=== PATIENT | male | born 1945 | race Caucasian/White ===

== ENCOUNTER 2019-11-23 09:07 | Outpatient (CLI) | payer MEDICARE, MEDICAID, SELFPAY ==
[2019-11-23 09:41] LABS: Basophils % 0.7 %; Eosinophils # 0.2 10^3/uL (0.0-0.8); Eosinophils % 3.7 %; Hematocrit 32.3 % (42.0-52.0); Hemoglobin 10.6 g/dL (11.7-16.6); Lymphocytes # 1.9 10^3/uL (0.8-4.8); Lymphocytes % 32.4 %; Mean Corpuscular HGB Conc 32.8 g/dL (30.0-36.0); Mean Corpuscular Volume 97.6 fL (80-94); Mean Platelet Volume 10.4 fL (7.4-10.4); Monocytes # 0.4 10^3/uL (0.2-0.9); Monocytes % 7.4 %; Neutrophils # 3.3 10^3/uL (1.8-7.7); Neutrophils % 55.3 %; Nucleated Red Blood Cells % 0 %; Platelet Count 289 10^3/cmm (130-400); Red Blood Count 3.31 10^6/uL (4.1-5.3); White Blood Count 5.9 10^3/uL (4.0-10.0)
--- NOTE | 2019-11-23 14:16 | ONC FU_ITS ---
Dr. Nguyen follow up note Patient: Seferino Barbosa Unit #: [id number]: 1945 Dicatated By: Rio Nguyen M.D.Date of Visit:Nov 23, 2019 Onc Med Follow-up/Prog Note History of Present Illness: Mr. Chelsey Gentile, 74-year-old gentleman with history of anemia in the past he was treated with oral iron many years ago but that turned his stool black colored, so he quit taking it. As per patient first-time he heard about his anemia was long time back, he said he used to donate plasma and one time he was informed about low blood counts. He has history of colon polyps for which he has undergone colonoscopy 4 times and last one was in October 2016 and polyp was removed otherwise rest of the exam was normal. Before that it was 4 years ago. Never had EGD done his CBC from 12/27/2016 showed hemoglobin 9.7 crit 30.1 platelets 480,000 white blood count 7.6 with normal differential CBC from 06/03/2017 showed hemoglobin 10.4 crit 31.9 platelets 288,000 white blood count 7.1 with a normal differential Injectafer was given on 01/28/2018 And on 04/17/2019 and 04/24/2019 And on 10/20/2019 Came for follow-up, denies any specific complaints, no fever or chills, no nausea or vomiting, no melena hematochezia, no jaundice, overall feeling better after dose of Injectafer. . Medications: Lisinopril 1 Tablet (of 10 mg) Oral daily, Melatonin 1 Tablet (of 40 mg) Capsule Oral at bedtime, SEROquel 1 Tablet (of 200 mg) Oral at bedtime Allergies: No Known Allergies. Review of Systems: Review of Systems is not available for this patient. Vital Signs: Performed on Nov 23, 2019 10:16 Height - 72.00 in Weight - 181.4 lbs (HIGH) BSA - 2.04 sq.m BMI - 24.60 Temperature - 97.6 F (LOW) Pulse - 72 /min Respiration - 16 /min BP - 176/90 mm(hg) (HIGH) O2 Sat - 98 % Pain - 5 Performance Status: 1 - No physically strenuous activity, but ambulatory and able to carry out light or sedentary work (e.g. office work, light house work). (ECOG) Physical Examination: ENMT - No oral exudates, ulcers, masses, thrush or mucositis. Oropharynx clear. Tongue normal, Respiratory - Lungs are clear to auscultation without rhonchi or wheezing, Cardiovascular - Regular rate and rhythm of heart, Abdomen - Non-tender, non-distended, Good bowel sounds. No guarding or rebound tenderness. No pulsatile masses, Extremities - no edema. Lab/Imaging: Test performed on Nov 23, 2019 09:17 WBC 5.9 10^9/L RBC 3.31 10^12/L HGB 10.6 g/dL HCT 32.3 % MCV 97.6 fl MCH 32.0 pg MCHC 32.8 g/dL RDW 14.0 % Platelet Count 289 10^9/L MPV 10.4 fL Neutrophils (Gran) 3.3 10^9/L Lymphocytes 1.9 10^9/L Monocytes 0.4 10^9/L Eosinophils 0.2 10^9/L Basophils 0.0 10^9/L Manual Lymphocytes 32.4 % Manual Monocytes 7.4 % Manual Eosinophils 3.7 % Manual Basophils 0.7 % NRBCs 0.0 /100 WBC Test performed on Oct 14, 2019 13:32 Ferritin 278.0 ng/ml Iron 51 ug/dL % Iron Saturation 18.2 % UIBC 229 ug/dL Neutrophil % 67.8 % Lymphocyte % 20.9 % Monocyte % 6.5 % Eosinophil % 3.7 % Basophils % 0.6 % Impression: 1. Normocytic normochromic anemia probably multifactorial including iron deficiency ( low ferritin) and/or underlying myelodysplasia cannot be ruled out or chronic blood loss probably from small bowel AVMs or gastric pathology or iron malabsorption. Anemia workup done on 06/03/2017 showed retic count 1.53 normal being 0.7-2.5 ferritin 27 normal being 30-400 TIBC 370 normal being 250-425 B12 416 normal being 211 -946 His iron studies done on 08/15/2017 showed TIBC gone up to 466.4 and ferritin came down to 26.9 while on oral iron supplements. 2. History of colon polyps removal status post colonoscopy ???4, last one in October 19 Last dose of Injectafer was given on 01/28/2018 Plan: Discussed with patient regarding his labs white blood count 5.9 hemoglobin 10.6 crit 32.3 platelets 289,000 Clinically, patient is doing well, more energetic, and follow-up CBC shows improvement in his hemoglobin 10.6 g compared to 10.1 prior to Injectafer given on 10/20/2019. Considering his age patient may have underlying myelodysplasia but patient has well compensated anemia and hemoglobin is improving so we'll continue to monitor return to clinic in 2 months with CBC and iron studies. Signed By: Rio Nguyen M.D. <<Signature on File>>
== END 2019-11-23 09:08 | disposition home or self-care (01) ==
LOC: ONCMED 09:07
PROVIDERS: Family Provider Internal Medicine; PCP Internal Medicine; Visit Provider Internal Medicine Hematology & Oncology
DX: D50.9 Iron deficiency anemia, unspecified (principal); Z86.010 Personal history of colon polyps
CPT/HCPCS: 85025; G0463

== ENCOUNTER 2020-04-06 13:02 | Outpatient (CLI) | payer MEDICARE, MEDICAID, SELFPAY ==
[2020-04-06 13:28] LABS: Basophils # 0.1 10^3/uL (0.0-0.1); Basophils % 0.9 %; Eosinophils # 0.2 10^3/uL (0.0-0.8); Hematocrit 30.9 % (42.0-52.0); Hemoglobin 10.2 g/dL (11.7-16.6); Lymphocytes # 2.7 10^3/uL (0.8-4.8); Lymphocytes % 29.1 %; Mean Corpuscular Hemoglobin 32.5 pg (28.0-34.0); Mean Corpuscular Volume 98.4 fL (80-94); Monocytes # 0.6 10^3/uL (0.2-0.9); Neutrophils # 5.7 10^3/uL (1.8-7.7); Neutrophils % 61.5 %; Nucleated Red Blood Cells % 0 %; Platelet Count 369 10^3/cmm (130-400); Red Blood Count 3.14 10^6/uL (4.1-5.3); White Blood Count 9.2 10^3/uL (4.0-10.0)
[2020-04-06 13:45] LABS: Ferritin 306 ng/mL (30-400); Iron 94 ug/dL (59-158); Percent Saturation 30.4 % (20-50); Total Iron Binding Capacity 309 mcg/dl; Unsaturated Iron Binding 215 ug/dL (112-347)
--- NOTE | 2020-04-06 15:11 | ONC FU_ITS ---
Dr. Nguyen follow up note Patient: Seferino Barbosa Unit #: [id number]: 1945 Dicatated By: Rio Nguyen M.D.Date of Visit:Apr 06, 2020 Onc Med Follow-up/Prog Note History of Present Illness: Mr. Chelsey Gentile, 74-year-old gentleman with history of anemia in the past he was treated with oral iron many years ago but that turned his stool black colored, so he quit taking it. As per patient first-time he heard about his anemia was long time back, he said he used to donate plasma and one time he was informed about low blood counts. He has history of colon polyps for which he has undergone colonoscopy 4 times and last one was in October 2016 and polyp was removed otherwise rest of the exam was normal. Before that it was 4 years ago. Never had EGD done his CBC from 12/27/2016 showed hemoglobin 9.7 crit 30.1 platelets 480,000 white blood count 7.6 with normal differential CBC from 06/03/2017 showed hemoglobin 10.4 crit 31.9 platelets 288,000 white blood count 7.1 with a normal differential Injectafer was given on 01/28/2018 And on 04/17/2019 and 04/24/2019 And on 10/20/2019 Came for follow-up, denies any specific complaints, no nausea or vomiting, no diarrhea or constipation, no melena or hematochezia, no jaundice, no hemoptysis or hematemesis, overall, feeling well . Medications: Lisinopril 1 Tablet (of 10 mg) Oral daily, Melatonin 1 Tablet (of 40 mg) Capsule Oral at bedtime, SEROquel 1 Tablet (of 200 mg) Oral at bedtime Allergies: No Known Allergies. Review of Systems: Review of Systems is not available for this patient. Vital Signs: Vitals are not available for this patient. Performance Status: 0 - Fully active, able to carry on all predisease activities without restrictions. (ECOG) Physical Examination: ENMT - no mouth sores, no thrush, no jaundice, Respiratory - Lungs are clear, Cardiovascular - Regular rate and rhythm of heart, Abdomen - soft, bowel sounds present, Extremities - no visible edema. Lab/Imaging: Test performed on Nov 23, 2019 09:17 WBC 5.9 10 3/uL RBC 3.31 10^12/L HGB 10.6 g/dL HCT 32.3 % MCV 97.6 fL MCH 32.0 pg MCHC 32.8 g/dL RDW 14.0 % Platelet Count 289 10 3/cmm MPV 10.4 fL Lymphocytes 1.9 10^9/L Neutrophils 0.0 10 3/uL Monocytes 0.4 10^9/L Eosinophils 0.2 10^9/L Basophils 0.0 10^9/L Neutrophil % 3.7 % Manual Lymphocytes 32.4 % Manual Monocytes 7.4 % Manual Eosinophils 3.7 % Manual Basophils 0.7 % NRBCs 0.0 /100 WBC Test performed on Oct 14, 2019 13:32 Ferritin 278.0 ng/ml Iron 51 ug/dL % Iron Saturation 18.2 % UIBC 229 ug/dL Lymphocyte % 20.9 % Monocyte % 6.5 % Eosinophil % 3.7 % Basophils % 0.6 % Impression: 1. Normocytic normochromic anemia probably multifactorial including iron deficiency ( low ferritin) and/or underlying myelodysplasia cannot be ruled out or chronic blood loss probably from small bowel AVMs or gastric pathology or iron malabsorption. Anemia workup done on 06/03/2017 showed retic count 1.53 normal being 0.7-2.5 ferritin 27 normal being 30-400 TIBC 370 normal being 250-425 B12 416 normal being 211 -946 His iron studies done on 08/15/2017 showed TIBC gone up to 466.4 and ferritin came down to 26.9 while on oral iron supplements. 2. History of colon polyps removal status post colonoscopy ???4, last one in October 19 Last dose of Injectafer was given on 01/28/2018 Plan: Discussed with patient regarding his labs white blood count 9.2 hemoglobin 10.2 hematocrit 30.9 platelets 369,000 iron studies within normal limits Clinically, patient is doing well with no new signs symptoms, his follow-up lab shows persistent but stable mild/moderate anemia but well compensated. His iron studies within normal range, we'll continue to monitor he will return to clinic in 3 months with CBC and iron studies and B12 level. Signed By: Rio Nguyen M.D. <<Signature on File>>
== END 2020-04-06 13:03 | disposition home or self-care (01) ==
LOC: ONCMED 13:05
PROVIDERS: PCP Internal Medicine; Visit Provider Internal Medicine Hematology & Oncology
DX: D50.9 Iron deficiency anemia, unspecified (principal); D46.9 Myelodysplastic syndrome, unspecified; E53.8 Deficiency of other specified B group vitamins
CPT/HCPCS: 82728; 83540; 83550; 85025; G0463

== ENCOUNTER 2021-01-31 15:59 | Inpatient (IN) | payer MEDICARE, MEDICAID, SELFPAY ==
[2021-01-31 16:01] VITALS: PULSE 91; RESP 18; TEMP 36.6; O2SAT 91; BMI 23.1
--- NOTE | 2021-01-31 16:32 | XR_ITS ---
WS: [id number] Portable AP upright chest, 01/31/2021 Clinical Data: dyspnea/cough Comparison: Portable chest, 08/01/2016. Findings: No nodules, masses or effusions are seen. The heart is normal. The pulmonary vascularity is not increased. No pneumonia or pneumothorax is seen. The aortic arch and descending aorta show tortu osity. XR/XR chest 1V portable [id number] Impression: Atherosclerosis.
--- NOTE | 2021-01-31 16:32 | ECG_ITS ---
[facility] Test Date: 2021-01-31 Pat Name: Seferino Barbosa Department: Room: Gender: Male [employer]: : 1945 Requested By: Ramiro Rodrigues Order Number: [id number] Reading MD: DEVEN MURDOCK Measurements Intervals [place] Rate: 72 P: 79 IA: 184 QRS: 71 QRSD: 88 T: 72 QT: 377 QTc: 415 Interpretive Statements SINUS RHYTHM Compared to ECG 08/01/2016 18:20:25 Sinus tachycardia no longer present Electronically Signed On 01-31-2021 20:16:35 CDT by DEVEN MURDOCK [id number]
--- NOTE | 2021-01-31 16:34 | ED_ITS ---
Documented by User: Ramiro Latham DO 02/06/21 08:31 HPI - Fall General: Chief Complaint: Fall Stated Complaint: FALL, LOC, VOMITING Time Seen by Provider: 01/31/21 15:59 History of Present Illness: HPI Narrative: 76-year-old male presents to the emergency room was complaint of a fall. He has a laceration above his right eye. He states he was sitting at a couch got lightheaded dizzy and fell he denies having any chest pain he had just been exerting himself. He denies taking any blood thinners. He has never previously had an episode like this before that he can recall. He is noted to be quite fidgety while I was taking history. He denies any alcohol or drug use. Patient has erratic irregular movements he appears to be under the influence of methamphetamine complaint: fall Onset (ago): minute(s) Fall from: standing Fall witnessed: yes, by family Place fall occurred: home Loss of consciousness: Unsure Prolonged down time: no Symptoms prior to fall: lightheadedness and dizziness Location of injury: head and face Severity: severe Quality: sharp Associated symptoms-after fall: Reports confusion, difficulty walking, lightheadedness, vertigo and weakness; Denies abdominal pain, chest pain, headache(s), hematuria, neck pain, numbness or short of breath Review of Systems Const: Denies: fever(s), chills, body aches, change in appetite, fatigue or malaise ENMT: Denies: throat pain, ear or mastoid pain, nasal discharge or nasal congestion Card: Reports: lightheadedness; Denies: chest pain Resp: Denies: dyspnea, productive cough or non-productive cough GI: Denies: abdominal pain : Denies: hematuria Musc: Denies: neck pain Skin/Breast: Denies: rash or pruritus Neuro: Reports: difficulty walking, vertigo and confusion; Denies: headache(s) PFSH ED PFSH: Medical History Abnormal colonoscopy Polyps removed: Tubular adenoma Anemia BPH (benign prostatic hyperplasia) COPD (chronic obstructive pulmonary disease) Erectile dysfunction Gout Hip osteoarthritis Hypertension Insomnia Thoracic outlet syndrome Bilateral cervical rib removed Surgical History H/O knee surgery History of appendectomy History of right hip replacement Family History Father Diabetes Denies family history of CAD (coronary artery disease) Social History Smoking and tobacco status: former smoker Alcohol intake: current Alcohol intake frequency: holidays/special occasions only Substance/Drug Use: current Substance/Drug use type: Marijuana and Methamphetamine Physical Exam Const: COMMON NORMALS: no acute distress GENERAL APPEARANCE: cooperative and comfortable HENMT: COMMON NORMALS: normocephalic, atraumatic, hearing grossly normal bilat erally, external ears normal, EAC's normal, TM's normal bilaterally, Normal nasal mucous membranes and turbinates present, moist oral mucous membranes and oropharynx normal HEAD & SCALP: normocephalic and atraumatic NOSE: Normal nasal mucous membranes and turbinates present EXTERNAL EAR: Yes external ears normal EXTERNAL AUDITORY CANAL: EAC's normal TYMPANIC MEMBRANE: TM's normal bilaterally Neck/C-Spine: COMMON NORMALS: full ROM, no lymphadenopathy, supple and no JVD Resp: COMMON NORMALS: normal respiratory effort, No retractions, No use of accessory muscles and clear to auscultation bilaterally AUSCULTATION: clear to auscultation bilaterally Cardio: COMMON NORMALS: no JVD, regular rate, regular rhythm and No murmurs present (Cardio) RATE: regular rate RHYTHM: regular rhythm GI: COMMON NORMALS: Soft to palpation and No hepatosplenomegaly present AUSCULTATION: Yes normoactive bowel sounds PALPATION: Yes Soft to palpation, No Tenderness to palpation present (GI), No Guarding due to palpation present (GI) and Yes No hepatosplenomegaly present Extremity: COMMON NORMALS: normal to inspection, capillary refill normal, no clubbing, cyanosis or edema, no calf tenderness and no pedal edema Skin: COMMON NORMALS: no rashes or lesions noted GENERAL SKIN EXAM: no rashes or lesions noted Course Vital Signs: Vital signs: Vital Signs Temperature 97.6 F 02/02/21 10:18 Pulse Rate 90 02/02/21 10:18 Respiratory Rate 18 02/02/21 10:18 Blood Pressure 109/83 02/02/21 10:18 Pulse Oximetry 98 02/02/21 10:18 MDM - Fall MDM Narrative: Medical decision making narrative: Patient has erratic behavior. He is disoriented. Advanced imaging pending. Care turned over to Dr. Orlando at change of shift laceration repaired by midlevel see their note. Lab Data: Labs: Lab Results 01/31/21 01/31/21 01/31/21 Range/Units 16:08 16:08 16:08 WBC 17.8 H (4.0-10.0) 10^3/ uL RBC 3.43 L (4.1-5.3) 10^6/u L Hgb 10.6 L (11.7-16.6) g/dL Hct 31.7 L (42.0-52.0) % MCV 92.4 (80-94) fL MCH 30.9 (28.0-34.0) pg MCHC 33.4 (30.0-36.0) g/dL RDW 13.9 (12.1-15.1) % Plt Count 577 H (130-400) 10^3/c mm MPV 10.3 (7.4-10.4) fL Neut % (Auto) 80.5 % Lymph % (Auto) 12.3 % Harding % (Auto) 5.9 % Eos % (Auto) 0.3 % Baso % (Auto) 0.3 % Neut # (Auto) 14.34 H (1.8-7.7) 10^3/u L Lymph # (Auto) 2.2 (0.8-4.8) 10^3/u L [place] # (Auto) 1.1 H (0.2-0.9) 10^3/u L Eos # (Auto) 0.1 (0.0-0.8) 10^3/u L Baso # (Auto) 0.1 (0.0-0.1) 10^3/u L Nucleated RBC % (a uto) 0 % Nucleated RBCs # 0.0 /100WBC Sodium 138 (136-145) mmol/L Potassium 4.1 (3.5-5.1) mmol/L Chloride 94 L (98-107) mmol/L Carbon Dioxide 29 (22-29) mmol/L Anion Gap 19.1 H (5-19) BUN 36 H (8-23) mg/dL Creatinine 2.0 H (0.7-1.2) mg/dL GFR Calculation Not Reportable Glucose 134 H (65-115) mg/dL POC Glucose (70-110) mg/dL Calculated Osmolal ity 296 H (285-295) mOsm/k g Calcium 10.1 (8.5-10.5) mg/dL Total Bilirubin 0.4 (0.15-1.2) mg/dL AST 20 (0-40) U/L ALT 13 (0-41) U/L Alkaline Phosphata se 84 (40-130) IU/L Creatine Kinase 281 (39-308) U/L Troponin T Baselin e 26 H (0-15) ng/L Troponin T 120 Min absentee-[place] (0-15) ng/L Delta Troponin T (0-10) ABS# Troponin T Hi Sens 6Hr (0-15) ng/L Troponin T Hi Sens 6Hr Delta (0-12) ng/L Total Protein 7.9 (6.6-8.7) g/dL Albumin 4.7 (3.5-5.2) g/dL Globulin 3.2 (1.3-4.6) g/dL Vitamin B12 (232-1245) pg/mL TSH (0.27-4.20) uIU/ mL Urine Color (Yellow) Urine Appearance (CLEAR) Urine pH (5-7) Ur Specific Gravit y (1.005-1.030) Urine Protein (Negative) Urine Glucose (UA) (Normal) Urine Ketones (Negative) Urine Blood (Negative) Urine Nitrate (Negative) Urine Bilirubin (Negative) Urine Urobilinogen (Negative) mg/dL Ur Leukocyte [place] ase (Negative) Urine RBC (0-2) /hpf Urine WBC (0-5) /hpf Ur Squamous Epith Cells (0-5) /hpf Amorphous Sediment Urine Bacteria (NONE) /hpf Hyaline Casts /lpf Urine Opiates Scre en (Negative) ng/mL Ur Barbiturates Sc reen (Negative) ng/mL Ur Phencyclidine S crn (Negative) ng/mL Ur Amphetamines Sc reen (Negative) ng/mL U Benzodiazepines Scrn (Negative) ng/mL Urine Cocaine Scre en (Negative) ng/mL U Marijuana (THC) Screen (Negative) ng/mL Ethyl Alcohol < 10 (0-10) mg/dL 01/31/21 01/31/21 01/31/21 Range/Units 18:08 18:08 18:11 WBC (4.0-10.0) 10^3/ uL RBC (4.1-5.3) 10^6/u L Hgb (11.7-16.6) g/dL Hct (42.0-52.0) % MCV (80-94) fL MCH (28.0-34.0) pg MCHC (30.0-36.0) g/dL RDW (12.1-15.1) % Plt Count (130-400) 10^3/c mm MPV (7.4-10.4) fL Neut % (Auto) % Lymph % (Auto) % [place] % (Auto) % Eos % (Auto) % Baso % (Auto) % Neut # (Auto) (1.8-7.7) 10^3/u L Lymph # (Auto) (0.8-4.8) 10^3/u L [place] # (Auto) (0.2-0.9) 10^3/u L Eos # (Auto) (0.0-0.8) 10^3/u L Baso # (Auto) (0.0-0.1) 10^3/u L Nucleated RBC % (a uto) % Nucleated RBCs # /100WBC Sodium (136-145) mmol/L Potassium (3.5-5.1) mmol/L Chloride (98-107) mmol/L Carbon Dioxide (22-29) mmol/L Anion Gap (5-19) BUN (8-23) mg/dL Creatinine (0.7-1.2) mg/dL GFR Calculation Glucose (65-115) mg/dL POC Glucose (70-110) mg/dL Calculated Osmolal ity (285-295) mOsm/k g Calcium (8.5-10.5) mg/dL Total Bilirubin (0.15-1.2) mg/dL AST (0-40) U/L ALT (0-41) U/L Alkaline Phosphata se (40-130) IU/L Creatine Kinase (39-308) U/L Troponin T Baselin e (0-15) ng/L Troponin T 120 Min absentee-[place]nee 21.68 H (0-15) ng/L Delta Troponin T -4.32 L (0-10) ABS# Troponin T Hi Sens 6Hr (0-15) ng/L Troponin T Hi Sens 6Hr Delta (0-12) ng/L Total Protein (6.6-8.7) g/dL Albumin (3.5-5.2) g/dL Globulin (1.3-4.6) g/dL Vitamin B12 (232-1245) pg/mL TSH (0.27-4.20) uIU/ mL Urine Color Yellow (Yellow) Urine Appearance Clear (CLEAR) Urine pH 6 (5-7) Ur Specific Gravit y 1.020 (1.005-1.030) Urine Protein 1+ H (Negative) Urine Glucose (UA) Norm (Normal) Urine Ketones 1+ H (Negative) Urine Blood Neg (Negative) Urine Nitrate Negative (Negative) Urine Bilirubin Neg (Negative) Urine Urobilinogen Norm (Negative) mg/dL Ur Leukocyte [place] ase Negative (Negative) Urine RBC 0-4 H (0-2) /hpf Urine WBC 0-4 H (0-5) /hpf Ur Squamous Epith Cells 0-4 H (0-5) /hpf Amorphous Sediment Not Reportable Urine Bacteria Trace (NONE) /hpf Hyaline Casts 0-4 H /lpf Urine Opiates Scre en Negative (Negative) ng/mL Ur Barbiturates Sc reen Negative (Negative) ng/mL Ur Phencyclidine S crn Negative (Negative) ng/mL Ur Amphetamines Sc reen Positive H (Negative) ng/mL U Benzodiazepines Scrn Negative (Negative) ng/mL Urine Cocaine Scre en Negative (Negative) ng/mL U Marijuana (THC) Screen Positive H (Negative) ng/mL Ethyl Alcohol (0-10) mg/dL 01/31/21 01/31/21 02/01/21 Range/Units 22:09 22:09 04:47 WBC 16.6 H (4.0-10.0) 10^3/ uL RBC 3.46 L (4.1-5.3) 10^6/u L Hgb 10.5 L (11.7-16.6) g/dL Hct 31.9 L (42.0-52.0) % MCV 92.2 (80-94) fL MCH 30.3 (28.0-34.0) pg MCHC 32.9 (30.0-36.0) g/dL RDW 14.0 (12.1-15.1) % Plt Count 445 H (130-400) 10^3/c mm MPV 10.2 (7.4-10.4) fL Neut % (Auto) 86.1 % Lymph % (Auto) 7.8 % Harding % (Auto) 5.1 % Eos % (Auto) 0.1 % Baso % (Auto) 0.4 % Neut # (Auto) 14.28 H (1.8-7.7) 10^3/u L Lymph # (Auto) 1.3 (0.8-4.8) 10^3/u L [place] # (Auto) 0.9 (0.2-0.9) 10^3/u L Eos # (Auto) 0.0 (0.0-0.8) 10^3/u L Baso # (Auto) 0.1 (0.0-0.1) 10^3/u L Nucleated RBC % (a uto) 0 % Nucleated RBCs # 0.0 /100WBC Sodium (136-145) mmol/L Potassium (3.5-5.1) mmol/L Chloride (98-107) mmol/L Carbon Dioxide (22-29) mmol/L Anion Gap (5-19) BUN (8-23) mg/dL Creatinine (0.7-1.2) mg/dL GFR Calculation Glucose (65-115) mg/dL POC Glucose (70-110) mg/dL Calculated Osmolal ity (285-295) mOsm/k g Calcium (8.5-10.5) mg/dL Total Bilirubin (0.15-1.2) mg/dL AST (0-40) U/L ALT (0-41) U/L Alkaline Phosphata se (40-130) IU/L Creatine Kinase (39-308) U/L Troponin T Baselin e (0-15) ng/L Troponin T 120 Min absentee-[place] (0-15) ng/L Delta Troponin T (0-10) ABS# Troponin T Hi Sens 6Hr 22.48 H (0-15) ng/L Troponin T Hi Sens 6Hr Delta -3.52 L (0-12) ng/L Total Protein (6.6-8.7) g/dL Albumin (3.5-5.2) g/dL Globulin (1.3-4.6) g/dL Vitamin B12 (232-1245) pg/mL TSH (0.27-4.20) uIU/ mL Urine Color (Yellow) Urine Appearance (CLEAR) Urine pH (5-7) Ur Specific Gravit y (1.005-1.030) Urine Protein (Negative) Urine Glucose (UA) (Normal) Urine Ketones (Negative) Urine Blood (Negative) Urine Nitrate (Negative) Urine Bilirubin (Negative) Urine Urobilinogen (Negative) mg/dL Ur Leukocyte [place] ase (Negative) Urine RBC (0-2) /hpf Urine WBC (0-5) /hpf Ur Squamous Epith Cells (0-5) /hpf Amorphous Sediment Urine Bacteria (NONE) /hpf Hyaline Casts /lpf Urine Opiates Scre en (Negative) ng/mL Ur Barbiturates Sc reen (Negative) ng/mL Ur Phencyclidine S crn (Negative) ng/mL Ur Amphetamines Sc reen (Negative) ng/mL U Benzodiazepines Scrn (Negative) ng/mL Urine Cocaine Scre en (Negative) ng/mL U Marijuana (THC) Screen (Negative) ng/mL Ethyl Alcohol < 10 (0-10) mg/dL 02/01/21 02/01/21 02/01/21 Range/Units 04:47 04:47 06:46 WBC (4.0-10.0) 10^3/ uL RBC (4.1-5.3) 10^6/u L Hgb (11.7-16.6) g/dL Hct (42.0-52.0) % MCV (80-94) fL MCH (28.0-34.0) pg MCHC (30.0-36.0) g/dL RDW (12.1-15.1) % Plt Count (130-400) 10^3/c mm MPV (7.4-10.4) fL Neut % (Auto) % Lymph % (Auto) % Harding % (Auto) % Eos % (Auto) % Baso % (Auto) % Neut # (Auto) (1.8-7.7) 10^3/u L Lymph # (Auto) (0.8-4.8) 10^3/u L [place] # (Auto) (0.2-0.9) 10^3/u L Eos # (Auto) (0.0-0.8) 10^3/u L Baso # (Auto) (0.0-0.1) 10^3/u L Nucleated RBC % (a uto) % Nucleated RBCs # /100WBC Sodium 140 (136-145) mmol/L Potassium 4.6 (3.5-5.1) mmol/L Chloride 97 L (98-107) mmol/L Carbon Dioxide 32 H (22-29) mmol/L Anion Gap 15.6 (5-19) BUN 36 H (8-23) mg/dL Creatinine 1.6 H (0.7-1.2) mg/dL GFR Calculation Not Reportable Glucose 110 (65-115) mg/dL POC Glucose 110 (70-110) mg/dL Calculated Osmolal ity 299 H (285-295) mOsm/k g Calcium 10.0 (8.5-10.5) mg/dL Total Bilirubin (0.15-1.2) mg/dL AST (0-40) U/L ALT (0-41) U/L Alkaline Phosphata se (40-130) IU/L Creatine Kinase (39-308) U/L Troponin T Baselin e (0-15) ng/L Troponin T 120 Min absentee-[place] (0-15) ng/L Delta Troponin T (0-10) ABS# Troponin T Hi Sens 6Hr (0-15) ng/L Troponin T Hi Sens 6Hr Delta (0-12) ng/L Total Protein (6.6-8.7) g/dL Albumin (3.5-5.2) g/dL Globulin (1.3-4.6) g/dL Vitamin B12 > 2000 H (232-1245) pg/mL TSH 2.87 (0.27-4.20) uIU/ mL Urine Color (Yellow) Urine Appearance (CLEAR) Urine pH (5-7) Ur Specific Gravit y (1.005-1.030) Urine Protein (Negative) Urine Glucose (UA) (Normal) Urine Ketones (Negative) Urine Blood (Negative) Urine Nitrate (Negative) Urine Bilirubin (Negative) Urine Urobilinogen (Negative) mg/dL Ur Leukocyte [place] ase (Negative) Urine RBC (0-2) /hpf Urine WBC (0-5) /hpf Ur Squamous Epith Cells (0-5) /hpf Amorphous Sediment Urine Bacteria (NONE) /hpf Hyaline Casts /lpf Urine Opiates Scre en (Negative) ng/mL Ur Barbiturates Sc reen (Negative) ng/mL Ur Phencyclidine S crn (Negative) ng/mL Ur Amphetamines Sc reen (Negative) ng/mL U Benzodiazepines Scrn (Negative) ng/mL Urine Cocaine Scre en (Negative) ng/mL U Marijuana (THC) Screen (Negative) ng/mL Ethyl Alcohol (0-10) mg/dL Discharge Plan Discharge Patient Disposition: Admitted As Inpatient Admit Provider: Haider Camp Clinical Impression: Altered mental status, Methamphetamine abuse, Fall Condition: Stable Discharge Activity: Increase activity as tolerated Coding Level of Care Code 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 [employer] Fwd Documented by User: Mirian Orlando MD 01/31/21 19:16 HPI - Fall General: Chief Complaint: Fall Stated Complaint: FALL, LOC, VOMITING Time Seen by Provider: 01/31/21 15:59 PFSH ED PFSH: Medical History Abnormal colonoscopy Polyps removed: Tubular adenoma Anemia BPH (benign prostatic hyperplasia) COPD (chronic obstructive pulmonary disease) Erectile dysfunction Gout Hip osteoarthritis Hypertension Insomnia Thoracic outlet syndrome Bilateral cervical rib removed Surgical History H/O knee surgery History of appendectomy History of right hip replacement Family History Father Diabetes Denies family history of CAD (coronary artery disease) Social History Smoking and tobacco status: former smoker Alcohol intake: current Alcohol intake frequency: holidays/special occasions only Substance/Drug Use: current Substance/Drug use type: Marijuana and Methamphetamine Course Vital Signs: Vital signs: Vital Signs Temperature 97.6 F 02/02/21 10:18 Pulse Rate 90 02/02/21 10:18 Respiratory Rate 18 02/02/21 10:18 Blood Pressure 109/83 02/02/21 10:18 Pulse Oximetry 98 02/02/21 10:18 MDM - Fall MDM Narrative: Medical decision making narrative: Patient presents with altered mental status along with a fall. He has been doing marijuana along with methamphetamine. He is agitated here and I did have a give him Ativan to sedate him. He has no signs of meningitis. I spoke to hospitalist will admit for his altered mental status likely caused from his drug use. Lab Data: Labs: Lab Results 01/31/21 01/31/21 01/31/21 Range/Units 16:08 16:08 16:08 WBC 17.8 H (4.0-10.0) 10^3/ uL RBC 3.43 L (4.1-5.3) 10^6/u L Hgb 10.6 L (11.7-16.6) g/dL Hct 31.7 L (42.0-52.0) % MCV 92.4 (80-94) fL MCH 30.9 (28.0-34.0) pg MCHC 33.4 (30.0-36.0) g/dL RDW 13.9 (12.1-15.1) % Plt Count 577 H (130-400) 10^3/c mm MPV 10.3 (7.4-10.4) fL Neut % (Auto) 80.5 % Lymph % (Auto) 12.3 % Hard[place] % (Auto) 5.9 % Eos % (Auto) 0.3 % Baso % (Auto) 0.3 % Neut # (Auto) 14.34 H (1.8-7.7) 10^3/u L Lymph # (Auto) 2.2 (0.8-4.8) 10^3/u L [place] # (Auto) 1.1 H (0.2-0.9) 10^3/u L Eos # (Auto) 0.1 (0.0-0.8) 10^3/u L Baso # (Auto) 0.1 (0.0-0.1) 10^3/u L Nucleated RBC % (a uto) 0 % Nucleated RBCs # 0.0 /100WBC Sodium 138 (136-145) mmol/L Potassium 4.1 (3.5-5.1) mmol/L Chloride 94 L (98-107) mmol/L Carbon Dioxide 29 (22-29) mmol/L Anion Gap 19.1 H (5-19) BUN 36 H (8-23) mg/dL Creatinine 2.0 H (0.7-1.2) mg/dL GFR Calculation Not Reportable Glucose 134 H (65-115) mg/dL POC Glucose (70-110) mg/dL Calculated Osmolal ity 296 H (285-295) mOsm/k g Calcium 10.1 (8.5-10.5) mg/dL Total Bilirubin 0.4 (0.15-1.2) mg/dL AST 20 (0-40) U/L ALT 13 (0-41) U/L Alkaline Phosphata se 84 (40-130) IU/L Creatine Kinase 281 (39-308) U/L Troponin T Baselin e 26 H (0-15) ng/L Troponin T 120 Min absentee-[place] (0-15) ng/L Delta Troponin T (0-10) ABS# Troponin T Hi Sens 6Hr (0-15) ng/L Troponin T Hi Sens 6Hr Delta (0-12) ng/L Total Protein 7.9 (6.6-8.7) g/dL Albumin 4.7 (3.5-5.2) g/dL Globulin 3.2 (1.3-4.6) g/dL Vitamin B12 (232-1245) pg/mL TSH (0.27-4.20) uIU/ mL Urine Color (Yellow) Urine Appearance (CLEAR) Urine pH (5-7) Ur Specific Gravit y (1.005-1.030) Urine Protein (Negative) Urine Glucose (UA) (Normal) Urine Ketones (Negative) Urine Blood (Negative) Urine Nitrate (Negative) Urine Bilirubin (Negative) Urine Urobilinogen (Negative) mg/dL Ur Leukocyte [place] ase (Negative) Urine RBC (0-2) /hpf Urine WBC (0-5) /hpf Ur Squamous Epith Cells (0-5) /hpf Amorphous Sediment Urine Bacteria (NONE) /hpf Hyaline Casts /lpf Urine Opiates Scre en (Negative) ng/mL Ur Barbiturates Sc reen (Negative) ng/mL Ur Phencyclidine S crn (Negative) ng/mL Ur Amphetamines Sc reen (Negative) ng/mL U Benzodiazepines Scrn (Negative) ng/mL Urine Cocaine Scre en (Negative) ng/mL U Marijuana (THC) Screen (Negative) ng/mL Ethyl Alcohol < 10 (0-10) mg/dL 01/31/21 01/31/21 01/31/21 Range/Units 18:08 18:08 18:11 WBC (4.0-10.0) 10^3/ uL RBC (4.1-5.3) 10^6/u L Hgb (11.7-16.6) g/dL Hct (42.0-52.0) % MCV (80-94) fL MCH (28.0-34.0) pg MCHC (30.0-36.0) g/dL RDW (12.1-15.1) % Plt Count (130-400) 10^3/c mm MPV (7.4-10.4) fL Neut % (Auto) % Lymph % (Auto) % [place] % (Auto) % Eos % (Auto) % Baso % (Auto) % Neut # (Auto) (1.8-7.7) 10^3/u L Lymph # (Auto) (0.8-4.8) 10^3/u L [place] # (Auto) (0.2-0.9) 10^3/u L Eos # (Auto) (0.0-0.8) 10^3/u L Baso # (Auto) (0.0-0.1) 10^3/u L Nucleated RBC % (a uto) % Nucleated RBCs # /100WBC Sodium (136-145) mmol/L Potassium (3.5-5.1) mmol/L Chloride (98-107) mmol/L Carbon Dioxide (22-29) mmol/L Anion Gap (5-19) BUN (8-23) mg/dL Creatinine (0.7-1.2) mg/dL GFR Calculation Glucose (65-115) mg/dL POC Glucose (70-110) mg/dL Calculated Osmolal ity (285-295) mOsm/k g Calcium (8.5-10.5) mg/dL Total Bilirubin (0.15-1.2) mg/dL AST (0-40) U/L ALT (0-41) U/L Alkaline Phosphata se (40-130) IU/L Creatine Kinase (39-308) U/L Troponin T Baselin e (0-15) ng/L Troponin T 120 Min absentee-[place] 21.68 H (0-15) ng/L Delta Troponin T -4.32 L (0-10) ABS# Troponin T Hi Sens 6Hr (0-15) ng/L Troponin T Hi Sens 6Hr Delta (0-12) ng/L Total Protein (6.6-8.7) g/dL Albumin (3.5-5.2) g/dL Globulin (1.3-4.6) g/dL Vitamin B12 (232-1245) pg/mL TSH (0.27-4.20) uIU/ mL Urine Color Yellow (Yellow) Urine Appearance Clear (CLEAR) Urine pH 6 (5-7) Ur Specific Gravit y 1.020 (1.005-1.030) Urine Protein 1+ H (Negative) Urine Glucose (UA) Norm (Normal) Urine Ketones 1+ H (Negative) Urine Blood Neg (Negative) Urine Nitrate Negative (Negative) Urine Bilirubin Neg (Negative) Urine Urobilinogen Norm (Negative) mg/dL Ur Leukocyte [place] ase Negative (Negative) Urine RBC 0-4 H (0-2) /hpf Urine WBC 0-4 H (0-5) /hpf Ur Squamous Epith Cells 0-4 H (0-5) /hpf Amorphous Sediment Not Reportable Urine Bacteria Trace (NONE) /hpf Hyaline Casts 0-4 H /lpf Urine Opiates Scre en Negative (Negative) ng/mL Ur Barbiturates Sc reen Negative (Negative) ng/mL Ur Phencyclidine S crn Negative (Negative) ng/mL Ur Amphetamines Sc reen Positive H (Negative) ng/mL U Benzodiazepines Scrn Negative (Negative) ng/mL Urine Cocaine Scre en Negative (Negative) ng/mL U Marijuana (THC) Screen Positive H (Negative) ng/mL Ethyl Alcohol (0-10) mg/dL 01/31/21 01/31/21 02/01/21 Range/Units 22:09 22:09 04:47 WBC 16.6 H (4.0-10.0) 10^3/ uL RBC 3.46 L (4.1-5.3) 10^6/u L Hgb 10.5 L (11.7-16.6) g/dL Hct 31.9 L (42.0-52.0) % MCV 92.2 (80-94) fL MCH 30.3 (28.0-34.0) pg MCHC 32.9 (30.0-36.0) g/dL RDW 14.0 (12.1-15.1) % Plt Count 445 H (130-400) 10^3/c mm MPV 10.2 (7.4-10.4) fL Neut % (Auto) 86.1 % Lymph % (Auto) 7.8 % [place] % (Auto) 5.1 % Eos % (Auto) 0.1 % Baso % (Auto) 0.4 % Neut # (Auto) 14.28 H (1.8-7.7) 10^3/u L Lymph # (Auto) 1.3 (0.8-4.8) 10^3/u L [place] # (Auto) 0.9 (0.2-0.9) 10^3/u L Eos # (Auto) 0.0 (0.0-0.8) 10^3/u L Baso # (Auto) 0.1 (0.0-0.1) 10^3/u L Nucleated RBC % (a uto) 0 % Nucleated RBCs # 0.0 /100WBC Sodium (136-145) mmol/L Potassium (3.5-5.1) mmol/L Chloride (98-107) mmol/L Carbon Dioxide (22-29) mmol/L Anion Gap (5-19) BUN (8-23) mg/dL Creatinine (0.7-1.2) mg/dL GFR Calculation Glucose (65-115) mg/dL POC Glucose (70-110) mg/dL Calculated Osmolal ity (285-295) mOsm/k g Calcium (8.5-10.5) mg/dL Total Bilirubin (0.15-1.2) mg/dL AST (0-40) U/L ALT (0-41) U/L Alkaline Phosphata se (40-130) IU/L Creatine Kinase (39-308) U/L Troponin T Baselin e (0-15) ng/L Troponin T 120 Min absentee-[place] (0-15) ng/L Delta Troponin T (0-10) ABS# Troponin T Hi Sens 6Hr 22.48 H (0-15) ng/L Troponin T Hi Sens 6Hr Delta -3.52 L (0-12) ng/L Total Protein (6.6-8.7) g/dL Albumin (3.5-5.2) g/dL Globulin (1.3-4.6) g/dL Vitamin B12 (232-1245) pg/mL TSH (0.27-4.20) uIU/ mL Urine Color (Yellow) Urine Appearance (CLEAR) Urine pH (5-7) Ur Specific Gravit y (1.005-1.030) Urine Protein (Negative) Urine Glucose (UA) (Normal) Urine Ketones (Negative) Urine Blood (Negative) Urine Nitrate (Negative) Urine Bilirubin (Negative) Urine Urobilinogen (Negative) mg/dL Ur Leukocyte [place] ase (Negative) Urine RBC (0-2) /hpf Urine WBC (0-5) /hpf Ur Squamous Epith Cells (0-5) /hpf Amorphous Sediment Urine Bacteria (NONE) /hpf Hyaline Casts /lpf Urine Opiates Scre en (Negative) ng/mL Ur Barbiturates Sc reen (Negative) ng/mL Ur Phencyclidine S crn (Negative) ng/mL Ur Amphetamines Sc reen (Negative) ng/mL U Benzodiazepines Scrn (Negative) ng/mL Urine Cocaine Scre en (Negative) ng/mL U Marijuana (THC) Screen (Negative) ng/mL Ethyl Alcohol < 10 (0-10) mg/dL 02/01/21 02/01/21 02/01/21 Range/Units 04:47 04:47 06:46 WBC (4.0-10.0) 10^3/ uL RBC (4.1-5.3) 10^6/u L Hgb (11.7-16.6) g/dL Hct (42.0-52.0) % MCV (80-94) fL MCH (28.0-34.0) pg MCHC (30.0-36.0) g/dL RDW (12.1-15.1) % Plt Count (130-400) 10^3/c mm MPV (7.4-10.4) fL Neut % (Auto) % Lymph % (Auto) % [place] % (Auto) % Eos % (Auto) % Baso % (Auto) % Neut # (Auto) (1.8-7.7) 10^3/u L Lymph # (Auto) (0.8-4.8) 10^3/u L [place] # (Auto) (0.2-0.9) 10^3/u L Eos # (Auto) (0.0-0.8) 10^3/u L Baso # (Auto) (0.0-0.1) 10^3/u L Nucleated RBC % (a uto) % Nucleated RBCs # /100WBC Sodium 140 (136-145) mmol/L Potassium 4.6 (3.5-5.1) mmol/L Chloride 97 L (98-107) mmol/L Carbon Dioxide 32 H (22-29) mmol/L Anion Gap 15.6 (5-19) BUN 36 H (8-23) mg/dL Creatinine 1.6 H (0.7-1.2) mg/dL GFR Calculation Not Reportable Glucose 110 (65-115) mg/dL POC Glucose 110 (70-110) mg/dL Calculated Osmolal ity 299 H (285-295) mOsm/k g Calcium 10.0 (8.5-10.5) mg/dL Total Bilirubin (0.15-1.2) mg/dL AST (0-40) U/L ALT (0-41) U/L Alkaline Phosphata se (40-130) IU/L Creatine Kinase (39-308) U/L Troponin T Baselin e (0-15) ng/L Troponin T 120 Min absentee-[place] (0-15) ng/L Delta Troponin T (0-10) ABS# Troponin T Hi Sens 6Hr (0-15) ng/L Troponin T Hi Sens 6Hr Delta (0-12) ng/L Total Protein (6.6-8.7) g/dL Albumin (3.5-5.2) g/dL Globulin (1.3-4.6) g/dL Vitamin B12 > 2000 H (232-1245) pg/mL TSH 2.87 (0.27-4.20) uIU/ mL Urine Color (Yellow) Urine Appearance (CLEAR) Urine pH (5-7) Ur Specific Gravit y (1.005-1.030) Urine Protein (Negative) Urine Glucose (UA) (Normal) Urine Ketones (Negative) Urine Blood (Negative) Urine Nitrate (Negative) Urine Bilirubin (Negative) Urine Urobilinogen (Negative) mg/dL Ur Leukocyte [place] ase (Negative) Urine RBC (0-2) /hpf Urine WBC (0-5) /hpf Ur Squamous Epith Cells (0-5) /hpf Amorphous Sediment Urine Bacteria (NONE) /hpf Hyaline Casts /lpf Urine Opiates Scre en (Negative) ng/mL Ur Barbiturates Sc reen (Negative) ng/mL Ur Phencyclidine S crn (Negative) ng/mL Ur Amphetamines Sc reen (Negative) ng/mL U Benzodiazepines Scrn (Negative) ng/mL Urine Cocaine Scre en (Negative) ng/mL U Marijuana (THC) Screen (Negative) ng/mL Ethyl Alcohol (0-10) mg/dL Imaging Data^: CT Head: Radiologist's impression: [address] [address] [address] Scan Report Signed Patient: Seferino Barbosa Unit #: [id number] : 1945 Age/Sex: 76 / M ADM Date: 01/31/21 Loc: ER Room/Bed: Attending Dr: Ordering Provider/Ordering MD: Ramiro Latham DO Date of Service: 01/31/21 Procedure(s): CT head wo con* [id number] Accession Number(s): [id number] Report Number: [id number] PROCEDURE INFORMATION: Exam: CT Head Without Contrast Exam date and time: 01/31/2021 4:36 PM Age: 76 years old Clinical indication: Altered mental status/memory loss; Additional info: AMS TECHNIQUE: Imaging protocol: Computed tomography of the head without contrast. Total images: 217 Radiation optimization: All CT scans at this facility use at least one of these dose optimization techniques: automated exposure control; mA and/or kV adjustment per patient size (includes targeted exams where dose is matched to clinical indication); or iterative reconstruction. COMPARISON: No relevant prior studies available. RADIATION DOSE METRICS: Total DLP (mGy-cm): 1542.24 FINDINGS: Brain: No evidence of active or acute intracranial pathologic process, hemorrhage, or trauma. Cerebral and cerebellar atrophy with ventricular dilatation slightly greater than that anticipated for patient's chronological age. No generalized cerebral edema. No mass effect. No midline shift. Mild small vessel ischemic disease with senile periventricular leukomalacia. No dense MCA or insular ribbon sign. Cerebral ventricles: No ventriculomegaly. Bones/joints: Unremarkable. No acute fracture. Paranasal sinuses: Visualized sinuses are unremarkable. No fluid levels. Mastoid air cells: Visualized mastoid air cells are well aerated. Soft tissues: Small right frontal scalp contusion/hematoma with soft tissue emphysema. CT/CT head wo con* [id number] IMPRESSION: 1. No evidence of active or acute intracranial pathologic process, hemorrhage, or trauma. 2. Small right frontal scalp contusion/hematoma with soft tissue emphysema. Radiation Dose CTDIVOL = (mGy): DLP = 1542.24 (mGy-cm) CXR: Attestation: I personally reviewed and interpreted this imaging study as follows: My impression: no acute abnormality EKG Data^: EKG 1: Attestation: I personally reviewed and interpreted this EKG as follows: EKG interpretation date: 01/31/21 EKG interpretation time: 17:16 Interpretation: nsr hr [address] or t wave abnormalities qrs 88 qtc 402 Discharge Plan Discharge Patient Disposition: Admitted As Inpatient Admit Provider: Haider Camp Clinical Impression: Altered mental status, Methamphetamine abuse, Fall Condition: Stable Discharge Activity: Increase activity as tolerated Coding Level of Care Code 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 Madelyng Karina
[2021-01-31 16:47] LABS: Basophils # 0.1 10^3/uL (0.0-0.1); Basophils % 0.3 %; Eosinophils # 0.1 10^3/uL (0.0-0.8); Eosinophils % 0.3 %; Hematocrit 31.7 % (42.0-52.0); Hemoglobin 10.6 g/dL (11.7-16.6); Lymphocytes # 2.2 10^3/uL (0.8-4.8); Lymphocytes % 12.3 %; Mean Corpuscular HGB Conc 33.4 g/dL (30.0-36.0); Mean Corpuscular Hemoglobin 30.9 pg (28.0-34.0); Mean Corpuscular Volume 92.4 fL (80-94); Mean Platelet Volume 10.3 fL (7.4-10.4); Monocytes # 1.1 10^3/uL (0.2-0.9); Monocytes % 5.9 %; Neutrophils # 14.34 10^3/uL (1.8-7.7); Neutrophils % 80.5 %; Nucleated Red Blood Cells % 0 %; Platelet Count 577 10^3/cmm (130-400); Red Blood Count 3.43 10^6/uL (4.1-5.3); Red Cell Distribution Width 13.9 % (12.1-15.1); White Blood Count 17.8 10^3/uL (4.0-10.0)
[2021-01-31 16:55] LABS: Alanine Aminotransferase 13 U/L (0-41); Albumin Level 4.7 g/dL (3.5-5.2); Alkaline Phosphatase 84 IU/L (40-130); Anion Gap 19.1 (5-19); Aspartate Amino Transferase 20 U/L (0-40); Blood Urea Nitrogen 36 mg/dL (8-23); Calcium 10.1 mg/dL (8.5-10.5); Carbon Dioxide 29 mmol/L (22-29); Chloride 94 mmol/L (98-107); Creatine Phosphokinase 281 U/L (39-308); Globulin 3.2 g/dL (1.3-4.6); Glucose 134 mg/dL (65-115); Osmolality Calculated 296 mOsm/kg (285-295); Potassium 4.1 mmol/L (3.5-5.1); Sodium 138 mmol/L (136-145); Total Bilirubin 0.4 mg/dL (0.15-1.2); Total Protein 7.9 g/dL (6.6-8.7); Troponin(5th) Baseline 26 ng/L (0-15)
[2021-01-31 16:57] LABS: Alcohol Level < 10 mg/dL (0-10)
[2021-01-31] MEDS: LORazepam 2 mg/mL INJ 1 mL 1 MG IVP ×2 (17:49→20:06)
[2021-01-31] MEDS: ondansetron 2 mg/ML SDV 2 mL 4 MG IVP (17:49)
[2021-01-31] MEDS: tetanus-diphtheria tox (adult) 0.5 mL SDV IM (17:50)
[2021-01-31 18:24] LABS: Amphetamines Screen Urine Positive (Negative); Barbiturates Screen Urine Negative (Negative); Benzodiazepines Screen Urine Negative (Negative); Cocaine Screen Urine Negative (Negative); Opiate Screen Urine Negative (Negative); PCP Screen Urine Negative (Negative); THC Screen Urine Positive (Negative)
[2021-01-31 18:28] LABS: Add Urine Microscopic? YES; Bacteria Urine TRACE /hpf; Bilirubin Urine Neg (Negative); Blood Urine Neg (Negative); Glucose Urine UA Norm (Normal); Hyaline Casts Urine 0-4 /lpf; Ketones Urine 1+ (Negative); Leukocyte Esterase Urine Negative (Negative); Nitrate Urine Negative (Negative); Protein Urine 1+ (Negative); RBC Urine 0-4 /hpf (0-2); Squamous Epithelial Cell Urine 0-4 /hpf (0-5); Urine Appearance Clear (CLEAR); Urine Color Yellow (Yellow); Urobilinogen Urine Norm (Negative); WBC Urine 0-4 /hpf (0-5); pH Urine 6 (5-7)
--- NOTE | 2021-01-31 18:32 | ECG_ITS ---
[facility] Test Date: 2021-01-31 Pat Name: Seferino Barbosa Department: Room: Gender: Male Closing Manager: : 1945 Requested By: Ramiro Rodrigues Order Number: [id number] Reading MD: DEVEN MURODCK Measurements Intervals [place] Rate: 70 P: 79 [place]: 196 QRS: 73 QRSD: 92 T: 59 QT: 394 QTc: 426 Interpretive Statements SINUS RHYTHM Compared to ECG 01/31/2021 17:16:28 No significant changes Electronically Signed On 01-31-2021 20:18:21 CDT by DEVEN MURDOCK [id number]
[2021-01-31 18:45] LABS: Troponin 5 2HR 21.68 ng/L (0-15)
[2021-01-31 18:49] LABS: Troponin 5 2HR Delta -4.32 ABS# (0-10)
--- NOTE | 2021-01-31 19:15 | P.HP_ITS ---
Providers/Chief Complaint Primary Care Provider: Stephan Fink DO Chief Complaint: FALL, LOC, VOMITING History of Present Illness Seferino Barbosa is a 76 year old male who presented today with a fall and altered mental status. Patient was very agitated, he was experiencing akathisia when entered the room however verbally redirectable. Patient is stating that he does marijuana and sometimes methamphetamine however he did not specify how he takes methamphetamine when I asked multiple times. He stating that today he was trying to get up and probably try to get up too fast lost his balance and fell on the ground and hit his head. He did not endorse chest pain, shortness of breath, nausea, vomiting however history was limited because of his restlessness. No family at the bedside I also tried to call the phone number which was given in the facesheet however it went to voicemail. He was given Haldol and Ativan in the ER, he was put on one-to-one supervision because he was trying to get up sit at the bedside, high risk of falls Diagnosis in the ER revealed new tox positive for methamphetamine and marijuana alcohol level is pending patient denied alcohol usage, he endorsed smoking on daily basis. UA unremarkable, NAVID on BMP, leukocytosis but stable hemoglobin of 10.6 for chronic normocytic anemia Review of Systems Const: Reports: body aches and fatigue Eyes: Reports: photophobia; Denies: change in vision ENMT: Denies: throat pain Card: Denies: chest pain Resp: Denies: dyspnea GI: Denies: abdominal pain : Denies: flank pain Musc: Denies: neck pain Skin/Breast: Denies: rash Neuro: Denies: headache(s) Psych: Reports: anxiety Endo: Denies: polyuria Antonio/Lymph: Denies: easy bruising All/Imm: Denies: urticaria Medications/Allergies Home Medications Medication Instructions Recorded Confirmed Last Taken Type baclofen 5 mg PO BID 01/31/21 01/31/21 Unknown History losartan 25 mg PO DAILY 01/31/21 01/31/21 Unknown History quetiapine 200 mg PO DAILY 01/31/21 01/31/21 Unknown History Allergies Allergy/AdvReac Type Severity Reaction Status Date / Time No Known Allergies Allergy Verified 01/31/21 16:06 PFSH Acute PFSH: Medical History Abnormal colonoscopy Polyps removed: Tubular adenoma Anemia BPH (benign prostatic hyperplasia) COPD (chronic obstructive pulmonary disease) Erectile dysfunction Gout Hip osteoarthritis Hypertension Insomnia Thoracic outlet syndrome Bilateral cervical rib removed Surgical History H/O knee surgery History of appendectomy History of right hip replacement Family History Father Diabetes Denies family history of CAD (coronary artery disease) Social History Smoking and tobacco status: former smoker Alcohol intake: current Alcohol intake frequency: holidays/special occasions only Substance/Drug Use: current Substance/Drug use type: Marijuana and Methamphetamine Vitals/I&O/Wt Last Vital Signs Temp 97.8 F 01/31/21 16:01 Pulse 91 01/31/21 16:01 Resp 18 01/31/21 16:01 Pulse Ox 91 01/31/21 16:01 Weight last 48 hrs Weight 79.379 kg Physical Exam Narrative: EXAM NARRATIVE: Patient was in one-to-one supervision He was very restless, akathisia noticed, choreoathetoid movements of arms and extremities However verbally redirectable He answered my questions appropriately was able to give above HPI He was consistently trying to get up and sit at the bedside He has 3 stitches on his right side of forehead No acute neurological deficit Bilateral dilated pupils S1, S2 sinus tachycardia Clinically looks dehydrated and emaciated Nontender abdomen Lower extremity no edema gangrene ulcer Anxious irritable mood Data : 01/31/21 16:08 01/31/21 16:08 A&P Assessment and plan (1) Altered mental status: Status: Acute (2) Polysubstance abuse: Status: Acute (3) NAVID (acute kidney injury): Status: Acute (4) Hematoma: Status: Acute (5) Fall: Status: Acute (6) Methamphetamine abuse: Status: Acute (7) Altered mental status: Status: Acute Qualifiers: Altered mental status type: unspecified Qualified Code(s): R41.82 - Altered mental status, unspecified Additional A&P Information Fall due to polysubstance abuse Tox positive for amphetamine and THC I would add thiamine and folic acid along Ativan for as needed usage I would only use Haldol for as needed usage I would avoid scheduling it for now, QTC 426 CT head revealed hematoma right frontal area, status post 3 stitches no active bleeding Chest x-ray unremarkable however it shows pulmonary nodules EKG shows sinus rhythm, his fall was secondary to polysubstance abuse highly doubt cardiac etiology or PE at this point, no signs of meningitis NAVID Clinically looks dehydrated and emaciated We will keep him on maintenance fluid overnight Hold losartan BPH: I do not see tamsulosin in his home medications, will do bladder scan as needed Chronic normocytic anemia: Hemoglobin stable continue iron supplementation Full code Cardiac diet DVT prophylaxis SCDs would avoid anticoagulation due to hematoma Attestations Medical Necessity Statement*: Anticipating discharge in less than 48 hours continued overnight monitoring because of polysubstance abuse fall and NAVID currently dehydrated will need IV fluids Time Spent in Patient Care: (>than 50% of time spent in counselling and/or direct pt care on unit) . 40mins Coding Level of Care Code Acute Senior Web Services Developer for Javier Collins Diagnoses Altered mental status R41.82 Polysubstance abuse F19.10 NAVID (acute kidney injury) N17.9 Hematoma T14.8XXA Fall W19.XXXA Methamphetamine abuse F15.10 Altered mental status R41.82 Altered mental status type: unspecified
[2021-01-31] MEDS: LORazepam 2 mg/mL INJ 1 mL IM (21:38)
[2021-01-31] MEDS: LORazepam 2 mg/mL INJ 1 mL 0.5 MG IVP (21:40)
[2021-01-31] MEDS: haloperidol inj 5 mg/mL INJ 1 mL IM (21:42)
--- NOTE | 2021-01-31 22:25 | PC.NURSE ---
2 mg Ativan and 5 mg Haldol over ridden due to pt condition
[2021-01-31 22:30] LABS: Troponin 5 6HR 22.48 ng/L (0-15)
[2021-01-31 22:31] VITALS: BP 154/78; PULSE 77; O2SAT 90
[2021-01-31 22:33] LABS: Alcohol Level < 10 mg/dL (0-10); Troponin 5 6HR Delta -3.52 ng/L (0-12)
[2021-01-31 22:46] VITALS: BP 137/72; PULSE 69; RESP 14; TEMP 36.1; O2SAT 98
[2021-01-31 23:59] VITALS: BP 143/75; PULSE 69; RESP 16; TEMP 36.1; O2SAT 91
[2021-02-01] MEDS: LORazepam 2 mg/mL INJ 1 mL 0.5 MG IVP ×2 (02:31→08:37)
[2021-02-01 04:00] VITALS: BP 140/88; PULSE 93; RESP 18; TEMP 36.3; O2SAT 95
[2021-02-01] MEDS: sodium chloride 0.9% 1,000 ML 75 ML IV (04:47)
[2021-02-01 05:07] LABS: Basophils # 0.1 10^3/uL (0.0-0.1); Basophils % 0.4 %; Eosinophils % 0.1 %; Hematocrit 31.9 % (42.0-52.0); Hemoglobin 10.5 g/dL (11.7-16.6); Lymphocytes # 1.3 10^3/uL (0.8-4.8); Lymphocytes % 7.8 %; Mean Corpuscular HGB Conc 32.9 g/dL (30.0-36.0); Mean Corpuscular Hemoglobin 30.3 pg (28.0-34.0); Mean Corpuscular Volume 92.2 fL (80-94); Mean Platelet Volume 10.2 fL (7.4-10.4); Monocytes # 0.9 10^3/uL (0.2-0.9); Monocytes % 5.1 %; Neutrophils # 14.28 10^3/uL (1.8-7.7); Neutrophils % 86.1 %; Nucleated Red Blood Cells % 0 %; Platelet Count 445 10^3/cmm (130-400); Red Blood Count 3.46 10^6/uL (4.1-5.3); White Blood Count 16.6 10^3/uL (4.0-10.0)
[2021-02-01 05:30] LABS: Blood Urea Nitrogen 36 mg/dL (8-23); Carbon Dioxide 32 mmol/L (22-29); Chloride 97 mmol/L (98-107); Glucose 110 mg/dL (65-115); Osmolality Calculated 299 mOsm/kg (285-295); Sodium 140 mmol/L (136-145)
[2021-02-01 05:47] LABS: Anion Gap 15.6 (5-19); Potassium 4.6 mmol/L (3.5-5.1)
[2021-02-01 07:06] LABS: Glucose Point of Care 110 mg/dL (70-110)
[2021-02-01 07:24] VITALS: BP 132/83; PULSE 80; RESP 18; TEMP 36.9; O2SAT 90
[2021-02-01] MEDS: thiamine 100 mg Tablet PO (08:37)
[2021-02-01] MEDS: folic acid 1 mg Tablet PO (08:37)
[2021-02-01 12:00] VITALS: RESP 19; O2SAT 90
--- NOTE | 2021-02-01 13:28 | P.PN_ITS ---
Subjective Subjective: Interval history: Seferino was sleeping this morning when I visited with him. He just got some Ativan for some hallucinations. I came back and saw him again in the afternoon and he has responsive, but slow to respond. He is still somewhat confused. He could not remember the name of his son quickly. He denies any focal deficits. He reports no significant pain. He admits to amphetamine and marijuana use. History and physical reviewed. Medications: Reviewed: Yes Vitals/I&O/Wt Last Vital Signs Temp 98.4 F 02/01/21 07:24 Pulse 80 02/01/21 07:24 Resp 18 02/01/21 07:24 BP 132/83 02/01/21 07:24 Pulse Ox 90 02/01/21 07:24 01/31/21 02/01/21 02/01/21 22:59 06:59 14:59 Intake Total 120 / 120 340 / 340 Balance 120 / 120 340 / 340 Weight last 48 hrs Weight 79.379 kg Physical Exam Narrative: EXAM NARRATIVE: General exam is a white male with occasional jerks/tremor, oriented to person and place currently HEENT: Hematoma noted on forehead Neck is supple no lymphadenopathy or thyromegaly Cardiovascular regular rate and rhythm without murmur Lungs clear Abdomen is soft nontender positive bowel sounds Extremities no cyanosis clubbing or edema Data : 02/01/21 04:47 02/01/21 04:47 A&P Assessment and plan (1) Altered mental status: Consistent with acute toxic encephalopathy presumably secondary to methamphetamine. Improving but still with some confusion. Not yet safe to be discharged. Check TSH and B12. Status: Acute (2) Polysubstance abuse: Discussed with patient. Will have discharge planning offer rehabilitation services. Status: Acute (3) NAVID (acute kidney injury): Hydration Check renal function tomorrow Status: Acute (4) Hematoma: Stable currently Status: Acute (5) Fall: Status: Acute (6) Methamphetamine abuse: Status: Acute Additional A&P Information History of hypertension. Holding losartan currently Anemia, stable History of BPH. Bladder scan as needed Full code SCDs for DVT prophylaxis Change to regular admission Attestations Medical Necessity Statement*: Needs continued hospitalization secondary to persistent encephalopathy from amphetamine use. Coding Level of Care Code Acute Operations Supervisor 2Nd Shift for rigo Collins Diagnoses Altered mental status R41.82 Polysubstance abuse F19.10 NAVID (acute kidney injury) N17.9 Hematoma T14.8XXA Fall W19.XXXA Methamphetamine abuse F15.10
[2021-02-01 14:39] LABS: Thyroid Stimulating Hormone 2.87 uIU/mL (0.27-4.20)
[2021-02-01 14:46] LABS: Vitamin B12 > 2000 pg/mL (232-1245)
[2021-02-01] MEDS: sodium chloride 0.9% 1,000 ML 100 ML IV (15:46)
[2021-02-01 15:55] VITALS: BP 168/68; PULSE 86; RESP 16; TEMP 36.7; O2SAT 97
--- NOTE | 2021-02-01 16:39 | PC.RESP ---
Pulmonary Rehab information sent to patient.
[2021-02-01] MEDS: quetiapine 100 mg Tablet 200 MG PO (19:20)
[2021-02-01] MEDS: tamsulosin 0.4 mg Capsule PO (19:42)
[2021-02-01 20:00] VITALS: BP 163/76; PULSE 89; RESP 18; TEMP 36.5; O2SAT 93
[2021-02-01 23:59] VITALS: BP 149/77; PULSE 77; RESP 18; TEMP 36.6; O2SAT 98
[2021-02-02] MEDS: sodium chloride 0.9% 1,000 ML 100 ML IV (01:09)
[2021-02-02 03:38] VITALS: BP 135/63; PULSE 77; RESP 18; TEMP 36.4; O2SAT 94
[2021-02-02 05:34] LABS: Basophils # 0.1 10^3/uL (0.0-0.1); Basophils % 0.5 %; Eosinophils # 0.2 10^3/uL (0.0-0.8); Eosinophils % 1.1 %; Hematocrit 27.7 % (42.0-52.0); Lymphocytes # 1.6 10^3/uL (0.8-4.8); Lymphocytes % 11.5 %; Mean Corpuscular HGB Conc 32.5 g/dL (30.0-36.0); Mean Corpuscular Hemoglobin 30.4 pg (28.0-34.0); Mean Corpuscular Volume 93.6 fL (80-94); Mean Platelet Volume 10.1 fL (7.4-10.4); Monocytes % 7.1 %; Neutrophils # 10.76 10^3/uL (1.8-7.7); Neutrophils % 79.4 %; Nucleated Red Blood Cells % 0 %; Platelet Count 369 10^3/cmm (130-400); Red Blood Count 2.96 10^6/uL (4.1-5.3); Red Cell Distribution Width 14.1 % (12.1-15.1); White Blood Count 13.6 10^3/uL (4.0-10.0)
[2021-02-02 06:40] LABS: Alanine Aminotransferase 12 U/L (0-41); Albumin Level 3.8 g/dL (3.5-5.2); Alkaline Phosphatase 69 IU/L (40-130); Anion Gap 13.5 (5-19); Aspartate Amino Transferase 20 U/L (0-40); Blood Urea Nitrogen 22 mg/dL (8-23); Calcium 8.7 mg/dL (8.5-10.5); Carbon Dioxide 27 mmol/L (22-29); Chloride 103 mmol/L (98-107); Globulin 2.5 g/dL (1.3-4.6); Glucose 100 mg/dL (65-115); Osmolality Calculated 293 mOsm/kg (285-295); Potassium 3.5 mmol/L (3.5-5.1); Sodium 140 mmol/L (136-145); Total Bilirubin 0.3 mg/dL (0.15-1.2); Total Protein 6.3 g/dL (6.6-8.7)
[2021-02-02 07:17] VITALS: BP 152/75; PULSE 83; RESP 18; TEMP 36.6; O2SAT 95
[2021-02-02] MEDS: tamsulosin 0.4 mg Capsule PO (08:38)
[2021-02-02] MEDS: folic acid 1 mg Tablet PO (08:39)
[2021-02-02] MEDS: thiamine 100 mg Tablet PO (08:39)
--- NOTE | 2021-02-02 08:45 | PC.NURSE ---
Pt A&O, states I'm leaving if the Dr isn't in here at 0900. I feel much better now. Dr. Penaloza notified.
--- NOTE | 2021-02-02 09:25 | PM.DCS ---
Discharge Providers Date of Admission: 02/01/21 13:31 Date of Discharge: February 02, 2021 Attending Provider at Admission: Haider Camp MD Attending Provider at Discharge: Austen Penaloza MD Primary Care Provider: Stephan Fink DO Diagnoses at Discharge Discharge Diagnosis (1) Altered mental status: Status: Acute (2) Polysubstance abuse: Status: Acute (3) NAVID (acute kidney injury): Status: Acute (4) Hematoma: Status: Acute (5) Fall: Status: Acute (6) Methamphetamine abuse: Status: Acute Reason for Visit Reason for Visit: FALL, LOC, VOMITING Hospital Course Hospital Course Seferino presented to the hospital with confusion, fall. He sustained a closed head injury, and a laceration to his frontal scalp. This was sutured in the emergency department. CT scan did not demonstrate any intracranial hemorrhage. During evaluation it was found that he had used some methamphetamine and THC which he admitted to. Secondary to the toxic encephalopathy that was present he was initially admitted as an observation. He also had acute kidney injury that warranted monitoring. The following day, with hydration and time his renal function had improved somewhat but was not back to baseline. He still had significant encephalopathy, with slow responses and confusion. Therefore he was continued to be monitored until the following day with supportive care, including IV fluids. On February 02 his renal function was back to normal. He was alert and oriented x3 and back to his baseline mental status. He was offered rehabilitation which he refused. He denied any suicidal or homicidal ideation. I offered to call his family which she refused. He made it clear on discharge that he did not want his medical record going to his primary care provider as well. I discussed with him he would need his sutures out in approximately 3 to 4 days and he reported he was going to take these out himself. Counseling regarding infection and complications occurred. Physical Exam Narrative: EXAM NARRATIVE: General exam no apparent distress Cardiovascular regular rate and rhythm without murmur Lungs clear Abdomen is soft with positive bowel sounds Extremities no cyanosis clubbing or edema Discharge Data Data Completed and Pending: Completed Studies During Hospitalization Category Date Time Status CT head wo con* 7 0450 Stat Cat Scan 01/31/21 16:32 Completed XR chest 1V claudette ble [id number] Stat Exams 01/31/21 16:32 Completed Labs from last 24 hours 02/02/21 02/02/21 02/01/21 05:04 05:04 04:47 WBC 13.6 H RBC 2.96 L Hgb 9.0 L Hct 27.7 L MCV 93.6 MCH 30.4 MCHC 32.5 RDW 14.1 Plt Count 369 MPV 10.1 Neut % (Auto) 79.4 Lymph % (Auto) 11.5 [place] % (Auto) 7.1 Eos % (Auto) 1.1 Baso % (Auto) 0.5 Neut # (Auto) 10.76 H Lymph # (Auto) 1.6 [place] # (Auto) 1.0 H Eos # (Auto) 0.2 Baso # (Auto) 0.1 Nucleated RBC % (a uto) 0 Nucleated RBCs # 0.0 Sodium 140 Potassium 3.5 Chloride 103 Carbon Dioxide 27 Anion Gap 13.5 BUN 22 Creatinine 1.0 GFR Calculation Not Reportable Glucose 100 Calculated Osmolal ity 293 Calcium 8.7 Total Bilirubin 0.3 AST 20 ALT 12 Alkaline Phosphata se 69 Total Protein 6.3 L Albumin 3.8 Globulin 2.5 Vitamin B12 > 2000 H TSH 2.87 Vitals: Last Vital Signs Temp 97.9 F 02/02/21 07:17 Pulse 83 02/02/21 07:17 Resp 18 02/02/21 07:17 BP 152/75 02/02/21 07:17 Pulse Ox 95 02/02/21 07:17 Discharge Plan Discharge Patient Disposition: Home Condition: Stable Prescriptions: Continued quetiapine 200 mg tablet 200 mg PO DAILY RF: 0 losartan 25 mg tablet 25 mg PO DAILY RF: 0 baclofen 5 mg tablet 5 mg PO BID RF: 0 Discharge Orders: Discharge Order (Routine); Ordered 02/02/21 Ordered By: Austen Penaloza Referrals: Stephan Fink DO [Physician] - 02/08/21 3:15 pm Discharge Activity: Increase activity as tolerated Patient Instructions: Methamphetamine Abuse (DC), Altered Mental Status (GEN), Fall Prevention (DC) Activity Restrictions/Additional Instructions: No drug use Keep follow-up with primary care provider Discharge Attestations Time Spent in Discharge Care*: greater than 30 min Quality Metrics Clinical Quality Measures During this hospital stay, did patient experience: None Coding Level of Care Code Acute Chg FW DC note Diagnoses Altered mental status R41.82 Polysubstance abuse F19.10 NAVID (acute kidney injury) N17.9 Hematoma T14.8XXA Fall W19.XXXA Methamphetamine abuse F15.10
[2021-02-02 10:18] VITALS: BP 109/83; PULSE 90; RESP 18; TEMP 36.4; O2SAT 98
--- NOTE | 2021-02-02 10:38 | PC.NURSE ---
Discharge assessment completed on patient. He is alert and oriented x4 but is very anxious to leave. He states that he had talked to James earlier and that he was going to be coming to get him after d/c. He asked if we had James's number, I informed him I would look after we complete his d/c paperwork. I reviewed d/c information with patient, including medications (with no changes) and he verbalizes understanding and denies having any questions/concerns regarding medications. I provided education on care of his laceration with suture placement to his right forehead as follows: keep clean with antibacterial soap and water and keep dry. Do not cover or apply ointment. I also reviewed the appointment for f/u wit his PCP Dr. Fink. He is concerned with Dr. Fink obtaining his information from this hospitalization regarding his methamphetamine use. I assured him we would not send any information that he did not wish to be sent. Patient signed discharged education and denies further questions or concerns with his diagnoses or discharge instructions. I called and spoke with Aga Umana, Director of HIM and inquired about ensuring medical records are not sent to the patient. She states that she will ensure this happens. No further issues noted at this time.
== END 2021-02-02 10:53 | disposition home or self-care (01) | DRG 917 ==
LOC: ER 19:50 → MEDSURG 02-01 07:05
PROVIDERS: Family Medicine; Admitting Provider Internal Medicine; Emergency Provider Emergency Medicine; Visit Provider Internal Medicine
DX: T43.621A Poisoning by amphetamines, accidental (unintentional), initial encounter (principal); G92 Toxic encephalopathy; N17.9 Acute kidney failure, unspecified; F15.10 Other stimulant abuse, uncomplicated; F12.90 Cannabis use, unspecified, uncomplicated; F17.210 Nicotine dependence, cigarettes, uncomplicated; D64.9 Anemia, unspecified; N40.0 Benign prostatic hyperplasia without lower urinary tract symptoms; J44.9 Chronic obstructive pulmonary disease, unspecified; N52.9 Male erectile dysfunction, unspecified; M10.9 Gout, unspecified; I10 Essential (primary) hypertension; G47.00 Insomnia, unspecified; Z96.641 Presence of right artificial hip joint; E86.0 Dehydration; S00.03XA Contusion of scalp, initial encounter; W18.30XA Fall on same level, unspecified, initial encounter
CPT/HCPCS: 36415; 36416; 70450; 71045; 80048; 80053; 80306; 80307; 81001; 82550; 82607; 82962; 84443; 84484; 85025; 90471; 90714; 93005; 96361; 96372; 96374; 96375; 96376; 99285; G0378; J1630; J2060; J2405; J7030

== ENCOUNTER 2021-05-14 09:40 | Inpatient (IN) | payer MEDICARE, MEDICAID, SELFPAY ==
[2021-05-14] VITALS (10 sets, daily range): BP systolic 104–173; BP diastolic 66–117; PULSE 80–105; RESP 15–20; TEMP 36.9–37.3; O2SAT 92–99; BMI 23.1
--- NOTE | 2021-05-14 09:50 | CTR_ITS ---
PROCEDURE INFORMATION: Exam: CT Head Without Contrast Exam date and time: 05/14/2021 9:50 AM Age: 76 years old Clinical indication: Altered mental status/memory loss; Additional info: AMS TECHNIQUE: Imaging protocol: Computed tomography of the head without contrast. Radiation optimization: All CT scans at this facility use at least one of these dose optimization techniques: automated exposure control; mA and/or kV adjustment per patient size (includes targeted exams where dose is matched to clinical indication); or iterative reconstruction. COMPARISON: CT head wo con* [id number] 01/31/2021 5:13 PM RADIATION DOSE METRICS: Total DLP (mGy-cm): 976.97 FINDINGS: Brain: No hemorrhage, mass effect or midline shift. No acute, major vascular distribution infarction identified. There is foci of decreased attenuation in the periventricular and subcortical white matter, likely representing chronic small vessel ischemic changes. Mild cerebral volume loss is present. No intra-axial or extra-axial fluid collection seen. Cerebral ventricles: No ventriculomegaly. Paranasal sinuses: Visualized sinuses are unremarkable. No fluid levels. Mastoid air cells: Visualized mastoid air cells are well aerated. Bones/joints: Old healed fracture deformity of the nasal bones noted. Soft tissues: Unremarkable. CT/CT head wo con* [id number] IMPRESSION: No acute intracranial abnormality. Radiation Dose CTDIVOL = (mGy): DLP = 976.97 (mGy-cm)
--- NOTE | 2021-05-14 09:59 | ECG_ITS ---
[facility] Test Date: 2021-05-14 Pat Name: Seferino Barbosa Department: Room: Gender: Male Administrator Health Care Facility: : 1945 Requested By: Arlin Hernandez Order Number: [id number] Brigida MD: Keaton Fitzgerald M.D. Measurements Intervals [place] Rate: 83 P: 79 VA: 172 QRS: 75 QRSD: 88 T: 80 QT: 358 QTc: 421 Interpretive Statements SINUS RHYTHM WITH OCCASIONAL VENTRICULAR PREMATURE COMPLEXES Compared to ECG 01/31/2021 18:34:45 Ventricular premature complex(es) now present Electronically Signed On 05-14-2021 17:06:25 CDT by Keaton Fitzgerald M.D. [id number]
--- NOTE | 2021-05-14 09:59 | XRR_ITS ---
PROCEDURE INFORMATION: Exam: XR Chest Exam date and time: 05/14/2021 9:59 AM Age: 76 years old Clinical indication: Other: AMS TECHNIQUE: Imaging protocol: XR of the chest. Views: 1 view. COMPARISON: CR XR chest 1V portable [id number] 01/31/2021 5:13 PM FINDINGS: Lungs: Unremarkable. No consolidation. Pleural spaces: Unremarkable. No pleural effusion. No pneumothorax. Heart/Mediastinum: Unremarkable. No cardiomegaly. Bones/joints: Unremarkable. XR/XR chest 1V portable [id number] IMPRESSION: No acute findings.
[2021-05-14 10:03] LABS: Basophils # 0.1 10^3/uL (0.0-0.1); Basophils % 0.3 %; Hematocrit 33.7 % (42.0-52.0); Hemoglobin 11.3 g/dL (11.7-16.6); Lymphocytes # 2.6 10^3/uL (0.8-4.8); Lymphocytes % 9.4 %; Mean Corpuscular HGB Conc 33.5 g/dL (30.0-36.0); Mean Corpuscular Hemoglobin 31.4 pg (28.0-34.0); Mean Corpuscular Volume 93.6 fL (80-94); Mean Platelet Volume 10.8 fL (7.4-10.4); Monocytes # 1.8 10^3/uL (0.2-0.9); Monocytes % 6.5 %; Neutrophils # 22.91 10^3/uL (1.8-7.7); Neutrophils % 82.8 %; Nucleated Red Blood Cells % 0 %; Platelet Count 454 10^3/cmm (130-400); White Blood Count 27.7 10^3/uL (4.0-10.0)
[2021-05-14 10:18] LABS: Alanine Aminotransferase 27 U/L (0-41); Albumin Level 5.3 g/dL (3.5-5.2); Alkaline Phosphatase 99 IU/L (40-130); Anion Gap 31.1 (5-19); Aspartate Amino Transferase 62 U/L (0-40); Blood Urea Nitrogen 57 mg/dL (8-23); Calcium 10.6 mg/dL (8.5-10.5); Carbon Dioxide 20 mmol/L (22-29); Chloride 99 mmol/L (98-107); Globulin 2.7 g/dL (1.3-4.6); Glucose 126 mg/dL (65-115); Osmolality Calculated 317 mOsm/kg (285-295); Potassium 5.1 mmol/L (3.5-5.1); Sodium 145 mmol/L (136-145); Total Bilirubin 0.6 mg/dL (0.15-1.2)
[2021-05-14 10:24] LABS: Troponin(5th) Baseline 69 ng/L (0-15)
[2021-05-14 10:49] LABS: Amphetamines Screen Urine Positive (Negative); Barbiturates Screen Urine Negative (Negative); Benzodiazepines Screen Urine Negative (Negative); Cocaine Screen Urine Negative (Negative); Opiate Screen Urine Negative (Negative); PCP Screen Urine Negative (Negative); THC Screen Urine Negative (Negative)
[2021-05-14 10:51] LABS: Alcohol Level < 10 mg/dL (0-10)
--- NOTE | 2021-05-14 11:01 | PC.PHAR ---
PT UNABLE TO VERIFY MEDICATIONS-MEDICATIONS ENTERED ARE WHAT SHOWS HAS BEEN FILLED RECENTLY ON EXT MED HISTORY-PT JUST KEEP SAYING HE TOOK 500MG OF EVERYTHING
[2021-05-14 11:10] LABS: Add Urine Culture? No; Add Urine Microscopic? YES; Bacteria Urine 1+ /hpf; Bilirubin Urine 1+ (Negative); Blood Urine Neg (Negative); Glucose Urine UA Norm (Normal); Ketones Urine 1+ (Negative); Leukocyte Esterase Urine Negative (Negative); Mucus Urine 1+ /hpf; Nitrate Urine Negative (Negative); Protein Urine 1+ (Negative); Specific Gravity, Urine 1.025 (1.005-1.030); Urine Appearance Clear (CLEAR); Urine Color Yellow (Yellow); Urobilinogen Urine Norm (Negative); pH Urine 5 (5-7)
[2021-05-14] MEDS: sodium chloride 0.9% 1,000 ML 999 ML IV ×2 (11:23→15:47)
[2021-05-14 11:55] LABS: Troponin 5 2HR 58.29 ng/L (0-15)
--- NOTE | 2021-05-14 11:59 | ECG_ITS ---
[facility] Test Date: 2021-05-14 Pat Name: Seferino Barbosa Department: Room: Gender: Male Tire Man: : 1945 Requested By: Arlin Hernandez Order Number: [id number] Reading MD: Keaton Fitzgerald M.D. Measurements Intervals [place] Rate: 81 P: 81 GA: 175 QRS: 69 QRSD: 93 T: 73 QT: 362 QTc: 421 Interpretive Statements SINUS RHYTHM WITH OCCASIONAL VENTRICULAR PREMATURE COMPLEXES Compared to ECG 05/14/2021 10:18:14 No significant changes Electronically Signed On 05-14-2021 17:19:13 CDT by Keaton Fitzgerald M.D. [id number]
--- NOTE | 2021-05-14 12:48 | W.ED.AMS ---
Documented by User: Arlin Hernandez 05/14/21 14:37 HPI - Altered Mental Status General: Chief Complaint: Altered Mental Status Stated Complaint: AMS Time Seen by Provider: 05/14/21 09:41 Source: EMS Mode of arrival: EMS Limitations: altered mental status History of Present Illness: HPI narrative: Pt was found by police with altered mental status. Pt answers questions but does not answer ppropriately. Pt is awake and alert. Denies any drug use, fever or complaints. MD complaint: altered mental status Context: unknown Review of Systems General: Reports: ROS unobtainable due to mental status PFSH ED PFSH: Medical History Abnormal colonoscopy Polyps removed: Tubular adenoma Anemia BPH (benign prostatic hyperplasia) COPD (chronic obstructive pulmonary disease) Erectile dysfunction Gout Hip osteoarthritis Hypertension Insomnia Thoracic outlet syndrome Bilateral cervical rib removed Surgical History H/O knee surgery History of appendectomy History of right hip replacement Family History Father Diabetes Denies family history of CAD (coronary artery disease) Social History Smoking and tobacco status: former smoker Alcohol intake: current Alcohol intake frequency: holidays/special occasions only Physical Exam Const: COMMON NORMALS: no acute distress, average body habitus and alert; negative for patient oriented x3 EXAM LIMITATIONS: altered mental status and behavioral limitations ORIENTATION/CONSCIOUSNESS: Yes oriented to place HENMT: COMMON NORMALS: normocephalic and atraumatic HEAD & SCALP: normocephalic and atraumatic Eye: COMMON NORMALS: Equal, round and reactive pupils present, EOMs intact bilaterally, conjunctivae normal, no scleral icterus and no papilledema GENERAL EYE: appearance normal, both eyes and all related structures and normal light reflex CONJUNCTIVA: Yes conjunctivae normal PUPIL: Yes Equal, round and reactive pupils present DIRECT OPHTHALMOSCOPY: Yes normal light reflex and Yes no papilledema Neck/C-Spine: COMMON NORMALS: full ROM, no lymphadenopathy, supple and no meningeal signs Chest: COMMONS NORMALS: normal inspection of the chest and normal palpation of entire chest wall Resp: COMMON NORMALS: normal respiratory effort, No use of accessory muscles and clear to auscultation bilaterally AUSCULTATION: clear to auscultation bilaterally Cardio: COMMON NORMALS: regular rate and regular rhythm RATE: regular rate RHYTHM: regular rhythm GI: COMMON NORMALS: Normal to inspection, nondistended, normoactive bowel sounds present, Soft to palpation and non-tender PALPATION: Yes Soft to palpation : COMMON NORMALS: Yes no CVA tenderness BLADDER/KIDNEY EXAM: Yes no CVA tenderness Back/Pelvis: COMMON NORMALS: no CVA tenderness, thoracic and lumbar spine normal to inspection, no thoracic nor lumbar tenderness and thoraco-lumbar ROM normal THORACIC SPINE/UPPER BACK: Yes normal to inspection LUMBAR SPINE/LOWER BACK: Yes normal to inspection Extremity: COMMON NORMALS: normal to inspection, full ROM, capillary refill normal, no joint enlargement, no clubbing, cyanosis or edema, no calf tenderness and no pedal edema Neuro: COMMON NORMALS: moves all extremities, no focal motor deficits, no sensory deficits noted and deep tendon reflexes 2+ bilaterally; negative for patient oriented x3 and negative for gait normal SENSORIUM/ORIENTATION: Yes alert, Yes oriented to place and Yes Orientation impaired MENINGEAL SIGNS: Yes no meningeal signs CRANIAL NERVES: Yes CN normal except as noted SPEECH: speech normal GAIT: Yes Unable to assess gait Psych: COMMON NORMALS: denies homicidal ideation and denies suicidal ideation APPEARANCE: Yes unkempt ATTITUDE: Yes paranoid and Yes agitated THOUGHT PROCESS: disorganized and confused Course Vital Signs: Vital signs: Vital Signs Temperature 99.2 F 05/14/21 09:44 Pulse Rate 84 05/14/21 14:00 Respiratory Rate 16 05/14/21 14:00 Blood Pressure 159/75 05/14/21 14:00 Pulse Oximetry 96 05/14/21 14:00 MDM - Altered Mental Status Lab Data: Labs: Lab Results 05/14/21 05/14/21 05/14/21 Range/Units 09:30 09:30 09:30 WBC 27.7 H (4.0-10.0) 10^3/ uL RBC 3.60 L (4.1-5.3) 10^6/u L Hgb 11.3 L (11.7-16.6) g/dL Hct 33.7 L (42.0-52.0) % MCV 93.6 (80-94) fL MCH 31.4 (28.0-34.0) pg MCHC 33.5 (30.0-36.0) g/dL RDW 14.0 (12.1-15.1) % Plt Count 454 H (130-400) 10^3/c mm MPV 10.8 H (7.4-10.4) fL Neut % (Auto) 82.8 % Lymph % (Auto) 9.4 % [place] % (Auto) 6.5 % Eos % (Auto) 0.0 % Baso % (Auto) 0.3 % Neut # (Auto) 22.91 H (1.8-7.7) 10^3/u L Lymph # (Auto) 2.6 (0.8-4.8) 10^3/u L [place] # (Auto) 1.8 H (0.2-0.9) 10^3/u L Eos # (Auto) 0.0 (0.0-0.8) 10^3/u L Baso # (Auto) 0.1 (0.0-0.1) 10^3/u L Nucleated RBC % (a uto) 0 % Nucleated RBCs # 0.0 /100WBC Sodium 145 (136-145) mmol/L Potassium 5.1 (3.5-5.1) mmol/L Chloride 99 (98-107) mmol/L Carbon Dioxide 20 L (22-29) mmol/L Anion Gap 31.1 H (5-19) BUN 57 H (8-23) mg/dL Creatinine 4.0 H (0.7-1.2) mg/dL GFR Calculation Not Reportable Glucose 126 H (65-115) mg/dL Calculated Osmolal ity 317 H (285-295) mOsm/k g Lactate (0.5-2.2) mmol/L Calcium 10.6 H (8.5-10.5) mg/dL Total Bilirubin 0.6 (0.15-1.2) mg/dL AST 62 H (0-40) U/L ALT 27 (0-41) U/L Alkaline Phosphata se 99 (40-130) IU/L Troponin T Baselin e 69 H (0-15) ng/L Troponin T 120 Min [place] (0-15) ng/L Delta Troponin T (0-10) ABS# Total Protein 8.0 (6.6-8.7) g/dL Albumin 5.3 H (3.5-5.2) g/dL Globulin 2.7 (1.3-4.6) g/dL Urine Color (Yellow) Urine Appearance (CLEAR) Urine pH (5-7) Ur Specific Gravit y (1.005-1.030) Urine Protein (Negative) Urine Glucose (UA) (Normal) Urine Ketones (Negative) Urine Blood (Negative) Urine Nitrate (Negative) Urine Bilirubin (Negative) Urine Urobilinogen (Negative) mg/dL Ur Leukocyte [place] ase (Negative) Urine RBC (0-2) /hpf Urine WBC (0-5) /hpf Ur Squamous Epith Cells (0-5) /hpf Amorphous Sediment Urine Bacteria (NONE) /hpf Urine Mucus /hpf Urine Opiates Scre en (Negative) ng/mL Ur Barbiturates Sc reen (Negative) ng/mL Ur Phencyclidine S crn (Negative) ng/mL Ur Amphetamines Sc reen (Negative) ng/mL U Benzodiazepines Scrn (Negative) ng/mL Urine Cocaine Scre en (Negative) ng/mL U Marijuana (THC) Screen (Negative) ng/mL Ethyl Alcohol < 10 (0-10) mg/dL SARS-CoV-2 Ag (Rap id) (Negative) 05/14/21 05/14/21 05/14/21 Range/Units 10:30 10:30 11:29 WBC (4.0-10.0) 10^3/ uL RBC (4.1-5.3) 10^6/u L Hgb (11.7-16.6) g/dL Hct (42.0-52.0) % MCV (80-94) fL MCH (28.0-34.0) pg MCHC (30.0-36.0) g/dL RDW (12.1-15.1) % Plt Count (130-400) 10^3/c mm MPV (7.4-10.4) fL Neut % (Auto) % Lymph % (Auto) % [place] % (Auto) % Eos % (Auto) % Baso % (Auto) % Neut # (Auto) (1.8-7.7) 10^3/u L Lymph # (Auto) (0.8-4.8) 10^3/u L [place] # (Auto) (0.2-0.9) 10^3/u L Eos # (Auto) (0.0-0.8) 10^3/u L Baso # (Auto) (0.0-0.1) 10^3/u L Nucleated RBC % (a uto) % Nucleated RBCs # /100WBC Sodium (136-145) mmol/L Potassium (3.5-5.1) mmol/L Chloride (98-107) mmol/L Carbon Dioxide (22-29) mmol/L Anion Gap (5-19) BUN (8-23) mg/dL Creatinine (0.7-1.2) mg/dL GFR Calculation Glucose (65-115) mg/dL Calculated Osmolal ity (285-295) mOsm/k g Lactate (0.5-2.2) mmol/L Calcium (8.5-10.5) mg/dL Total Bilirubin (0.15-1.2) mg/dL AST (0-40) U/L ALT (0-41) U/L Alkaline Phosphata se (40-130) IU/L Troponin T Baselin e (0-15) ng/L Troponin T 120 Min [place] 58.29 H (0-15) ng/L Delta Troponin T -10.71 L (0-10) ABS# Total Protein (6.6-8.7) g/dL Albumin (3.5-5.2) g/dL Globulin (1.3-4.6) g/dL Urine Color Yellow (Yellow) Urine Appearance Clear (CLEAR) Urine pH 5 (5-7) Ur Specific Gravit y 1.025 (1.005-1.030) Urine Protein 1+ H (Negative) Urine Glucose (UA) Norm (Normal) Urine Ketones 1+ H (Negative) Urine Blood Neg (Negative) Urine Nitrate Negative (Negative) Urine Bilirubin 1+ H (Negative) Urine Urobilinogen Norm (Negative) mg/dL Ur Leukocyte [place] ase Negative (Negative) Urine RBC None (0-2) /hpf Urine WBC None (0-5) /hpf Ur Squamous Epith Cells 5-10 H (0-5) /hpf Amorphous Sediment Not Reportable Urine Bacteria 1+ H (NONE) /hpf Urine Mucus 1+ /hpf Urine Opiates Scre en Negative (Negative) ng/mL Ur Barbiturates Sc reen Negative (Negative) ng/mL Ur Phencyclidine S crn Negative (Negative) ng/mL Ur Amphetamines Sc reen Positive H (Negative) ng/mL U Benzodiazepines Scrn Negative (Negative) ng/mL Urine Cocaine Scre en Negative (Negative) ng/mL U Marijuana (THC) Screen Negative (Negative) ng/mL Ethyl Alcohol (0-10) mg/dL SARS-CoV-2 Ag (Rap id) (Negative) 05/14/21 05/14/21 Range/Units 13:25 13:40 WBC (4.0-10.0) 10^3/ uL RBC (4.1-5.3) 10^6/u L Hgb (11.7-16.6) g/dL Hct (42.0-52.0) % MCV (80-94) fL MCH (28.0-34.0) pg MCHC (30.0-36.0) g/dL RDW (12.1-15.1) % Plt Count (130-400) 10^3/c mm MPV (7.4-10.4) fL Neut % (Auto) % Lymph % (Auto) % [place] % (Auto) % Eos % (Auto) % Baso % (Auto) % Neut # (Auto) (1.8-7.7) 10^3/u L Lymph # (Auto) (0.8-4.8) 10^3/u L [place] # (Auto) (0.2-0.9) 10^3/u L Eos # (Auto) (0.0-0.8) 10^3/u L Baso # (Auto) (0.0-0.1) 10^3/u L Nucleated RBC % (a uto) % Nucleated RBCs # /100WBC Sodium (136-145) mmol/L Potassium (3.5-5.1) mmol/L Chloride (98-107) mmol/L Carbon Dioxide (22-29) mmol/L Anion Gap (5-19) BUN (8-23) mg/dL Creatinine (0.7-1.2) mg/dL GFR Calculation Glucose (65-115) mg/dL Calculated Osmolal ity (285-295) mOsm/k g Lactate 0.9 (0.5-2.2) mmol/L Calcium (8.5-10.5) mg/dL Total Bilirubin (0.15-1.2) mg/dL AST (0-40) U/L ALT (0-41) U/L Alkaline Phosphata se (40-130) IU/L Troponin T Baselin e (0-15) ng/L Troponin T 120 Min [place] (0-15) ng/L Delta Troponin T (0-10) ABS# Total Protein (6.6-8.7) g/dL Albumin (3.5-5.2) g/dL Globulin (1.3-4.6) g/dL Urine Color (Yellow) Urine Appearance (CLEAR) Urine pH (5-7) Ur Specific Gravit y (1.005-1.030) Urine Protein (Negative) Urine Glucose (UA) (Normal) Urine Ketones (Negative) Urine Blood (Negative) Urine Nitrate (Negative) Urine Bilirubin (Negative) Urine Urobilinogen (Negative) mg/dL Ur Leukocyte [place] ase (Negative) Urine RBC (0-2) /hpf Urine WBC (0-5) /hpf Ur Squamous Epith Cells (0-5) /hpf Amorphous Sediment Urine Bacteria (NONE) /hpf Urine Mucus /hpf Urine Opiates Scre en (Negative) ng/mL Ur Barbiturates Sc reen (Negative) ng/mL Ur Phencyclidine S crn (Negative) ng/mL Ur Amphetamines Sc reen (Negative) ng/mL U Benzodiazepines Scrn (Negative) ng/mL Urine Cocaine Scre en (Negative) ng/mL U Marijuana (THC) Screen (Negative) ng/mL Ethyl Alcohol (0-10) mg/dL SARS-CoV-2 Ag (Rap id) Negative (Negative) Discharge Plan Discharge Prescriptions: No Action quetiapine 200 mg tablet 200 mg PO DAILY RF: 0 losartan 25 mg tablet 25 mg PO DAILY RF: 0 baclofen 5 mg tablet 5 mg PO BID PRN (Reason: Muscle Spasm) RF: 0 sildenafil (pulm.hypertension) 20 mg tablet 20 - 100 mg PO PRN RF: 0 Coding Level of Care Code ED [employer] for Chg Fwd Exam Comprehensive Documented by User: Rasta [place] MD 05/14/21 14:58 HPI - Altered Mental Status General: Chief Complaint: Altered Mental Status Stated Complaint: AMS Time Seen by Provider: 05/14/21 09:41 PFSH ED PFSH: Medical History Abnormal colonoscopy Polyps removed: Tubular adenoma Anemia BPH (benign prostatic hyperplasia) COPD (chronic obstructive pulmonary disease) Erectile dysfunction Gout Hip osteoarthritis Hypertension Insomnia Thoracic outlet syndrome Bilateral cervical rib removed Surgical History H/O knee surgery History of appendectomy History of right hip replacement Family History Father Diabetes Denies family history of CAD (coronary artery disease) Social History Smoking and tobacco status: former smoker Alcohol intake: current Alcohol intake frequency: holidays/special occasions only Course Vital Signs: Vital signs: Vital Signs Temperature 99.2 F 05/14/21 09:44 Pulse Rate 84 05/14/21 14:00 Respiratory Rate 16 05/14/21 14:00 Blood Pressure 159/75 05/14/21 14:00 Pulse Oximetry 96 05/14/21 14:00 MDM - Altered Mental Status MDM Narrative: Medical decision making narrative: Patient admitted that he was smoking and snorting methamphetamine. Denies IV drug use. He acts like he is under the influence of methamphetamine. He also appears to be very dehydrated. He does have a creatinine of 4. Given 2 L of IV fluids. Has a significant leukocytosis but has a normal lactic acid level and is afebrile and I see no indication of infection at this time. He does not appear to have any meningeal signs. He has a very supple neck. He really does seem to be mostly just dehydrated and under the influence of methamphetamine. Patient will need admission for IV fluids to help with the NAVID and await blood cultures. Admit to Dr Aguilar Lab Data: Labs: Lab Results 05/14/21 05/14/21 05/14/21 Range/Units 09:30 09:30 09:30 WBC 27.7 H (4.0-10.0) 10^3/ uL RBC 3.60 L (4.1-5.3) 10^6/u L Hgb 11.3 L (11.7-16.6) g/dL Hct 33.7 L (42.0-52.0) % MCV 93.6 (80-94) fL MCH 31.4 (28.0-34.0) pg MCHC 33.5 (30.0-36.0) g/dL RDW 14.0 (12.1-15.1) % Plt Count 454 H (130-400) 10^3/c mm MPV 10.8 H (7.4-10.4) fL Neut % (Auto) 82.8 % Lymph % (Auto) 9.4 % [place] % (Auto) 6.5 % Eos % (Auto) 0.0 % Baso % (Auto) 0.3 % Neut # (Auto) 22.91 H (1.8-7.7) 10^3/u L Lymph # (Auto) 2.6 (0.8-4.8) 10^3/u L [place] # (Auto) 1.8 H (0.2-0.9) 10^3/u L Eos # (Auto) 0.0 (0.0-0.8) 10^3/u L Baso # (Auto) 0.1 (0.0-0.1) 10^3/u L Nucleated RBC % (a uto) 0 % Nucleated RBCs # 0.0 /100WBC Sodium 145 (136-145) mmol/L Potassium 5.1 (3.5-5.1) mmol/L Chloride 99 (98-107) mmol/L Carbon Dioxide 20 L (22-29) mmol/L Anion Gap 31.1 H (5-19) BUN 57 H (8-23) mg/dL Creatinine 4.0 H (0.7-1.2) mg/dL GFR Calculation Not Reportable Glucose 126 H (65-115) mg/dL Calculated Osmolal ity 317 H (285-295) mOsm/k g Lactate (0.5-2.2) mmol/L Calcium 10.6 H (8.5-10.5) mg/dL Total Bilirubin 0.6 (0.15-1.2) mg/dL AST 62 H (0-40) U/L ALT 27 (0-41) U/L Alkaline Phosphata se 99 (40-130) IU/L Troponin T Baselin e 69 H (0-15) ng/L Troponin T 120 Min [place] (0-15) ng/L Delta Troponin T (0-10) ABS# Total Protein 8.0 (6.6-8.7) g/dL Albumin 5.3 H (3.5-5.2) g/dL Globulin 2.7 (1.3-4.6) g/dL Urine Color (Yellow) Urine Appearance (CLEAR) Urine pH (5-7) Ur Specific Gravit y (1.005-1.030) Urine Protein (Negative) Urine Glucose (UA) (Normal) Urine Ketones (Negative) Urine Blood (Negative) Urine Nitrate (Negative) Urine Bilirubin (Negative) Urine Urobilinogen (Negative) mg/dL Ur Leukocyte [place] ase (Negative) Urine RBC (0-2) /hpf Urine WBC (0-5) /hpf Ur Squamous Epith Cells (0-5) /hpf Amorphous Sediment Urine Bacteria (NONE) /hpf Urine Mucus /hpf Urine Opiates Scre en (Negative) ng/mL Ur Barbiturates Sc reen (Negative) ng/mL Ur Phencyclidine S crn (Negative) ng/mL Ur Amphetamines Sc reen (Negative) ng/mL U Benzodiazepines Scrn (Negative) ng/mL Urine Cocaine Scre en (Negative) ng/mL U Marijuana (THC) Screen (Negative) ng/mL Ethyl Alcohol < 10 (0-10) mg/dL SARS-CoV-2 Ag (Rap id) (Negative) 05/14/21 05/14/21 05/14/21 Range/Units 10:30 10:30 11:29 WBC (4.0-10.0) 10^3/ uL RBC (4.1-5.3) 10^6/u L Hgb (11.7-16.6) g/dL Hct (42.0-52.0) % MCV (80-94) fL MCH (28.0-34.0) pg MCHC (30.0-36.0) g/dL RDW (12.1-15.1) % Plt Count (130-400) 10^3/c mm MPV (7.4-10.4) fL Neut % (Auto) % Lymph % (Auto) % [place] % (Auto) % Eos % (Auto) % Baso % (Auto) % Neut # (Auto) (1.8-7.7) 10^3/u L Lymph # (Auto) (0.8-4.8) 10^3/u L [place] # (Auto) (0.2-0.9) 10^3/u L Eos # (Auto) (0.0-0.8) 10^3/u L Baso # (Auto) (0.0-0.1) 10^3/u L Nucleated RBC % (a uto) % Nucleated RBCs # /100WBC Sodium (136-145) mmol/L Potassium (3.5-5.1) mmol/L Chloride (98-107) mmol/L Carbon Dioxide (22-29) mmol/L Anion Gap (5-19) BUN (8-23) mg/dL Creatinine (0.7-1.2) mg/dL GFR Calculation Glucose (65-115) mg/dL Calculated Osmolal ity (285-295) mOsm/k g Lactate (0.5-2.2) mmol/L Calcium (8.5-10.5) mg/dL Total Bilirubin (0.15-1.2) mg/dL AST (0-40) U/L ALT (0-41) U/L Alkaline Phosphata se (40-130) IU/L Troponin T Baselin e (0-15) ng/L Troponin T 120 Min [place] 58.29 H (0-15) ng/L Delta Troponin T -10.71 L (0-10) ABS# Total Protein (6.6-8.7) g/dL Albumin (3.5-5.2) g/dL Globulin (1.3-4.6) g/dL Urine Color Yellow (Yellow) Urine Appearance Clear (CLEAR) Urine pH 5 (5-7) Ur Specific Gravit y 1.025 (1.005-1.030) Urine Protein 1+ H (Negative) Urine Glucose (UA) Norm (Normal) Urine Ketones 1+ H (Negative) Urine Blood Neg (Negative) Urine Nitrate Negative (Negative) Urine Bilirubin 1+ H (Negative) Urine Urobilinogen Norm (Negative) mg/dL Ur Leukocyte [place] a[place] Negative (Negative) Urine RBC None (0-2) /hpf Urine WBC None (0-5) /hpf Ur Squamous Epith Cells 5-10 H (0-5) /hpf Amorphous Sediment Not Reportable Urine Bacteria 1+ H (NONE) /hpf Urine Mucus 1+ /hpf Urine Opiates Scre en Negative (Negative) ng/mL Ur Barbiturates Sc reen Negative (Negative) ng/mL Ur Phencyclidine S crn Negative (Negative) ng/mL Ur Amphetamines Sc reen Positive H (Negative) ng/mL U Benzodiazepines Scrn Negative (Negative) ng/mL Urine Cocaine Scre en Negative (Negative) ng/mL U Marijuana (THC) Screen Negative (Negative) ng/mL Ethyl Alcohol (0-10) mg/dL SARS-CoV-2 Ag (Rap id) (Negative) 05/14/21 05/14/21 Range/Units 13:25 13:40 WBC (4.0-10.0) 10^3/ uL RBC (4.1-5.3) 10^6/u L Hgb (11.7-16.6) g/dL Hct (42.0-52.0) % MCV (80-94) fL MCH (28.0-34.0) pg MCHC (30.0-36.0) g/dL RDW (12.1-15.1) % Plt Count (130-400) 10^3/c mm MPV (7.4-10.4) fL Neut % (Auto) % Lymph % (Auto) % [place] % (Auto) % Eos % (Auto) % Baso % (Auto) % Neut # (Auto) (1.8-7.7) 10^3/u L Lymph # (Auto) (0.8-4.8) 10^3/u L [place] # (Auto) (0.2-0.9) 10^3/u L Eos # (Auto) (0.0-0.8) 10^3/u L Baso # (Auto) (0.0-0.1) 10^3/u L Nucleated RBC % (a uto) % Nucleated RBCs # /100WBC Sodium (136-145) mmol/L Potassium (3.5-5.1) mmol/L Chloride (98-107) mmol/L Carbon Dioxide (22-29) mmol/L Anion Gap (5-19) BUN (8-23) mg/dL Creatinine (0.7-1.2) mg/dL GFR Calculation Glucose (65-115) mg/dL Calculated Osmolal ity (285-295) mOsm/k g Lactate 0.9 (0.5-2.2) mmol/L Calcium (8.5-10.5) mg/dL Total Bilirubin (0.15-1.2) mg/dL AST (0-40) U/L ALT (0-41) U/L Alkaline Phosphata se (40-130) IU/L Troponin T Baselin e (0-15) ng/L Troponin T 120 Min [place] (0-15) ng/L Delta Troponin T (0-10) ABS# Total Protein (6.6-8.7) g/dL Albumin (3.5-5.2) g/dL Globulin (1.3-4.6) g/dL Urine Color (Yellow) Urine Appearance (CLEAR) Urine pH (5-7) Ur Specific Gravit y (1.005-1.030) Urine Protein (Negative) Urine Glucose (UA) (Normal) Urine Ketones (Negative) Urine Blood (Negative) Urine Nitrate (Negative) Urine Bilirubin (Negative) Urine Urobilinogen (Negative) mg/dL Ur Leukocyte [place] ase (Negative) Urine RBC (0-2) /hpf Urine WBC (0-5) /hpf Ur Squamous Epith Cells (0-5) /hpf Amorphous Sediment Urine Bacteria (NONE) /hpf Urine Mucus /hpf Urine Opiates Scre en (Negative) ng/mL Ur Barbiturates Sc reen (Negative) ng/mL Ur Phencyclidine S crn (Negative) ng/mL Ur Amphetamines Sc reen (Negative) ng/mL U Benzodiazepines Scrn (Negative) ng/mL Urine Cocaine Scre en (Negative) ng/mL U Marijuana (THC) Screen (Negative) ng/mL Ethyl Alcohol (0-10) mg/dL SARS-CoV-2 Ag (Rap id) Negative (Negative) Discharge Plan Discharge Prescriptions: No Action quetiapine 200 mg tablet 200 mg PO DAILY RF: 0 losartan 25 mg tablet 25 mg PO DAILY RF: 0 baclofen 5 mg tablet 5 mg PO BID PRN (Reason: Muscle Spasm) RF: 0 sildenafil (pulm.hypertension) 20 mg tablet 20 - 100 mg PO PRN RF: 0 Coding Level of Care Code ED [employer] for Chg Fwd Exam Comprehensive
[2021-05-14] MEDS: LORazepam 2 mg/mL INJ 1 mL 1 MG IVP (12:52)
[2021-05-14 13:56] LABS: Lactate (Lactic Acid level) 0.9 mmol/L (0.5-2.2)
[2021-05-14 14:32] LABS: SARS Covid-2 Antigen Negative (Negative)
--- NOTE | 2021-05-14 15:59 | ECG_ITS ---
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 Measurements Intervals [place] Rate: 77 P: 161 MI: 170 QRS: 142 QRSD: 99 T: 141 QT: 377 QTc: 428 Interpretive Statements SINUS RHYTHM ARM LEADS REVERSED [INVERTED P AND QRS IN I] ATYPICAL ECG Compared to ECG 05/14/2021 11:58:44 Ventricular premature complex(es) no longer present Electronically Signed On 05-14-2021 17:17:55 CDT by Keaton Fitzgerald M.D. [id number]
[2021-05-14 16:01] LABS: Troponin 5 6HR 46.85 ng/L (0-15)
--- NOTE | 2021-05-14 17:36 | PM.HP ---
Providers/Chief Complaint Admitting Physician: Paulette Aguilar Chief Complaint: AMS History of Present Illness 76-year-old male with past medical history significant for chronic obstructive pulmonary disease, tobacco abuse, hypertension, erectile dysfunction, gout, thoracic outlet syndrome hx of bilateral cervical rib removal and significant history of polysubstance abuse was brought to the hospital by police after he was noted to have altered mental status. Patient was very agitated and hyperactive at the time of my evaluation and thus not able to provide any meaningful history. Upon arrival to emergency room his laboratory workup showed a WBC of 27.7, hemoglobin 11.3, hematocrit 33.7 and platelet count 254. Sodium 145, potassium 5.1, chloride 99, bicarb 20, BUN 57 and creatinine of 4.0. Previous creatinine of 1.0 in February of this year. Glucose of 126, lactic acid of 0.9. AST of 62, ALT 27, alkaline phosphatase of 99.Troponin trend of 69 at baseline, 58.29 at 120 min and 46.85 at 6hr. Urinary drug screen was positive for methamphetamine. COVID-[address] Head CT did not show any evidence of acute intracranial abnormality and chest x-ray was also negative. Review of Systems General: Reports: ROS unobtainable due to mental status Medications/Allergies Home Medications Medication Instructions Recorded Confirmed Last Taken Type baclofen 5 mg PO BID PRN 01/31/21 05/14/21 Unknown History losartan 25 mg PO DAILY 01/31/21 05/14/21 Unknown History quetiapine 200 mg PO DAILY 01/31/21 05/14/21 Unknown History sildenafil (pulm.hypertension) 20 - 100 mg PO PRN 05/14/21 05/14/21 Unknown History Allergies Allergy/AdvReac Type Severity Reaction Status Date / Time No Known Allergies Allergy Verified 05/14/21 11:00 PFSH Acute PFSH: Medical History Abnormal colonoscopy Polyps removed: Tubular adenoma Anemia BPH (benign prostatic hyperplasia) COPD (chronic obstructive pulmonary disease) Erectile dysfunction Gout Hip osteoarthritis Hypertension Insomnia Thoracic outlet syndrome Bilateral cervical rib removed Surgical History H/O knee surgery History of appendectomy History of right hip replacement Family History Father Diabetes Denies family history of CAD (coronary artery disease) Social History Smoking and tobacco status: former smoker Alcohol intake: current Alcohol intake frequency: holidays/special occasions only Vitals/I&O/Wt Last Vital Signs Temp 99.2 F 05/14/21 09:44 Pulse 105 H 05/14/21 17:09 Resp 16 05/14/21 17:09 BP 156/72 05/14/21 17:09 Pulse Ox 94 05/14/21 17:09 05/14/21 05/14/21 05/14/21 06:59 14:59 22:59 Intake Total 1000 / 1000 Balance 1000 / 1000 Weight last 48 hrs Weight 79.379 kg Physical Exam Narrative: EXAM NARRATIVE: General: Alert, unkempt, agitated HEENT: Grossly unremarkable, dry mucous membranes CVS : Tachycardia Chest : CTABL ABD; Soft, NT, ND EXT - no edema Skin: multiple abrasion -particularly in LE Data : 05/14/21 09:30 05/14/21 09:30 Micro: Microbiology 05/14/21 13:25 Blood Culture - Preliminary Blood SPECIMEN COLLECTED 05/14/21 13:31 Blood Culture - Preliminary Blood SPECIMEN COLLECTED A&P Assessment and plan (1) Altered mental status: Status: Acute Qualifiers: Altered mental status type: unspecified Qualified Code(s): R41.82 - Altered mental status, unspecified (2) ABRAHAN (acute kidney injury): Status: Acute (3) Methamphetamine abuse: Status: Acute Altered Mental Status Multi-factorial Etiology Meth, metabolic with renal failure Patient noted alcoholism use Place on alcohol withdrawal protocol Social work consult Acute Renal failure Creatinine 4.0 NS bolus 1L x 3 NS at 125cc/hr Renal dose meds Hold losartan Repeat BMP in am No eli due to agitation Monitor u/o If worsening consider renal consult Chronic obstructive pulmonary disease / Pul HTN Duoneb PRN Supplemental o2 as needed Not currently in exacerbation Tobacco abuse Nicotine patch PRN DVT ppx Heparin 5000 units q8hr Attestations Medical Necessity Statement*: Will likely require > 2 midnight stay in hospital for eval and treatment of ams, Abrahan and drug abuse Time Spent in Patient Care: Greater than 35 minutes (>than 50% of time spent in counselling and/or direct pt care on unit). 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
[2021-05-14] MEDS: ondansetron 2 mg/ML SDV 2 mL 4 MG IVP (18:16)
[2021-05-14] MEDS: sodium chloride 0.9% 1,000 ML 125 ML IV (18:44)
[2021-05-14] MEDS: heparin 5,000 unit/mL INJ 1 mL 5000 UNIT SUBCUT (18:45)
[2021-05-15] VITALS: BP 142/58; PULSE 87; RESP 17; TEMP 37; O2SAT 94
[2021-05-15] MEDS: sodium chloride 0.9% 1,000 ML 125 ML IV ×2 (02:35→11:34)
[2021-05-15] MEDS: heparin 5,000 unit/mL INJ 1 mL 5000 UNIT SUBCUT ×3 (02:36→18:08)
[2021-05-15 04:00] VITALS: BP 145/65; PULSE 83; RESP 18; TEMP 36.5; O2SAT 95
[2021-05-15 04:57] LABS: Basophils # 0.1 10^3/uL (0.0-0.1); Basophils % 0.3 %; Eosinophils % 0.1 %; Hematocrit 27.4 % (42.0-52.0); Hemoglobin 8.9 g/dL (11.7-16.6); Lymphocytes # 1.7 10^3/uL (0.8-4.8); Lymphocytes % 8.6 %; Mean Corpuscular HGB Conc 32.5 g/dL (30.0-36.0); Mean Corpuscular Hemoglobin 31.2 pg (28.0-34.0); Mean Corpuscular Volume 96.1 fL (80-94); Mean Platelet Volume 10.8 fL (7.4-10.4); Monocytes # 1.7 10^3/uL (0.2-0.9); Monocytes % 8.4 %; Neutrophils # 16.13 10^3/uL (1.8-7.7); Neutrophils % 81.9 %; Nucleated Red Blood Cells % 0 %; Platelet Count 295 10^3/cmm (130-400); Red Blood Count 2.85 10^6/uL (4.1-5.3); Red Cell Distribution Width 14.2 % (12.1-15.1); White Blood Count 19.7 10^3/uL (4.0-10.0)
[2021-05-15 05:21] LABS: Alanine Aminotransferase 42 U/L (0-41); Alkaline Phosphatase 77 IU/L (40-130); Anion Gap 21.7 (5-19); Aspartate Amino Transferase 99 U/L (0-40); Blood Urea Nitrogen 56 mg/dL (8-23); Calcium 8.1 mg/dL (8.5-10.5); Carbon Dioxide 20 mmol/L (22-29); Chloride 108 mmol/L (98-107); Globulin 2.4 g/dL (1.3-4.6); Glucose 68 mg/dL (65-115); Magnesium 2.2 mg/dL (1.7-2.3); Osmolality Calculated 314 mOsm/kg (285-295); Potassium 4.7 mmol/L (3.5-5.1); Sodium 145 mmol/L (136-145); Total Bilirubin 0.4 mg/dL (0.15-1.2); Total Protein 6.4 g/dL (6.6-8.7)
[2021-05-15 07:11] VITALS: BP 135/55; PULSE 74; RESP 16; TEMP 36.5; O2SAT 94
--- NOTE | 2021-05-15 08:28 | PC.RESP ---
PULMONARY REHAB INFORMATION SENT TO PATIENT.
[2021-05-15] MEDS: pantoprazole DR 40 mg Tablet PO (08:34)
[2021-05-15] MEDS: thiamine 100 mg Tablet PO (08:34)
[2021-05-15] MEDS: multivitamin therapeutic Tablet 1 TAB PO (08:34)
[2021-05-15] MEDS: folic acid 1 mg Tablet PO (08:34)
--- NOTE | 2021-05-15 10:50 | P.PN_ITS ---
Subjective Subjective: Interval history: Hospital course, Labs appreciated. On examination patient coming back from shower. Sitter at bedside. Has remained afebrile, saturating 97% on room air, hemodynamically stable. Vitals/I&O/Wt Last Vital Signs Temp 97.7 F 05/15/21 07:11 Pulse 74 05/15/21 07:11 Resp 16 05/15/21 07:11 BP 135/55 05/15/21 07:11 Pulse Ox 94 05/15/21 07:11 05/14/21 05/15/21 05/15/21 22:59 06:59 14:59 Intake Total 1960 / 2960 981.25 / 3941.25 240 / 240 Output Total 200 / 200 500 / 700 Balance 1760 / 2760 481.25 / 3241.25 240 / 240 Weight last 48 hrs Weight 79.379 kg Data : 05/15/21 04:01 05/15/21 04:01 Micro: Microbiology 05/14/21 13:25 Blood Culture - Preliminary Blood SPECIMEN COLLECTED 05/14/21 13:31 Blood Culture - Preliminary Blood SPECIMEN COLLECTED A&P Assessment and plan (1) Altered mental status: Status: Acute Qualifiers: Altered mental status type: unspecified Qualified Code(s): R41.82 - Altered mental status, unspecified (2) NAVID (acute kidney injury): Status: Acute (3) Methamphetamine abuse: Status: Acute (4) Metabolic encephalopathy: Status: Acute Altered Mental Status: Most likely secondary to amphetamine abuse, metabolic instability secondary to acute renal failure. Also has history of alcohol abuse. CT head on admission negative for acute normality. IV fluids with normal saline at 100 cc/h. Sitter at bedside. WA protocol. Oral folic acid, thiamine. Acute Renal failure most likely secondary to dehydration in setting of home dose of losartan. Baseline creatinine normal. Creatinine on admission 4. Improving. Check urine lites, urine creatinine. Continue with IV fluids as above. Medical reconciliation done for nephrotoxic drugs. Monitor BMP daily. No eli due to agitation Monitor u/o If worsening consider renal consult Leukocytosis: Most likely reactive. Infectious cause unlikely. Chest x-ray on admission negative for infiltrate, UA negative for any signs of infection. Patient has remained afebrile even though not on antibiotics. Check procalcitonin. Blood cultures are already been sent out. For now hold off on antibiotics. If patient becomes febrile will start on broad antibiotics. Chronic obstructive pulmonary disease / Pul HTN Duoneb PRN Supplemental o2 as needed Not currently in exacerbation Tobacco abuse Nicotine patch PRN DVT ppx Heparin 5000 units q12hr Cardiac diet. Protonix for PUD prophylaxis Attestations Medical Necessity Statement*: Patient requires further hospitalization for metabolic encephalopathy secondary to amphetamine abuse, acute kidney injury Time Spent in Patient Care: Greater than 35 minutes (>than 50% of time spent in counselling and/or direct pt care on unit) . 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
[2021-05-15 10:54] VITALS: BP 140/64; PULSE 68; RESP 16; TEMP 36.7; O2SAT 99
[2021-05-15 11:09] LABS: Glucose Point of Care 139 mg/dL (70-110)
[2021-05-15 13:01] LABS: Iron 84 ug/dL (59-158); Percent Saturation 29.5 % (20-50); Thyroid Stimulating Hormone 0.84 uIU/mL (0.27-4.20); Total Iron Binding Capacity 284 mcg/dl; Unsaturated Iron Binding 200 ug/dL (112-347)
[2021-05-15 16:00] VITALS: BP 150/73; PULSE 71; RESP 18; TEMP 36.6; O2SAT 96
[2021-05-15 16:52] LABS: Procalcitonin 1.85 ng/mL (0-0.5)
[2021-05-15 17:07] LABS: Potassium, Radom Urine 95 mmol/L; Urine Creatinine 220 mg/dL (39-259); Urine Random Sodium 42 mmol/L
[2021-05-15 17:08] LABS: Urine Random Chloride 16 mmol/L
[2021-05-15 20:00] VITALS: BP 160/64; PULSE 71; RESP 17; TEMP 37; O2SAT 97
[2021-05-15] MEDS: sodium chloride 0.9% 1,000 ML 100 ML IV (20:27)
[2021-05-15 20:32] LABS: Glucose Point of Care 103 mg/dL (70-110)
[2021-05-15 23:07] LABS: Glucose Point of Care 90 mg/dL (70-110)
[2021-05-16] VITALS: BP 157/76; PULSE 73; RESP 18; TEMP 36.7; O2SAT 96
[2021-05-16] MEDS: heparin 5,000 unit/mL INJ 1 mL 5000 UNIT SUBCUT ×2 (01:08→10:25)
[2021-05-16 04:00] VITALS: BP 160/71; PULSE 56; RESP 17; TEMP 36.7; O2SAT 96
[2021-05-16 06:17] LABS: Glucose Point of Care 101 mg/dL (70-110)
[2021-05-16 06:17] LABS: Basophils % 0.2 %; Eosinophils # 0.1 10^3/uL (0.0-0.8); Eosinophils % 0.6 %; Hematocrit 27.7 % (42.0-52.0); Hemoglobin 8.9 g/dL (11.7-16.6); Lymphocytes # 1.3 10^3/uL (0.8-4.8); Lymphocytes % 14.4 %; Mean Corpuscular HGB Conc 32.1 g/dL (30.0-36.0); Mean Corpuscular Hemoglobin 31.6 pg (28.0-34.0); Mean Corpuscular Volume 98.2 fL (80-94); Mean Platelet Volume 10.8 fL (7.4-10.4); Monocytes # 0.9 10^3/uL (0.2-0.9); Monocytes % 10.3 %; Neutrophils # 6.54 10^3/uL (1.8-7.7); Neutrophils % 73.9 %; Nucleated Red Blood Cells % 0 %; Platelet Count 270 10^3/cmm (130-400); Red Blood Count 2.82 10^6/uL (4.1-5.3); Red Cell Distribution Width 14.2 % (12.1-15.1); White Blood Count 8.8 10^3/uL (4.0-10.0)
[2021-05-16] MEDS: sodium chloride 0.9% 1,000 ML 100 ML IV (06:29)
[2021-05-16 06:34] LABS: Estmated Average Glucose 108; Hemoglobin A1C 5.4 % (4.0-6.0)
[2021-05-16 06:41] LABS: Alanine Aminotransferase 51 U/L (0-41); Albumin Level 3.8 g/dL (3.5-5.2); Alkaline Phosphatase 61 IU/L (40-130); Anion Gap 16.5 (5-19); Aspartate Amino Transferase 83 U/L (0-40); Blood Urea Nitrogen 47 mg/dL (8-23); Carbon Dioxide 20 mmol/L (22-29); Chloride 108 mmol/L (98-107); Globulin 2.1 g/dL (1.3-4.6); Glucose 89 mg/dL (65-115); Osmolality Calculated 302 mOsm/kg (285-295); Potassium 4.5 mmol/L (3.5-5.1); Sodium 140 mmol/L (136-145); Total Bilirubin 0.3 mg/dL (0.15-1.2); Total Protein 5.9 g/dL (6.6-8.7)
[2021-05-16 07:43] VITALS: BP 176/72; PULSE 63; RESP 18; TEMP 36.6; O2SAT 98
[2021-05-16] MEDS: pantoprazole DR 40 mg Tablet PO (10:24)
[2021-05-16] MEDS: multivitamin therapeutic Tablet 1 TAB PO (10:24)
[2021-05-16] MEDS: thiamine 100 mg Tablet PO (10:24)
[2021-05-16] MEDS: folic acid 1 mg Tablet PO (10:25)
[2021-05-16 11:16] LABS: Glucose Point of Care 145 mg/dL (70-110)
[2021-05-16 11:37] VITALS: BP 164/76; PULSE 64; RESP 18; TEMP 36.7; O2SAT 99
--- NOTE | 2021-05-16 13:07 | PM.DCS ---
Discharge Providers Date of Admission: 05/14/21 15:00 Date of Discharge: May 16, 2021 Attending Provider at Admission: Paulette Aguilar Attending Provider at Discharge: James Tello MD Diagnoses at Discharge Discharge Diagnosis (1) Altered mental status: Status: Acute Qualifiers: Altered mental status type: unspecified Qualified Code(s): R41.82 - Altered mental status, unspecified (2) NAVID (acute kidney injury): Status: Acute (3) Methamphetamine abuse: Status: Acute (4) Metabolic encephalopathy: Status: Acute Reason for Visit Reason for Visit: AMS Hospital Course Hospital Course 76-year-old male with past medical history significant for chronic obstructive pulmonary disease, tobacco abuse, hypertension, erectile dysfunction, gout, thoracic outlet syndrome hx of bilateral cervical rib removal and significant history of polysubstance abuse was brought to the hospital by police after he was noted to have altered mental status. Patient was very agitated and hyperactive at the time of my evaluation and thus not able to provide any meaningful history. Upon arrival to emergency room his laboratory workup showed a WBC of 27.7, hemoglobin 11.3, hematocrit 33.7 and platelet count 254. Sodium 145, potassium 5.1, chloride 99, bicarb 20, BUN 57 and creatinine of 4.0. Previous creatinine of 1.0 in February of this year. Glucose of 126, lactic acid of 0.9. AST of 62, ALT 27, alkaline phosphatase of 99.Troponin trend of 69 at baseline, 58.29 at 120 min and 46.85 at 6hr. Urinary drug screen was positive for methamphetamine. COVID-[address] Head CT did not show any evidence of acute intracranial abnormality and chest x-ray was also negative. Patient went to the hospital for management of toxic metabolic encephalopathy most likely secondary from amphetamine intoxication. He was found to be in acute renal failure most likely from dehydration. Medical reconciliation was done for nephrotoxic drugs. Losartan was withheld. He was started on IV hydration to which she responded well and his creatinine came down to 1.3 on the day of discharge. Patient did have some episodes of agitation on and off. By the day of discharge patient was AOx3 and back to his baseline mentation with occasional episode agitation. Patient hospital stay was otherwise unremarkable. He is been discharged hemodynamically stable condition with advised to follow-up with his primary care provider within next 1 week for repeat BMP. His antihypertensives have been switched to amlodipine 10 mg daily and has been asked to hold off on losartan for now. He is advised to maintain a blood pressure diary by checking her blood pressures twice a day and follow-up with his primary care provider for further adjustments of antihypertensives. Patient was also counseled in detail to avoid recreational drugs/amphetamine use. Physical Exam Narrative: EXAM NARRATIVE: General: AOx3, no acute distress, mildly agitated HEENT: Grossly unremarkable, dry mucous membranes CVS : S1-S2 regular, bradycardia Chest: Normal vesicular breath sounds bilaterally, good air entry bilaterally. ABD; Soft, NT, ND EXT - no edema Skin: multiple abrasion -particularly in LE Discharge Data Data Completed and Pending: Completed Studies During Hospitalization Category Date Time Status CT head wo con* [id number] [id number] Urgent Cat Scan 05/14/21 09:50 Completed XR chest 1V claudette ble [id number] Stat Exams 05/14/21 09:59 Completed Pending at discharge Category Date Time Status Blood Culture Sta t Lab 05/14/21 13:25 Results Labs from last 24 hours 05/16/21 05/16/21 05/16/21 11:03 05:09 05:09 WBC RBC Hgb Hct MCV MCH MCHC RDW Plt Count MPV Neut % (Auto) Lymph % (Auto) [place] % (Auto) Eos % (Auto) Baso % (Auto) Neut # (Auto) Lymph # (Auto) [place] # (Auto) Eos # (Auto) Baso # (Auto) Nucleated RBC % (a uto) Nucleated RBCs # Sodium 140 Potassium 4.5 Chloride 108 H Carbon Dioxide 20 L Anion Gap 16.5 BUN 47 H Creatinine 1.3 H GFR Calculation Not Reportable Glucose 89 POC Glucose 145 H Estimat Average Gl ucose 108 Hemoglobin A1c 5.4 Calculated Osmolal ity 302 H Calcium 8.0 L Total Bilirubin 0.3 AST 83 H ALT 51 H Alkaline Phosphata se 61 Total Protein 5.9 L Albumin 3.8 Globulin 2.1 Procalcitonin Ur Random Sodium Ur Random Potassiu m Ur Random Chloride Urine Creatinine 05/16/21 05/16/21 05/15/21 05:09 05:02 23:03 WBC 8.8 RBC 2.82 L Hgb 8.9 L Hct 27.7 L MCV 98.2 H MCH 31.6 MCHC 32.1 RDW 14.2 Plt Count 270 MPV 10.8 H Neut % (Auto) 73.9 Lymph % (Auto) 14.4 Beltrami % (Auto) 10.3 Eos % (Auto) 0.6 Baso % (Auto) 0.2 Neut # (Auto) 6.54 Lymph # (Auto) 1.3 [place] # (Auto) 0.9 Eos # (Auto) 0.1 Baso # (Auto) 0.0 Nucleated RBC % (a uto) 0 Nucleated RBCs # 0.0 Sodium Potassium Chloride Carbon Dioxide Anion Gap BUN Creatinine GFR Calculation Glucose POC Glucose 101 90 Estimat Average Gl ucose Hemoglobin A1c Calculated Osmolal ity Calcium Total Bilirubin AST ALT Alkaline Phosphata se Total Protein Albumin Globulin Procalcitonin Ur Random Sodium Ur Random Potassiu m Ur Random Chloride Urine Creatinine 05/15/21 05/14/21 05/14/21 17:17 15:36 10:30 WBC RBC Hgb Hct MCV MCH MCHC RDW Plt Count MPV Neut % (Auto) Lymph % (Auto) [place] % (Auto) Eos % (Auto) Baso % (Auto) Neut # (Auto) Lymph # (Auto) [place] # (Auto) Eos # (Auto) Baso # (Auto) Nucleated RBC % (a uto) Nucleated RBCs # Sodium Potassium Chloride Carbon Dioxide Anion Gap BUN Creatinine GFR Calculation Glucose POC Glucose 103 Estimat Average Gl ucose Hemoglobin A1c Calculated Osmolal ity Calcium Total Bilirubin AST ALT Alkaline Phosphata se Total Protein Albumin Globulin Procalcitonin 1.85 H Ur Random Sodium 42 Ur Random Potassiu m 95 Ur Random Chloride 16 Urine Creatinine 220 Addt'l Data from Hospital Stay: Laboratory Results WBC 8.8 10^3/uL (4.0- 10.0) 05/16/21 05:09 RBC 2.82 10^6/uL (4.1 -5.3) L 05/16/21 05:09 Hgb 8.9 g/dL (11.7-16 .6) L 05/16/21 05:09 Hct 27.7 % (42.0-52.0 ) L 05/16/21 05:09 MCV 98.2 fL (80-94) H 05/16/21 05:09 MCH 31.6 pg (28.0-34. 0) 05/16/21 05:09 MCHC 32.1 g/dL (30.0-3 6.0) 05/16/21 05:09 RDW 14.2 % (12.1-15.1 ) 05/16/21 05:09 Plt Count 270 10^3/cmm (130 -400) 05/16/21 05:09 MPV 10.8 fL (7.4-10.4 ) H 05/16/21 05:09 Neut % (Auto) 73.9 % 05/16/21 05:09 Lymph % (Auto) 14.4 % 05/16/21 05:09 [place] % (Auto) 10.3 % 05/16/21 05:09 Eos % (Auto) 0.6 % 05/16/21 05:09 Baso % (Auto) 0.2 % 05/16/21 05:09 Neut # (Auto) 6.54 10^3/uL (1.8 -7.7) 05/16/21 05:09 Lymph # (Auto) 1.3 10^3/uL (0.8- 4.8) 05/16/21 05:09 [place] # (Auto) 0.9 10^3/uL (0.2- 0.9) 05/16/21 05:09 Eos # (Auto) 0.1 10^3/uL (0.0- 0.8) 05/16/21 05:09 Baso # (Auto) 0.0 10^3/uL (0.0- 0.1) 05/16/21 05:09 Nucleated RBC % (a uto) 0 % 05/16/21 05:09 Nucleated RBCs # 0.0 /100WBC 05/16/21 05:09 Sodium 140 mmol/L (136-1 45) 05/16/21 05:09 Potassium 4.5 mmol/L (3.5-5 .1) 05/16/21 05:09 Chloride 108 mmol/L (98-10 7) H 05/16/21 05:09 Carbon Dioxide 20 mmol/L (22-29) L 05/16/21 05:09 Anion Gap 16.5 (5-19) 05/16/21 05:09 BUN 47 mg/dL (8-23) H 05/16/21 05:09 Creatinine 1.3 mg/dL (0.7-1. 2) H 05/16/21 05:09 GFR Calculation Not Reportable 05/16/21 05:09 Glucose 89 mg/dL (65-115) 05/16/21 05:09 POC Glucose 145 mg/dL (70-110 ) H 05/16/21 11:03 Estimat Average Gl ucose 108 05/16/21 05:09 Hemoglobin A1c 5.4 % (4.0-6.0) 05/16/21 05:09 Calculated Osmolal ity 302 mOsm/kg (285- 295) H 05/16/21 05:09 Lactate 0.9 mmol/L (0.5-2 .2) 05/14/21 13:25 Calcium 8.0 mg/dL (8.5-10 .5) L 05/16/21 05:09 Magnesium 2.2 mg/dL (1.7-2. 3) 05/15/21 04:01 Iron 84 ug/dL (59-158) 05/15/21 04:01 TIBC 284 mcg/dl 05/15/21 04:01 % Saturation 29.5 % (20-50) 05/15/21 04:01 Unsat Iron Binding 200 ug/dL (112-34 7) 05/15/21 04:01 Total Bilirubin 0.3 mg/dL (0.15-1 .2) 05/16/21 05:09 AST 83 U/L (0-40) H 05/16/21 05:09 ALT 51 U/L (0-41) H 05/16/21 05:09 Alkaline Phosphata se 61 IU/L (40-130) 05/16/21 05:09 Troponin T Baselin e 69 ng/L (0-15) H 05/14/21 09:30 Troponin T 120 Min jace 58.29 ng/L (0-15) H 05/14/21 11:29 Delta Troponin T -10.71 ABS# (0-10 ) L 05/14/21 11:29 Troponin T Hi Sens 6Hr 46.85 ng/L (0-15) H 05/14/21 15:36 Troponin T Hi Sens 6Hr Delta -22.15 ng/L (0-12 ) L 05/14/21 15:36 Total Protein 5.9 g/dL (6.6-8.7 ) L 05/16/21 05:09 Albumin 3.8 g/dL (3.5-5.2 ) 05/16/21 05:09 Globulin 2.1 g/dL (1.3-4.6 ) 05/16/21 05:09 Procalcitonin 1.85 ng/mL (0-0.5 ) H 05/14/21 15:36 TSH 0.84 uIU/mL (0.27 -4.20) 05/15/21 04:01 TSH Cancelled 05/15/21 04:01 Urine Color Yellow (Yellow) 05/14/21 10:30 Urine Appearance Clear (CLEAR) 05/14/21 10:30 Urine pH 5 (5-7) 05/14/21 10:30 Ur Specific Gravit y 1.025 (1.005-1.0 30) 05/14/21 10:30 Urine Protein 1+ (Negative) H 05/14/21 10:30 Urine Glucose (UA) Norm (Normal) 05/14/21 10:30 Urine Ketones 1+ (Negative) H 05/14/21 10:30 Urine Blood Neg (Negative) 05/14/21 10:30 Urine Nitrate Negative (Negati ve) 05/14/21 10:30 Urine Bilirubin 1+ (Negative) H 05/14/21 10:30 Urine Urobilinogen Norm mg/dL (Negat nancy) 05/14/21 10:30 Ur Leukocyte [place] ase Negative (Negati ve) 05/14/21 10:30 Urine RBC None /hpf (0-2) 05/14/21 10:30 Urine WBC None /hpf (0-5) 05/14/21 10:30 Ur Squamous Epith Cells 5-10 /hpf (0-5) H 05/14/21 10:30 Amorphous Sediment Not Reportable 05/14/21 10:30 Urine Bacteria 1+ /hpf (NONE) H 05/14/21 10:30 Urine Mucus 1+ /hpf 05/14/21 10:30 Ur Random Sodium 42 mmol/L 05/14/21 10:30 Ur Random Potassiu m 95 mmol/L 05/14/21 10:30 Ur Random Chloride 16 mmol/L 05/14/21 10:30 Urine Creatinine 220 mg/dL (39-259 ) 05/14/21 10:30 Urine Opiates Scre en Negative ng/mL (N egative) 05/14/21 10:30 Ur Barbiturates Sc reen Negative ng/mL (N egative) 05/14/21 10:30 Ur Phencyclidine S crn Negative ng/mL (N egative) 05/14/21 10:30 Ur Amphetamines Sc reen Positive ng/mL (N egative) H 05/14/21 10:30 U Benzodiazepines Scrn Negative ng/mL (N egative) 05/14/21 10:30 Urine Cocaine Scre en Negative ng/mL (N egative) 05/14/21 10:30 U Marijuana (THC) Screen Negative ng/mL (N egative) 05/14/21 10:30 Ethyl Alcohol < 10 mg/dL (0-10) 05/14/21 09:30 SARS-CoV-2 Ag (Rap id) Negative (Negati ve) 05/14/21 13:[address] 05/14/21 09:50 IMPRESSION: No acute intracranial abnormality. Radiation Dose CTDIVOL = (mGy): DLP = 976.97 (mGy-cm) Chest X-Ray 05/14/21 09:59 IMPRESSION: No acute findings. Vitals: Last Vital Signs Temp 98.0 F 05/16/21 11:37 Pulse 64 05/16/21 11:37 Resp 18 05/16/21 11:37 BP 164/76 05/16/21 11:37 Pulse Ox 99 05/16/21 11:37 Discharge Plan Discharge Patient Disposition: Home Condition: Stable Prescriptions: New amlodipine 10 mg tablet 10 mg PO DAILY Qty: 30 RF: 0 Continued quetiapine 200 mg tablet 200 mg PO DAILY RF: 0 baclofen 5 mg tablet 5 mg PO BID PRN (Reason: Muscle Spasm) RF: 0 sildenafil (pulm.hypertension) 20 mg tablet 20 - 100 mg PO PRN RF: 0 Held losartan 25 mg tablet 25 mg PO DAILY RF: 0 Hold Instructions: Resume on 05/23/21. Discharge Orders: Discharge Order (Routine); Ordered 05/16/21 Ordered By: James Tello Referrals: Stephan Fink DO [Physician] - 4-7 days (Repeat BMP, blood pressure check) Discharge Diet: Cardiac Discharge Activity: Resume usual activity Patient Instructions: Opioid Safety Activity Restrictions/Additional Instructions: Please follow-up with your primary care provider within next 7 days. Please recheck BMP when following up with your primary care provider. Please check your blood pressure twice a day and maintain a blood pressure diary. He should follow-up with your primary care provider with a blood pressure diary for further adjustment of antihypertensives. You do not start losartan until seen your primary care provider. For now take amlodipine 10 mg for blood pressure rather than losartan. Further adjustment of antihypertensives will be done at your primary care's office. Please try to avoid recreational drugs/amphetamines as discussed in detail. Discharge Attestations Time Spent in Discharge Care*: greater than 30 min Specific Discharge Activities: educating patient, discussing with pcp/other providers, discussing with family service caseworker/social workers/dc planners, documenting/other paperwork and evaluating patient/reviewing data Status at Discharge: Cognitive status at discharge: cognitively intact, Behavioral status at discharge: can be uncooperative, Functional status at discharge: independent ambulation Overall status at discharge: patient is back to baseline Quality Metrics Clinical Quality Measures During this hospital stay, did patient experience: None Coding Level of Care Code Acute [facility] DC note Diagnoses Altered mental status R41.82 Altered mental status type: unspecified NAVID (acute kidney injury) N17.9 Methamphetamine abuse F15.10 Metabolic encephalopathy G93.41
[2021-05-16 15:07] VITALS: BP 164/76; PULSE 64; RESP 18; TEMP 36.7; O2SAT 99
== END 2021-05-16 14:30 | disposition home or self-care (01) | DRG 682 ==
LOC: ER 14:58 → MEDSURG 15:35 → MS 2A 05-16 03:52 → MEDSURG 05-16 03:53
PROVIDERS: Registered Nurse; Admitting Provider Hospitalist; Emergency Provider Emergency Medicine; Visit Provider Student in an Organized Health Care Education/Training Program
DX: N17.9 Acute kidney failure, unspecified (principal); G92 Toxic encephalopathy; J44.9 Chronic obstructive pulmonary disease, unspecified; F17.210 Nicotine dependence, cigarettes, uncomplicated; I10 Essential (primary) hypertension; N52.9 Male erectile dysfunction, unspecified; M10.9 Gout, unspecified; G54.0 Brachial plexus disorders; Z90.89 Acquired absence of other organs; F15.129 Other stimulant abuse with intoxication, unspecified; Z86.010 Personal history of colon polyps; N40.0 Benign prostatic hyperplasia without lower urinary tract symptoms; G47.00 Insomnia, unspecified; Z96.641 Presence of right artificial hip joint; T43.621A Poisoning by amphetamines, accidental (unintentional), initial encounter; E86.0 Dehydration
CPT/HCPCS: 36415; 36416; 70450; 71045; 80053; 80306; 80307; 81001; 82436; 82570; 82962; 83036; 83540; 83550; 83605; 83735; 84133; 84145; 84300; 84443; 84484; 85025; 87040; 87426; 93005; 96361; 96372; 96374; 99285; J1644; J2060; J2405; J7030

== ENCOUNTER 2023-10-04 11:38 | Inpatient (IN) | payer MEDICARE, MEDICAID, SELFPAY ==
[2023-10-04] VITALS (24 sets, daily range): BP systolic 132–159; BP diastolic 74–77; PULSE 81–104; RESP 15–27; TEMP 36.3–36.7; O2SAT 89–96; BMI 23.1
--- NOTE | 2023-10-04 11:44 | XR_ITS ---
WS: [id number] Portable AP upright chest, 10/04/2023 Clinical Data: dyspnea Comparison: Portable chest, 05/14/2021 Findings: There is now a large left pleural effusion which extends two thirds of the way to the apex of the left lung. Right lung is clear. The heart size is difficult to evaluate because the left borde r is obscured. No nodules or masses are seen. No pneumonia or pneumothorax is seen. Impression: Large left pleural effusion.
--- NOTE | 2023-10-04 11:44 | ECG_ITS ---
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 Measurements Intervals [place] Rate: 93 P: 54 LA: 155 QRS: 40 QRSD: 88 T: 78 QT: 291 QTc: 363 Interpretive Statements SINUS RHYTHM NONSPECIFIC T-WAVE ABNORMALITY Compared to ECG 05/14/2021 15:52:10 T-wave abnormality now present Electronically Signed On 10-05-2023 6:02:51 ADVANCED PRACTICE NURSE by Janice Velásquez M.D. [id number]
--- NOTE | 2023-10-04 11:58 | ED_ITS ---
HPI - SOB/Dyspnea 2 General: Chief Complaint: Shortness of Breath/Dyspnea Stated Complaint: sob Time Seen by Provider: 10/04/23 11:41 History of Present Illness: HPI Narrative: Patient presents to the ER with complaints of shortness of breath. This started yesterday has been getting worse. Patient does not have oxygen at home nor does he require any pulmonary type medications. Patient denies any fever or chills. Patient does have pulmonary artery hypertension per chart. And also COPD. Patient does have a history of methamphetamine abuse per chart. MD elicited complaint: shortness of breath Pertinent past history: COPD Onset (ago): day(s) (Yesterday) Timing: constant Severity: mild Exacerbating factors: exertion Relieving factors: oxygen and bronchodilators Known history of: COPD Associated symptoms: Reports no associated symptoms Review of Systems 2 General: Reports: 10 or more systems reviewed and unremarkable except in HPI and below PFSH ED 2 PFSH: Medical History NAVID (acute kidney injury) COPD (chronic obstructive pulmonary disease) Erectile dysfunction BPH (benign prostatic hyperplasia) Gout Hip osteoarthritis Thoracic outlet syndrome Bilateral cervical rib removed Hypertension Insomnia Abnormal colonoscopy Polyps removed: Tubular adenoma Anemia Methamphetamine abuse Surgical History History of right hip replacement H/O knee surgery History of appendectomy Family History Father Diabetes Denies family history of CAD (coronary artery disease) Social History Smoking and tobacco/nicotine status: former use of tobacco/nicotine Alcohol intake: current Alcohol intake frequency: holidays/special occasions only Substance/Drug Use: current Physical Exam 2 Const: COMMON NORMALS: no acute distress, average body habitus, patient oriented x3, no limitations, healthy appearing, alert and well nourished HENMT: COMMON NORMALS: normocephalic, atraumatic, hearing grossly normal bilaterally, external ears normal, Normal external nose present, moist oral mucous membranes and oropharynx normal HEAD & SCALP: normocephalic and atraumatic NOSE: Normal external nose present EXTERNAL EAR: Yes external ears normal Neck/C-Spine: COMMON NORMALS: full ROM, no lymphadenopathy, supple, no meningeal signs, no JVD and Thyroid normal THYROID: Thyroid normal Chest: COMMONS NORMALS: normal inspection of the chest and normal palpation of entire chest wall Resp: COMMON NORMALS: normal respiratory effort, No retractions and No use of accessory muscles; negative for clear to auscultation bilaterally (Diffuse wheezes) A USCULTATION: not clear to auscultation bilaterally (Diffuse wheezes) Cardio: COMMON NORMALS: no JVD, regular rate, regular rhythm, S1 normal heart sound present, S2 normal heart sound present, No gallops present (Cardio), No clicks present (Cardio), No murmurs present (Cardio) and No rub (Cardio) R ATE: regular rate RHYTHM: regular rhythm HEART SOUNDS: S1 normal heart sound present and S2 normal heart sound present GI: COMMON NORMALS: Normal to inspection, nondistended, normoactive bowel sounds present, Soft to palpation, non-tender, No hepatosplenomegaly present and no masses PALPATION: Yes Soft to palpation and Yes No hepatosplenomegaly present Neuro: COMMON NORMALS: patient oriented x3 SENSORIUM/ORIENTATION: Yes alert MENINGEAL SIGNS: Yes no meningeal signs Course 2 Vital Signs: Vital signs: Vital Signs Temperature 97.4 F L 10/04/23 11:39 Pulse Rate 99 10/04/23 14:25 Respiratory Rate 19 H 10/04/23 14:25 Blood Pressure 132/76 10/04/23 14:25 Pulse Oximetry 96 10/04/23 14:25 Oxygen Delivery Me thod Nasal Cannula 10/04/23 12:54 Oxygen Flow Rate 3 10/04/23 12:54 MDM - SOB/Dyspnea Medical Decision Making Workup included lab work which showed elevated white count of 39,000, BUN/creatinine mildly elevated at 43 and 1.9, platelets elevated 786, urine drug screen showed positive for amphetamines and THC. Chest x-ray showed positive for large left pleural effusion. Patient needed 2 L of oxygen to keep saturation in the 90% range. Dr. Montana was called who agreed for further evaluation and treatment in patiently. Patient will be started on Vanco and Zosyn, normal saline at 75 cc/h, we will get an ultrasound of the chest to see if the pleural effusion could be drained. If drained we will get a CT scan after the fact. If it is an empyema Dr. Ochoa will be consulted and will prep place a probable chest tube. Patient will be admitted to the [facility] floor. Differential Diagnosis Likely acute exacerbation of chronic obstructive airways disease; Unlikely congestive heart failure, community acquired pneumonia, asthma with exacerbation or pulmonary embolism Medical Records I reviewed the patient's medical records. Lab Data I reviewed the patient's lab results. 10/04/23 11:45 10/04/23 11:45 Labs/Radiology: Laboratory Results WBC 39.70 10^3/uL (3.29-11.43) H* 10/04/23 11:45 RBC 3.54 10^6/uL (3.85-5.65) L 10/04/23 11:45 Hgb 10.60 g/dL (11.27-16.99) L 10/04/23 11:45 Hct 32.7 % (37-53) L 10/04/23 11:45 MCV 92.4 fl (82-101) 10/04/23 11:45 MCH 29.9 pg (27-33) 10/04/23 11:45 MCHC 32.4 g/dL (30-55) 10/04/23 11:45 RDW 14.0 % (12.1-15.1) 10/04/23 11:45 Plt Count 786 10^3/cmm (157-399) H 10/04/23 11:45 MPV 10.7 fL (7.4-10.4) H 10/04/23 11:45 Neut % (Auto) 72.6 % 10/04/23 11:45 Lymph % (Auto) 7.5 % 10/04/23 11:45 Navarro % (Auto) 6.0 % 10/04/23 11:45 Eos % (Auto) 11.2 % 10/04/23 11:45 Baso % (Auto) 0.8 % 10/04/23 11:45 Neut # (Auto) 28.82 10^3/uL (1.8-7.7) H 10/04/23 11:45 Lymph # (Auto) 3.0 10^3/uL (0.8-4.8) 10/04/23 11:45 Navarro # (Auto) 2.4 10^3/uL (0.2-0.9) H 10/04/23 11:45 Eos # (Auto) 4.5 10^3/uL (0.0-0.8) H 10/04/23 11:45 Baso # (Auto) 0.3 10^3/uL (0.0-0.1) H 10/04/23 11:45 Nucleated RBC % (auto) 0 % 10/04/23 11:45 Nucleated RBCs # 0.0 /100WBC 10/04/23 11:45 PT 13.50 SECONDS (12.1-14.9) 10/04/23 11:45 INR 1.00 (0.8-1.2) 10/04/23 11:45 D-Dimer 5.89 ug/mLFEU (0-0.59) H 10/04/23 11:45 Sodium 133 mmol/L (136-145) L 10/04/23 11:45 Potassium 5.1 mmol/L (3.5-5.1) 10/04/23 11:45 Chloride 95 mmol/L (98-107) L 10/04/23 11:45 Carbon Dioxide 21 mmol/L (22-29) L 10/04/23 11:45 Anion Gap 22.1 (5-19) H 10/04/23 11:45 BUN 43 mg/dL (8-23) H 10/04/23 11:45 Creatinine 1.9 mg/dL (0.7-1.2) H 10/04/23 11:45 GFR Calculation Not Reportable 10/04/23 11:45 Glucose 142 mg/dL (65-115) H 10/04/23 11:45 Calculated Osmolality 289 mOsm/kg (285-295) 10/04/23 11:45 Lactic Acid 1.8 mmol/L (0.5-2.2) 10/04/23 12:53 Uric Acid 11.7 mg/dL (3.4-7.0) H 10/04/23 11:45 Calcium 11.4 mg/dL (8.5-10.5) H 10/04/23 11:45 Magnesium 2.1 mg/dL (1.7-2.3) 10/04/23 11:45 Total Bilirubin 0.2 mg/dL (0.15-1.2) 10/04/23 11:45 AST 10 U/L (0-40) 10/04/23 11:45 ALT 11 U/L (0-41) 10/04/23 11:45 Alkaline Phosphatase 163 U/L (40-130) H 10/04/23 11:45 Troponin T Baseline 39 ng/L (0-15) H 10/04/23 11:45 Troponin T 120 Minute 36.53 ng/L (0-15) H 10/04/23 13:53 Delta Troponin T -2.47 ABS# (0-10) L 10/04/23 13:53 C-Reactive Protein 98.7 mg/L (0.0-4.9) H 10/04/23 11:45 Total Protein 7.3 g/dL (6.6-8.7) 10/04/23 11:45 Albumin 3.8 g/dL (3.5-5.2) 10/04/23 11:45 Globulin 3.5 g/dL (1.3-4.6) 10/04/23 11:45 Procalcitonin 0.31 ng/mL (0-0.5) 10/04/23 11:45 Urine Color Yellow (Yellow) 10/04/23 12:24 Urine Appearance Clear (CLEAR) 10/04/23 12:24 Urine pH 5 (5-7) 10/04/23 12:24 Ur Specific [place] 1.025 (1.005-1.030) 10/04/23 12:24 Urine Protein Neg (Negative) 10/04/23 12:24 Urine Glucose (UA) Norm (Normal) 10/04/23 12:24 Urine Ketones Negative (Negative) 10/04/23 12:24 Urine Blood Neg (Negative) 10/04/23 12:24 Urine Nitrate Negative (Negative) 10/04/23 12:24 Urine Bilirubin Neg (Negative) 10/04/23 12:24 Urine Urobilinogen Norm mg/dL (Negative) 10/04/23 12:24 Ur Leukocyte Esterase Negative (Negative) 10/04/23 12:24 Ur Random Sodium 29 mmol/L 10/04/23 12:24 Ur Random Potassium 58 mmol/L 10/04/23 12:24 Ur Random Chloride 13 mmol/L 10/04/23 12:24 Urine Creatinine 151 mg/dL (39-259) 10/04/23 12:24 Urine Opiates Screen Negative ng/mL (Negative) 10/04/23 12:24 Ur Barbiturates Screen Negative ng/mL (Negative) 10/04/23 12:24 Ur Phencyclidine Scrn Negative ng/mL (Negative) 10/04/23 12:24 Ur Amphetamines Screen Positive ng/mL (Negative) H 10/04/23 12:24 U Benzodiazepines Scrn Negative ng/mL (Negative) 10/04/23 12:24 Urine Cocaine Screen Negative ng/mL (Negative) 10/04/23 12:24 U Marijuana (THC) Screen Positive ng/mL (Negative) H 10/04/23 12:24 All radiology interpretation(s) finalized by discharge EKG Data EKG 1: I personally reviewed and interpreted this EKG as follows: EKG Interpretation Date: 10/04/23 EKG interpretation time: 11:52 Prior EKG tracings: not available for review Interpretation: EKG showed ventricular rate 93 bpm, CO interval 155, QRS duration 88, QTc of 342, sinus rhythm, nonspecific T wave abnormality EKG 2: I personally reviewed and interpreted this EKG as follows: EKG Interpretation Date: 10/04/23 EKG interpretation time: 14:42 Prior EKG tracings: available for review Interpretation: EKG showed ventricular rate 89 bpm, CO interval 182, QRS duration 87, QTc 358, sinus rhythm, nonspecific ST and T wave abnormality Discharge Plan Discharge Patient Disposition: Admitted As Inpatient Clinical Impression: Pleural effusion on left, Hypoxia, Thrombocytosis, Acute on chronic renal insufficiency, Polysubstance abuse Leukocytosis Qualifiers: Leukocytosis type: unspecified Qualified Code(s): D72.829 - Elevated white blood cell count, unspecified Coding Level of Care Code ED Chemical Sprayer for Javier Collins
[2023-10-04 12:10] LABS: Basophils # 0.3 10^3/uL (0.0-0.1); Basophils % 0.8 %; Eosinophils # 4.5 10^3/uL (0.0-0.8); Eosinophils % 11.2 %; Hematocrit 32.7 % (37-53); Lymphocytes % 7.5 %; Mean Corpuscular HGB Conc 32.4 g/dL (30-55); Mean Corpuscular Hemoglobin 29.9 pg (27-33); Mean Corpuscular Volume 92.4 fl (82-101); Mean Platelet Volume 10.7 fL (7.4-10.4); Monocytes # 2.4 10^3/uL (0.2-0.9); Neutrophils # 28.82 10^3/uL (1.8-7.7); Neutrophils % 72.6 %; Nucleated Red Blood Cells % 0 %; Platelet Count 786 10^3/cmm (157-399); Red Blood Count 3.54 10^6/uL (3.85-5.65)
[2023-10-04 12:25] LABS: Troponin(5th) Baseline 39 ng/L (0-15)
[2023-10-04 12:27] LABS: Alanine Aminotransferase 11 U/L (0-41); Albumin Level 3.8 g/dL (3.5-5.2); Alkaline Phosphatase 163 U/L (40-130); Anion Gap 22.1 (5-19); Aspartate Amino Transferase 10 U/L (0-40); Blood Urea Nitrogen 43 mg/dL (8-23); Calcium 11.4 mg/dL (8.5-10.5); Carbon Dioxide 21 mmol/L (22-29); Chloride 95 mmol/L (98-107); Globulin 3.5 g/dL (1.3-4.6); Glucose 142 mg/dL (65-115); Osmolality Calculated 289 mOsm/kg (285-295); Potassium 5.1 mmol/L (3.5-5.1); Sodium 133 mmol/L (136-145); Total Bilirubin 0.2 mg/dL (0.15-1.2); Total Protein 7.3 g/dL (6.6-8.7)
[2023-10-04 12:32] LABS: Add Urine Microscopic? NO; Charge for UA Resulting for Rev
[2023-10-04 12:40] LABS: Bilirubin Urine Neg (Negative); Blood Urine Neg (Negative); Glucose Urine UA Norm (Normal); Ketones Urine Negative (Negative); Leukocyte Esterase Urine Negative (Negative); Nitrate Urine Negative (Negative); Protein Urine Neg (Negative); Specific Gravity, Urine 1.025 (1.005-1.030); Urine Appearance Clear (CLEAR); Urine Color Yellow (Yellow); Urobilinogen Urine Norm (Negative); pH Urine 5 (5-7)
[2023-10-04] MEDS: methylPREDNISolone sod succ 125 mg/2 mL INJ IVP (12:43)
[2023-10-04 12:47] LABS: THC Screen Urine Positive (Negative)
[2023-10-04 12:48] LABS: Amphetamines Screen Urine Positive (Negative); Barbiturates Screen Urine Negative (Negative); Benzodiazepines Screen Urine Negative (Negative); Cocaine Screen Urine Negative (Negative); Opiate Screen Urine Negative (Negative); PCP Screen Urine Negative (Negative)
[2023-10-04] MEDS: albuterol 2.5 mg/3 mL Neb INHALATION (12:50)
--- NOTE | 2023-10-04 13:10 | US_ITS ---
WS: [id number] Ultrasound chest, limited. HISTORY: Evaluate pleural fluid. Ultrasound directed to the pleural spaces bilaterally. There is a moderate to large LEFT pleural effusion. No RIGHT pleural effusion. IMPRESSION: Moderate to large LEFT pleural effusion.
[2023-10-04 13:18] LABS: Magnesium 2.1 mg/dL (1.7-2.3); Uric Acid 11.7 mg/dL (3.4-7.0)
--- NOTE | 2023-10-04 13:22 | US_ITS ---
WS: [id number] ULTRASOUND-GUIDED THORACENTESIS, LEFT HISTORY: left pleural effusion Procedure, risks, and complications were explained to the patient. With the patient in an upright pos ition, the skin over the LEFT posterior thorax was cleansed with ChloraPrep and anesthetized with 1% buffered lidocaine. A 5 [place] Yueh needle is inserted into the pleural fluid without complication. A pproximately 1100 cc of clear grayish pleural fluid is removed without difficulty. IMPRESSION: 1. LEFT thoracentesis yielding 1100 cc of fluid. 2. Chest radiograph to follow to evaluate for pneumothorax. 3. Pleural fluid specimen collected for analysis as requested.
[2023-10-04 13:24] LABS: Procalcitonin 0.31 ng/mL (0-0.5)
[2023-10-04 13:34] LABS: Lactic Sepsis W/Reflex 1.8 mmol/L (0.5-2.2)
[2023-10-04 13:38] LABS: C Reactive Protein 98.7 mg/L (0.0-4.9)
--- NOTE | 2023-10-04 14:00 | ECG_ITS ---
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 Measurements Intervals [place] Rate: 89 P: 70 MA: 182 QRS: 43 QRSD: 87 T: 0 QT: 312 QTc: 380 Interpretive Statements SINUS RHYTHM NONSPECIFIC ST & T-WAVE ABNORMALITY Compared to ECG 10/04/2023 11:52:19 No significant changes Electronically Signed On 10-05-2023 6:11:24 SHIPPER by Janice Velásquez M.D. [email or web address] [facility] hospitalNubefygrant hospitalWoods [email or web address]/store/[id number]
[2023-10-04] MEDS: sodium chloride 0.9% 1,000 ML 75 ML IV (14:22)
[2023-10-04 14:24] LABS: Troponin 5 2HR 36.53 ng/L (0-15); Troponin 5 2HR Delta -2.47 ABS# (0-10)
[2023-10-04] MEDS: piperacillin-tazobactam 3.375 GM in sodium chloride 0.9% (plus) 50 ML IV ×2 (14:25→21:18)
--- NOTE | 2023-10-04 14:31 | XR_ITS ---
WS: [id number] PORTABLE CHEST HISTORY: pleural effusion, status post LEFT thoracentesis. COMPARISON: Study earlier the same day. No pneumothorax status post LEFT thoracentesis. There is a continued small to moderate LEFT pleural e ffusion. There is better aeration of the LEFT lung. Dense consolidation persists at the LEFT hilum which is probably atelectasis. The RIGHT lung is clear . Cardiac size: Normal. Mediastinum/Aorta: Mild atherosclerosis aorta. No osseous abnormality seen. IMPRESSION: 1. No left-sided pneumothorax status post left thoracentesis. 2. There is a residual small to moderate LEFT pleural effusion.
[2023-10-04 14:33] LABS: Potassium, Radom Urine 58 mmol/L; Urine Creatinine 151 mg/dL (39-259); Urine Random Sodium 29 mmol/L
[2023-10-04 14:36] LABS: Urine Random Chloride 13 mmol/L
[2023-10-04 14:41] LABS: D Dimer 5.89 ug/mLFEU (0-0.59)
[2023-10-04 14:54] LABS: Apprearance, Body Fluid CLEAR; Color, Body Fluid PALE YELLOW
[2023-10-04 14:55] LABS: Cyto Order Verification No Order
[2023-10-04 14:57] LABS: Body Fluid WBC 918 /uL; Monocytes # Body Fluid 0.698
--- NOTE | 2023-10-04 15:03 | CTR_ITS ---
PROCEDURE INFORMATION: Exam: CT Chest Without Contrast; Diagnostic Exam date and time: 10/04/2023 3:08 PM Age: 78 years old Clinical indication: Shortness of breath; Additional info: Pna, left pleural effusion TECHNIQUE: Imaging protocol: Diagnostic computed tomography of the chest without contrast. Radiation optimization: All CT scans at this facility use at least one of these dose optimization techniques: automated exposure control; mA and/or kV adjustment per patient size (includes targeted exams where dose is matched to clinical indication); or iterative reconstruction. REPORTING DATA: Count of CT and Cardiac NM exams in prior 12 months: This patient has received 0 known CTs and 0 known cardiac nuclear medicine studies in the 12 months prior to the current study. COMPARISON: CR XR chest 1V portable [id number] 10/04/2023 3:04 PM RADIATION DOSE METRICS: Total DLP (mGy-cm): 435.91 FINDINGS: Lungs: Left upper lung consolidation with air bronchograms. Multiple bilateral pulmonary nodules measuring up to 8 mm in the left upper lobe (5-25) and 9 mm in the right middle lobe image 56. Mild emphysematous changes. Pleural spaces: Large multilobulated left pleural effusion Heart: Coronary calcifications. No pericardial effusion. Lymph nodes: Mildly enlarged mediastinal/hilar lymph nodes (reference 1.6 cm short axis AP window node series 5, image 27. Vasculature: No aortic aneurysm. Bones/joints: No acute findings Soft tissues: Numerous hepatic hypodense lesions of indeterminate density. Bilateral polycystic kidneys. CT/CT chest wo con [id number] IMPRESSION: Left upper lobe consolidation which could represent pneumonia or postobstructive consolidation from underlying lesion. Moderate large multiloculated left pleural effusion. Multiple bilateral pulmonary nodules and mediastinal/hilar adenopathy, nonspecific given other findings. Numerous suspicious appearing hepatic lesions. Hepatic MRI recommended for further characterization.
[2023-10-04 15:09] LABS: Eosinophil Urine No Eosinophils Seen; Urine Eosinophil Count 0 (0-0)
[2023-10-04 15:12] LABS: Albumin Body Fluid 2.8 g/dL; Amylase Body Fluid 24 U/L; Cholesterol Body Fluid 92 mg/dL (0-200); Fluid Alkaline Phos. 77 IU/L; LDH Body Fluid 132 U/L; Total Protein Pleural Fluid 4.5 g/dL; Triglycerides Body Fluid 40 mg/dL (0-150); Uric Acid Body Fluid 11 mg/dL
--- NOTE | 2023-10-04 16:02 | P.HP_ITS ---
Providers/Chief Complaint 2 Primary Care Provider: Stephan Fink DO Chief Complaint: sob History of Present Illness Seferino Barbosa is a 78 year old male with cough medical history of gout, COPD not on oxygen who was at his baseline health till around 3 days ago when he developed acute on the left side of his chest getting worse on taking a deep breath associated with cough and expectoration and acute dyspnea on exertion. As per patient he was able to walk regularly but for last 1 week he is only able to walk around 5 feet and gets out of breath. Denies of having any episode of expectoration, vomiting or choking prior to the event. Denies any episodes of headache, dizziness, diarrhea. In the ER he was found to be hypoxic down to high 80s so was placed on 3 L of oxygen supplementation and it was found to have leukocytosis and left pleural effusion hence medicine was consulted for further evaluation and management. Review of Systems 2 General: Reports: 10 or more systems reviewed and unremarkable except in HPI and below Const: Denies: fever(s), chills, body aches, change in appetite, change in weight, malaise, night sweats, diaphoresis, change in sleep pattern, daytime sleepiness or snoring Eyes: Denies: change in vision, blurry vision, photophobia, eye discomfort or eye discharge ENMT: Denies: throat pain, enlarged tonsils, hoarseness, mouth pain, oral sores, dry mouth, tinnitus, nasal congestion or post nasal drip Card: Denies: chest pain, palpitations, irregular heart rhythm, edema, swelling of feet/ankles, lightheadedness, syncope, pre-syncope, dyspnea on exertion, orthopnea, leg pain with exertion or acrocyanosis Resp: Denies: dyspnea, productive cough, non-productive cough, wheezing, stridor, pain on inspiration, change in phlegm color, hemoptysis or chest congestion GI: Denies: abdominal pain, nausea, vomiting, hematemesis, coffee ground emesis, dysphagia, heartburn, diarrhea, constipation, bloating, GI cramping, change in bowel habits, pain on defecation, hematochezia or melena : Denies: flank pain, difficulty urinating, dysuria, urinary frequency, urinary urgency, urinary hesitancy, urinary dribbling, difficulty starting urination, change in urine stream, nocturia or hematuria Musc: Denies: neck pain, back pain, extremity pain, joint pain, joint swelling, joint redness, joint stiffness or limited range of motion Neuro: Denies: headache(s), numbness in extremities, weakness in extremities, sensory changes, lack of coordination, difficulty walking, frequent falls, dizziness, vertigo, confusion, Slurred speech present, difficulty communicating thoughts or seizure-like activity Psych: Denies: anxiety, depression, mood swings, panic attacks, hopelessness or irritability Endo: Denies: polyuria, polydipsia, tired all the time, cold intolerance, excessive sweating, flushing or heat intolerance Antonio/Lymph: Denies: easy bruising or easy bleeding All/Imm: Denies: tongue swelling, facial swelling or acute wheezing Medications/Allergies Home Medications Medication Instructions Recorded Confirmed Last Taken Type losartan 25 mg tablet 25 mg PO DAILY 01/31/21 10/04/23 10/04/23 History melatonin 10 mg tablet 50 - 60 mg PO BEDTIME 10/04/23 10/04/23 10/03/23 History quetiapine 300 mg tablet 300 mg PO BEDTIME 10/04/23 10/04/23 10/03/23 History Allergies Allergy/AdvReac Type Severity Reaction Status Date / Time No Known Allergies Allergy Verified 10/04/23 11:45 PFSH Acute 2 PFSH: Medical History (Updated 10/04/23 @ 16:07 by James Tello MD) NAVID (acute kidney injury) COPD (chronic obstructive pulmonary disease) Erectile dysfunction BPH (benign prostatic hyperplasia) Gout Hip osteoarthritis Thoracic outlet syndrome Bilateral cervical rib removed Hypertension Insomnia Abnormal colonoscopy Polyps removed: Tubular adenoma Anemia Methamphetamine abuse Surgical History History of right hip replacement H/O knee surgery History of appendectomy Family History Father Diabetes Denies family history of CAD (coronary artery disease) Social History (Updated 10/04/23 @ 16:04 by James Tello MD) Smoking and tobacco/nicotine status: current every day tobacco/nicotine user cigarettes Years cigarettes smoked: 45 Number of cigarettes per day: 6-10 Alcohol intake: former Year of sobriety/quit date alcohol: 2016 Substance/Drug Use: current Substance/Drug use frequency: few times a month Substance/Drug use type: Amphetamines Caregiver/support person: Yes Lives independently: Yes Household members: none Housing: House Marital status: Vitals/I&O/Wt Last Vital Signs Temp 97.4 F L 10/04/23 11:39 Pulse 99 10/04/23 14:25 Resp 19 H 10/04/23 14:25 BP 132/76 10/04/23 14:25 Pulse Ox 96 10/04/23 14:25 O2 Del Method Nasal Cannula 10/04/23 12:54 O2 Flow Rate 3 10/04/23 12:54 Weight last 48 hrs Weight 79.379 kg Physical Exam 2 Narrative: General: No acute distress, AO x3, NC oxygen supplementation HEENT: PERRLA, pupils bilaterally equal and reactive Chest: Bilateral bronchial breath sounds all over lung [place] with diffuse rhonchi and occasional crackles, decreased air entry in left middle and lower zone, tenderness in left hemithorax infra axillary CVS: S1-S2 regular, no murmurs, no tachycardia, no gallops, no rubs Abdomen: Soft, nontender, no organomegaly, bowel sounds present, morbidly obese Neuro: No focal deficits, no facial deformity, AO x3, power 5/5 in all limbs Data 10/04/23 11:45 10/04/23 11:45 Micro: Microbiology 10/04/23 13:11 Blood Culture - Preliminary Blood SPECIMEN COLLECTED 10/04/23 12:40 Blood Culture - Preliminary Blood SPECIMEN COLLECTED A&P Assessment and plan (1) Respiratory failure with hypoxia: Most likely in setting of pneumonia with mild exacerbation of COPD. Oxygen supplementation keeping saturation over 90%. Hold off on steroids for now. DuoNebs every 6 hours, Pulmicort twice daily. Mucomyst every 6 hours as needed. Aggressive pulmonary toilet with I-S and Acapella. Out of bed to chair. (2) Pneumonia: Patient does have left-sided pleural effusion as well. Cannot rule out empyema versus syn-pneumonic effusion. Check sputum culture, blood culture, urine Legionella, bacterial antigen. Will plan for ultrasound-guided thoracentesis. Will await fluid studies. Check QuantiFERON, fluid ADA. Check MRSA swab. Empirically start patient on IV Zosyn, IV vancomycin. Will de-escalate antibiotics as per culture sensitivities. Plan for CT chest after thoracentesis for further evaluation of consolidation. Depending on CT chest results with concerns for possible mass versus pulmonary nodule will consult pulmonology for possible bronchoscopy. (3) Pleural effusion on left: (4) Acute on chronic renal insufficiency: Baseline creatinine ranging from 1-1.3. Medical reconciliation done for nephrotoxic drugs. IV fluids with normal saline at 75 cc/h. Check echocardiogram, urine lites, urine eosinophils. Monitor BMP daily for now. (5) Polysubstance abuse: Urine drug screen positive for amphetamines. Patient gives history of occasional meth use. Continue to monitor. (6) Thrombocytosis: In setting of dehydration along with acute infection. Fluid as above. Monitor. Plan CODE STATUS: Discussed in detail with patient. He lives by himself. His nephew will be the DPOA if is not able to make his medical decisions. Full code Regular diet Protonix for PUD prophylaxis Heparin 5000 every 12 hourly for DVT prophylaxis. Attestations 2 Medical Necessity Statement*: Admission for more than 2 midnights for management of hypoxic respiratory failure in setting of left-sided pleural effusion, pneumonia while empyema is ruled out, NAVID on CKD Diagnoses Respiratory failure with hypoxia J96.91 Pneumonia J18.9 Pleural effusion on left J90 Acute on chronic renal insufficiency N28.9; N18.9 Polysubstance abuse F19.10 Thrombocytosis D75.839
[2023-10-04 16:06] LABS: Lactate Dehydrogenase 167 U/L (135-225)
[2023-10-04] MEDS: vancomycin 1,000 MG in sodium chloride 0.9% 250 ML 250 MG IV (16:30)
[2023-10-04 16:51] LABS: Iron 21 ug/dL (59-158); Total Iron Binding Capacity 348 mcg/dl; Unsaturated Iron Binding 327 ug/dL (112-347)
[2023-10-04 17:06] LABS: Vitamin B12 1178 pg/mL (232-1245)
[2023-10-04] MEDS: fentaNYL 12 mcg Patch 1 PATCH TRANSDERMA (17:52)
[2023-10-04] MEDS: heparin 5,000 unit/mL INJ 1 mL 5000 UNIT SUBCUT (17:53)
[2023-10-04 18:15] LABS: Thyroid Stimulating Hormone 1.24 uIU/mL (0.27-4.20)
--- NOTE | 2023-10-04 18:34 | ECG_ITS ---
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 Measurements Intervals [place] Rate: 81 P: 64 NH: 183 QRS: 36 QRSD: 95 T: 51 QT: 326 QTc: 380 Interpretive Statements SINUS RHYTHM Compared to ECG 10/04/2023 14:42:06 T-wave abnormality no longer present Electronically Signed On 10-05-2023 6:09:32 ELECTRONIC NEWS GATHERING EDITOR by Janice Velásquez M.D. [id number]
[2023-10-04 19:29] LABS: Troponin 5 6HR 33.82 ng/L (0-15); Troponin 5 6HR Delta -5.18 ng/L (0-12)
[2023-10-04] MEDS: quetiapine 300 mg Tablet PO (21:18)
--- NOTE | 2023-10-04 23:58 | PC.RESP ---
Missed dose, RT in ER for extended amount of time.
[2023-10-05] VITALS (11 sets, daily range): BP systolic 100–159; BP diastolic 50–69; PULSE 73–98; RESP 16–18; TEMP 36.5–36.6; O2SAT 90–93; BMI 21.2
[2023-10-05] MEDS: sodium chloride 0.9% 1,000 ML 75 ML IV ×2 (02:19→18:50)
[2023-10-05 05:37] LABS: Basophils # 0.1 10^3/uL (0.0-0.1); Basophils % 0.3 %; Eosinophils # 0.1 10^3/uL (0.0-0.8); Eosinophils % 0.4 %; Hematocrit 24.5 % (37-53); Lymphocytes # 1.1 10^3/uL (0.8-4.8); Lymphocytes % 3.6 %; Mean Corpuscular HGB Conc 32.7 g/dL (30-55); Mean Corpuscular Hemoglobin 29.5 pg (27-33); Mean Corpuscular Volume 90.4 fl (82-101); Mean Platelet Volume 10.5 fL (7.4-10.4); Monocytes # 0.9 10^3/uL (0.2-0.9); Monocytes % 3.1 %; Neutrophils # 27.13 10^3/uL (1.8-7.7); Neutrophils % 90.4 %; Nucleated Red Blood Cells % 0 %; Platelet Count 594 10^3/cmm (157-399); Red Blood Count 2.71 10^6/uL (3.85-5.65); Red Cell Distribution Width 13.9 % (12.1-15.1); White Blood Count 29.98 10^3/uL (3.29-11.43)
[2023-10-05 05:48] LABS: Estmated Average Glucose 105; Hemoglobin A1C 5.3 % (4.0-6.0)
[2023-10-05 05:59] LABS: Alanine Aminotransferase 10 U/L (0-41); Alkaline Phosphatase 124 U/L (40-130); Anion Gap 17.5 (5-19); Aspartate Amino Transferase 9 U/L (0-40); Blood Urea Nitrogen 48 mg/dL (8-23); Calcium 9.6 mg/dL (8.5-10.5); Carbon Dioxide 19 mmol/L (22-29); Chloride 105 mmol/L (98-107); Globulin 2.8 g/dL (1.3-4.6); Glucose 142 mg/dL (65-115); Magnesium 1.9 mg/dL (1.7-2.3); Osmolality Calculated 297 mOsm/kg (285-295); Phosphorus 4.1 mg/dL (2.5-4.5); Potassium 5.5 mmol/L (3.5-5.1); Sodium 136 mmol/L (136-145); Total Bilirubin 0.2 mg/dL (0.15-1.2); Total Protein 5.8 g/dL (6.6-8.7)
[2023-10-05] MEDS: piperacillin-tazobactam 3.375 GM in sodium chloride 0.9% (plus) 50 ML IV ×3 (06:00→20:48)
[2023-10-05 06:01] LABS: Chol HDL Ratio 2.31 mg/dL (1.0-5.00); Cholesterol 118 mg/dL (0-200); HDL Cholesterol 51 mg/dL (60-100); LDL Cholesterol Calculated 56 mg/dL (50-129); Triglycerides 54 mg/dL (0-150)
[2023-10-05] MEDS: heparin 5,000 unit/mL INJ 1 mL 5000 UNIT SUBCUT ×2 (06:01→18:51)
[2023-10-05 06:16] LABS: Folate Level 18.5 ng/mL (4.5-32.2)
[2023-10-05] MEDS: pantoprazole DR 40 mg Tablet PO (08:28)
[2023-10-05] MEDS: allopurinol 100 mg Tablet PO (08:28)
[2023-10-05] MEDS: budesonide 0.5 mg/2 mL Neb INHALATION ×2 (08:57→20:08)
[2023-10-05] MEDS: ipratropium-albuterol 3 mL Neb INHALATION ×3 (08:57→20:08)
[2023-10-05] MEDS: acetylcysteine 200 mg/mL SDV 4 mL 100 MG INHALATION ×3 (08:58→20:08)
[2023-10-05] MEDS: dextrose 50% syringe 50 mL IVP (13:32)
[2023-10-05] MEDS: insulin regular-human 10 UNIT in SYRINGE 1 EACH IVP (13:34)
--- NOTE | 2023-10-05 15:41 | P.PN_ITS ---
Subjective 2 Subjective: No acute events overnight. Patient remains on room air. States he is feeling a lot better. Denies any nausea, vomiting, headache. Has remained hemodynamically stable and afebrile. Blood work appreciated. Vitals/I&O/Wt Last Vital Signs Temp 98 F 10/05/23 12:00 Pulse 87 10/05/23 14:00 Resp 18 10/05/23 14:00 BP 140/66 10/05/23 12:00 Pulse Ox 90 10/05/23 14:00 O2 Del Method Room Air 10/05/23 14:00 O2 Flow Rate 2 10/05/23 08:00 10/05/23 10/05/23 10/05/23 06:59 14:59 22:59 Intake Total 1186.25 / 1486.25 890.1 / 890.1 Output Total 300 / 1800 Balance 886.25 / -313.75 890.1 / 890.1 Weight last 48 hrs Weight 72.83 kg Weight 72.83 kg Weight 79.379 kg Weight 79.379 kg Physical Exam 2 Narrative: General: No acute distress, AO x3, NC oxygen supplementation HEENT: PERRLA, pupils bilaterally equal and reactive Chest: Bilateral bronchial breath sounds all over lung [place] with diffuse rhonchi and occasional crackles, decreased air entry in left middle and lower zone, tenderness in left hemithorax infra axillary CVS: S1-S2 regular, no murmurs, no tachycardia, no gallops, no rubs Abdomen: Soft, nontender, no organomegaly, bowel sounds present, morbidly obese Neuro: No focal deficits, no facial deformity, AO x3, power 5/5 in all limbs Data 10/05/23 04:50 10/05/23 04:50 Micro: Microbiology 10/04/23 13:22 Gram Stain - Final Pleural Fluid Anaerobic Culture - Preliminary 10/04/23 17:19 Gram Stain - Final Sputum - Expectorated Sputum 10/04/23 13:11 Blood Culture - Preliminary Blood NEGATIVE TO DATE 10/04/23 12:40 Blood Culture - Preliminary Blood Streptococcus species 10/04/23 12:24 Bacterial Antigens - Final Urine Kidney 10/04/23 12:24 Legionella Urinary Antigen - Final Unknown Source A&P Assessment and plan (1) Pneumonia: Patient does have left-sided pleural effusion as well. Cannot rule out empyema versus syn-pneumonic effusion. Urine Legionella, bacterial antigen negative. Follow-up sputum culture. Blood culture positive for Streptococcus. 1 L of fluid removed from thoracentesis. Fluid studies appreciated. No concerns for empyema. MRSA swab not collected yet, follow-up fluid ADA and QuantiFERON results. Low suspicion of tuberculosis for now. Empirically start patient on IV Zosyn, IV vancomycin. Will de-escalate antibiotics as per culture sensitivities. Appreciate CT chest results. Concerning for loculated fluid collection, postobstructive pneumonia with pulmonary nodules. Will consult pulmonology for possible bronchoscopy. (2) Bacteremia due to Streptococcus: Repeat blood cultures in AM. Patient would need IV antibiotics for 14 days from first negative blood cultures. Echocardiogram pending for possible infective endocarditis. Continue IV antibiotics. (3) Respiratory failure with hypoxia: Resolved. Most likely in setting of pneumonia with mild exacerbation of COPD. Oxygen supplementation keeping saturation over 90%. Hold off on steroids for now. DuoNebs every 6 hours, Pulmicort twice daily. Mucomyst every 6 hours as needed. Aggressive pulmonary toilet with I-S and Acapella. Out of bed to chair. D-dimer elevated. PE less likely. Awaiting ventilation/perfusion scan. (4) Pleural effusion on left: (5) Acute on chronic renal insufficiency: Baseline creatinine ranging from 1-1.3. Creatinine stable at 1.9 for now. Medical reconciliation done for nephrotoxic drugs. Continue with IV fluids with normal saline at 75 cc/h. Appreciate urine lites. Echocardiogram pending. (6) Polysubstance abuse: Urine drug screen positive for amphetamines. Patient gives history of occasional meth use. Continue to monitor. (7) Thrombocytosis: In setting of dehydration along with acute infection. Fluid as above. Monitor. Plan Anemia: Baseline hemoglobin seems to be around 8. Appreciate iron panel, vitamin B12 and folate levels. Transfuse if hemoglobin drops below 8. Continue to monitor CBC daily for now. CODE STATUS: Discussed in detail with patient. He lives by himself. His nephew will be the DPOA if is not able to make his medical decisions. Full code Regular diet Protonix for PUD prophylaxis Heparin 5000 every 12 hourly for DVT prophylaxis. Attestations 2 Medical Necessity Statement*: Requires further hospitalization for management of postobstructive pneumonia, streptococcal bacteremia in a patient with baseline COPD Diagnoses Pneumonia J18.9 Bacteremia due to Streptococcus R78.81; B95.5 Respiratory failure with hypoxia J96.91 Pleural effusion on left J90 Acute on chronic renal insufficiency N28.9; N18.9 Polysubstance abuse F19.10 Thrombocytosis D75.839
[2023-10-05] MEDS: vancomycin 1,250 MG/250 ML PIGGYBACK 200 MG IV (18:50)
[2023-10-05] MEDS: quetiapine 300 mg Tablet PO (20:49)
[2023-10-06] VITALS (11 sets, daily range): BP systolic 128–148; BP diastolic 66–76; PULSE 83–100; RESP 16–20; TEMP 36.4–36.7; O2SAT 90–97; BMI 22.3
[2023-10-06 04:48] LABS: Basophils # 0.3 10^3/uL (0.0-0.1); Basophils % 0.8 %; Eosinophils # 4.9 10^3/uL (0.0-0.8); Eosinophils % 14.1 %; Hematocrit 25.2 % (37-53); Lymphocytes # 2.1 10^3/uL (0.8-4.8); Lymphocytes % 6.1 %; Mean Corpuscular HGB Conc 32.5 g/dL (30-55); Mean Corpuscular Hemoglobin 30.3 pg (27-33); Mean Platelet Volume 9.8 fL (7.4-10.4); Monocytes # 2.4 10^3/uL (0.2-0.9); Neutrophils % 69.9 %; Nucleated Red Blood Cells % 0 %; Platelet Count 584 10^3/cmm (157-399); Red Blood Count 2.71 10^6/uL (3.85-5.65)
[2023-10-06 04:51] LABS: White Blood Count 34.65 10^3/uL (3.29-11.43)
[2023-10-06 05:10] LABS: Alanine Aminotransferase 13 U/L (0-41); Albumin Level 2.8 g/dL (3.5-5.2); Alkaline Phosphatase 113 U/L (40-130); Anion Gap 16.9 (5-19); Aspartate Amino Transferase 11 U/L (0-40); Blood Urea Nitrogen 44 mg/dL (8-23); Calcium 9.4 mg/dL (8.5-10.5); Carbon Dioxide 19 mmol/L (22-29); Chloride 106 mmol/L (98-107); Globulin 2.5 g/dL (1.3-4.6); Glucose 95 mg/dL (65-115); Osmolality Calculated 295 mOsm/kg (285-295); Potassium 4.9 mmol/L (3.5-5.1); Sodium 137 mmol/L (136-145); Total Bilirubin 0.2 mg/dL (0.15-1.2); Total Protein 5.3 g/dL (6.6-8.7)
[2023-10-06 05:11] LABS: Creatinine Clr Calc Pharmacy 41.9131
[2023-10-06] MEDS: piperacillin-tazobactam 3.375 GM in sodium chloride 0.9% (plus) 50 ML IV ×2 (05:49→18:24)
[2023-10-06] MEDS: heparin 5,000 unit/mL INJ 1 mL 5000 UNIT SUBCUT ×2 (05:49→18:24)
[2023-10-06] MEDS: budesonide 0.5 mg/2 mL Neb INHALATION (07:50)
[2023-10-06] MEDS: acetylcysteine 200 mg/mL SDV 4 mL 100 MG INHALATION ×2 (07:50→13:51)
[2023-10-06] MEDS: ipratropium-albuterol 3 mL Neb INHALATION ×2 (07:50→13:51)
[2023-10-06] MEDS: pantoprazole DR 40 mg Tablet PO (10:15)
[2023-10-06] MEDS: allopurinol 100 mg Tablet PO (10:16)
[2023-10-06] MEDS: sodium chloride 0.9% 1,000 ML 75 ML IV (10:18)
--- NOTE | 2023-10-06 11:01 | USCV_ITS ---
Seferino Barbosa Age: 78 Gender: M : 1945 Exam Date: 10/06/2023 11:49 Ordering Phys: James Tello MD Technologist: Nacho Poe Exam Location: [facility] – [place] Indication: htn BP: 142 / 76 HR: 81 Rhythm: Sinus Technical Quality: Technically difficult study MEASUREMENTS (Male / Female) Normal Values 2D ECHO LVOT Diameter 2.3 cm LV Ejection Fraction MOD 2C 73.5 % LV Ejection Fraction 2C AL 74.3 % LA Diameter 3.5 cm LA Width 3.5 cm LA Height 3.9 cm RA Width 3.2 cm RA Height 3.3 cm Aorta at Sinotubular Diameter 2.5 cm IVC Diameter 2.2 cm M-MODE Aortic Annulus Diameter 2.7 cm LA Ao Ratio MM 1.2 DOPPLER AV Peak Velocity 142.0 cm/s LVOT Peak Velocity 128.0 cm/s AV Area Cont Eq vti 4.9 cm squared AV Area Cont Eq pk 3.8 cm squared MV Peak Velocity 107.0 cm/s MV Area PHT 5.0 cm squared Mitral E to A Ratio 0.6 MV E' Velocity 24.8 cm/s Mitral E to MV E' Ratio 7.1 Mitral E to LV E' Lateral Ratio 6.7 Mitral E to LV E' Septal Ratio 7.6 Right Atrial Pressure 15.0 mmHg PV Peak Velocity 69.0 cm/s RV Acceleration Time 0.1 s RV Ejection Time 0.2 s RV AcT/ET 0.4 FINDINGS Left Ventricle Technically limited quality echocardiogram because of poor ultrasonic windows. Grossly LV systolic function is normal. Grade 1 diastolic dysfunction. Right Ventricle Grossly normal in function Right Atrium Normal in size Left Atrium Normal in size Mitral Valve Not well-visualized. Mild mitral regurgitation. Aortic Valve Not well-visualized. No significant stenosis or regurgitation. Tricuspid Valve Mild tricuspid regurgitation. Insufficient TR jet to evaluate RVSP. Pulmonic Valve Not well-visualized Pericardium Pleural effusion is seen. Aorta Ascending aorta is dilated with diameter of 3.67 cm. IVC Dilated CONCLUSIONS Technically limited quality echocardiogram because of poor ultrasonic windows. Grossly LV systolic function is normal. Grade 1 diastolic dysfunction Mild mitral regurgitation Mild tricuspid regurgitation Pleural effusion is seen. Ascending aorta is dilated with diameter of 3.67 cm IVC is dilated. Keaton Fitzgerald MD (Electronically Signed) Final Date: 08 October 2023 08:45 S
--- NOTE | 2023-10-06 11:47 | P.CONIM_ITS ---
Providers/Reason For Consult 2 Consulting Physician/Specialty*: Cuong Durham MD / Pulmonary Critical Care Reason for Consult*: Left pleural effusion Requesting Physician: James Tello MD Attending Physician: James Tello MD Primary Care Provider: Stephan Fink DO History of Present Illness History of Present Illness Seferino Barbosa is a 78 year old male with Past Medical history of gout, COPD not on oxygen Admitted for Respiratory distress secondary to pleural effusion and Streptococcus bacteremia. Patient reported 3 days ago he developed Left-sided chest pain, worse on taking a deep breath associated with cough and expectoration and acute dyspnea on exertion. For last 1 week he is only able to walk around 5 feet and gets out of breath. Denies of having any episode of expectoration, vomiting or choking prior to the event. Denies any episodes of headache, dizziness, diarrhea. In the ER he was found to be hypoxic down to high 80s so was placed on 3 L of oxygen supplementation and it was found to have leukocytosis 39,000 and left pleural effusion. He underwent thoracentesis-by IR-drained 1100 cc pale yellow-colored fluid- Lymphocyte predominant exudative effusion-pH 8.0; WBC 918, lymphocyte predominant, glucose 133, LDH 132, total protein 4.5. There is a concern if there is any obstructing lesion As postthoracentesis CT chest showedLeft upper lung consolidation with air bronchograms.There are multiple bilateral pulmonary nodules measuring 8 mm in left upper lobe and 9 mm in right middle lobe.There are numerous suspicious appearing hepatic lesions as well. Pulmonary consult requested to evaluate for bronchoscopy Guided biopsies. Patient seen at bedside today He is lying in bed, on 3 L supplemental oxygen, denied any respiratory distress at this point of time Complaining of vague chest pain. Tells me that he has smoked for 60 years but never more than a pack a day-Tells me that he does not use any inhalers. His U tox is positive for amphetamines and marijuana Review of Systems 2 General: Reports: 10 or more systems reviewed and unremarkable except in HPI and below Medications/Allergies Home Medications Medication Instructions Recorded Confirmed Last Taken Type losartan 25 mg tablet 25 mg PO DAILY 01/31/21 10/04/23 10/04/23 History melatonin 10 mg tablet 50 - 60 mg PO BEDTIME 10/04/23 10/04/23 10/03/23 History quetiapine 300 mg tablet 300 mg PO BEDTIME 10/04/23 10/04/23 10/03/23 History Allergies Allergy/AdvReac Type Severity Reaction Status Date / Time No Known Allergies Allergy Verified 10/04/23 11:45 Current Medications Generic Name Dose Route Start Last Admin Trade Name Freq PRN Reason Stop Dose Admin Acetylcysteine 100 mg 10/04/23 20:00 10/06/23 07:50 Acetylcysteine 200 Mg/Ml Sdv 4 Ml INHALATION 100 mg Q6H.RESP JOSE Administration Albuterol/Ipratropium 3 ml 10/04/23 20:00 10/06/23 07:50 Ipratropium-Albuterol 3 Ml Neb INHALATION 3 ml Q6H.RESP JOSE Administration Allopurinol 100 mg 10/05/23 09:00 10/06/23 10:16 Allopurinol 100 Mg Tablet PO 100 mg DAILY JOSE Administration Budesonide 0.5 mg 10/04/23 20:00 10/06/23 07:50 Budesonide 0.5 Mg/2 Ml Neb INHALATION 0.5 mg BID.RESPIRATORY JOSE Administration Fentanyl 1 patch 10/04/23 17:30 10/04/23 17:52 Fentanyl 12 Mcg Patch TRANSDERMA 1 patch Q72H JOSE Administration Heparin Sodium (Porcine) 5,000 unit 10/04/23 17:30 10/06/23 05:49 Heparin 5,000 Unit/Ml Inj 1 Ml SUBCUT 5,000 unit Q12H JOSE Administration Sodium Chloride 1,000 mls @ 75 mls/hr 10/04/23 13:30 10/06/23 10:18 Sodium Chloride 0.9% IV 75 mls/hr .[id number] JOSE Administration Piperacillin Sod/Tazobactam 50 mls @ 12.5 mls/hr 10/04/23 19:30 10/06/23 09:49 Sod 3.375 gm/ Sodium Chloride IV Infused Q8H JOSE Infusion Protocol As Directed Vancomycin/PEG/NADA/Lysine/Water 1,250 mg in 250 mls @ 200 mls/hr 10/05/23 16:30 10/05/23 21:00 Vancocin IV Infused Q24H JOSE Infusion Pantoprazole Sodium 40 mg 10/05/23 09:00 10/06/23 10:[address] 40 Mg Tablet PO 40 mg DAILY JOSE Administration Quetiapine Fumarate 300 mg 10/04/23 21:00 10/05/23 20:49 Quetiapine 300 Mg Tablet PO 300 mg BEDTIME JOSE Administration PFSH Acute 2 PFSH: Medical History (Updated 10/06/23 @ 14:25 by Cuong Durham MD) NAVID (acute kidney injury) COPD (chronic obstructive pulmonary disease) Erectile dysfunction BPH (benign prostatic hyperplasia) Gout Hip osteoarthritis Thoracic outlet syndrome Bilateral cervical rib removed Hypertension Insomnia Abnormal colonoscopy Polyps removed: Tubular adenoma Anemia Methamphetamine abuse Surgical History History of right hip replacement H/O knee surgery History of appendectomy Family History Father Diabetes Denies family history of CAD (coronary artery disease) Social History Smoking and tobacco/nicotine status: current every day tobacco/nicotine user cigarettes Years cigarettes smoked: 45 Number of cigarettes per day: 6-10 Alcohol intake: former Year of sobriety/quit date alcohol: 2017 Substance/Drug Use: current Substance/Drug use frequency: few times a month Substance/Drug use type: Amphetamines Caregiver/support person: Yes Lives independently: Yes Household members: none Housing: House Marital status: Vitals/I&O/Wt Last Vital Signs Temp 97.5 F L 10/06/23 08:00 Pulse 87 10/06/23 08:00 Resp 20 H 10/06/23 08:00 BP 142/76 10/06/23 08:00 Pulse Ox 94 10/06/23 08:00 O2 Del Method Room Air 10/06/23 08:00 O2 Flow Rate 2 10/06/23 07:50 10/05/23 10/06/23 10/06/23 22:59 06:59 14:59 Intake Total 2020 / 2910.1 170 / 3080.1 1530 / 1530 Output Total 500 / 1100 800 / 1900 250 / 250 Balance 1520 / 1810.1 -630 / 1180.1 1280 / 1280 Weight last 48 hrs Weight 169 lb 1.6 oz Weight 169 lb 1 oz Weight 165 lb Weight 160 lb 9 oz Weight 160 lb 9 oz Weight 175 lb Physical Exam 2 Narrative: General: alert, NAD HEENT: conj clear, EOMI, PERRL, mmm, Neck: supple, no meningismus Heme: no cervical LAP Respiratory: Inspection: No visible deformity of the chest wall Palpation: Trachea is mildly deviated to the right, bilateral symmetric expansion Percussion: Bilateral tympanic percussion note both anterior and posteriorly Auscultation: Bilateral clear to auscultation both anterior and posteriorly, no crackles wheezing or rhonchi Cardiovascular: rrr, nl s1s2, no mrg Abdomen: soft, nt, nd, no r/g, bs+ Extremities: pulses +, no edema, no c/c : no CVA tenderness Skin: intact, no rash MSK: no back or neck pain Neurologic: grossly intact Data 10/06/23 04:24 10/06/23 04:24 Other Labs: Radiology Impressions Chest CT 10/04/23 15:03 IMPRESSION: Left upper lobe consolidation which could represent pneumonia or postobstructive consolidation from underlying lesion. Moderate large multiloculated left pleural effusion. Multiple bilateral pulmonary nodules and mediastinal/hilar adenopathy, nonspecific given other findings. Numerous suspicious appearing hepatic lesions. Hepatic MRI recommended for further characterization. Laboratory Results WBC 34.65 10^3/uL (3.29-11.43) H* 10/06/23 04:24 RBC 2.71 10^6/uL (3.85-5.65) L 10/06/23 04:24 Hgb 8.20 g/dL (11.27-16.99) L 10/06/23 04:24 Hct 25.2 % (37-53) L 10/06/23 04:24 MCV 93.0 fl (82-101) 10/06/23 04:24 MCH 30.3 pg (27-33) 10/06/23 04:24 MCHC 32.5 g/dL (30-55) 10/06/23 04:24 RDW 14.0 % (12.1-15.1) 10/06/23 04:24 Plt Count 584 10^3/cmm (157-399) H 10/06/23 04:24 MPV 9.8 fL (7.4-10.4) 10/06/23 04:24 Neut % (Auto) 69.9 % 10/06/23 04:24 Lymph % (Auto) 6.1 % 10/06/23 04:24 [place] % (Auto) 7.0 % 10/06/23 04:24 Eos % (Auto) 14.1 % 10/06/23 04:24 Baso % (Auto) 0.8 % 10/06/23 04:24 Neut # (Auto) 24.20 10^3/uL (1.8-7.7) H 10/06/23 04:24 Lymph # (Auto) 2.1 10^3/uL (0.8-4.8) 10/06/23 04:24 Isabel[place] # (Auto) 2.4 10^3/uL (0.2-0.9) H 10/06/23 04:24 Eos # (Auto) 4.9 10^3/uL (0.0-0.8) H 10/06/23 04:24 Baso # (Auto) 0.3 10^3/uL (0.0-0.1) H 10/06/23 04:24 Nucleated RBC % (auto) 0 % 10/06/23 04:24 Nucleated RBCs # 0.0 /100WBC 10/06/23 04:24 PT 13.50 SECONDS (12.1-14.9) 10/04/23 11:45 INR 1.00 (0.8-1.2) 10/04/23 11:45 D-Dimer 5.89 ug/mLFEU (0-0.59) H 10/04/23 11:45 Sodium 137 mmol/L (136-145) 10/06/23 04:24 Potassium 4.9 mmol/L (3.5-5.1) 10/06/23 04:24 Chloride 106 mmol/L (98-107) 10/06/23 04:24 Carbon Dioxide 19 mmol/L (22-29) L 10/06/23 04:24 Anion Gap 16.9 (5-19) 10/06/23 04:24 BUN 44 mg/dL (8-23) H 10/06/23 04:24 Creatinine 1.6 mg/dL (0.7-1.2) H 10/06/23 04:24 GFR Calculation Not Reportable 10/06/23 04:24 Glucose 95 mg/dL (65-115) 10/06/23 04:24 Estimat Average Glucose 105 10/05/23 04:50 Hemoglobin A1c 5.3 % (4.0-6.0) 10/05/23 04:50 Calculated Osmolality 295 mOsm/kg (285-295) 10/06/23 04:24 Lactic Acid 1.8 mmol/L (0.5-2.2) 10/04/23 12:53 Uric Acid 11.7 mg/dL (3.4-7.0) H 10/04/23 11:45 Calcium 9.4 mg/dL (8.5-10.5) 10/06/23 04:24 Phosphorus 4.1 mg/dL (2.5-4.5) 10/05/23 04:50 Magnesium 1.9 mg/dL (1.7-2.3) 10/05/23 04:50 Iron 21 ug/dL (59-158) L 10/04/23 11:45 TIBC 348 mcg/dl 10/04/23 11:45 % Saturation 6.0 % (20-50) L 10/04/23 11:45 Unsat Iron Binding 327 ug/dL (112-347) 10/04/23 11:45 Total Bilirubin 0.2 mg/dL (0.15-1.2) 10/06/23 04:24 AST 11 U/L (0-40) 10/06/23 04:24 ALT 13 U/L (0-41) 10/06/23 04:24 Alkaline Phosphatase 113 U/L (40-130) 10/06/23 04:24 Lactate Dehydrogenase 167 U/L (135-225) 10/04/23 11:45 Troponin T Baseline 39 ng/L (0-15) H 10/04/23 11:45 Troponin T 120 Minute 36.53 ng/L (0-15) H 10/04/23 13:53 Delta Troponin T -2.47 ABS# (0-10) L 10/04/23 13:53 Troponin T Hi Sens 6Hr 33.82 ng/L (0-15) H 10/04/23 18:27 Troponin T Hi Sens 6Hr Delta -5.18 ng/L (0-12) L 10/04/23 18:27 C-Reactive Protein 98.7 mg/L (0.0-4.9) H 10/04/23 11:45 Total Protein 5.3 g/dL (6.6-8.7) L 10/06/23 04:24 Albumin 2.8 g/dL (3.5-5.2) L 10/06/23 04:24 Globulin 2.5 g/dL (1.3-4.6) 10/06/23 04:24 Triglycerides 54 mg/dL (0-150) 10/05/23 04:50 Cholesterol 118 mg/dL (0-200) 10/05/23 04:50 LDL Cholesterol, Calc 56 mg/dL (50-129) 10/05/23 04:50 HDL Cholesterol 51 mg/dL (60-100) L 10/05/23 04:50 LDL/HDL Ratio 1.10 RATIO (0.00-3.22) 10/05/23 04:50 Cholesterol/HDL Ratio 2.31 mg/dL (1.0-5.00) 10/05/23 04:50 Vitamin B12 1178 pg/mL (232-1245) 10/04/23 11:45 Folate 18.5 ng/mL (4.5-32.2) 10/05/23 04:50 Procalcitonin 0.31 ng/mL (0-0.5) 10/04/23 11:45 TSH 1.24 uIU/mL (0.27-4.20) 10/04/23 13:53 Urine Color Yellow (Yellow) 10/04/23 12:24 Urine Appearance Clear (CLEAR) 10/04/23 12:24 Urine pH 5 (5-7) 10/04/23 12:24 Ur Specific [place] 1.025 (1.005-1.030) 10/04/23 12:24 Urine Protein Neg (Negative) 10/04/23 12:24 Urine Glucose (UA) Norm (Normal) 10/04/23 12:24 Urine Ketones Negative (Negative) 10/04/23 12:24 Urine Blood Neg (Negative) 10/04/23 12:24 Urine Nitrate Negative (Negative) 10/04/23 12:24 Urine Bilirubin Neg (Negative) 10/04/23 12:24 Urine Urobilinogen Norm mg/dL (Negative) 10/04/23 12:24 Ur Leukocyte Esterase Negative (Negative) 10/04/23 12:24 Ur Eosinophil Smear 0 (0-0) 10/04/23 12:24 Urine Eosinophils No eosinophils seen 10/04/23 12:24 Ur Random Sodium 29 mmol/L 10/04/23 12:24 Ur Random Potassium 58 mmol/L 10/04/23 12:24 Ur Random Chloride 13 mmol/L 10/04/23 12:24 Urine Creatinine 151 mg/dL (39-259) 10/04/23 12:24 Fluid Color Pale yellow 10/04/23 14:31 Fluid Appearance Clear 10/04/23 14:31 Fluid Specific Grav 1.010 10/04/23 14:31 Fluid pH 8.0 10/04/23 14:31 Fluid WBC 918 /uL 10/04/23 14:31 Fluid RBC 1.000 10^3/uL 10/04/23 14:31 Fld Polynuclear WBCs # 0.220 10/04/23 14:31 Fld Polynuclear WBCs % 23.900 % 10/04/23 14:31 Fl Mononucl WBCs #(Auto) 0.698 10/04/23 14:31 Fl Mononuclear % Auto 76.100 % 10/04/23 14:31 Fld Crystal Laterality Left pleural eff. 10/04/23 14:31 Fluid Glucose 133.0 mg/dL 10/04/23 14:31 Fluid Albumin 2.8 g/dL 10/04/23 14:31 Fluid LDH 132 U/L 10/04/23 14:31 Fluid Amylase 24 U/L 10/04/23 14:31 Fluid Alk Phosphatase 77 IU/L 10/04/23 14:31 Fluid Cholesterol 92 mg/dL (0-200) 10/04/23 14:31 Fluid Triglycerides 40 mg/dL (0-150) 10/04/23 14:31 Fluid Uric Acid 11 mg/dL 10/04/23 14:31 Pleural Total Protein 4.5 g/dL 10/04/23 14:31 Urine Opiates Screen Negative ng/mL (Negative) 10/04/23 12:24 Ur Barbiturates Screen Negative ng/mL (Negative) 10/04/23 12:24 Ur Phencyclidine Scrn Negative ng/mL (Negative) 10/04/23 12:24 Ur Amphetamines Screen Positive ng/mL (Negative) H 10/04/23 12:24 U Benzodiazepines Scrn Negative ng/mL (Negative) 10/04/23 12:24 Urine Cocaine Screen Negative ng/mL (Negative) 10/04/23 12:24 U Marijuana (THC) Screen Positive ng/mL (Negative) H 10/04/23 12:24 Micro: Microbiology 10/04/23 17:19 Gram Stain - Final Sputum - Expectorated Sputum Sputum Culture - Final 10/04/23 13:22 Gram Stain - Final Pleural Fluid Anaerobic Culture - Preliminary Body Fluid Culture - Preliminary 10/06/23 04:28 Blood Culture - Preliminary Blood SPECIMEN COLLECTED 10/06/23 04:24 Blood Culture - Preliminary Blood SPECIMEN COLLECTED 10/04/23 13:11 Blood Culture - Preliminary Blood NEGATIVE TO DATE 10/04/23 12:40 Blood Culture - Preliminary Blood Streptococcus species A&P Assessment and plan (1) Respiratory failure with hypoxia: Likely secondary to left upper lobe pneumonia-CT chest showed left upper lobe opacity with air bronchograms Pleural cultures pending Blood cultures positive for Streptococcus species-suspect patient has streptococcal pneumonia Bacterial antigens negative Patient is currently on vancomycin and Zosyn Qualifiers: Chronicity: acute on chronic Qualified Code(s): J96.21 - Acute and chronic respiratory failure with hypoxia (2) Bacteremia due to Streptococcus: Currently patient is on vancomycin and Zosyn (3) Pneumonia: CT evidence of left upper lobe consolidation with air bronchograms Pleural cultures and sputum cultures are pending Currently patient is on vancomycin and Zosyn Qualifiers: Pneumonia type: due to group B Streptococcus Laterality: left Lung location: upper lobe of lung Qualified Code(s): J15.3 - Pneumonia due to streptococcus, group B (4) Pleural effusion on left: He underwent thoracentesis-by IR-drained 1100 cc pale yellow-colored fluid- Lymphocyte predominant exudative effusion-pH 8.0; WBC 918, lymphocyte predominant, glucose 133, LDH 132, total protein 4.5. This could be parapneumonic effusion-Will continue with antibiotics There is a concern if there is any obstructing lesion As postthoracentesis CT chest showedLeft upper lung consolidation with air bronchograms.There are multiple bilateral pulmonary nodules measuring 8 mm in left upper lobe and 9 mm in right middle lobe.There are numerous suspicious appearing hepatic lesions as well. With given significant smoking history For more than 60 years-there will be possibility of underlying malignancy For now we will continue antibiotics-and see if patient clinically improves - If not We will plan for bronchoscopy for airway inspection and possible endobronchial biopsies if there are any occluding lesions If patient clinically improves-he will be discharged and will follow-up with us in pulmonary clinic-I will repeat CT chest to check for resolution of left upper lobe consolidation-if there is persistence then we will proceed with PET CT scan/biopsies (5) Smoker: Tells me that he has smoked for 60 years but never more than a pack a day-Tells me that he does not use any inhalers. Encouraged to quit smoking (6) Polysubstance abuse: His U tox is positive for amphetamines and marijuana Encouraged to quit (7) COPD (chronic obstructive pulmonary disease): There is CT evidence of emphysema He needs PFTs as outpatient on discharge patient will get ICS/LAMA/LAMA Currently he is on scheduled nebulization Qualifiers: COPD type: emphysema Emphysema type: centrilobular Qualified Code(s): J43.2 - Centrilobular emphysema Consult Attestations 2 Medical Necessity Statement: Patient will stay for next 24 to 48 hours to assess clinical response to antibiotics Time Spent in Patient Care: Greater than 35 minutes (>than 50% of time spent in counselling and/or direct pt care on unit) . Coding Level of Care Code 77930 Diagnoses Acute on chronic respiratory failure with hypoxia J96.21 Chronicity: acute on chronic Bacteremia due to Streptococcus R78.81; B95.5 Pneumonia of left upper lobe due to group B Streptococcus J15.3 Pneumonia type: due to group B Streptococcus Laterality: left Lung location: upper lobe of lung Pleural effusion on left J90 Smoker F17.200 Polysubstance abuse F19.10 Centrilobular emphysema J43.2 COPD type: emphysema Emphysema type: centrilobular Time Spent (min) 58
--- NOTE | 2023-10-06 14:19 | P.PN_ITS ---
Subjective 2 Subjective: No acute events overnight. Patient did not want to do salt supplementation. Today morning he did have episode of chest tightness which improved with nebulization. Denies any further pain in his chest. Has remained hemodynamically stable and afebrile. Vitals/I&O/Wt Last Vital Signs Temp 97.6 F 10/06/23 12:00 Pulse 88 10/06/23 14:00 Resp 18 10/06/23 13:52 BP 148/68 10/06/23 12:00 Pulse Ox 93 10/06/23 13:52 O2 Del Method Nasal Cannula 10/06/23 13:52 O2 Flow Rate 2 10/06/23 13:52 10/05/23 10/06/23 10/06/23 22:59 06:59 14:59 Intake Total 2020 / 2910.1 170 / 3080.1 2009 Output Total 500 / 1100 800 / 1900 250 / 250 Balance 1520 / 1810.1 -630 / 1180.1 1760 / 1760 Weight last 48 hrs Weight 80.286 kg Weight 76.702 kg Weight 76.685 kg Weight 74.843 kg Weight 72.83 kg Weight 72.83 kg Weight 79.379 kg Physical Exam 2 Narrative: General: No acute distress, AO x3, NC oxygen supplementation HEENT: PERRLA, pupils bilaterally equal and reactive Chest: Bilateral bronchial breath sounds all over lung [place] with diffuse rhonchi and occasional crackles, decreased air entry in left middle and lower zone, tenderness in left hemithorax infra axillary CVS: S1-S2 regular, no murmurs, no tachycardia, no gallops, no rubs Abdomen: Soft, nontender, no organomegaly, bowel sounds present, morbidly obese Neuro: No focal deficits, no facial deformity, AO x3, power 5/5 in all limbs Data 10/06/23 04:24 10/06/23 04:24 Micro: Microbiology 10/04/23 17:19 Gram Stain - Final Sputum - Expectorated Sputum Sputum Culture - Final 10/04/23 13:22 Gram Stain - Final Pleural Fluid Anaerobic Culture - Preliminary Body Fluid Culture - Preliminary 10/06/23 04:28 Blood Culture - Preliminary Blood SPECIMEN COLLECTED 10/06/23 04:24 Blood Culture - Preliminary Blood SPECIMEN COLLECTED 10/04/23 13:11 Blood Culture - Preliminary Blood NEGATIVE TO DATE 10/04/23 12:40 Blood Culture - Preliminary Blood Streptococcus species A&P Assessment and plan (1) Pneumonia: Patient does have left-sided pleural effusion as well. Cannot rule out empyema versus syn-pneumonic effusion. Urine Legionella, bacterial antigen negative. Follow-up sputum culture. Blood culture positive for Streptococcus. 1 L of fluid removed from thoracentesis. Fluid studies appreciated. No concerns for empyema. MRSA swab not collected yet, follow-up fluid ADA and QuantiFERON results. Low suspicion of tuberculosis for now. Empirically start patient on IV Zosyn, IV vancomycin. Will de-escalate antibiotics as per culture sensitivities. Appreciate CT chest results. Concerning for loculated fluid collection, postobstructive pneumonia with pulmonary nodules. Will consult pulmonology for possible bronchoscopy. Qualifiers: Pneumonia type: due to group B Streptococcus Laterality: left Lung location: upper lobe of lung Qualified Code(s): J15.3 - Pneumonia due to streptococcus, group B (2) Bacteremia due to Streptococcus: Repeat blood cultures in AM. Patient would need IV antibiotics for 14 days from first negative blood cultures. Echocardiogram pending for possible infective endocarditis. Continue IV antibiotics. (3) Respiratory failure with hypoxia: Resolved. Most likely in setting of pneumonia with mild exacerbation of COPD. Oxygen supplementation keeping saturation over 90%. Hold off on steroids for now. DuoNebs every 6 hours, Pulmicort twice daily. Mucomyst every 6 hours as needed. Aggressive pulmonary toilet with I-S and Acapella. Out of bed to chair. D-dimer elevated. PE less likely. Awaiting ventilation/perfusion scan. Qualifiers: Chronicity: acute on chronic Qualified Code(s): J96.21 - Acute and chronic respiratory failure with hypoxia (4) Pleural effusion on left: (5) Acute on chronic renal insufficiency: Baseline creatinine ranging from 1-1.3. Creatinine stable at 1.9 for now. Medical reconciliation done for nephrotoxic drugs. Continue with IV fluids with normal saline at 75 cc/h. Appreciate urine lites. Echocardiogram pending. (6) Polysubstance abuse: Urine drug screen positive for amphetamines. Patient gives history of occasional meth use. Continue to monitor. (7) Thrombocytosis: In setting of dehydration along with acute infection. Fluid as above. Monitor. Plan Anemia: Baseline hemoglobin seems to be around 8. Appreciate iron panel, vitamin B12 and folate levels. Transfuse if hemoglobin drops below 8. Continue to monitor CBC daily for now. Plan for the day: Repeat blood cultures sent on 10/06. Will follow. For now continue with vancomycin and Zosyn. Will de-escalate as per culture sensitivities. White count trending up again. Patient denies having any diarrhea. Hemoglobin stable. Hyperkalemia has resolved. Oxygen supplementation keeping saturation over 90%. Continue with DuoNebs and Pulmicort for nebulization. Appreciate pulmonology recommendations. For now plan is to continue IV antibiotics. If patient blood cultures cleared up plan will be to follow-up as an outpatient with a repeat CT scan bronchoscopy as an outpatient. Go if patient's blood culture are not clearing up or remains to have persistent leukocytosis plan will be for bronchoscopy. Creatinine improving to 1.6. Will stop IV fluids as patient is able to tolerate diet well. Continue to monitor input and output. CODE STATUS: Discussed in detail with patient. He lives by himself. His nephew will be the DPOA if is not able to make his medical decisions. Full code Regular diet Protonix for PUD prophylaxis Heparin 5000 every 12 hourly for DVT prophylaxis. Attestations 2 Medical Necessity Statement*: Requires further hospitalization for management of Streptococcus bacteremia, Streptococcus pneumonia with syn-pneumonic effusion in a patient with baseline COPD Diagnoses Pneumonia of left upper lobe due to group B Streptococcus J15.3 Pneumonia type: due to group B Streptococcus Laterality: left Lung location: upper lobe of lung Bacteremia due to Streptococcus R78.81; B95.5 Acute on chronic respiratory failure with hypoxia J96.21 Chronicity: acute on chronic Pleural effusion on left J90 Acute on chronic renal insufficiency N28.9; N18.9 Polysubstance abuse F19.10 Thrombocytosis D75.839
[2023-10-06] MEDS: vancomycin 1,250 MG/250 ML PIGGYBACK 200 MG IV (15:54)
[2023-10-06 16:03] LABS: Glucose Point of Care 149 mg/dL (70-110)
[2023-10-06] MEDS: quetiapine 300 mg Tablet PO (20:19)
[2023-10-07] VITALS (11 sets, daily range): BP systolic 109–154; BP diastolic 65–70; PULSE 80–101; RESP 18–20; TEMP 36.6–36.8; O2SAT 93–96
[2023-10-07] MEDS: piperacillin-tazobactam 3.375 GM in sodium chloride 0.9% (plus) 50 ML IV ×3 (01:54→20:16)
[2023-10-07 04:55] LABS: Basophils # 0.4 10^3/uL (0.0-0.1); Basophils % 0.9 %; Eosinophils % 16.8 %; Lymphocytes # 3.3 10^3/uL (0.8-4.8); Mean Corpuscular HGB Conc 30.6 g/dL (30-55); Mean Corpuscular Hemoglobin 29.6 pg (27-33); Mean Corpuscular Volume 96.6 fl (82-101); Mean Platelet Volume 10.2 fL (7.4-10.4); Monocytes # 3.1 10^3/uL (0.2-0.9); Monocytes % 7.3 %; Neutrophils # 26.64 10^3/uL (1.8-7.7); Neutrophils % 64.1 %; Nucleated Red Blood Cells % 0 %; Platelet Count 620 10^3/cmm (157-399); Red Blood Count 3.21 10^6/uL (3.85-5.65); Red Cell Distribution Width 14.2 % (12.1-15.1)
[2023-10-07 05:15] LABS: White Blood Count 41.58 10^3/uL (3.29-11.43)
[2023-10-07 05:25] LABS: Alanine Aminotransferase 13 U/L (0-41); Albumin Level 3.4 g/dL (3.5-5.2); Alkaline Phosphatase 132 U/L (40-130); Aspartate Amino Transferase 11 U/L (0-40); Blood Urea Nitrogen 37 mg/dL (8-23); Calcium 10.2 mg/dL (8.5-10.5); Carbon Dioxide 15 mmol/L (22-29); Chloride 103 mmol/L (98-107); Globulin 2.4 g/dL (1.3-4.6); Glucose 125 mg/dL (65-115); Osmolality Calculated 290 mOsm/kg (285-295); Sodium 135 mmol/L (136-145); Total Bilirubin 0.2 mg/dL (0.15-1.2); Total Protein 5.8 g/dL (6.6-8.7)
[2023-10-07 05:26] LABS: Anion Gap 22.3 (5-19); Potassium 5.3 mmol/L (3.5-5.1)
[2023-10-07] MEDS: heparin 5,000 unit/mL INJ 1 mL 5000 UNIT SUBCUT ×2 (05:49→18:40)
--- NOTE | 2023-10-07 08:52 | US_ITS ---
WS: [id number] RIGHT UPPER QUADRANT ULTRASOUND HISTORY: mass COMPARISON: Renal ultrasound 11/27/2016 Liver: 16.5 cm in length. Liver is top normal size. Hepatic cyst measures 1.9 x 1.8 x 2.1 cm. There a re a few additional smaller hepatic cysts. No solid mass or bile duct dilatation. Portal Vein: Normal hepatopetal flow with monophasic waveform. Gallbladder: Normally distended gallbladder with no stones or wall thickening. CBD: 0.4 cm Pancreas: Not well visualized. Right kidney: 10.5 cm in length. Kidney is normal size and contains several simple cysts. The largest cyst measures 4.7 x 4.6 x 3.8 cm. No obstruction. Increased echogenicity. Aorta and IVC: Unremarkable abdominal aorta and IVC. No ascites. IMPRESSION: 1. Negative gallbladder. 2. Hepatic and RIGHT renal cyst. No solid mass. 3. No bile duct dilatation.
[2023-10-07] MEDS: pantoprazole DR 40 mg Tablet PO (08:54)
[2023-10-07] MEDS: allopurinol 100 mg Tablet PO (08:54)
[2023-10-07] MEDS: budesonide 0.5 mg/2 mL Neb INHALATION (09:11)
[2023-10-07] MEDS: acetylcysteine 200 mg/mL SDV 4 mL 100 MG INHALATION ×2 (09:11→14:47)
[2023-10-07] MEDS: ipratropium-albuterol 3 mL Neb INHALATION ×2 (09:11→14:47)
[2023-10-07 15:48] LABS: LAB Peripheral Smear Sent for Review
[2023-10-07] MEDS: morphine 4 mg/mL SDV 1 mL 2 MG IVP (17:08)
--- NOTE | 2023-10-07 17:21 | XRR_ITS ---
PROCEDURE INFORMATION: Exam: XR Chest Exam date and time: 10/07/2023 6:42 PM Age: 78 years old Clinical indication: Device placement; Chest tube TECHNIQUE: Imaging protocol: Radiologic exam of the chest. Views: 1 view. COMPARISON: 1. CT chest wo con [id number] 10/04/2023 3:08 PM 2. CR XR chest 1V portable [id number] 10/04/2023 12:14 PM FINDINGS: Lungs: Left lateral pleural basilar drainage tube is noted. Decreased but persistent left pleuroparenchymal opacity. Lung [place] are otherwise clear. Pleural spaces: See Lungs finding. Heart/Mediastinum: Unremarkable. No cardiomegaly. Bones/joints: Unremarkable. XR/XR chest 1V portable [id number] IMPRESSION: 1. Left lateral pleural basilar drainage tube is noted. 2. Decreased but persistent left pleuroparenchymal opacity.
[2023-10-07] MEDS: vancomycin 1,250 MG/250 ML PIGGYBACK 200 MG IV (18:40)
[2023-10-07] MEDS: fentaNYL 12 mcg Patch 1 PATCH TRANSDERMA (18:40)
--- NOTE | 2023-10-07 19:45 | P.PN_ITS ---
Subjective 2 Subjective: Seen patient multiple times today White count increased to 41-no fever spikes; still on 3 L supplemental oxygen saturating 94% Patient reported having right-sided lower chest/upper quadrant pain-checked with bedside ultrasound-he has a large cystic lesion in liver as well as large left pleural effusion Obtained right upper quadrant abdominal ultrasound-which showed 2 cm hepatic cyst -I have placed 14 Korean chest tube left pleural cavity-drained close to 3 L straw-colored fluid over next 3 hours -Postprocedure chest x-ray showed contin ued improvement in parenchymal opacity in left lower lobe -Will repeat CT chest tomorrow morning -Other labs and imaging reviewed Medications: Reviewed: Yes Vitals/I&O/Wt Last Vital Signs Temp 97.8 F 10/07/23 16:00 Pulse 96 10/07/23 16:00 Resp 20 H 10/07/23 16:00 BP 145/66 10/07/23 16:00 Pulse Ox 94 10/07/23 16:00 O2 Del Method Nasal Cannula 10/07/23 16:00 O2 Flow Rate 3 10/07/23 14:47 10/07/23 10/07/23 10/07/23 06:59 14:59 22:59 Intake Total 50 / 2840 480 / 480 50 / 530 Output Total 300 / 800 300 / 300 2800 / 3100 Balance -250 / 2040 180 / 180 -2750 / -2570 Weight last 48 hrs Weight 178 lb 12.8 oz Weight 177 lb Weight 169 lb 1.6 oz Weight 169 lb 1 oz Physical Exam 2 Narrative: General: alert, NAD HEENT: conj clear, EOMI, PERRL, mmm, Neck: supple, no meningismus Heme: no cervical LAP Respiratory: Inspection: No visible deformity of the chest wall Palpation: Trachea is mildly deviated to the right, bilateral symmetric expansion Percussion: Bilateral tympanic percussion note both anterior and posteriorly Auscultation: Reduced breath sounds on left lower lung zone Cardiovascular: rrr, nl s1s2, no mrg Abdomen: soft, nt, nd, no r/g, bs+ Extremities: pulses +, no edema, no c/c : no CVA tenderness Skin: intact, no rash MSK: no back or neck pain Neurologic: grossly intact Data 10/07/23 04:11 10/07/23 04:11 Other Labs: Radiology Impressions Chest CT 10/04/23 15:03 IMPRESSION: Left upper lobe consolidation which could represent pneumonia or postobstructive consolidation from underlying lesion. Moderate large multiloculated left pleural effusion. Multiple bilateral pulmonary nodules and mediastinal/hilar adenopathy, nonspecific given other findings. Numerous suspicious appearing hepatic lesions. Hepatic MRI recommended for further characterization. Chest X-Ray 10/07/23 17:21 IMPRESSION: 1. Left lateral pleural basilar drainage tube is noted. 2. Decreased but persistent left pleuroparenchymal opacity. Laboratory Results WBC 41.58 10^3/uL (3.29-11.43) H* 10/07/23 04:11 RBC 3.21 10^6/uL (3.85-5.65) L 10/07/23 04:11 Hgb 9.50 g/dL (11.27-16.99) L 10/07/23 04:11 Hct 31.0 % (37-53) L 10/07/23 04:11 MCV 96.6 fl (82-101) 10/07/23 04:11 MCH 29.6 pg (27-33) 10/07/23 04:11 MCHC 30.6 g/dL (30-55) D 10/07/23 04:11 RDW 14.2 % (12.1-15.1) 10/07/23 04:11 Plt Count 620 10^3/cmm (157-399) H 10/07/23 04:11 MPV 10.2 fL (7.4-10.4) 10/07/23 04:11 Neut % (Auto) 64.1 % 10/07/23 04:11 Lymph % (Auto) 8.0 % 10/07/23 04:11 [place] % (Auto) 7.3 % 10/07/23 04:11 Eos % (Auto) 16.8 % 10/07/23 04:11 Baso % (Auto) 0.9 % 10/07/23 04:11 Neut # (Auto) 26.64 10^3/uL (1.8-7.7) H 10/07/23 04:11 Lymph # (Auto) 3.3 10^3/uL (0.8-4.8) 10/07/23 04:11 [place] # (Auto) 3.1 10^3/uL (0.2-0.9) H 10/07/23 04:11 Eos # (Auto) 7.0 10^3/uL (0.0-0.8) H 10/07/23 04:11 Baso # (Auto) 0.4 10^3/uL (0.0-0.1) H 10/07/23 04:11 Nucleated RBC % (auto) 0 % 10/07/23 04:11 Nucleated RBCs # 0.0 /100WBC 10/07/23 04:11 Peripher Smr Path Cons Sent for review 10/07/23 04:11 PT 13.50 SECONDS (12.1-14.9) 10/04/23 11:45 INR 1.00 (0.8-1.2) 10/04/23 11:45 D-Dimer 5.89 ug/mLFEU (0-0.59) H 10/04/23 11:45 Sodium 135 mmol/L (136-145) L 10/07/23 04:11 Potassium 5.3 mmol/L (3.5-5.1) H 10/07/23 04:11 Chloride 103 mmol/L (98-107) 10/07/23 04:11 Carbon Dioxide 15 mmol/L (22-29) L 10/07/23 04:11 Anion Gap 22.3 (5-19) H 10/07/23 04:11 BUN 37 mg/dL (8-23) H 10/07/23 04:11 Creatinine 1.8 mg/dL (0.7-1.2) H 10/07/23 04:11 GFR Calculation Not Reportable 10/07/23 04:11 Glucose 125 mg/dL (65-115) H 10/07/23 04:11 POC Glucose 149 mg/dL (70-110) H 10/06/23 15:57 Estimat Average Glucose 105 10/05/23 04:50 Hemoglobin A1c 5.3 % (4.0-6.0) 10/05/23 04:50 Calculated Osmolality 290 mOsm/kg (285-295) 10/07/23 04:11 Lactic Acid 1.8 mmol/L (0.5-2.2) 10/04/23 12:53 Uric Acid 11.7 mg/dL (3.4-7.0) H 10/04/23 11:45 Calcium 10.2 mg/dL (8.5-10.5) 10/07/23 04:11 Phosphorus 4.1 mg/dL (2.5-4.5) 10/05/23 04:50 Magnesium 1.9 mg/dL (1.7-2.3) 10/05/23 04:50 Iron 21 ug/dL (59-158) L 10/04/23 11:45 TIBC 348 mcg/dl 10/04/23 11:45 % Saturation 6.0 % (20-50) L 10/04/23 11:45 Unsat Iron Binding 327 ug/dL (112-347) 10/04/23 11:45 Total Bilirubin 0.2 mg/dL (0.15-1.2) 10/07/23 04:11 AST 11 U/L (0-40) 10/07/23 04:11 ALT 13 U/L (0-41) 10/07/23 04:11 Alkaline Phosphatase 132 U/L (40-130) H 10/07/23 04:11 Lactate Dehydrogenase 167 U/L (135-225) 10/04/23 11:45 Troponin T Baseline 39 ng/L (0-15) H 10/04/23 11:45 Troponin T 120 Minute 36.53 ng/L (0-15) H 10/04/23 13:53 Delta Troponin T -2.47 ABS# (0-10) L 10/04/23 13:53 Troponin T Hi Sens 6Hr 33.82 ng/L (0-15) H 10/04/23 18:27 Troponin T Hi Sens 6Hr Delta -5.18 ng/L (0-12) L 10/04/23 18:27 C-Reactive Protein 98.7 mg/L (0.0-4.9) H 10/04/23 11:45 Total Protein 5.8 g/dL (6.6-8.7) L 10/07/23 04:11 Albumin 3.4 g/dL (3.5-5.2) L 10/07/23 04:11 Globulin 2.4 g/dL (1.3-4.6) 10/07/23 04:11 Triglycerides 54 mg/dL (0-150) 10/05/23 04:50 Cholesterol 118 mg/dL (0-200) 10/05/23 04:50 LDL Cholesterol, Calc 56 mg/dL (50-129) 10/05/23 04:50 HDL Cholesterol 51 mg/dL (60-100) L 10/05/23 04:50 LDL/HDL Ratio 1.10 RATIO (0.00-3.22) 10/05/23 04:50 Cholesterol/HDL Ratio 2.31 mg/dL (1.0-5.00) 10/05/23 04:50 Vitamin B12 1178 pg/mL (232-1245) 10/04/23 11:45 Folate 18.5 ng/mL (4.5-32.2) 10/05/23 04:50 Procalcitonin 0.31 ng/mL (0-0.5) 10/04/23 11:45 TSH 1.24 uIU/mL (0.27-4.20) 10/04/23 13:53 Urine Color Yellow (Yellow) 10/04/23 12:24 Urine Appearance Clear (CLEAR) 10/04/23 12:24 Urine pH 5 (5-7) 10/04/23 12:24 Ur Specific [place] 1.025 (1.005-1.030) 10/04/23 12:24 Urine Protein Neg (Negative) 10/04/23 12:24 Urine Glucose (UA) Norm (Normal) 10/04/23 12:24 Urine Ketones Negative (Negative) 10/04/23 12:24 Urine Blood Neg (Negative) 10/04/23 12:24 Urine Nitrate Negative (Negative) 10/04/23 12:24 Urine Bilirubin Neg (Negative) 10/04/23 12:24 Urine Urobilinogen Norm mg/dL (Negative) 10/04/23 12:24 Ur Leukocyte Esterase Negative (Negative) 10/04/23 12:24 Ur Eosinophil Smear 0 (0-0) 10/04/23 12:24 Urine Eosinophils No eosinophils seen 10/04/23 12:24 Ur Random Sodium 29 mmol/L 10/04/23 12:24 Ur Random Potassium 58 mmol/L 10/04/23 12:24 Ur Random Chloride 13 mmol/L 10/04/23 12:24 Urine Creatinine 151 mg/dL (39-259) 10/04/23 12:24 Fluid Color Pale yellow 10/04/23 14:31 Fluid Appearance Clear 10/04/23 14:31 Fluid Specific Grav 1.010 10/04/23 14:31 Fluid pH 8.0 10/04/23 14:31 Fluid WBC 918 /uL 10/04/23 14:31 Fluid RBC 1.000 10^3/uL 10/04/23 14:31 Fld Polynuclear WBCs # 0.220 10/04/23 14:31 Fld Polynuclear WBCs % 23.900 % 10/04/23 14:31 Fl Mononucl WBCs #(Auto) 0.698 10/04/23 14:31 Fl Mononuclear % Auto 76.100 % 10/04/23 14:31 Fld [place] Laterality Left pleural eff. 10/04/23 14:31 Fluid Glucose 133.0 mg/dL 10/04/23 14:31 Fluid Albumin 2.8 g/dL 10/04/23 14:31 Fluid LDH 132 U/L 10/04/23 14:31 Fluid Amylase 24 U/L 10/04/23 14:31 Fluid Alk Phosphatase 77 IU/L 10/04/23 14:31 Fluid Cholesterol 92 mg/dL (0-200) 10/04/23 14:31 Fluid Triglycerides 40 mg/dL (0-150) 10/04/23 14:31 Fluid Uric Acid 11 mg/dL 10/04/23 14:31 Pleural Total Protein 4.5 g/dL 10/04/23 14:31 Urine Opiates Screen Negative ng/mL (Negative) 10/04/23 12:24 Ur Barbiturates Screen Negative ng/mL (Negative) 10/04/23 12:24 Ur Phencyclidine Scrn Negative ng/mL (Negative) 10/04/23 12:24 Ur Amphetamines Screen Positive ng/mL (Negative) H 10/04/23 12:24 U Benzodiazepines Scrn Negative ng/mL (Negative) 10/04/23 12:24 Urine Cocaine Screen Negative ng/mL (Negative) 10/04/23 12:24 U Marijuana (THC) Screen Positive ng/mL (Negative) H 10/04/23 12:24 Micro: Microbiology 10/04/23 Unknown Fungal Smear - Preliminary Pleural Fluid 10/04/23 12:40 Blood Culture - Preliminary Blood Aerococcus viridans 10/04/23 13:22 Gram Stain - Final Pleural Fluid Anaerobic Culture - Preliminary Body Fluid Culture - Final 10/06/23 04:28 Blood Culture - Preliminary Blood NEGATIVE TO DATE 10/06/23 04:24 Blood Culture - Preliminary Blood NEGATIVE TO DATE A&P Assessment and plan (1) Respiratory failure with hypoxia: Likely secondary to left upper lobe pneumonia-CT chest showed left upper lobe opacity with air bronchograms Pleural cultures pending Blood cultures positive for aerococcus viridans-blood cultures negative Bacterial antigens negative Patient is currently on vancomycin and Zosyn Qualifiers: Chronicity: acute on chronic Qualified Code(s): J96.21 - Acute and chronic respiratory failure with hypoxia (2) Pneumonia: CT evidence of left upper lobe consolidation with air bronchograms Pleural cultures and sputum cultures are pending Currently patient is on vancomycin and Zosyn Qualifiers: Pneumonia type: due to group B Streptococcus Laterality: left Lung location: upper lobe of lung Qualified Code(s): J15.3 - Pneumonia due to streptococcus, group B (3) Pleural effusion on left: He underwent thoracentesis-by IR-drained 1100 cc pale yellow-colored fluid- Lymphocyte predominant exudative effusion-pH 8.0; WBC 918, lymphocyte predominant, glucose 133, LDH 132, total protein 4.5. This could be parapneumonic effusion-plan was to continue with antibiotics There is a concern if there is any obstructing lesion As postthoracentesis CT chest showedLeft upper lung consolidation with air bronchograms.There are multiple bilateral pulmonary nodules measuring 8 mm in left upper lobe and 9 mm in right middle lobe.There are numerous suspicious appearing hepatic lesions as well. With given significant smoking history For more than 60 years-there is be possibility of underlying malignancy Patient has worsening leukocytosis-complaining of chest discomfort-bedside ultrasound showed significantly large pleural effusion-I have placed 14 [place] pigtail catheter and drained over 3 L of fluid over the next 3 hours-fluid is straw-colored For now we will continue antibiotics-and we will repeat CT chest tomorrow to check for underlying lung lesions If there are other suspicious lesions-we will plan for biopsies (4) Smoker: Tells me that he has smoked for 60 years but never more than a pack a day-Tells me that he does not use any inhalers. Encouraged to quit smoking (5) Polysubstance abuse: His U tox is positive for amphetamines and marijuana Encouraged to quit (6) COPD (chronic obstructive pulmonary disease): There is CT evidence of emphysema He needs PFTs as outpatient on discharge patient will get ICS/LAMA/LAMA Currently he is on scheduled nebulization Qualifiers: COPD type: emphysema Emphysema type: centrilobular Qualified Code(s): J43.2 - Centrilobular emphysema (7) Gram-positive cocci bacteremia: Blood cultures grew Aerococcus viridans Currently patient is on vancomycin and Zosyn Repeat cultures pending Attestations 2 Medical Necessity Statement*: Continue admission for assessment management of complicated pneumonia with aerococcal Bacteremia, with possible parapneumonic effusion, possible endobronchial obstruction. Time Spent in Patient Care: Greater than 35 minutes (>than 50% of time spent in counselling and/or direct pt care on unit) . Coding Level of Care Code 84137 Diagnoses Acute on chronic respiratory failure with hypoxia J96.21 Chronicity: acute on chronic Pneumonia of left upper lobe due to group B Streptococcus J15.3 Pneumonia type: due to group B Streptococcus Laterality: left Lung location: upper lobe of lung Pleural effusion on left J90 Smoker F17.200 Polysubstance abuse F19.10 Centrilobular emphysema J43.2 COPD type: emphysema Emphysema type: centrilobular Gram-positive cocci bacteremia R78.81 Time Spent (min) 55
--- NOTE | 2023-10-07 19:45 | PM.ACPR ---
Procedure/Consent Time out: Time Out Performed: Yes Consent: Consent for Procedure: Consent obtained from patient Procedure Narrative: Acute Procedures Chest Tube: Chest Tube 1: Progress: Name of the procedure: CPT code 09851: Pleural drainage, percutaneous, with insertion of indwelling catheter with imaging guidance Indication: Large left pleural effusion Core Measures Abstractor(s): Cuong Rodriguezr [facility] Consent: Signed by patient. Placed in chart Anesthesia: 10 cc 1% lidocaine without epinephrine Description of the procedure: An ultrasound was performed and a large left-sided pleural effusion was identified. A safe fluid pocket was identified with the ultrasound guidance and marked. The skin, subcutaneous tissue and the pleura was anesthetized with 1% lidocaine. Using ultrasound guidance ([id number] ) needle was advanced till flash back was noted. Straw-colored fluid was noted. Using Seldinger technique the 14 [place] indwelling chest tube was put in(41532). Catheter was connected to chest tube chamber and left under gravity The chest tube was secured with suture and transparent dressing. 2000 mL of straw-colored fluid was obtained. Complications: None. Ultrasound guidance used: Yes EBL: 5-10 cc Complications: None; patient tolerated procedure well Postprocedure CXR: 1. Left lateral pleural basilar drainage tube is noted. 2. Decreased but persistent left pleuroparenchymal opacity. Epistaxis Control: Time out performed: Yes
--- NOTE | 2023-10-07 19:48 | PM.PN ---
Subjective Subjective: He reports he is doing all right. Coughing up minimal phlegm. Later on had reported having some right lower chest/right upper quadrant pain. Vitals/I&O/Wt Last Vital Signs Temp 97.8 F 10/07/23 16:00 Pulse 96 10/07/23 16:00 Resp 20 H 10/07/23 16:00 BP 145/66 10/07/23 16:00 Pulse Ox 94 10/07/23 16:00 O2 Del Method Nasal Cannula 10/07/23 16:00 O2 Flow Rate 3 10/07/23 14:47 10/07/23 10/07/23 10/07/23 06:59 14:59 22:59 Intake Total 50 / 2840 480 / 480 50 / 530 Output Total 300 / 800 300 / 300 2800 / 3100 Balance -250 / 2040 180 / 180 -2750 / -2570 Weight last 48 hrs Weight 81.102 kg Weight 80.286 kg Weight 76.702 kg Weight 76.685 kg Physical Exam Narrative: Sitting up in bed. Const: COMMON NORMALS: patient oriented x3 and alert GENERAL APPEARANCE: cooperative ORIENTATION/CONSCIOUSNESS: Yes awake HENMT: COMMON NORMALS: oropharynx normal Neck/C-Spine: COMMON NORMALS: no JVD Resp: OTHER: Coarse breath sounds Cardio: COMMON NORMALS: no JVD, regular rhythm, S1 normal heart sound present, S2 normal heart sound present and No murmurs present (Cardio) RHYTHM: regular rhythm HEART SOUNDS: S1 normal heart sound present and S2 normal heart sound present GI: COMMON NORMALS: Normal to inspection, nondistended, normoactive bowel sounds present, Soft to palpation and non-tender PALPATION: Yes Soft to palpation Extremity: COMMON NORMALS: no joint enlargement and no pedal edema Neuro: COMMON NORMALS: patient oriented x3 and moves all extremities SENSORIUM/ORIENTATION: Yes alert Skin: COMMON NORMALS: no rashes or lesions noted GENERAL SKIN EXAM: no rashes or lesions noted Data 10/07/23 04:11 10/07/23 04:11 Micro: Microbiology 10/04/23 Unknown Fungal Smear - Preliminary Pleural Fluid 10/04/23 12:40 Blood Culture - Preliminary Blood Aerococcus viridans 10/04/23 13:22 Gram Stain - Final Pleural Fluid Anaerobic Culture - Preliminary Body Fluid Culture - Final 10/06/23 04:28 Blood Culture - Preliminary Blood NEGATIVE TO DATE 10/06/23 04:24 Blood Culture - Preliminary Blood NEGATIVE TO DATE A&P Assessment and plan (1) Pneumonia: Review of CBC with noted worsening WBC up to 41.5 thousand. No diarrhea. Continues to require oxygen support. Concern for possible parapneumonic effusion. He had discussed with pulmonology additional drainage with chest tube of large multiloculated left pleural effusion reported on CT. Reviewed pulmonology documentation. 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 Additionally some report of right lower chest/right upper quadrant pain, so hepatobiliary ultrasound has been ordered. Reviewed study. Unremarkable gallbladder. Reviewed repeat blood culture, noted unremarkable to date. Reviewed fungal sputum culture, so far no fungal elements. Urine Legionella, bacterial antigen negative. 1 L of fluid removed from thoracentesis. Fluid studies appreciated. No concerns for empyema. MRSA swab not collected yet, follow-up fluid ADA and QuantiFERON results. Low suspicion of tuberculosis for now. Continues for now on IV Zosyn, IV vancomycin. Monitor renal function, at risk of renal dysfunction with this combination. Appreciate CT chest results. Concerning for loculated fluid collection, postobstructive pneumonia with pulmonary nodules. Will need further diagnostic evaluation for possible obstructive lesion. Qualifiers: Pneumonia type: due to group B Streptococcus Laterality: left Lung location: upper lobe of lung Qualified Code(s): J15.3 - Pneumonia due to streptococcus, group B (2) Bacteremia due to Streptococcus: Repeat blood cultures reviewed, so far negative. Follow-up cultures. Patient would need IV antibiotics for 14 days from first negative blood cultures. Echocardiogram pending. Continue IV antibiotics. (3) Respiratory failure with hypoxia: Resolved. Most likely in setting of pneumonia with mild exacerbation of COPD. Oxygen supplementation keeping saturation over 90%. Hold off on steroids for now. DuoNebs every 6 hours, Pulmicort twice daily. Mucomyst every 6 hours as needed. Aggressive pulmonary toilet with I-S and Acapella. Out of bed to chair. D-dimer elevated. PE less likely. Awaiting ventilation/perfusion scan. Qualifiers: Chronicity: acute on chronic Qualified Code(s): J96.21 - Acute and chronic respiratory failure with hypoxia (4) Pleural effusion on left: (5) Acute on chronic renal insufficiency: Baseline creatinine ranging from 1-1.3. Creatinine stable at 1.9 for now. Medical reconciliation done for nephrotoxic drugs. Continue with IV fluids with normal saline at 75 cc/h. Appreciate urine lites. Echocardiogram pending. (6) Polysubstance abuse: Urine drug screen positive for amphetamines. Patient gives history of occasional meth use. Continue to monitor. (7) Thrombocytosis: In setting of dehydration along with acute infection. Fluid as above. Monitor. Plan Anemia: Baseline hemoglobin seems to be around 8. Appreciate iron panel, vitamin B12 and folate levels. Transfuse if hemoglobin drops below 8. Continue to monitor CBC daily for now. CODE STATUS: Discussed in detail with patient. He lives by himself. His nephew will be the DPOA if is not able to make his medical decisions. Full code Regular diet Protonix for PUD prophylaxis Heparin 5000 every 12 hourly for DVT prophylaxis. Attestations Medical Necessity Statement*: Continue admission for assessment management of complicated pneumonia with streptococcal bacteremia, with possible parapneumonic effusion, possible endobronchial obstruction. Diagnoses Pneumonia of left upper lobe due to group B Streptococcus J15.3 Pneumonia type: due to group B Streptococcus Laterality: left Lung location: upper lobe of lung Bacteremia due to Streptococcus R78.81; B95.5 Acute on chronic respiratory failure with hypoxia J96.21 Chronicity: acute on chronic Pleural effusion on left J90 Acute on chronic renal insufficiency N28.9; N18.9 Polysubstance abuse F19.10 Thrombocytosis D75.839
[2023-10-07] MEDS: quetiapine 300 mg Tablet PO (20:30)
--- NOTE | 2023-10-07 23:17 | PC.NURSE ---
Dr. Durham called for an update on patient. This nurse told him that the chest tube only had 100 ml out at 1999 when unclamped. New orders received to keep chest tube drain unclamped overnight.
[2023-10-08] VITALS (10 sets, daily range): BP systolic 111–135; BP diastolic 61–74; PULSE 86–100; RESP 16–20; TEMP 36.5–37.1; O2SAT 91–98
[2023-10-08] MEDS: piperacillin-tazobactam 3.375 GM in sodium chloride 0.9% (plus) 50 ML IV ×3 (03:03→18:12)
[2023-10-08] MEDS: heparin 5,000 unit/mL INJ 1 mL 5000 UNIT SUBCUT ×2 (04:58→18:12)
[2023-10-08 05:13] LABS: Basophils # 0.3 10^3/uL (0.0-0.1); Basophils % 0.8 %; Eosinophils # 5.6 10^3/uL (0.0-0.8); Hematocrit 26.4 % (37-53); Lymphocytes # 1.9 10^3/uL (0.8-4.8); Lymphocytes % 5.2 %; Mean Corpuscular HGB Conc 32.6 g/dL (30-55); Mean Corpuscular Hemoglobin 29.9 pg (27-33); Mean Corpuscular Volume 91.7 fl (82-101); Mean Platelet Volume 9.9 fL (7.4-10.4); Monocytes % 5.3 %; Neutrophils % 71.2 %; Nucleated Red Blood Cells % 0 %; Platelet Count 541 10^3/cmm (157-399); Red Blood Count 2.88 10^6/uL (3.85-5.65); Red Cell Distribution Width 14.2 % (12.1-15.1)
[2023-10-08 05:34] LABS: White Blood Count 37.44 10^3/uL (3.29-11.43)
[2023-10-08 05:40] LABS: Alanine Aminotransferase 9 U/L (0-41); Albumin Level 2.7 g/dL (3.5-5.2); Alkaline Phosphatase 104 U/L (40-130); Anion Gap 16.9 (5-19); Aspartate Amino Transferase 9 U/L (0-40); Blood Urea Nitrogen 36 mg/dL (8-23); Calcium 9.8 mg/dL (8.5-10.5); Carbon Dioxide 20 mmol/L (22-29); Chloride 106 mmol/L (98-107); Globulin 2.4 g/dL (1.3-4.6); Glucose 118 mg/dL (65-115); Osmolality Calculated 295 mOsm/kg (285-295); Potassium 4.9 mmol/L (3.5-5.1); Sodium 138 mmol/L (136-145); Total Bilirubin 0.2 mg/dL (0.15-1.2); Total Protein 5.1 g/dL (6.6-8.7)
--- NOTE | 2023-10-08 07:26 | XRR_ITS ---
PROCEDURE INFORMATION: Exam: XR Chest Exam date and time: 10/08/2023 9:01 AM Age: 78 years old Clinical indication: Condition or disease; Lung condition and disease; Pleural effusion; Other: Not specified TECHNIQUE: Imaging protocol: Radiologic exam of the chest. Views: 1 view. COMPARISON: CR (CHEST, ) 10/07/2023 6:42 PM FINDINGS: Tubes, catheters and devices: Unchanged small bore left chest tube terminating in the lower lateral pleural space. Lungs: Decreased left lower lung atelectasis and/or pneumonitis. Small amount of new atelectasis and/or pneumonitis right lung base. Otherwise, unremarkable. Pleural spaces: Decreased small left pleural effusion. No right pleural effusion or pneumothorax. Heart/Mediastinum: Unremarkable. No cardiomegaly. Bones/joints: Unchanged multilevel spondylosis. XR/XR chest 1V portable [id number] IMPRESSION: 1. Unchanged left chest tube, but decreased small left pleural effusion. 2. Decreased left basilar atelectasis and/or pneumonitis. New small amount of right basilar atelectasis and/or pneumonitis.
--- NOTE | 2023-10-08 07:26 | P.PN_ITS ---
Subjective 2 Subjective: Drained a total additional 2.5 L through left chest tube straw-colored fluid overnight-total 5 L since insertion-in addition to 1100 cc via thoracentesis on the day of admission (6.6 L) Pleural fluid cytology showed atypical cells suspicious for malignancy- CT chest 5 L drainage-showed tip of chest tube in place in left lower lobe area which still has some fluid left over-no definite loculations-loculated pneumonic left basilar area Patient received 1 dose tPA 10 Mg-wound do not have dornase in our pharmacy- White count has reduced to 37,000 from 43,000. Patient is currently on 3 L oxygen reported some improvement in his breathing; he complains of pain in the chest insertion site Other labs and imaging reviewed. Medications: Reviewed: Yes Vitals/I&O/Wt Last Vital Signs Temp 98.1 F 10/08/23 04:00 Pulse 92 10/08/23 05:23 Resp 18 10/08/23 04:00 BP 129/70 10/08/23 04:00 Pulse Ox 94 10/08/23 04:00 O2 Del Method Nasal Cannula 10/08/23 04:00 O2 Flow Rate 3 10/07/23 20:00 10/07/23 10/08/23 10/08/23 22:59 06:59 14:59 Intake Total 300 / 780 50 / 830 Output Total 3210 / 3510 1840 / 5350 Balance -2910 / -2730 -1790 / -4520 Weight last 48 hrs Weight 170 lb 5 oz Weight 178 lb 12.8 oz Weight 177 lb Physical Exam 2 Narrative: General: alert, NAD HEENT: conj clear, EOMI, PERRL, mmm, Neck: supple, no meningismus Heme: no cervical LAP Respiratory: Inspection: No visible deformity of the chest wall Palpation: Trachea is mildly deviated to the right, bilateral symmetric expansion Percussion: Bilateral tympanic percussion note both anterior and posteriorly Auscultation: Reduced breath sounds on left lower lung zone Cardiovascular: rrr, nl s1s2, no mrg Abdomen: soft, nt, nd, no r/g, bs+ Extremities: pulses +, no edema, no c/c : no CVA tenderness Skin: intact, no rash MSK: no back or neck pain Neurologic: grossly intact Data 10/09/23 06:16 10/09/23 06:16 Other Labs: Radiology Impressions Chest CT 10/04/23 15:03 IMPRESSION: Left upper lobe consolidation which could represent pneumonia or postobstructive consolidation from underlying lesion. Moderate large multiloculated left pleural effusion. Multiple bilateral pulmonary nodules and mediastinal/hilar adenopathy, nonspecific given other findings. Numerous suspicious appearing hepatic lesions. Hepatic MRI recommended for further characterization. Chest X-Ray 10/08/23 07:26 IMPRESSION: 1. Unchanged left chest tube, but decreased small left pleural effusion. 2. Decreased left basilar atelectasis and/or pneumonitis. New small amount of right basilar atelectasis and/or pneumonitis. Laboratory Results WBC 37.44 10^3/uL (3.29-11.43) H* 10/08/23 05:00 RBC 2.88 10^6/uL (3.85-5.65) L 10/08/23 05:00 Hgb 8.60 g/dL (11.27-16.99) L 10/08/23 05:00 Hct 26.4 % (37-53) L 10/08/23 05:00 MCV 91.7 fl (82-101) 10/08/23 05:00 MCH 29.9 pg (27-33) 10/08/23 05:00 MCHC 32.6 g/dL (30-55) D 10/08/23 05:00 RDW 14.2 % (12.1-15.1) 10/08/23 05:00 Plt Count 541 10^3/cmm (157-399) H 10/08/23 05:00 MPV 9.9 fL (7.4-10.4) 10/08/23 05:00 Neut % (Auto) 71.2 % 10/08/23 05:00 Lymph % (Auto) 5.2 % 10/08/23 05:00 [place] % (Auto) 5.3 % 10/08/23 05:00 Eos % (Auto) 15.0 % 10/08/23 05:00 Baso % (Auto) 0.8 % 10/08/23 05:00 Neut # (Auto) 26.70 10^3/uL (1.8-7.7) H 10/08/23 05:00 Lymph # (Auto) 1.9 10^3/uL (0.8-4.8) 10/08/23 05:00 [place] # (Auto) 2.0 10^3/uL (0.2-0.9) H 10/08/23 05:00 Eos # (Auto) 5.6 10^3/uL (0.0-0.8) H 10/08/23 05:00 Baso # (Auto) 0.3 10^3/uL (0.0-0.1) H 10/08/23 05:00 Nucleated RBC % (auto) 0 % 10/08/23 05:00 Nucleated RBCs # 0.0 /100WBC 10/08/23 05:00 Peripher Smr Path Cons Sent for review 10/07/23 04:11 PT 13.50 SECONDS (12.1-14.9) 10/04/23 11:45 INR 1.00 (0.8-1.2) 10/04/23 11:45 D-Dimer 5.89 ug/mLFEU (0-0.59) H 10/04/23 11:45 Sodium 138 mmol/L (136-145) 10/08/23 05:00 Potassium 4.9 mmol/L (3.5-5.1) 10/08/23 05:00 Chloride 106 mmol/L (98-107) 10/08/23 05:00 Carbon Dioxide 20 mmol/L (22-29) L 10/08/23 05:00 Anion Gap 16.9 (5-19) 10/08/23 05:00 BUN 36 mg/dL (8-23) H 10/08/23 05:00 Creatinine 1.7 mg/dL (0.7-1.2) H 10/08/23 05:00 GFR Calculation Not Reportable 10/08/23 05:00 Glucose 118 mg/dL (65-115) H 10/08/23 05:00 POC Glucose 149 mg/dL (70-110) H 10/06/23 15:57 Estimat Average Glucose 105 10/05/23 04:50 Hemoglobin A1c 5.3 % (4.0-6.0) 10/05/23 04:50 Calculated Osmolality 295 mOsm/kg (285-295) 10/08/23 05:00 Lactic Acid 1.8 mmol/L (0.5-2.2) 10/04/23 12:53 Uric Acid 11.7 mg/dL (3.4-7.0) H 10/04/23 11:45 Calcium 9.8 mg/dL (8.5-10.5) 10/08/23 05:00 Phosphorus 4.1 mg/dL (2.5-4.5) 10/05/23 04:50 Magnesium 1.9 mg/dL (1.7-2.3) 10/05/23 04:50 Iron 21 ug/dL (59-158) L 10/04/23 11:45 TIBC 348 mcg/dl 10/04/23 11:45 % Saturation 6.0 % (20-50) L 10/04/23 11:45 Unsat Iron Binding 327 ug/dL (112-347) 10/04/23 11:45 Total Bilirubin 0.2 mg/dL (0.15-1.2) 10/08/23 05:00 AST 9 U/L (0-40) 10/08/23 05:00 ALT 9 U/L (0-41) 10/08/23 05:00 Alkaline Phosphatase 104 U/L (40-130) 10/08/23 05:00 Lactate Dehydrogenase 167 U/L (135-225) 10/04/23 11:45 Troponin T Baseline 39 ng/L (0-15) H 10/04/23 11:45 Troponin T 120 Minute 36.53 ng/L (0-15) H 10/04/23 13:53 Delta Troponin T -2.47 ABS# (0-10) L 10/04/23 13:53 Troponin T Hi Sens 6Hr 33.82 ng/L (0-15) H 10/04/23 18:27 Troponin T Hi Sens 6Hr Delta -5.18 ng/L (0-12) L 10/04/23 18:27 C-Reactive Protein 98.7 mg/L (0.0-4.9) H 10/04/23 11:45 Total Protein 5.1 g/dL (6.6-8.7) L 10/08/23 05:00 Albumin 2.7 g/dL (3.5-5.2) L 10/08/23 05:00 Globulin 2.4 g/dL (1.3-4.6) 10/08/23 05:00 Triglycerides 54 mg/dL (0-150) 10/05/23 04:50 Cholesterol 118 mg/dL (0-200) 10/05/23 04:50 LDL Cholesterol, Calc 56 mg/dL (50-129) 10/05/23 04:50 HDL Cholesterol 51 mg/dL (60-100) L 10/05/23 04:50 LDL/HDL Ratio 1.10 RATIO (0.00-3.22) 10/05/23 04:50 Cholesterol/HDL Ratio 2.31 mg/dL (1.0-5.00) 10/05/23 04:50 Vitamin B12 1178 pg/mL (232-1245) 10/04/23 11:45 Folate 18.5 ng/mL (4.5-32.2) 10/05/23 04:50 Procalcitonin 0.31 ng/mL (0-0.5) 10/04/23 11:45 TSH 1.24 uIU/mL (0.27-4.20) 10/04/23 13:53 Urine Color Yellow (Yellow) 10/04/23 12:24 Urine Appearance Clear (CLEAR) 10/04/23 12:24 Urine pH 5 (5-7) 10/04/23 12:24 Ur Specific [place] 1.025 (1.005-1.030) 10/04/23 12:24 Urine Protein Neg (Negative) 10/04/23 12:24 Urine Glucose (UA) Norm (Normal) 10/04/23 12:24 Urine Ketones Negative (Negative) 10/04/23 12:24 Urine Blood Neg (Negative) 10/04/23 12:24 Urine Nitrate Negative (Negative) 10/04/23 12:24 Urine Bilirubin Neg (Negative) 10/04/23 12:24 Urine Urobilinogen Norm mg/dL (Negative) 10/04/23 12:24 Ur Leukocyte Esterase Negative (Negative) 10/04/23 12:24 Ur Eosinophil Smear 0 (0-0) 10/04/23 12:24 Urine Eosinophils No eosinophils seen 10/04/23 12:24 Ur Random Sodium 29 mmol/L 10/04/23 12:24 Ur Random Potassium 58 mmol/L 10/04/23 12:24 Ur Random Chloride 13 mmol/L 10/04/23 12:24 Urine Creatinine 151 mg/dL (39-259) 10/04/23 12:24 Fluid Color Pale yellow 10/04/23 14:31 Fluid Appearance Clear 10/04/23 14:31 Fluid Specific Grav 1.010 10/04/23 14:31 Fluid pH 8.0 10/04/23 14:31 Fluid WBC 918 /uL 10/04/23 14:31 Fluid RBC 1.000 10^3/uL 10/04/23 14:31 Fld Polynuclear WBCs # 0.220 10/04/23 14:31 Fld Polynuclear WBCs % 23.900 % 10/04/23 14:31 Fl Mononucl WBCs #(Auto) 0.698 10/04/23 14:31 Fl Mononuclear % Auto 76.100 % 10/04/23 14:31 Fld Crystal Laterality Left pleural eff. 10/04/23 14:31 Fluid Glucose 133.0 mg/dL 10/04/23 14:31 Fluid Albumin 2.8 g/dL 10/04/23 14:31 Fluid LDH 132 U/L 10/04/23 14:31 Fluid Amylase 24 U/L 10/04/23 14:31 Fluid Alk Phosphatase 77 IU/L 10/04/23 14:31 Fluid Cholesterol 92 mg/dL (0-200) 10/04/23 14:31 Fluid Triglycerides 40 mg/dL (0-150) 10/04/23 14:31 Fluid Uric Acid 11 mg/dL 10/04/23 14:31 Pleural Total Protein 4.5 g/dL 10/04/23 14:31 Urine Opiates Screen Negative ng/mL (Negative) 10/04/23 12:24 Ur Barbiturates Screen Negative ng/mL (Negative) 10/04/23 12:24 Ur Phencyclidine Scrn Negative ng/mL (Negative) 10/04/23 12:24 Ur Amphetamines Screen Positive ng/mL (Negative) H 10/04/23 12:24 U Benzodiazepines Scrn Negative ng/mL (Negative) 10/04/23 12:24 Urine Cocaine Screen Negative ng/mL (Negative) 10/04/23 12:24 U Marijuana (THC) Screen Positive ng/mL (Negative) H 10/04/23 12:24 MRSA (PCR) Not detected (NOT DETECTED) 10/07/23 11:00 Micro: Microbiology 10/04/23 Unknown Fungal Smear - Preliminary Pleural Fluid 10/04/23 12:40 Blood Culture - Preliminary Blood Aerococcus viridans 10/04/23 13:22 Gram Stain - Final Pleural Fluid Anaerobic Culture - Preliminary Body Fluid Culture - Final 10/06/23 04:28 Blood Culture - Preliminary Blood NEGATIVE TO DATE 10/06/23 04:24 Blood Culture - Preliminary Blood NEGATIVE TO DATE A&P Assessment and plan (1) Respiratory failure with hypoxia: Likely secondary to left upper lobe pneumonia-CT chest showed left upper lobe opacity with air bronchograms Pleural fluid cultures negative Blood cultures positive for aerococcus viridans-blood cultures negative Bacterial antigens negative Patient is currently on vancomycin and Zosyn Qualifiers: Chronicity: acute on chronic Qualified Code(s): J96.21 - Acute and chronic respiratory failure with hypoxia (2) Pneumonia: CT evidence of left upper lobe consolidation with air bronchograms Pleural cultures and sputum cultures are negative Currently patient is on vancomycin and Zosyn Qualifiers: Pneumonia type: due to group B Streptococcus Laterality: left Lung location: upper lobe of lung Qualified Code(s): J15.3 - Pneumonia due to streptococcus, group B (3) Pleural effusion on left: He underwent thoracentesis-by IR-drained 1100 cc pale yellow-colored fluid- Lymphocyte predominant exudative effusion-pH 8.0; WBC 918, lymphocyte predominant, glucose 133, LDH 132, total protein 4.5. Pleural fluid cultures are negative- There is a concern if there is any obstructing lesion As postthoracentesis CT chest showedLeft upper lung consolidation with air bronchograms.There are multiple bilateral pulmonary nodules measuring 8 mm in left upper lobe and 9 mm in right middle lobe.There are numerous suspicious appearing hepatic lesions as well. This fluid could be secondary to trapped lung Pleural fluid cytology positive for atypical cells consistent with malignancy- will send additional sample for cell block to run immunohistochemical stains With given significant smoking history For more than 60 years-there is be possibility of underlying malignancy Patient has worsening leukocytosis-complaining of chest discomfort-bedside ultrasound showed significantly large pleural effusion-I have placed 14 Upper [place] pigtail catheter and drained over 5 L of fluid over [address] chest-which showed there is loculated hydropneumothorax in the left lung base- suspicious for trapped lung physiology he received tpa 10 mg intrapleural with no significant improvement in drainage. I have recommended to consult interventional radiology to perform biopsy of liver lesions (4) Smoker: Tells me that he has smoked for 60 years but never more than a pack a day-Tells me that he does not use any inhalers. Encouraged to quit smoking (5) Polysubstance abuse: His U tox is positive for amphetamines and marijuana Encouraged to quit (6) COPD (chronic obstructive pulmonary disease): There is CT evidence of emphysema He needs PFTs as outpatient on discharge patient will get ICS/LAMA/LAMA Currently he is on scheduled nebulization Qualifiers: COPD type: emphysema Emphysema type: centrilobular Qualified Code(s): J43.2 - Centrilobular emphysema (7) Gram-positive cocci bacteremia: Blood cultures grew Aerococcus viridans Currently patient is on vancomycin and Zosyn Repeat cultures negative so far Transthoracic echo-does not have good ultrasonic views Recommended transesophageal echo to check for vegetation as there is persistent leukocytosis (8) Suspected lung cancer: With significant smoking history-pleural cytology positive for atypical cells consistent with malignancy-suspect underlying lung cancer Recommended interventional radiology guided biopsies of hepatic lesions and also we will send additional pleural fluid for cell block Attestations 2 Medical Necessity Statement*: Continue admission for assessment management of recurrent left-sided pleural effusion, Chest tube management, reassessment of effusion, loculations, complicated pneumonia, gram-positive bacteremia. Coding Level of Care Code Acute Code for [facility] Fwd Diagnoses Acute on chronic respiratory failure with hypoxia J96.21 Chronicity: acute on chronic Pneumonia of left upper lobe due to group B Streptococcus J15.3 Pneumonia type: due to group B Streptococcus Laterality: left Lung location: upper lobe of lung Pleural effusion on left J90 Smoker F17.200 Polysubstance abuse F19.10 Centrilobular emphysema J43.2 COPD type: emphysema Emphysema type: centrilobular Gram-positive cocci bacteremia R78.81 Suspected lung cancer R68.89 Time Spent (min) 45
[2023-10-08] MEDS: budesonide 0.5 mg/2 mL Neb INHALATION (07:40)
[2023-10-08] MEDS: ipratropium-albuterol 3 mL Neb INHALATION (07:40)
[2023-10-08] MEDS: acetylcysteine 200 mg/mL SDV 4 mL 100 MG INHALATION (07:40)
[2023-10-08] MEDS: bisacodyl 5 mg Tablet 10 MG PO (09:56)
[2023-10-08] MEDS: allopurinol 100 mg Tablet PO (09:56)
[2023-10-08] MEDS: pantoprazole DR 40 mg Tablet PO (09:56)
--- NOTE | 2023-10-08 10:21 | CTR_ITS ---
PROCEDURE INFORMATION: Exam: CT Chest Without Contrast; Diagnostic Exam date and time: 10/08/2023 7:58 PM Age: 78 years old Clinical indication: Other: Effusion; Additional info: Reassess effusion, assess for loculations TECHNIQUE: Imaging protocol: Diagnostic computed tomography of the chest without contrast. Radiation optimization: All CT scans at this facility use at least one of these dose optimization techniques: automated exposure control; mA and/or kV adjustment per patient size (includes targeted exams where dose is matched to clinical indication); or iterative reconstruction. REPORTING DATA: Count of CT and Cardiac NM exams in prior 12 months: This patient has received [address] and 0 known cardiac nuclear medicine studies in the 12 months prior to the current study. COMPARISON: CT chest wo con [id number] 10/04/2023 3:08 PM RADIATION DOSE METRICS: Total DLP (mGy-cm): 1076 FINDINGS: Tubes, catheters and devices: Left-sided chest tube seen with tip in a moderate to large left pleural effusion along with a small amount air in the left pleural space, negative for definite loculation seen. Lungs: Left hilar to lingular and upper lobe dense airspace opacification measuring up to 7.6 cm, similar to prior exam may reflect a combination of pneumonia and malignancy. Multiple bilateral pulmonary nodules measuring up to 6 mm in the right upper lobe, likely reflecting metastatic disease. Right lower lobe atelectasis versus minimal infiltrate. Pleural spaces: Unremarkable. No pneumothorax. No pleural effusion. Heart: Cardiomegaly. Coronary arteries: Coronary artery atherosclerotic calcifications. Lymph nodes: Scattered enlarged mediastinal lymph nodes measuring up to 12 mm, nonspecific. Vasculature: Unremarkable. No aortic aneurysm. Liver: Multifocal probable metastatic lesions seen throughout the liver similar to prior exam measuring up to the 4.9 cm. Kidneys and ureters: Bilateral renal cysts, negative for follow-up advised. Perinephric edema bilaterally likely reflecting renal insufficiency. Bones/joints: Unremarkable. No acute fracture. Soft tissues: Unremarkable. CT/CT chest wo con [id number] IMPRESSION: 1. Left-sided chest tube seen with tip in a moderate to large left pleural effusion along with a small amount air in the left pleural space, negative for definite loculation seen. 2. Left hilar to lingular and upper lobe dense airspace opacification measuring up to 7.6 cm, similar to prior exam may reflect a combination of pneumonia and malignancy. 3. Multiple bilateral pulmonary nodules measuring up to 6 mm in the right upper lobe, likely reflecting metastatic disease. 4. Scattered enlarged mediastinal lymph nodes measuring up to 12 mm, nonspecific. 5. Cardiomegaly. 6. Coronary artery atherosclerotic calcifications. 7. Multifocal probable metastatic lesions seen throughout the liver similar to prior exam measuring up to the 4.9 cm. 8. Bilateral renal cysts, negative for follow-up advised. 9. Perinephric edema bilaterally likely reflecting renal insufficiency. 10. Right lower lobe atelectasis versus minimal infiltrate. COMMENTS: Consistent with the [employer]'s Incidental Findings Committee white paper (J Am Aleida Radiol 2018): Any incidental renal lesion less than 1 cm or classified as too small to characterize, or any incidental cystic renal lesion characterized as simple-appearing, is likely benign. No follow-up imaging is recommended for these lesions per consensus recommendations based on imaging criteria.
--- NOTE | 2023-10-08 12:54 | PM.PN ---
Subjective Subjective: He is overall feeling better. Breathing easier. Pain in the insertion site of chest tube. Vitals/I&O/Wt Last Vital Signs Temp 98.1 F 10/08/23 11:03 Pulse 86 10/08/23 11:03 Resp 20 H 10/08/23 11:03 BP 111/65 10/08/23 11:03 Pulse Ox 96 10/08/23 11:03 O2 Del Method Nasal Cannula 10/08/23 11:03 O2 Flow Rate 3 10/08/23 07:43 10/07/23 10/08/23 10/08/23 22:59 06:59 14:59 Intake Total 300 / 780 50 / 830 290 / 290 Output Total 3210 / 3510 1840 / 5350 Balance -2910 / -2730 -1790 / -4520 290 / 290 Weight last 48 hrs Weight 77.252 kg Weight 81.102 kg Physical Exam Narrative: Sitting up in chair. Const: COMMON NORMALS: patient oriented x3 and alert GENERAL APPEARANCE: cooperative ORIENTATION/CONSCIOUSNESS: Yes awake HENMT: COMMON NORMALS: oropharynx normal Neck/C-Spine: COMMON NORMALS: no JVD Resp: COMMON NORMALS: clear to auscultation bilaterally AUSCULTATION: clear to auscultation bilaterally Cardio: COMMON NORMALS: no JVD, regular rhythm, S1 normal heart sound present, S2 normal heart sound present and No murmurs present (Cardio) RHYTHM: regular rhythm HEART SOUNDS: S1 normal heart sound present and S2 normal heart sound present GI: COMMON NORMALS: Normal to inspection, nondistended, normoactive bowel sounds present, Soft to palpation and non-tender PALPATION: Yes Soft to palpation Extremity: COMMON NORMALS: no joint enlargement and no pedal edema Neuro: COMMON NORMALS: patient oriented x3 and moves all extremities SENSORIUM/ORIENTATION: Yes alert Skin: COMMON NORMALS: no rashes or lesions noted GENERAL SKIN EXAM: no rashes or lesions noted Data 10/08/23 05:00 10/08/23 05:00 Micro: Microbiology 10/04/23 Unknown Fungal Smear - Preliminary Pleural Fluid 10/04/23 12:40 Blood Culture - Preliminary Blood Aerococcus viridans 10/04/23 13:22 Gram Stain - Final Pleural Fluid Anaerobic Culture - Preliminary Body Fluid Culture - Final A&P Assessment and plan (1) Pneumonia: Continue treatment of pneumonia. Continues to require Lasix nasal cannula oxygen. Subjectively he is feeling slightly better with chest tube. No empyema. Reassess CT chest as per discussion with livestock judging coach. Concern for possibility of underlying malignancy, will be needing further evaluation. Discussed with him. Reviewed CBC, noted severe leukocytosis 37.44. Possible leukemoid reaction with noted elevation of neutrophils, monocytes, eos, basophils. Peripheral smear has been requested. Concern for possible parapneumonic effusion. Additionally some report of right lower chest/right upper quadrant pain, so hepatobiliary ultrasound with unremarkable gallbladder. Reviewed repeat blood culture, noted unremarkable to date. Reviewed fungal sputum culture, so far no fungal elements. Original blood culture identification are coccus viridans. TTE without obvious vegetation, although technically limited study. Continue antibiotic coverage at this time. Consideration of further assessment with CARLIE. Urine Legionella, bacterial antigen negative. MRSA swab not collected yet, follow-up fluid ADA and QuantiFERON results. Low suspicion of tuberculosis for now. Continues for now on IV Zosyn, IV vancomycin. Monitor renal function, at risk of renal dysfunction with this combination. Appreciate CT chest results. Concerning for loculated fluid collection, postobstructive pneumonia with pulmonary nodules. Will need further diagnostic evaluation for possible obstructive lesion. Qualifiers: Pneumonia type: due to group B Streptococcus Laterality: left Lung location: upper lobe of lung Qualified Code(s): J15.3 - Pneumonia due to streptococcus, group B (2) Pleural effusion on left: Status post chest tube insertion. So far output 4250. Continue chest tube. Monitor output. Discussed with livestock judging coach. Repeat CT chest to reassess effusion, loculations. Requested. Monitor oxygenation. Pain at insertion site, IV morphine for pain control. (3) Bacteremia due to Streptococcus: Reviewed repeat blood cultures, negative. Follow-up cultures. Echocardiogram technically difficult, without obvious vegetation. Consideration of CARLIE. Continue IV antibiotics. Patient would need IV antibiotics for at least 14 days from first negative blood cultures. (4) Respiratory failure with hypoxia: Resolved. Most likely in setting of pneumonia with mild exacerbation of COPD. Oxygen supplementation keeping saturation over 90%. Hold off on steroids for now. DuoNebs every 6 hours, Pulmicort twice daily. Mucomyst every 6 hours as needed. Aggressive pulmonary toilet with I-S and Acapella. Out of bed to chair. D-dimer elevated. PE less likely. Awaiting ventilation/perfusion scan. Qualifiers: Chronicity: acute on chronic Qualified Code(s): J96.21 - Acute and chronic respiratory failure with hypoxia (5) Acute on chronic renal insufficiency: Baseline creatinine ranging from 1-1.3. Creatinine stable at 1.9 for now. Medical reconciliation done for nephrotoxic drugs. Continue with IV fluids with normal saline at 75 cc/h. Appreciate urine lites. Echocardiogram pending. (6) Polysubstance abuse: Urine drug screen positive for amphetamines. Patient gives history of occasional meth use. Continue to monitor. (7) Thrombocytosis: In setting of dehydration along with acute infection. Fluid as above. Monitor. Plan Anemia: Baseline hemoglobin seems to be around 8. Appreciate iron panel, vitamin B12 and folate levels. Transfuse if hemoglobin drops below 8. Continue to monitor CBC daily for now. CODE STATUS: Discussed in detail with patient. He lives by himself. His nephew will be the DPOA if is not able to make his medical decisions. Full code Regular diet Protonix for PUD prophylaxis Heparin 5000 every 12 hourly for DVT prophylaxis. Attestations Medical Necessity Statement*: Continue admission for assessment management of recurrent left-sided pleural effusion, Chest tube management, reassessment of effusion, loculations, complicated pneumonia, gram-positive bacteremia. Diagnoses Pneumonia of left upper lobe due to group B Streptococcus J15.3 Pneumonia type: due to group B Streptococcus Laterality: left Lung location: upper lobe of lung Pleural effusion on left J90 Bacteremia due to Streptococcus R78.81; B95.5 Acute on chronic respiratory failure with hypoxia J96.21 Chronicity: acute on chronic Acute on chronic renal insufficiency N28.9; N18.9 Polysubstance abuse F19.10 Thrombocytosis D75.839
[2023-10-08 13:59] LABS: Methicillin-Resist S.aureu PCR NOT DETECTED (NOT DETECTED)
[2023-10-08] MEDS: albumin 25 G/100 ML BAG 60 G IV (14:20)
[2023-10-08 16:13] LABS: Pleural Fld Adenosine Deami 5.7 U/L (<9.2)
[2023-10-08] MEDS: vancomycin 1,250 MG/250 ML PIGGYBACK 200 MG IV (18:13)
[2023-10-08] MEDS: quetiapine 300 mg Tablet PO (22:03)
[2023-10-08] MEDS: morphine 4 mg/mL SDV 1 mL 2 MG IVP (22:25)
--- NOTE | 2023-10-08 23:46 | PC.NURSE ---
Dr Durham called and gave this nurse orders to administer tpa in patient's chest tube. Instructions given to have patient lay on right side, clamp chest tube drain, scrub pigtail port next to chest tube drain with alcohol swab, administer tpa, flush with saline, leave clamped for 30 minutes and have patient stay on right side during that time and then unclamp after 30 minutes. While administering the tpa patient experienced some pain at the site but was relieved with morphine. Tpa was administered and chest tube was unclamped after 30 minutes. A small amount of clear liquid drained out but after that the chest tube is not currently draining. There are pink tinged fibrous/mucoid threads in the tubing. This nurse called Dr Durham and gave him an update on chest tube and no new orders received. Patient is resting comfortably in bed at this time.
[2023-10-09] VITALS (13 sets, daily range): BP systolic 108–133; BP diastolic 58–73; PULSE 84–100; RESP 16–18; TEMP 36.6–37.2; O2SAT 90–96
[2023-10-09] MEDS: piperacillin-tazobactam 3.375 GM in sodium chloride 0.9% (plus) 50 ML IV ×3 (02:43→19:49)
[2023-10-09] MEDS: heparin 5,000 unit/mL INJ 1 mL 5000 UNIT SUBCUT ×2 (05:04→17:18)
--- NOTE | 2023-10-09 06:14 | XRR_ITS ---
PROCEDURE INFORMATION: Exam: XR Chest Exam date and time: 10/09/2023 7:34 AM Age: 78 years old Clinical indication: Condition or disease; Lung condition and disease; Pleural effusion; Other: Not specified; Additional info: Pleural effusion, chest tube TECHNIQUE: Imaging protocol: Radiologic exam of the chest. Views: 1 view. COMPARISON: CT chest con [id number] 10/08/2023 7:58 PM FINDINGS: Tubes, catheters and devices: There is a small bore chest tube in the inferior left hemithorax. It appears to have retracted some laterally but the tip still appears to be within the pleural space. There is a left-sided inferior hydropneumothorax. Air component appears minimally larger than on chest x-ray from 10/08/2023 Lungs: There is continued consolidation/volume loss in the left lung base. Right lung is clear. Pleural spaces: See Tubes, catheters and devices finding. Heart/Mediastinum: Unremarkable. No cardiomegaly. Bones/joints: There is a sclerotic focus in the right proximal humerus which may be a bone island in the absence of any known primary malignancy. There are degenerative changes in both shoulders and in the spine. XR/XR chest 1V portable [id number] IMPRESSION: 1. Inferior lateral left chest tube which appears to have retracted some however the tip appears to still be within the pleural space 2. Left-sided hydropneumothorax. Fluid component appears unchanged. Air component appears slightly increased 3. Persistent consolidation/atelectasis left lung base without significant change.
[2023-10-09 06:41] LABS: Basophils # 0.4 10^3/uL (0.0-0.1); Basophils % 0.9 %; Eosinophils # 6.4 10^3/uL (0.0-0.8); Eosinophils % 14.9 %; Hematocrit 27.3 % (37-53); Lymphocytes % 4.7 %; Mean Corpuscular HGB Conc 31.5 g/dL (30-55); Mean Corpuscular Hemoglobin 29.5 pg (27-33); Mean Corpuscular Volume 93.5 fl (82-101); Mean Platelet Volume 10.1 fL (7.4-10.4); Monocytes # 2.4 10^3/uL (0.2-0.9); Monocytes % 5.5 %; Neutrophils # 30.75 10^3/uL (1.8-7.7); Neutrophils % 70.9 %; Nucleated Red Blood Cells % 0 %; Platelet Count 565 10^3/cmm (157-399); Red Blood Count 2.92 10^6/uL (3.85-5.65); Red Cell Distribution Width 14.3 % (12.1-15.1)
[2023-10-09 07:05] LABS: Carbon Dioxide 21 mmol/L (22-29); Chloride 104 mmol/L (98-107); Potassium 5.2 mmol/L (3.5-5.1); Sodium 135 mmol/L (136-145)
[2023-10-09 07:06] LABS: Alanine Aminotransferase 11 U/L (0-41); Albumin Level 2.6 g/dL (3.5-5.2); Alkaline Phosphatase 132 U/L (40-130); Anion Gap 15.2 (5-19); Aspartate Amino Transferase 9 U/L (0-40); Blood Urea Nitrogen 46 mg/dL (8-23); Calcium 10.3 mg/dL (8.5-10.5); Globulin 2.5 g/dL (1.3-4.6); Glucose 150 mg/dL (65-115); Osmolality Calculated 295 mOsm/kg (285-295); Total Bilirubin 0.2 mg/dL (0.15-1.2); Total Protein 5.1 g/dL (6.6-8.7)
[2023-10-09 07:22] LABS: White Blood Count 43.29 10^3/uL (3.29-11.43)
[2023-10-09] MEDS: ipratropium-albuterol 3 mL Neb INHALATION ×2 (07:48→13:12)
[2023-10-09] MEDS: budesonide 0.5 mg/2 mL Neb INHALATION (07:48)
[2023-10-09] MEDS: pantoprazole DR 40 mg Tablet PO (11:01)
[2023-10-09] MEDS: allopurinol 100 mg Tablet PO (11:01)
[2023-10-09] MEDS: vancomycin 1,250 MG/250 ML PIGGYBACK 200 MG IV (17:18)
[2023-10-09] MEDS: morphine 4 mg/mL SDV 1 mL 2 MG IVP (17:23)
[2023-10-09] MEDS: quetiapine 300 mg Tablet PO (19:50)
--- NOTE | 2023-10-09 21:37 | P.PN_ITS ---
Subjective 2 Subjective: He reports he is feeling well. Only bothered by pain at the chest tube insertion site. Medications: Reviewed: Yes Vitals/I&O/Wt Last Vital Signs Temp 98.7 F 10/09/23 20:00 Pulse 87 10/09/23 20:00 Resp 17 10/09/23 20:00 BP 133/64 10/09/23 20:00 Pulse Ox 90 10/09/23 20:00 O2 Del Method Room Air 10/09/23 20:00 O2 Flow Rate 1 10/09/23 13:15 10/09/23 10/09/23 10/09/23 06:59 14:59 22:59 Intake Total 50 / 1300 480 / 480 540 / 1020 Output Total 200 / 825 275 / 275 Balance -150 / 475 205 / 205 540 / 745 Weight last 48 hrs Weight 78.698 kg Weight 79.01 kg Weight 79.515 kg Weight 77.252 kg Physical Exam 2 Narrative: Sitting up in bed. Const: COMMON NORMALS: patient oriented x3 and alert GENERAL APPEARANCE: c ooperative ORIENTATION/CONSCIOUSNESS: Yes awake HENMT: COMMON NORMALS: oropharynx normal Neck/C-Spine: COMMON NORMALS: no JVD Resp: COMMON NORMALS: clear to auscultation bilaterally AUSCULTATION: clear to auscultation bilaterally Cardio: COMMON NORMALS: no JVD, regular rhythm, S1 normal heart sound present, S2 normal heart sound present and No murmurs present (Cardio) RHYTHM: regular rhythm HEART SOUNDS: S1 normal heart sound present and S2 normal heart sound present GI: COMMON NORMALS: Normal to inspection, nondistended, normoactive bowel sounds present, Soft to palpation and non-tender PALPATION: Yes Soft to palpation Extremity: COMMON NORMALS: no joint enlargement and no pedal edema Neuro: COMMON NORMALS: patient oriented x3 and moves all extremities S ENSORIUM/ORIENTATION: Yes alert Skin: COMMON NORMALS: no rashes or lesions noted GENERAL SKIN EXAM: no rashes or lesions noted Data 10/09/23 06:16 10/09/23 06:16 Micro: Microbiology 10/04/23 13:11 Blood Culture - Final Blood NO GROWTH AFTER 5 DAYS 10/04/23 13:22 Gram Stain - Final Pleural Fluid Anaerobic Culture - Preliminary Body Fluid Culture - Final A&P Assessment and plan (1) Pneumonia: Gradually improving oxygenation, down to 1 L/room air intermittently. Reviewed leukocytosis, worsened up to 43.29. Reviewed pathology, noted atypical cells. Reviewed pulmonology note. Discussed with pulmonology. Concern for underlying malignancy. With suspected superimposed pneumonia. Continue antibiotics at this time. Continue treatment of pneumonia. Continues to require Lasix nasal cannula oxygen. Subjectively he is feeling slightly better with chest tube. No empyema. Reassess CT chest as per discussion with steam powerplant supervisor. Concern for possibility of underlying malignancy, will be needing further evaluation. Discussed with him. Reviewed CBC, noted severe leukocytosis 37.44. Possible leukemoid reaction with noted elevation of neutrophils, monocytes, eos, basophils. Peripheral smear has been requested. Concern for possible parapneumonic effusion. Additionally some report of right lower chest/right upper quadrant pain, so hepatobiliary ultrasound with unremarkable gallbladder. Reviewed repeat blood culture, noted unremarkable to date. Reviewed fungal sputum culture, so far no fungal elements. Original blood culture identification are coccus viridans. TTE without obvious vegetation, although technically limited study. Continue antibiotic coverage at this time. Consideration of further assessment with CARLIE. Urine Legionella, bacterial antigen negative. MRSA swab not collected yet, follow-up fluid ADA and QuantiFERON results. Low suspicion of tuberculosis for now. Continues for now on IV Zosyn, IV vancomycin. Monitor renal function, at risk of renal dysfunction with this combination. Appreciate CT chest results. Concerning for loculated fluid collection, postobstructive pneumonia with pulmonary nodules. Will need further diagnostic evaluation for possible obstructive lesion. Qualifiers: Pneumonia type: due to group B Streptococcus Laterality: left Lung location: upper lobe of lung Qualified Code(s): J15.3 - Pneumonia due to streptococcus, group B (2) Pleural effusion on left: Atypical cells on review of pathology. Suspicion for malignancy. Discussed with him. JUSTIN with reduced output from chest tube. Received alteplase via chest tube last night. Without change in output. Continue to monitor INR per discussion with pulmonology. Chest tube may be removed tomorrow. Per discussion with pulmonology recommendation to pursue liver biopsy. Discussed with patient. Attempted to reach IR, left message. Monitor oxygenation. Pain at insertion site, IV morphine for pain control. Lidocaine patch. (3) Bacteremia due to Streptococcus: Discussed with him concern regarding Aerococcus viridans, risk of bacterial endocarditis. Reviewed repeat blood cultures, so far have been negative. Continues on vancomycin, Zosyn. Discussed additional assessment by CARLIE. Today no yarn mercerizer operator helper available who is able to perform CARLIE will check again tomorrow. Reviewed repeat blood cultures, negative. Follow-up cultures. Echocardiogram technically difficult, without obvious vegetation. Consideration of CARLIE. Continue IV antibiotics. Patient would need IV antibiotics for at least 14 days from first negative blood cultures. (4) Respiratory failure with hypoxia: Resolved. Most likely in setting of pneumonia with mild exacerbation of COPD. Oxygen supplementation keeping saturation over 90%. Hold off on steroids for now. DuoNebs every 6 hours, Pulmicort twice daily. Mucomyst every 6 hours as needed. Aggressive pulmonary toilet with I-S and Acapella. Out of bed to chair. D-dimer elevated. PE less likely. Awaiting ventilation/perfusion scan. Qualifiers: Chronicity: acute on chronic Qualified Code(s): J96.21 - Acute and chronic respiratory failure with hypoxia (5) Acute on chronic renal insufficiency: Baseline creatinine ranging from 1-1.3. Creatinine with mild improvement at 1.7. Medical reconciliation done for nephrotoxic drugs. Continue with IV fluids with normal saline at 75 cc/h. Appreciate urine lites. Echocardiogram pending. (6) Polysubstance abuse: Urine drug screen positive for amphetamines. Patient gives history of occasional meth use. Reports that he was smoking and pipe. Denies any injection drug use. It did not make him feel good, does not intend to return to it. Continue to monitor. (7) Thrombocytosis: In setting of dehydration along with acute infection. Fluid as above. Monitor. Plan Anemia: Baseline hemoglobin seems to be around 8. Appreciate iron panel, vitamin B12 and folate levels. Transfuse if hemoglobin drops below 8. Continue to monitor CBC daily for now. CODE STATUS: Discussed in detail with patient. He lives by himself. His nephew will be the DPOA if is not able to make his medical decisions. Full code Regular diet Protonix for PUD prophylaxis Heparin 5000 every 12 hourly for DVT prophylaxis. Attestations 2 Medical Necessity Statement*: Continue admission for assessment management of recurrent left-sided pleural effusion, Chest tube management, reassessment of effusion, loculations, complicated pneumonia, gram-positive bacteremia. Diagnoses Pneumonia of left upper lobe due to group B Streptococcus J15.3 Pneumonia type: due to group B Streptococcus Laterality: left Lung location: upper lobe of lung Pleural effusion on left J90 Bacteremia due to Streptococcus R78.81; B95.5 Acute on chronic respiratory failure with hypoxia J96.21 Chronicity: acute on chronic Acute on chronic renal insufficiency N28.9; N18.9 Polysubstance abuse F19.10 Thrombocytosis D75.839
[2023-10-10] VITALS (16 sets, daily range): BP systolic 98–131; BP diastolic 56–70; PULSE 83–105; RESP 16–18; TEMP 36.4–36.8; O2SAT 85–96
[2023-10-10] MEDS: piperacillin-tazobactam 3.375 GM in sodium chloride 0.9% (plus) 50 ML IV ×2 (03:15→12:16)
[2023-10-10] MEDS: heparin 5,000 unit/mL INJ 1 mL 5000 UNIT SUBCUT ×2 (04:40→17:37)
[2023-10-10 05:13] LABS: Basophils # 0.4 10^3/uL (0.0-0.1); Basophils % 0.9 %; Eosinophils # 6.4 10^3/uL (0.0-0.8); Eosinophils % 15.2 %; Hematocrit 26.6 % (37-53); Lymphocytes # 2.3 10^3/uL (0.8-4.8); Lymphocytes % 5.4 %; Mean Corpuscular HGB Conc 32.3 g/dL (30-55); Mean Corpuscular Hemoglobin 29.7 pg (27-33); Mean Corpuscular Volume 91.7 fl (82-101); Mean Platelet Volume 10.3 fL (7.4-10.4); Monocytes # 2.6 10^3/uL (0.2-0.9); Monocytes % 6.1 %; Neutrophils # 29.24 10^3/uL (1.8-7.7); Neutrophils % 69.4 %; Nucleated Red Blood Cells % 0 %; Platelet Count 567 10^3/cmm (157-399); Red Cell Distribution Width 14.2 % (12.1-15.1)
[2023-10-10 05:21] LABS: White Blood Count 42.12 10^3/uL (3.29-11.43)
[2023-10-10 05:38] LABS: Alanine Aminotransferase 10 U/L (0-41); Albumin Level 2.5 g/dL (3.5-5.2); Alkaline Phosphatase 111 U/L (40-130); Anion Gap 18.1 (5-19); Aspartate Amino Transferase 8 U/L (0-40); Blood Urea Nitrogen 49 mg/dL (8-23); Calcium 10.3 mg/dL (8.5-10.5); Carbon Dioxide 18 mmol/L (22-29); Chloride 102 mmol/L (98-107); Globulin 2.1 g/dL (1.3-4.6); Glucose 109 mg/dL (65-115); Osmolality Calculated 290 mOsm/kg (285-295); Potassium 5.1 mmol/L (3.5-5.1); Sodium 133 mmol/L (136-145); Total Bilirubin 0.2 mg/dL (0.15-1.2); Total Protein 4.6 g/dL (6.6-8.7)
--- NOTE | 2023-10-10 07:11 | PC.NURSE ---
dataar phone call physician phoned this nurse after shift change. inquired about chest tube output which was at 2120ml from the 2050ml from the previous day shift. orders to clamp tube which this nurse did at the base near the atrium at approx 2000.
[2023-10-10] MEDS: ipratropium-albuterol 3 mL Neb INHALATION ×3 (07:54→19:34)
[2023-10-10] MEDS: budesonide 0.5 mg/2 mL Neb INHALATION ×2 (07:54→19:34)
--- NOTE | 2023-10-10 09:21 | XR_ITS ---
WS: [id number] Portable AP upright chest, 10/10/2023 Clinical Data: Check for pneumothorax Comparison: Portable chest, 10/09/2023 Findings: The left lower pneumothorax is no longer present. There is an increase in opacity in the le ft lower lobe which may indicate an increase in left pleural effusion. The small left chest tube is n ow adjacent to the sixth rib. The right lung remains clear. The heart size remains the same. There ar e monitor leads on the chest wall. Impression: Resolution of small inferior left pneumothorax. 2. Increase in left lower lobe opacity which probably is an increase in left pleural effusion.
[2023-10-10] MEDS: albumin 25 G/100 ML BAG 60 G IV (10:19)
[2023-10-10] MEDS: morphine 4 mg/mL SDV 1 mL 2 MG IVP (10:27)
[2023-10-10] MEDS: pantoprazole DR 40 mg Tablet PO (10:28)
[2023-10-10] MEDS: allopurinol 100 mg Tablet PO (10:28)
[2023-10-10] MEDS: lidocaine 5% Patch 1 PATCH TOPICAL (10:29)
--- NOTE | 2023-10-10 13:32 | P.PN_ITS ---
Subjective 2 Subjective: Patient breathing comfortably on 2 L-reports being better and has pain at chest tube insertion site- CT chest after 24 hours of chest tube insertion showed loculated hydropneumothorax left lower lung zone- No more drainage from chest tube Today morning chest x-ray shows recurrence of pleural effusion and resolution of pneumothorax-suggestive of trapped lung physiology Chest tube removed today evening. Pleural fluid in the chamber is again sent for cytology for cell block to run immunohistochemical staining as initial pleural fluid cytology showed atypical cells consistent with malignancy Continues to have persistent leukocytosis Medications: Reviewed: Yes Vitals/I&O/Wt Last Vital Signs Temp 98.0 F 10/10/23 11:01 Pulse 86 10/10/23 11:01 Resp 16 10/10/23 11:01 BP 120/62 10/10/23 11:01 Pulse Ox 94 10/10/23 11:01 O2 Del Method Nasal Cannula 10/10/23 11:01 O2 Flow Rate 2 10/10/23 11:01 10/09/23 10/10/23 10/10/23 22:59 06:59 14:59 Intake Total 1020 / 1500 50 / 1550 630 / 630 Output Total 225 / 500 Balance 1020 / 1225 -175 / 1050 630 / 630 Weight last 48 hrs Weight 178 lb 1.6 oz Weight 173 lb 8 oz Weight 174 lb 3 oz Physical Exam 2 Narrative: General: alert, NAD HEENT: conj clear, EOMI, PERRL, mmm, Neck: supple, no meningismus Heme: no cervical LAP Respiratory: Inspection: No visible deformity of the chest wall Palpation: Trachea is mildly deviated to the right, bilateral symmetric expansion Percussion: Bilateral tympanic percussion note both anterior and posteriorly Auscultation: Reduced breath sounds on left lower lung zone Cardiovascular: rrr, nl s1s2, no mrg Abdomen: soft, nt, nd, no r/g, bs+ Extremities: pulses +, no edema, no c/c : no CVA tenderness Skin: intact, no rash MSK: no back or neck pain Neurologic: grossly intact Data 10/10/23 04:31 10/10/23 04:31 Other Labs: Radiology Impressions Chest CT 10/08/23 10:21 IMPRESSION: 1. Left-sided chest tube seen with tip in a moderate to large left pleural effusion along with a small amount air in the left pleural space, negative for definite loculation seen. 2. Left hilar to lingular and upper lobe dense airspace opacification measuring up to 7.6 cm, similar to prior exam may reflect a combination of pneumonia and malignancy. 3. Multiple bilateral pulmonary nodules measuring up to 6 mm in the right upper lobe, likely reflecting metastatic disease. 4. Scattered enlarged mediastinal lymph nodes measuring up to 12 mm, nonspecific. 5. Cardiomegaly. 6. Coronary artery atherosclerotic calcifications. 7. Multifocal probable metastatic lesions seen throughout the liver similar to prior exam measuring up to the 4.9 cm. 8. Bilateral renal cysts, negative for follow-up advised. 9. Perinephric edema bilaterally likely reflecting renal insufficiency. 10. Right lower lobe atelectasis versus minimal infiltrate. COMMENTS: Consistent with the [place]'s Incidental Findings Committee white paper (J Am Aleida Radiol 2018): Any incidental renal lesion less than 1 cm or classified as too small to characterize, or any incidental cystic renal lesion characterized as simple-appearing, is likely benign. No follow-up imaging is recommended for these lesions per consensus recommendations based on imaging criteria. Laboratory Results WBC 42.12 10^3/uL (3.29-11.43) H* 10/10/23 04:31 RBC 2.90 10^6/uL (3.85-5.65) L 10/10/23 04:31 Hgb 8.60 g/dL (11.27-16.99) L 10/10/23 04:31 Hct 26.6 % (37-53) L 10/10/23 04:31 MCV 91.7 fl (82-101) 10/10/23 04:31 MCH 29.7 pg (27-33) 10/10/23 04:31 MCHC 32.3 g/dL (30-55) 10/10/23 04:31 RDW 14.2 % (12.1-15.1) 10/10/23 04:31 Plt Count 567 10^3/cmm (157-399) H 10/10/23 04:31 MPV 10.3 fL (7.4-10.4) 10/10/23 04:31 Neut % (Auto) 69.4 % 10/10/23 04:31 Lymph % (Auto) 5.4 % 10/10/23 04:31 [place] % (Auto) 6.1 % 10/10/23 04:31 Eos % (Auto) 15.2 % 10/10/23 04:31 Baso % (Auto) 0.9 % 10/10/23 04:31 Neut # (Auto) 29.24 10^3/uL (1.8-7.7) H 10/10/23 04:31 Lymph # (Auto) 2.3 10^3/uL (0.8-4.8) 10/10/23 04:31 [place] # (Auto) 2.6 10^3/uL (0.2-0.9) H 10/10/23 04:31 Eos # (Auto) 6.4 10^3/uL (0.0-0.8) H 10/10/23 04:31 Baso # (Auto) 0.4 10^3/uL (0.0-0.1) H 10/10/23 04:31 Nucleated RBC % (auto) 0 % 10/10/23 04:31 Nucleated RBCs # 0.0 /100WBC 10/10/23 04:31 Peripher Smr Path Cons Sent for review 10/07/23 04:11 PT 13.50 SECONDS (12.1-14.9) 10/04/23 11:45 INR 1.00 (0.8-1.2) 10/04/23 11:45 D-Dimer 5.89 ug/mLFEU (0-0.59) H 10/04/23 11:45 Sodium 133 mmol/L (136-145) L 10/10/23 04:31 Potassium 5.1 mmol/L (3.5-5.1) 10/10/23 04:31 Chloride 102 mmol/L (98-107) 10/10/23 04:31 Carbon Dioxide 18 mmol/L (22-29) L 10/10/23 04:31 Anion Gap 18.1 (5-19) 10/10/23 04:31 BUN 49 mg/dL (8-23) H 10/10/23 04:31 Creatinine 2.1 mg/dL (0.7-1.2) H 10/10/23 04:31 GFR Calculation Not Reportable 10/10/23 04:31 Glucose 109 mg/dL (65-115) 10/10/23 04:31 POC Glucose 149 mg/dL (70-110) H 10/06/23 15:57 Estimat Average Glucose 105 10/05/23 04:50 Hemoglobin A1c 5.3 % (4.0-6.0) 10/05/23 04:50 Calculated Osmolality 290 mOsm/kg (285-295) 10/10/23 04:31 Lactic Acid 1.8 mmol/L (0.5-2.2) 10/04/23 12:53 Uric Acid 11.7 mg/dL (3.4-7.0) H 10/04/23 11:45 Calcium 10.3 mg/dL (8.5-10.5) 10/10/23 04:31 Phosphorus 4.1 mg/dL (2.5-4.5) 10/05/23 04:50 Magnesium 1.9 mg/dL (1.7-2.3) 10/05/23 04:50 Iron 21 ug/dL (59-158) L 10/04/23 11:45 TIBC 348 mcg/dl 10/04/23 11:45 % Saturation 6.0 % (20-50) L 10/04/23 11:45 Unsat Iron Binding 327 ug/dL (112-347) 10/04/23 11:45 Total Bilirubin 0.2 mg/dL (0.15-1.2) 10/10/23 04:31 AST 8 U/L (0-40) 10/10/23 04:31 ALT 10 U/L (0-41) 10/10/23 04:31 Alkaline Phosphatase 111 U/L (40-130) 10/10/23 04:31 Lactate Dehydrogenase 167 U/L (135-225) 10/04/23 11:45 Troponin T Baseline 39 ng/L (0-15) H 10/04/23 11:45 Troponin T 120 Minute 36.53 ng/L (0-15) H 10/04/23 13:53 Delta Troponin T -2.47 ABS# (0-10) L 10/04/23 13:53 Troponin T Hi Sens 6Hr 33.82 ng/L (0-15) H 10/04/23 18:27 Troponin T Hi Sens 6Hr Delta -5.18 ng/L (0-12) L 10/04/23 18:27 C-Reactive Protein 98.7 mg/L (0.0-4.9) H 10/04/23 11:45 Total Protein 4.6 g/dL (6.6-8.7) L 10/10/23 04:31 Albumin 2.5 g/dL (3.5-5.2) L 10/10/23 04:31 Globulin 2.1 g/dL (1.3-4.6) 10/10/23 04:31 Triglycerides 54 mg/dL (0-150) 10/05/23 04:50 Cholesterol 118 mg/dL (0-200) 10/05/23 04:50 LDL Cholesterol, Calc 56 mg/dL (50-129) 10/05/23 04:50 HDL Cholesterol 51 mg/dL (60-100) L 10/05/23 04:50 LDL/HDL Ratio 1.10 RATIO (0.00-3.22) 10/05/23 04:50 Cholesterol/HDL Ratio 2.31 mg/dL (1.0-5.00) 10/05/23 04:50 Vitamin B12 1178 pg/mL (232-1245) 10/04/23 11:45 Folate 18.5 ng/mL (4.5-32.2) 10/05/23 04:50 Procalcitonin 0.31 ng/mL (0-0.5) 10/04/23 11:45 TSH 1.24 uIU/mL (0.27-4.20) 10/04/23 13:53 Urine Color Yellow (Yellow) 10/04/23 12:24 Urine Appearance Clear (CLEAR) 10/04/23 12:24 Urine pH 5 (5-7) 10/04/23 12:24 Ur Specific [place] 1.025 (1.005-1.030) 10/04/23 12:24 Urine Protein Neg (Negative) 10/04/23 12:24 Urine Glucose (UA) Norm (Normal) 10/04/23 12:24 Urine Ketones Negative (Negative) 10/04/23 12:24 Urine Blood Neg (Negative) 10/04/23 12:24 Urine Nitrate Negative (Negative) 10/04/23 12:24 Urine Bilirubin Neg (Negative) 10/04/23 12:24 Urine Urobilinogen Norm mg/dL (Negative) 10/04/23 12:24 Ur Leukocyte Esterase Negative (Negative) 10/04/23 12:24 Ur Eosinophil Smear 0 (0-0) 10/04/23 12:24 Urine Eosinophils No eosinophils seen 10/04/23 12:24 Ur Random Sodium 29 mmol/L 10/04/23 12:24 Ur Random Potassium 58 mmol/L 10/04/23 12:24 Ur Random Chloride 13 mmol/L 10/04/23 12:24 Urine Creatinine 151 mg/dL (39-259) 10/04/23 12:24 Fluid Color Pale yellow 10/04/23 14:31 Fluid Appearance Clear 10/04/23 14:31 Fluid Specific Grav 1.010 10/04/23 14:31 Fluid pH 8.0 10/04/23 14:31 Fluid WBC 918 /uL 10/04/23 14:31 Fluid RBC 1.000 10^3/uL 10/04/23 14:31 Fld Polynuclear WBCs # 0.220 10/04/23 14:31 Fld Polynuclear WBCs % 23.900 % 10/04/23 14:31 Fl Mononucl WBCs #(Auto) 0.698 10/04/23 14:31 Fl Mononuclear % Auto 76.100 % 10/04/23 14:31 Fld Crystal Laterality Left pleural eff. 10/04/23 14:31 Fluid Glucose 133.0 mg/dL 10/04/23 14:31 Fluid Albumin 2.8 g/dL 10/04/23 14:31 Fluid LDH 132 U/L 10/04/23 14:31 Fluid Amylase 24 U/L 10/04/23 14:31 Fluid Alk Phosphatase 77 IU/L 10/04/23 14:31 Fluid Cholesterol 92 mg/dL (0-200) 10/04/23 14:31 Fluid Triglycerides 40 mg/dL (0-150) 10/04/23 14:31 Fluid Uric Acid 11 mg/dL 10/04/23 14:31 Pleural Total Protein 4.5 g/dL 10/04/23 14:31 Pleur Adenosine Deamin 5.7 U/L (<9.2) 10/04/23 Unknown Vancomycin Trough 19.0 ug/mL (10-15) H 10/08/23 17:33 Urine Opiates Screen Negative ng/mL (Negative) 10/04/23 12:24 Ur Barbiturates Screen Negative ng/mL (Negative) 10/04/23 12:24 Ur Phencyclidine Scrn Negative ng/mL (Negative) 10/04/23 12:24 Ur Amphetamines Screen Positive ng/mL (Negative) H 10/04/23 12:24 U Benzodiazepines Scrn Negative ng/mL (Negative) 10/04/23 12:24 Urine Cocaine Screen Negative ng/mL (Negative) 10/04/23 12:24 U Marijuana (THC) Screen Positive ng/mL (Negative) H 10/04/23 12:24 MRSA (PCR) Not detected (NOT DETECTED) 10/07/23 11:00 TB (QFT) Gold In Tube Indeterminate (NEGATIVE) A 10/04/23 16:45 TB Test (QFT) Nil 0.02 IU/mL 10/04/23 16:45 TB Test (QFT) Mitogen 0.08 IU/mL 10/04/23 16:45 TB Test Mitogen - Nil <0.00 IU/mL 10/04/23 16:45 TB Test TB -Nil <0.00 IU/mL 10/04/23 16:45 Micro: Microbiology 10/04/23 13:11 Blood Culture - Final Blood NO GROWTH AFTER 5 DAYS 10/04/23 13:22 Gram Stain - Final Pleural Fluid Anaerobic Culture - Preliminary Body Fluid Culture - Final A&P Assessment and plan (1) Respiratory failure with hypoxia: Likely secondary to left upper lobe pneumonia-CT chest showed left upper lobe opacity with air bronchograms Pleural fluid cultures negative Blood cultures positive for aerococcus viridans-blood cultures negative Bacterial antigens negative Patient is currently on vancomycin and Zosyn Qualifiers: Chronicity: acute on chronic Qualified Code(s): J96.21 - Acute and chronic respiratory failure with hypoxia (2) Pneumonia: CT evidence of left upper lobe consolidation with air bronchograms Pleural cultures and sputum cultures are negative Currently patient is on vancomycin and Zosyn Qualifiers: Pneumonia type: due to group B Streptococcus Laterality: left Lung location: upper lobe of lung Qualified Code(s): J15.3 - Pneumonia due to streptococcus, group B (3) Pleural effusion on left: He underwent thoracentesis-by IR-drained 1100 cc pale yellow-colored fluid- Lymphocyte predominant exudative effusion-pH 8.0; WBC 918, lymphocyte predominant, glucose 133, LDH 132, total protein 4.5. Pleural fluid cultures are negative- There is a concern if there is any obstructing lesion As postthoracentesis CT chest showedLeft upper lung consolidation with air bronchograms.There are multiple bilateral pulmonary nodules measuring 8 mm in left upper lobe and 9 mm in right middle lobe.There are numerous suspicious appearing hepatic lesions as well. This fluid could be secondary to trapped lung Pleural fluid cytology positive for atypical cells consistent with malignancy- will send additional sample for cell block to run immunohistochemical stains With given significant smoking history For more than 60 years-there is be possibility of underlying malignancy Patient has worsening leukocytosis-complaining of chest discomfort-bedside ultrasound showed significantly large pleural effusion-I have placed 14 Polish pigtail catheter and drained over 5 L of fluid over [address] chest-which showed there is loculated hydropneumothorax in the left lung base- suspicious for trapped lung physiology he received tpa 10 mg intrapleural with no significant improvement in drainage. Today morning chest x-ray shows recurrence of pleural effusion and resolution of pneumothorax-suggestive of trapped lung physiology Chest tube removed today evening. Pleural fluid in the chamber is again sent for cytology for cell block to run immunohistochemical staining as initial pleural fluid cytology showed atypical cells consistent with malignancy I have recommended to consult interventional radiology to perform biopsy of liver lesions (4) Smoker: Tells me that he has smoked for 60 years but never more than a pack a day-Tells me that he does not use any inhalers. Encouraged to quit smoking (5) Polysubstance abuse: His U tox is positive for amphetamines and marijuana Encouraged to quit (6) COPD (chronic obstructive pulmonary disease): There is CT evidence of emphysema He needs PFTs as outpatient on discharge patient will get ICS/LAMA/LAMA Currently he is on scheduled nebulization Qualifiers: COPD type: emphysema Emphysema type: centrilobular Qualified Code(s): J43.2 - Centrilobular emphysema (7) Gram-positive cocci bacteremia: Blood cultures grew Aerococcus viridans Currently patient is on vancomycin and Zosyn Repeat cultures negative so far Transthoracic echo-does not have good ultrasonic views Recommended transesophageal echo to check for vegetation as there is persistent leukocytosis (8) Suspected lung cancer: With significant smoking history-pleural cytology positive for atypical cells consistent with malignancy-suspect underlying lung cancer I sent additional pleural fluid to run immunohistochemical staining I will follow-up with patient as outpatient to discuss his cytology results and order PET CT scan Attestations 2 Medical Necessity Statement*: Deferred to hospitalist Coding Level of Care Code Acute Code for Chg Fwd Diagnoses Acute on chronic respiratory failure with hypoxia J96.21 Chronicity: acute on chronic Pneumonia of left upper lobe due to group B Streptococcus J15.3 Pneumonia type: due to group B Streptococcus Laterality: left Lung location: upper lobe of lung Pleural effusion on left J90 Smoker F17.200 Polysubstance abuse F19.10 Centrilobular emphysema J43.2 COPD type: emphysema Emphysema type: centrilobular Gram-positive cocci bacteremia R78.81 Suspected lung cancer R68.89 Time Spent (min) 56
[2023-10-10 14:14] LABS: Quantiferon Mitogen 0.08 IU/mL; Quantiferon Nil 0.02 IU/mL; Quantiferon Plus TB1 <0.00 IU/mL; Quantiferon Plus TB2 <0.00 IU/mL; Quantiferon TB Gold INDETERMINATE (NEGATIVE)
--- NOTE | 2023-10-10 17:09 | P.CONIM_ITS ---
Providers/Reason For Consult 2 Consulting Physician/Specialty*: [place] Ni MD/cardiology Reason for Consult*: Consider CARLIE to rule out endocarditis Requesting Physician: Patient admitted to the hospital with pleuritic type of chest pain, shortness of breath and cough. Some features of pneumonia with a large pleural effusion. Worsening leukocytosis. Blood culture growing Aerococcus viridans. Patient has a history of IV drug abuse/polysubstance abuse. Consult is requested for a CARLIE to rule out endocarditis Attending Physician: Hemanth Angulo Primary Care Provider: Stephan Fink DO History of Present Illness History of Present Illness Seferino Barbosa is a 78 year old male with a history of IV drug abuse, is admitted to hospital with rather sudden onset of pleuritic type chest pain, shortness of breath and cough. He was found to have features of possible pneumonia with a large pleural effusion. He had thoracentesis taking out a total of more than 6 L of fluid. His white cell count keeps going up. He is around 42,000 today. His blood culture grew Aerococcus viridans. The CT scan evidence of multiple nodular lesions in the lung and in the mediastinum. He also has nodular lesions in the liver. He is scheduled for a liver biopsy tomorrow. Cardiology consult is requested mainly to evaluate for endocarditis. This patient has no previous history for endocarditis. He has been using methamphetamine, most recent one was 10 days ago?. Also history of multiple other drug abuse. Currently has no fever or chills. He has no history for any hematemesis or melena. No difficulty in swallowing. No history for gastric ulcer. Has no history for any heart murmur. No history for coronary disease, myocardial infarction or congestive heart failure. He had an echocardiogram which revealed possibly normal LV size ejection fraction. Some features are left-ventricular diastolic dysfunction. The study is a suboptimal quality, because of the poor ultrasonic window. Medications/Allergies Home Medications Medication Instructions Recorded Confirmed Last Taken Type losartan 25 mg tablet 25 mg PO DAILY 01/31/21 10/04/23 10/04/23 History melatonin 10 mg tablet 50 - 60 mg PO BEDTIME 10/04/23 10/04/23 10/03/23 History quetiapine 300 mg tablet 300 mg PO BEDTIME 10/04/23 10/04/23 10/03/23 History Allergies Allergy/AdvReac Type Severity Reaction Status Date / Time No Known Allergies Allergy Verified 10/04/23 11:45 Current Medications Generic Name Dose Route Start Last Admin Trade Name Freq PRN Reason Stop Dose Admin Acetylcysteine 100 mg 10/04/23 20:00 10/10/23 13:45 Acetylcysteine 200 Mg/Ml Sdv 4 Ml INHALATION Not Given Q6H.RESP JOSE Albuterol/Ipratropium 3 ml 10/04/23 20:00 10/10/23 13:43 Ipratropium-Albuterol 3 Ml Neb INHALATION 3 ml Q6H.RESP JOSE Administration Allopurinol 100 mg 10/05/23 09:00 10/10/23 10:28 Allopurinol 100 Mg Tablet PO 100 mg DAILY JOSE Administration Bisacodyl 10 mg 10/04/23 16:50 10/08/23 09:56 Bisacodyl 5 Mg Tablet PO 10 mg DAILY PRN Administration Constipation (see protocol) Protocol Budesonide 0.5 mg 10/04/23 20:00 10/10/23 07:54 Budesonide 0.5 Mg/2 Ml Neb INHALATION 0.5 mg BID.RESPIRATORY JOSE Administration Heparin Sodium (Porcine) 5,000 unit 10/04/23 17:30 10/10/23 04:40 Heparin 5,000 Unit/Ml Inj 1 Ml SUBCUT 5,000 unit Q12H JOSE Administration Piperacillin Sod/Tazobactam 50 mls @ 12.5 mls/hr 10/04/23 19:30 10/10/23 16:54 Sod 3.375 gm/ Sodium Chloride IV Infused Q8H JOSE Infusion Protocol As Directed Vancomycin/PEG/NADA/Lysine/Water 1,250 mg in 250 mls @ 200 mls/hr 10/07/23 18:15 10/09/23 20:04 Vancocin IV Infused Q24H JOSE Infusion Lidocaine 1 patch 10/10/23 09:00 10/10/23 10:29 Lidocaine 5% Patch TOPICAL 1 patch [id number] JOSE Administration Morphine Sulfate 2 mg 10/04/23 16:50 10/10/23 10:27 Morphine 4 Mg/Ml Sdv 1 Ml IVP 2 mg Q4H PRN Administration SEVERE PAIN Pantoprazole Sodium 40 mg 10/05/23 09:00 10/10/23 10:[address] 40 Mg Tablet PO 40 mg DAILY JOSE Administration Quetiapine Fumarate 300 mg 10/04/23 21:00 10/09/23 19:50 Quetiapine 300 Mg Tablet PO 300 mg BEDTIME JOSE Administration PFSH Acute 2 PFSH: Medical History NAVID (acute kidney injury) COPD (chronic obstructive pulmonary disease) Erectile dysfunction BPH (benign prostatic hyperplasia) Gout Hip osteoarthritis Thoracic outlet syndrome Bilateral cervical rib removed Hypertension Insomnia Abnormal colonoscopy Polyps removed: Tubular adenoma Anemia Methamphetamine abuse Surgical History History of right hip replacement H/O knee surgery History of appendectomy Family History Father Diabetes Denies family history of CAD (coronary artery disease) Social History Smoking and tobacco/nicotine status: current every day tobacco/nicotine user cigarettes Years cigarettes smoked: 45 Number of cigarettes per day: 6-10 Alcohol intake: former Year of sobriety/quit date alcohol: 2016 Substance/Drug Use: current Substance/Drug use frequency: few times a month Substance/Drug use type: Amphetamines Caregiver/support person: Yes Lives independently: Yes Household members: none Housing: House Marital status: Vitals/I&O/Wt Last Vital Signs Temp 98.1 F 10/10/23 15:27 Pulse 90 10/10/23 15:27 Resp 17 10/10/23 15:27 BP 131/67 10/10/23 15:27 Pulse Ox 91 10/10/23 15:27 O2 Del Method Nasal Cannula 10/10/23 13:45 O2 Flow Rate 3 10/10/23 15:27 10/10/23 10/10/23 10/10/23 06:59 14:59 22:59 Intake Total 50 / 1550 630 / 630 50 / 680 Output Total 225 / 500 Balance -175 / 1050 630 / 630 50 / 680 Weight last 48 hrs Weight 177 lb 1 oz Weight 178 lb 1.6 oz Weight 173 lb 8 oz Weight 174 lb 3 oz Physical Exam 2 Narrative: GENERAL: The patient is alert and oriented times three. Not in any acute distress. Slightly tachypneic. Has some features of chronic wasting. HEENT: No significant pallor, icterus or lymphadenopathy.Oral cavity: There are no mucous membrane lesions. NECK: Trachea appears to be central. No masses noted. No JVD or thyromegaly appreciated. RESPIRATORY: Breath sounds are bilaterally with a slightly diminished intensity breath sounds in the left base. Scattered coarse crackles BREASTS: Deferred. HEART: The heart sounds are normal. No S3 or S4. No significant murmurs. No pericardial rub ABDOMEN: No vessel pulsations or distention. No tenderness. No organomegaly appreciated. Bowel sounds are normally heard. : Deferred. RECTAL: Deferred. LYMPHATIC: No lymphadenopathy noted in the neck. EXTREMITIES: No significant edema cyanosis. MUSCULOSKELETAL: No acute joint deformities or swelling SKIN: There are no significant rashes or ecchymosis NEUROPSYCHIATRIC: The patient is alert and oriented x3. Appears to be in a good mood. No tremors or rigidity noted. Data 10/11/23 06:05 10/11/23 06:00 Micro: Microbiology 10/04/23 13:11 Blood Culture - Final Blood NO GROWTH AFTER 5 DAYS Other data: Echocardiogram from 10/06/2023 echnically limited quality echocardiogram because of poor ultrasonic windows. Grossly LV systolic function is normal. Grade 1 diastolic dysfunction Mild mitral regurgitation Mild tricuspid regurgitation Pleural effusion is seen. Ascending aorta is dilated with diameter of 3.67 cm IVC is dilated. EKG from 10/04/2023 Normal sinus rhythm with a normal ST Ts. A&P Assessment and plan (1) Gram-positive cocci bacteremia: In view of the patient history of IV drug abuse and the positive blood culture, possible endocarditis is a consideration. The transthoracic echo was a suboptimal quality. At this point, a CARLIE would be appropriate to better evaluate for any vegetations. The risk of aspiration, bleeding, soft tissue injury, perforation of the stomach/esophagus and other concomitant complications were explained to the patient in detail. The patient understood this well and consented to proceed We may go ahead and do schedule this procedure for tomorrow in the GI lab. Patient may be kept n.p.o. after midnight. (2) COPD (chronic obstructive pulmonary disease): May continue on the current treatment. Qualifiers: COPD type: emphysema Emphysema type: centrilobular Qualified Code(s): J43.2 - Centrilobular emphysema (3) Suspected lung cancer: Ongoing work up as per the primary (4) Leukocytosis: Etiology? Qualifiers: Leukocytosis type: unspecified Qualified Code(s): D72.829 - Elevated white blood cell count, unspecified (5) Acute on chronic renal insufficiency: may continue on the current treatment (6) Pneumonia: On IV antibiotic Qualifiers: Laterality: left Lung location: upper lobe of lung Pneumonia type: due to group B Streptococcus Qualified Code(s): J15.3 - Pneumonia due to streptococcus, group B Plan At this point, the patient has no contraindication for the procedure. We may go ahead and do schedule this procedure as early as possible. Based on the CARLIE findings, further recommendations will be made. Thank for the opportunity to evaluate this patient and make this recommendation Consult Attestations 2 Medical Necessity Statement: As per the primary Coding Level of Care Code 87379 Diagnoses Gram-positive cocci bacteremia R78.81 Centrilobular emphysema J43.2 COPD type: emphysema Emphysema type: centrilobular Suspected lung cancer R68.89 Leukocytosis D72.829 Leukocytosis type: unspecified Acute on chronic renal insufficiency N28.9; N18.9 Pneumonia of left upper lobe due to group B Streptococcus J15.3 Laterality: left Lung location: upper lobe of lung Pneumonia type: due to group B Streptococcus
[2023-10-10] MEDS: vancomycin 1,250 MG/250 ML PIGGYBACK 200 MG IV (17:42)
[2023-10-10] MEDS: quetiapine 300 mg Tablet PO (20:47)
--- NOTE | 2023-10-10 20:53 | PC.NURSE ---
Went in pts room to hang zosyn, pt refused med and stated I dont want you to hang that because every time it goes off it takes forever to get anyone in here to shut it off and i want to sleep tonight. assured pt i would be in to shut off the pump and educated pt on why he needs this antibiotic but he still refused
--- NOTE | 2023-10-10 22:26 | P.PN_ITS ---
Subjective 2 Subjective: States he is feeling all right. The only pain is at chest tube insertion site. Vitals/I&O/Wt Last Vital Signs Temp 97.8 F 10/10/23 19:37 Pulse 101 H 10/10/23 19:40 Resp 16 10/10/23 19:37 BP 119/60 10/10/23 19:37 Pulse Ox 93 10/10/23 19:40 O2 Del Method Nasal Cannula 10/10/23 19:40 O2 Flow Rate 2 10/10/23 19:40 10/10/23 10/10/23 10/10/23 06:59 14:59 22:59 Intake Total 50 / 1550 630 / 630 540 / 1170 Output Total 225 / 500 350 / 350 Balance -175 / 1050 630 / 630 190 / 820 Weight last 48 hrs Weight 80.314 kg Weight 80.785 kg Weight 78.698 kg Weight 79.01 kg Physical Exam 2 Narrative: Sitting up in bed. Const: COMMON NORMALS: patient oriented x3 and alert GENERAL APPEARANCE: c ooperative ORIENTATION/CONSCIOUSNESS: Yes awake HENMT: COMMON NORMALS: oropharynx normal Neck/C-Spine: COMMON NORMALS: no JVD Resp: COMMON NORMALS: clear to auscultation bilaterally AUSCULTATION: clear to auscultation bilaterally Cardio: COMMON NORMALS: no JVD, regular rhythm, S1 normal heart sound present, S2 normal heart sound present and No murmurs present (Cardio) RHYTHM: regular rhythm HEART SOUNDS: S1 normal heart sound present and S2 normal heart sound present GI: COMMON NORMALS: Normal to inspection, nondistended, normoactive bowel sounds present, Soft to palpation and non-tender PALPATION: Yes Soft to palpation Extremity: COMMON NORMALS: no joint enlargement and no pedal edema Neuro: COMMON NORMALS: patient oriented x3 and moves all extremities S ENSORIUM/ORIENTATION: Yes alert Skin: COMMON NORMALS: no rashes or lesions noted GENERAL SKIN EXAM: no rashes or lesions noted Data 10/10/23 04:31 10/10/23 04:31 Micro: Microbiology 10/04/23 13:22 Gram Stain - Final Pleural Fluid Anaerobic Culture - Preliminary Body Fluid Culture - Final A&P Assessment and plan (1) Suspected lung cancer: Discussed with him suspected metastatic malignancy. Discussed with pulmonology. As per recommendation discussed with him pursuing liver lesion biopsy, discussed with radiology, additional assessment by ultrasound requested, n.p.o. for liver biopsy tomorrow Combined with CARLIE. Discussed with cardiology, cardiology. (2) Bacteremia due to Streptococcus: Discussed with him concern for risk of endocarditis, discussed with cardiology appreciate consultation regarding CARLIE, n.p.o. tomorrow for CARLIE together with liver biopsy. Continue IV antibiotic. Reassess renal function, at risk of renal dysfunction with antibiotic combination. Reviewed repeat blood cultures, so far without growth. Echocardiogram technically difficult, without obvious vegetation. Consideration of CARLIE. Continue IV antibiotics. Patient would need IV antibiotics for at least 14 days from first negative blood cultures. (3) Pleural effusion on left: Discussed with pulmonology, documentation reviewed. Chest tube removed today. Discussed with case management. Requiring IV morphine for pain control. Renew. Atypical cells on review of pathology. Suspicion for malignancy. Discussed with him. JUSTIN with reduced output from chest tube. Received alteplase via chest tube last night. Without change in output. Continue to monitor INR per discussion with pulmonology. Chest tube may be removed tomorrow. Per discussion with pulmonology recommendation to pursue liver biopsy. Discussed with patient. Attempted to reach IR, left message. Monitor oxygenation. Pain at insertion site, IV morphine for pain control. Lidocaine patch. (4) Pneumonia: Noted again severe leukocytosis 42.12, possible, reaction versus secondary to underlying malignancy. Continue IV antibiotic treatment. Gradually improving oxygenation, down to 1 L/room air intermittently. Reviewed leukocytosis, worsened up to 43.29. Reviewed pathology, noted atypical cells. Reviewed pulmonology note. Discussed with pulmonology. Concern for underlying malignancy. With suspected superimposed pneumonia. Continue antibiotics at this time. Continue treatment of pneumonia. Continues to require Lasix nasal cannula oxygen. Subjectively he is feeling slightly better with chest tube. No empyema. Reassess CT chest as per discussion with helper marble finisher. Concern for possibility of underlying malignancy, will be needing further evaluation. Discussed with him. Reviewed CBC, noted severe leukocytosis 37.44. Possible leukemoid reaction with noted elevation of neutrophils, monocytes, eos, basophils. Peripheral smear has been requested. Concern for possible parapneumonic effusion. Additionally some report of right lower chest/right upper quadrant pain, so hepatobiliary ultrasound with unremarkable gallbladder. Reviewed repeat blood culture, noted unremarkable to date. Reviewed fungal sputum culture, so far no fungal elements. Original blood culture identification are coccus viridans. TTE without obvious vegetation, although technically limited study. Continue antibiotic coverage at this time. Consideration of further assessment with CARLIE. Urine Legionella, bacterial antigen negative. MRSA swab not collected yet, follow-up fluid ADA and QuantiFERON results. Low suspicion of tuberculosis for now. Continues for now on IV Zosyn, IV vancomycin. Monitor renal function, at risk of renal dysfunction with this combination. Appreciate CT chest results. Concerning for loculated fluid collection, postobstructive pneumonia with pulmonary nodules. Will need further diagnostic evaluation for possible obstructive lesion. Qualifiers: Pneumonia type: due to group B Streptococcus Laterality: left Lung location: upper lobe of lung Qualified Code(s): J15.3 - Pneumonia due to streptococcus, group B (5) Respiratory failure with hypoxia: Resolved. Most likely in setting of pneumonia with mild exacerbation of COPD. Oxygen supplementation keeping saturation over 90%. Hold off on steroids for now. DuoNebs every 6 hours, Pulmicort twice daily. Mucomyst every 6 hours as needed. Aggressive pulmonary toilet with I-S and Acapella. Out of bed to chair. D-dimer elevated. PE less likely. Awaiting ventilation/perfusion scan. Qualifiers: Chronicity: acute on chronic Qualified Code(s): J96.21 - Acute and chronic respiratory failure with hypoxia (6) Acute on chronic renal insufficiency: Worsening acute kidney injury, creatinine up to 2.1. Requested albumin infusion. Reassess volume status. Reassess kidney function. Baseline creatinine ranging from 1-1.3. Creatinine with mild improvement at 1.7. Medical reconciliation done for nephrotoxic drugs. Continue with IV fluids with normal saline at 75 cc/h. Appreciate urine lites. Echocardiogram pending. (7) Polysubstance abuse: Urine drug screen positive for amphetamines. Patient gives history of occasional meth use. Reports that he was smoking and pipe. Denies any injection drug use. It did not make him feel good, does not intend to return to it. Continue to monitor. (8) Thrombocytosis: In setting of dehydration along with acute infection. Fluid as above. Monitor. Plan Anemia: Baseline hemoglobin seems to be around 8. Appreciate iron panel, vitamin B12 and folate levels. Transfuse if hemoglobin drops below 8. Continue to monitor CBC daily for now. CODE STATUS: Discussed in detail with patient. He lives by himself. His nephew will be the DPOA if is not able to make his medical decisions. Full code Regular diet Protonix for PUD prophylaxis Heparin 5000 every 12 hourly for DVT prophylaxis. Attestations 2 Medical Necessity Statement*: Continue admission for assessment management of recurrent left-sided pleural effusion, Chest tube management, reassessment of effusion, loculations, complicated pneumonia, gram-positive bacteremia. and High Time for a total of 80 minutes, includes reviewing past or interval history, examining/interviewing patient, placing orders, counseling patient/family/other support, updating patient/family/other support, discussing plan of care with staff, communicating with other healthcare providers, documenting encounter and coordinating care Diagnoses Suspected lung cancer R68.89 Bacteremia due to Streptococcus R78.81; B95.5 Pleural effusion on left J90 Pneumonia of left upper lobe due to group B Streptococcus J15.3 Pneumonia type: due to group B Streptococcus Laterality: left Lung location: upper lobe of lung Acute on chronic respiratory failure with hypoxia J96.21 Chronicity: acute on chronic Acute on chronic renal insufficiency N28.9; N18.9 Polysubstance abuse F19.10 Thrombocytosis D75.839
[2023-10-11] VITALS (21 sets, daily range): BP systolic 102–159; BP diastolic 51–78; PULSE 80–105; RESP 16–21; TEMP 36.1–37; O2SAT 90–100
[2023-10-11] MEDS: piperacillin-tazobactam 3.375 GM in sodium chloride 0.9% (plus) 50 ML IV ×2 (04:17→14:51)
[2023-10-11 06:31] LABS: Basophils # 0.3 10^3/uL (0.0-0.1); Basophils % 0.7 %; Eosinophils # 6.4 10^3/uL (0.0-0.8); Eosinophils % 15.7 %; Hematocrit 24.3 % (37-53); Lymphocytes # 1.8 10^3/uL (0.8-4.8); Lymphocytes % 4.5 %; Mean Corpuscular HGB Conc 32.9 g/dL (30-55); Mean Corpuscular Hemoglobin 29.7 pg (27-33); Mean Corpuscular Volume 90.3 fl (82-101); Mean Platelet Volume 10.4 fL (7.4-10.4); Monocytes # 2.7 10^3/uL (0.2-0.9); Monocytes % 6.7 %; Neutrophils # 28.05 10^3/uL (1.8-7.7); Nucleated Red Blood Cells % 0 %; Platelet Count 541 10^3/cmm (157-399); Red Blood Count 2.69 10^6/uL (3.85-5.65); Red Cell Distribution Width 14.5 % (12.1-15.1)
[2023-10-11 06:44] LABS: Anion Gap 15.1 (5-19); Blood Urea Nitrogen 52 mg/dL (8-23); Calcium 10.7 mg/dL (8.5-10.5); Carbon Dioxide 20 mmol/L (22-29); Chloride 104 mmol/L (98-107); Glucose 122 mg/dL (65-115); Osmolality Calculated 293 mOsm/kg (285-295); Potassium 5.1 mmol/L (3.5-5.1); Sodium 134 mmol/L (136-145)
[2023-10-11 06:57] LABS: White Blood Count 40.64 10^3/uL (3.29-11.43)
[2023-10-11] MEDS: acetylcysteine 200 mg/mL SDV 4 mL 100 MG INHALATION ×2 (07:37→20:10)
[2023-10-11] MEDS: ipratropium-albuterol 3 mL Neb INHALATION ×2 (07:37→20:10)
[2023-10-11] MEDS: budesonide 0.5 mg/2 mL Neb INHALATION ×2 (07:38→20:10)
[2023-10-11] MEDS: allopurinol 100 mg Tablet PO (08:12)
[2023-10-11] MEDS: pantoprazole DR 40 mg Tablet PO (08:12)
[2023-10-11] MEDS: lidocaine 5% Patch 1 PATCH TOPICAL ×2 (08:12→20:25)
[2023-10-11] MEDS: albumin 25 G/100 ML BAG 60 G IV (10:03)
[2023-10-11 12:28] LABS: Cyto Order Verification Order Verified
--- NOTE | 2023-10-11 12:29 | W.PM.OPSUD ---
Surgery/Procedure H&P Update DATE OF PROCEDURE: October 11, 2023 DATE H&P PERFORMED: 10/10/23 H&P UPDATE INFORMATION: I have reviewed H&P completed within last 30 days, I have examined patient prior to procedure and No changes to prior documentation PREOP DIAGNOSIS: Gram-positive bacteremia, rule out endocarditis PRIMARY INDICATION FOR PROCEDURE: History of IV drug abuse, gram-positive bacteremia, rule out endocarditis PLANNED PROCEDURE: Operation Date: 10/11/23 12:30 Proposed Procedures p CARLIE(Not Applicable) - Brianna Ni MD s Ultrasound Biopsy(Not Applicable) - Vipul Oglesby MD
--- NOTE | 2023-10-11 12:42 | USCV_ITS ---
Seferino Barbosa Age: 78 Gender: M : 1945 Exam Date: 10/11/2023 13:07 Ordering Phys: Brianna Ni MD ([email or web address]) Technologist: Nacho Poe Exam Location: [facility] – [place] Indication: rule out endocarditis BP: / HR: Rhythm: Sinus Technical Quality: Adequate MEASUREMENTS (Male / Female) Normal Values Medications IV propofol administered with anesthesia service. Please refer to the anesthesia report Complications None Proc. Components The patient was brought to the CARLIE examination room in a fasting state after obtaining an informed consent. The CARLIE probe was passed into the posterior pharynx , mid-esophagus, distal esophagus, and gastric fundus. CARLIE was performed at multiple levels. The patient tolerated the procedure well and there were no complications. FINDINGS Left Ventricle Because of normal size and ejection fraction. No intracardiac masses noted. Right Ventricle Appears to be of normal size with no intracavitary masses Right Atrium No masses or thrombi noted Left Atrium No masses or thrombi. LA Appendage Ability was in normal size and contractility. IA Septum Appeared to be intact with no evidence of any ASD or PFO Mitral Valve No gross abnormalities noted Aortic Valve No gross abnormalities noted Tricuspid Valve No gross abnormalities noted Pulmonic Valve No gross abnormalities noted Pericardium No pericardial effusion. Aorta Normal aortic annulus size. CONCLUSIONS The aortic, tricuspid, mitral and pulmonic valve morphology appear to be in the normal range. No masses or vegetations are noted in these valves. The cardiac chambers also. Normal size with no intracavitary masses. Aortic root appeared to be normal size. Dr Brianna Ni MD FACC (Electronically Signed) Final Date: 11 October 2023 14:23 S
--- NOTE | 2023-10-11 12:44 | P.ANESASSM_ITS ---
Pre-Anesthetic Assessment Height/Weight: Height 1.85 m Weight 79.549 kg Temp Pulse Resp BP Pulse Ox O2 Del Method O2 Flow Rate 97.7 F 94 20 H 151/73 92 Nasal Cannula 2 10/11/23 12:15 10/11/23 12:15 10/11/23 12:15 10/11/23 12:15 10/11/23 12:15 10/11/23 12:15 10/11/23 12:15 Preop Diagnosis: Gram-positive bacteremia, rule out endocarditis Operation Date: 10/11/23 12:30 Proposed Procedures p CARLIE(Not Applicable) - Brianna Ni MD s Ultrasound Biopsy(Not Applicable) - Vipul Oglesby MD Familial anesthetic complications: none Was Beta Ruiz taken within 24 hours: N/A Was Clonidine taken within 24 hours: N/A Social Alcohol (quit 2016) and Tobacco (quit 10 days ago) Exam alert, oriented x 3, clear to auscultation bilaterally and regular rate & rhythm Airway Submandibular: within normal limits Cervical ROM: within normal limits Mallampati: Class I Dentition: false and full Pulmonary Chronic Obstructive Pulmonary Disease and Sleep Apnea TB precautions O2 now but not normally CV/HEM Hypertension None reported Hepatic None reported GI None reported Metabolic None reported Musc/skel Osteoarthritis/DJD Neuropsych None reported Anesthetic Plan ASA status: 3 Anesthesia: MAC Risk of > 500 ml blood loss (7ml/kg in children): No Medications/Allergies Home Medications Medication Instructions Recorded Confirmed Last Taken Type losartan 25 mg tablet 25 mg PO DAILY 01/31/21 10/04/23 10/04/23 History melatonin 10 mg tablet 50 - 60 mg PO BEDTIME 10/04/23 10/04/23 10/03/23 History quetiapine 300 mg tablet 300 mg PO BEDTIME 10/04/23 10/04/23 10/03/23 History Allergies Allergy/AdvReac Type Severity Reaction Status Date / Time No Known Allergies Allergy Verified 10/04/23 11:45 Current Medications Generic Name Dose Route Start Last Admin Trade Name Freq PRN Reason Stop Dose Admin Acetylcysteine 100 mg 10/04/23 20:00 10/11/23 07:37 Acetylcysteine 200 Mg/Ml Sdv 4 Ml INHALATION 100 mg Q6H.RESP JOSE Administration Albuterol/Ipratropium 3 ml 10/04/23 20:00 10/11/23 07:37 Ipratropium-Albuterol 3 Ml Neb INHALATION 3 ml Q6H.RESP JOSE Administration Allopurinol 100 mg 10/05/23 09:00 10/11/23 08:12 Allopurinol 100 Mg Tablet PO 100 mg DAILY JOSE Administration Bisacodyl 10 mg 10/04/23 16:50 10/08/23 09:56 Bisacodyl 5 Mg Tablet PO 10 mg DAILY PRN Administration Constipation (see protocol) Protocol Budesonide 0.5 mg 10/04/23 20:00 10/11/23 07:38 Budesonide 0.5 Mg/2 Ml Neb INHALATION 0.5 mg BID.RESPIRATORY JOSE Administration Heparin Sodium (Porcine) 5,000 unit 10/04/23 17:30 10/10/23 17:37 Heparin 5,000 Unit/Ml Inj 1 Ml SUBCUT 5,000 unit Q12H JOSE Administration Piperacillin Sod/Tazobactam 50 mls @ 12.5 mls/hr 10/04/23 19:30 10/11/23 08:26 Sod 3.375 gm/ Sodium Chloride IV Infused Q8H JOSE Infusion Protocol As Directed Vancomycin/PEG/NADA/Lysine/Water 1,250 mg in 250 mls @ 200 mls/hr 10/07/23 18:15 10/10/23 19:48 Vancocin IV Infused Q24H JOSE Infusion Lidocaine 1 patch 10/10/23 09:00 10/11/23 08:12 Lidocaine 5% Patch TOPICAL 1 patch [id number] JOSE Administration Morphine Sulfate 2 mg 10/04/23 16:50 10/10/23 10:27 Morphine 4 Mg/Ml Sdv 1 Ml IVP 2 mg Q4H PRN Administration SEVERE PAIN Pantoprazole Sodium 40 mg 10/05/23 09:00 10/11/23 08:[address] 40 Mg Tablet PO 40 mg DAILY JOSE Administration Quetiapine Fumarate 300 mg 10/04/23 21:00 10/10/23 20:47 Quetiapine 300 Mg Tablet PO 300 mg BEDTIME JOSE Administration PFSH Anesthesia Medical History NAVID (acute kidney injury) COPD (chronic obstructive pulmonary disease) Erectile dysfunction BPH (benign prostatic hyperplasia) Gout Hip osteoarthritis Thoracic outlet syndrome Bilateral cervical rib removed Hypertension Insomnia Abnormal colonoscopy Polyps removed: Tubular adenoma Anemia Methamphetamine abuse Surgical History History of right hip replacement H/O knee surgery History of appendectomy Family History Father Diabetes Denies family history of CAD (coronary artery disease) Social History Smoking and tobacco/nicotine status: current every day tobacco/nicotine user cigarettes Years cigarettes smoked: 45 Number of cigarettes per day: 6-10 Alcohol intake: former Year of sobriety/quit date alcohol: 2016 Substance/Drug Use: current Substance/Drug use frequency: few times a month Substance/Drug use type: Amphetamines Caregiver/support person: Yes Lives independently: Yes Household members: none Housing: House Marital status: Data Anesthesia 10/11/23 06:05 10/11/23 06:00 Short CBC 10/10/23 10/11/23 Range/Units 04:31 06:05 WBC 42.12 H* 40.64 H* (3.29-11.43) 10^3/uL Hgb 8.60 L 8.00 L (11.27-16.99) g/dL Hct 26.6 L 24.3 L (37-53) % MCV 91.7 90.3 (82-101) fl Plt Count 567 H 541 H (157-399) 10^3/cmm Neut % (Auto) 69.4 69.0 % Neut # (Auto) 29.24 H 28.05 H (1.8-7.7) 10^3/uL BMP 10/10/23 10/11/23 04:31 06:00 Sodium 133 L 134 L Potassium 5.1 5.1 Chloride 102 104 Carbon Dioxide 18 L 20 L BUN 49 H 52 H Creatinine 2.1 H 2.0 H Glucose 109 122 H Calcium 10.3 10.7 H Liver Function 10/10/23 Range/Units 04:31 Total Bilirubin 0.2 (0.15-1.2) mg/dL AST 8 (0-40) U/L ALT 10 (0-41) U/L Alkaline Phosphatase 111 (40-130) U/L Albumin 2.5 L (3.5-5.2) g/dL Microbiology 10/06/23 04:28 Blood Culture - Final Blood NO GROWTH AFTER 5 DAYS 10/06/23 04:24 Blood Culture - Final Blood NO GROWTH AFTER 5 DAYS 10/04/23 13:22 Gram Stain - Final Pleural Fluid Anaerobic Culture - Preliminary Body Fluid Culture - Final Cardiac Studies: 2 Echocardiogram 10/06/23
--- NOTE | 2023-10-11 12:59 | PC.SOCIAL ---
IMM Update pg 2 of IMM updated and reviewed w/ patient. Copy provided and copy dated, initialed and placed in chart.
--- NOTE | 2023-10-11 13:00 | US_ITS ---
WS: [id number] ULTRASOUND-GUIDED LIVER BIOPSY CLINICAL INFORMATION: Liver lesion COMPARISON: None. FINDINGS: The procedure including risks, benefits, and complications were discussed with the patient who agreed to proceed. Anesthesia was present for sedation. Time out was performed. Using sterile technique pat ient was prepped and draped in the usual sterile fashion. After 1% lidocaine utilizing real-time ultr asound guidance 8 18-gauge cores were obtained of a peripheral liver lesion. No immediate complicatio ns. IMPRESSION: 1. Uncomplicated ultrasound-guided liver biopsy 2. Pathology is pending
[2023-10-11] MEDS: sodium chloride 0.9% 1,000 ML 30 ML IV (13:07)
[2023-10-11] MEDS: fentaNYL 50 mcg/mL INJ 2mL IVP (14:07)
--- NOTE | 2023-10-11 14:10 | ANE.PACU2 ---
Inpatient post-anesthesia follow up: Airway intact: Yes Vital signs: Temperature 97 F Pulse Rate 80 Respiratory Rate 20 Blood Pressure 146/68 Pulse Oximetry 95 Oxygen Delivery Me thod Nasal Cannula Oxygen Flow Rate 2 Fraction of Inspir ed Oxygen Hydration adequate: Yes Nausea and vomiting: No Pain level: 2 Mental status: Baseline
[2023-10-11] MEDS: lanolin oint 7 gm 1 APPLIC TOPICAL (15:02)
[2023-10-11] MEDS: morphine 4 mg/mL SDV 1 mL 2 MG IVP ×2 (15:03→19:06)
[2023-10-11] MEDS: heparin 5,000 unit/mL INJ 1 mL 5000 UNIT SUBCUT (17:32)
[2023-10-11] MEDS: quetiapine 300 mg Tablet PO (20:25)
--- NOTE | 2023-10-11 20:43 | P.PN_ITS ---
Subjective 2 Subjective: He is doing better. Pain with improvement, although still there. He is awaiting liver biopsy, CARLIE. Vitals/I&O/Wt Last Vital Signs Temp 97.6 F 10/11/23 19:30 Pulse 102 H 10/11/23 20:25 Resp 20 H 10/11/23 20:15 BP 156/72 10/11/23 19:30 Pulse Ox 90 10/11/23 20:15 O2 Del Method Nasal Cannula 10/11/23 20:15 O2 Flow Rate 5 10/11/23 20:15 10/11/23 10/11/23 10/11/23 06:59 14:59 22:59 Intake Total 120 / 1290 350 / 350 50 / 400 Output Total 450 / 450 275 / 725 Balance 120 / 740 -100 / -100 -225 / -325 Weight last 48 hrs Weight 79.549 kg Weight 80.314 kg Weight 80.785 kg Physical Exam 2 Narrative: Sitting up in bed. Const: COMMON NORMALS: patient oriented x3 and alert GENERAL APPEARANCE: c ooperative ORIENTATION/CONSCIOUSNESS: Yes awake HENMT: COMMON NORMALS: oropharynx normal Neck/C-Spine: COMMON NORMALS: no JVD Resp: COMMON NORMALS: clear to auscultation bilaterally AUSCULTATION: clear to auscultation bilaterally Cardio: COMMON NORMALS: no JVD, regular rhythm, S1 normal heart sound present, S2 normal heart sound present and No murmurs present (Cardio) RHYTHM: regular rhythm HEART SOUNDS: S1 normal heart sound present and S2 normal heart sound present GI: COMMON NORMALS: Normal to inspection, nondistended, normoactive bowel sounds present, Soft to palpation and non-tender PALPATION: Yes Soft to palpation Extremity: COMMON NORMALS: no joint enlargement and no pedal edema Neuro: COMMON NORMALS: patient oriented x3 and moves all extremities S ENSORIUM/ORIENTATION: Yes alert Skin: COMMON NORMALS: no rashes or lesions noted GENERAL SKIN EXAM: no rashes or lesions noted Data 10/11/23 06:05 10/11/23 06:00 Micro: Microbiology 10/04/23 13:22 Gram Stain - Final Pleural Fluid Anaerobic Culture - Final Body Fluid Culture - Final 10/06/23 04:28 Blood Culture - Final Blood NO GROWTH AFTER 5 DAYS 10/06/23 04:24 Blood Culture - Final Blood NO GROWTH AFTER 5 DAYS A&P Assessment and plan (1) Suspected lung cancer: Liver biopsy today. Reviewed radiology note. Discussed with him suspected metastatic malignancy. Discussed with pulmonology. As per recommendation discussed with him pursuing liver lesion biopsy, discussed with radiology, additional assessment by ultrasound requested, n.p.o. for liver biopsy tomorrow Combined with CARLIE. Discussed with cardiology, cardiology. (2) Bacteremia due to Streptococcus: CARLIE today. Reviewed cardiology note. Will need to complete total at least 2 weeks of IV antibiotics, discussed with piano case maker and with him. Reviewed blood cultures, so far no further growth on repeat cultures. He has been having difficulty taking antibiotics overnight, as such we will discontinue Zosyn, vancomycin, switched to Rocephin. Complete what remains of the 2-week course with Rocephin IV 2 g daily. Discussed with him concern for risk of endocarditis, discussed with cardiology appreciate consultation regarding CARLIE, n.p.o. tomorrow for CARLIE together with liver biopsy. Continue IV antibiotic. Reassess renal function, at risk of renal dysfunction with antibiotic combination. Reviewed repeat blood cultures, so far without growth. Echocardiogram technically difficult, without obvious vegetation. Consideration of CARLIE. Continue IV antibiotics. Patient would need IV antibiotics for at least 14 days from first negative blood cultures. (3) Pleural effusion on left: Discussed with pulmonology, documentation reviewed. Chest tube removed today. Discussed with case management. Requiring IV morphine for pain control. Renew. Atypical cells on review of pathology. Suspicion for malignancy. Discussed with him. JUSTIN with reduced output from chest tube. Received alteplase via chest tube last night. Without change in output. Continue to monitor INR per discussion with pulmonology. Chest tube may be removed tomorrow. Per discussion with pulmonology recommendation to pursue liver biopsy. Discussed with patient. Attempted to reach IR, left message. Monitor oxygenation. Pain at insertion site, IV morphine for pain control. Lidocaine patch. (4) Pneumonia: reviewed CBC, Noted again severe leukocytosis in the 40s, possible, reaction versus secondary to underlying malignancy. Continue IV antibiotic treatment. reviewed peripheral smear, noted leukocytosis with left shift, eosinophilia, marked thrombocytosis, moderate normocytic anemia. Completed course of Zosyn, vancomycin, switched to ceftriaxone as above for bacteremia. Continue treatment of pneumonia. Continues to require Lasix nasal cannula oxygen. Subjectively he is feeling slightly better with chest tube. No empyema. Reassess CT chest as per discussion with cable supervisor. Concern for possibility of underlying malignancy, will be needing further evaluation. Discussed with him. Reviewed CBC, noted severe leukocytosis 37.44. Possible leukemoid reaction with noted elevation of neutrophils, monocytes, eos, basophils. Peripheral smear has been requested. Concern for possible parapneumonic effusion. Additionally some report of right lower chest/right upper quadrant pain, so hepatobiliary ultrasound with unremarkable gallbladder. Reviewed repeat blood culture, noted unremarkable to date. Reviewed fungal sputum culture, so far no fungal elements. Original blood culture identification are coccus viridans. TTE without obvious vegetation, although technically limited study. Continue antibiotic coverage at this time. Consideration of further assessment with CARLIE. Urine Legionella, bacterial antigen negative. MRSA swab not collected yet, follow-up fluid ADA and QuantiFERON results. Low suspicion of tuberculosis for now. Continues for now on IV Zosyn, IV vancomycin. Monitor renal function, at risk of renal dysfunction with this combination. Appreciate CT chest results. Concerning for loculated fluid collection, postobstructive pneumonia with pulmonary nodules. Will need further diagnostic evaluation for possible obstructive lesion. Qualifiers: Laterality: left Lung location: upper lobe of lung Pneumonia type: due to group B Streptococcus Qualified Code(s): J15.3 - Pneumonia due to streptococcus, group B (5) Respiratory failure with hypoxia: Resolved. Most likely in setting of pneumonia with mild exacerbation of COPD. Oxygen supplementation keeping saturation over 90%. Hold off on steroids for now. DuoNebs every 6 hours, Pulmicort twice daily. Mucomyst every 6 hours as needed. Aggressive pulmonary toilet with I-S and Acapella. Out of bed to chair. D-dimer elevated. PE less likely. Awaiting ventilation/perfusion scan. Qualifiers: Chronicity: acute on chronic Qualified Code(s): J96.21 - Acute and chronic respiratory failure with hypoxia (6) Acute on chronic renal insufficiency: Reviewed chemistry, again noted creatinine of 2, slight improvement. Repeat albumin. Follow-up chemistry. Baseline creatinine ranging from 1-1.3. Creatinine with mild improvement at 1.7. Medical reconciliation done for nephrotoxic drugs. Continue with IV fluids with normal saline at 75 cc/h. Appreciate urine lites. Echocardiogram pending. (7) Polysubstance abuse: Urine drug screen positive for amphetamines. Patient gives history of occasional meth use. Reports that he was smoking and pipe. Denies any injection drug use. It did not make him feel good, does not intend to return to it. Continue to monitor. (8) Thrombocytosis: In setting of dehydration along with acute infection. Fluid as above. Monitor. Plan Anemia: Baseline hemoglobin seems to be around 8. Appreciate iron panel, vitamin B12 and folate levels. Transfuse if hemoglobin drops below 8. Continue to monitor CBC daily for now. CODE STATUS: Discussed in detail with patient. He lives by himself. His nephew will be the DPOA if is not able to make his medical decisions. Full code Regular diet Protonix for PUD prophylaxis Heparin 5000 every 12 hourly for DVT prophylaxis. Attestations 2 Medical Necessity Statement*: Continue admission for assessment management of recurrent left-sided pleural effusion, Chest tube management, reassessment of effusion, loculations, complicated pneumonia, gram-positive bacteremia. Diagnoses Suspected lung cancer R68.89 Bacteremia due to Streptococcus R78.81; B95.5 Pleural effusion on left J90 Pneumonia of left upper lobe due to group B Streptococcus J15.3 Laterality: left Lung location: upper lobe of lung Pneumonia type: due to group B Streptococcus Acute on chronic respiratory failure with hypoxia J96.21 Chronicity: acute on chronic Acute on chronic renal insufficiency N28.9; N18.9 Polysubstance abuse F19.10 Thrombocytosis D75.839
--- NOTE | 2023-10-11 21:58 | PC.NURSE ---
New orders were placed for the patient to receive a new antibiotic. This nurse entered the room and informed patient of this, at first he agreed, but then refused. He states he has too hard of a time falling back to sleep to be woke up to turn the pump off once finished. Pharmacy called and clarified how long the Ceftriaxone is good for once mixed. They stated it is good for 24 hours refrigerated. Patient label, date, and time of mixture placed on bag and placed in refrigerator.
--- NOTE | 2023-10-11 23:59 | XRR_ITS ---
PROCEDURE INFORMATION: Exam: XR Abdomen Exam date and time: 10/12/2023 1:04 AM Age: 78 years old Clinical indication: Abdominal pain; Localized; Right; Prior surgery; Surgery date: 6+ months; Surgery type: Appy. Paramjit. Patient HX: C/O RT sided abd pain to area of insertion site from liver biopsy performed yesterday. TECHNIQUE: Imaging protocol: Radiologic exam of the abdomen. Views: Frontal supine view of the abdomen. 1 View. COMPARISON: US abdomen limited [id number] 10/07/2023 3:34 PM FINDINGS: Gastrointestinal tract: Moderate to severe constipation. Bones/joints: Multilevel severe disc space narrowing with bridging degenerative osteophytes throughout the spine. Right hip arthroplasty changes. XR/XR abdomen 1V* [id number] IMPRESSION: 1. Moderate to severe constipation. 2. Multilevel severe disc space narrowing with bridging degenerative osteophytes throughout the spine. 3. Right hip arthroplasty changes.
[2023-10-12] VITALS (13 sets, daily range): BP systolic 122–157; BP diastolic 67–79; PULSE 84–107; RESP 16–24; TEMP 36.4–36.7; O2SAT 90–95; BMI 23.1
[2023-10-12] MEDS: HYDROmorphone 1 mg/mL INJ 1 mL 0.2 MG IVP (00:14)
[2023-10-12 06:15] LABS: Basophils # 0.4 10^3/uL (0.0-0.1); Basophils % 0.7 %; Eosinophils # 6.9 10^3/uL (0.0-0.8); Eosinophils % 14.6 %; Hematocrit 25.2 % (37-53); Lymphocytes # 1.8 10^3/uL (0.8-4.8); Lymphocytes % 3.8 %; Mean Corpuscular HGB Conc 32.9 g/dL (30-55); Mean Platelet Volume 10.4 fL (7.4-10.4); Monocytes # 2.9 10^3/uL (0.2-0.9); Monocytes % 6.1 %; Neutrophils # 33.93 10^3/uL (1.8-7.7); Neutrophils % 71.3 %; Nucleated Red Blood Cells % 0 %; Platelet Count 567 10^3/cmm (157-399); Red Blood Count 2.77 10^6/uL (3.85-5.65); Red Cell Distribution Width 14.4 % (12.1-15.1)
[2023-10-12 06:23] LABS: White Blood Count 47.59 10^3/uL (3.29-11.43)
[2023-10-12 06:42] LABS: Blood Urea Nitrogen 53 mg/dL (8-23); Calcium 11.3 mg/dL (8.5-10.5); Carbon Dioxide 20 mmol/L (22-29); Chloride 102 mmol/L (98-107); Glucose 153 mg/dL (65-115); Osmolality Calculated 291 mOsm/kg (285-295); Sodium 132 mmol/L (136-145)
[2023-10-12 07:11] LABS: Vancomycin Trough 22.1 ug/mL (10-15)
[2023-10-12] MEDS: ipratropium-albuterol 3 mL Neb INHALATION ×2 (07:56→13:58)
[2023-10-12] MEDS: acetylcysteine 200 mg/mL SDV 4 mL 100 MG INHALATION (07:56)
[2023-10-12] MEDS: budesonide 0.5 mg/2 mL Neb INHALATION (07:56)
[2023-10-12] MEDS: lidocaine 5% Patch 1 PATCH TOPICAL ×2 (08:16→21:00)
[2023-10-12] MEDS: pantoprazole DR 40 mg Tablet PO (08:17)
[2023-10-12] MEDS: allopurinol 100 mg Tablet PO (08:17)
[2023-10-12] MEDS: morphine 4 mg/mL SDV 1 mL 2 MG IVP (12:15)
[2023-10-12] MEDS: morphine 4 mg/mL SDV 1 mL IVP ×2 (13:57→21:30)
--- NOTE | 2023-10-12 16:39 | USR_ITS ---
PROCEDURE INFORMATION: Exam: US Abdomen, Limited; Right Upper Quadrant Exam date and time: 10/12/2023 5:43 PM Age: 78 years old Clinical indication: Abdominal pain; Acute; Prior surgery; Surgery date: Post-operative (0-2 days); Surgery type: Patient had liver biopsy yesterday. ; Additional info: Ruq pain after liver biopsy TECHNIQUE: Imaging protocol: Real time ultrasound of the abdomen with image documentation. Limited exam focused on the right upper quadrant. COMPARISON: US abdomen limited [id number] 10/07/2023 3:34 PM FINDINGS: Liver: Unremarkable. Gallbladder: No gallstones. No gallbladder wall thickening or pericholecystic fluid. Negative sonographic Mcintosh's sign, as per the performing physician. Biliary ducts: Normal. No stones. No dilation. Pancreas: Suboptimally visualized. Right kidney: Several cysts, measuring up to 4.1 x 4 x 5.4 cm. No solid mass. No definite stones. No hydronephrosis. US/US abdomen limited [id number] IMPRESSION: No acute sonographic findings.
--- NOTE | 2023-10-12 18:17 | PC.NURSE ---
Patient in a level [address] Angulo for different pain medication. Ultrasound in doing ultrasound now. waiting for outsource pharmacy to acknowlge medication.
[2023-10-12] MEDS: methocarbamol 750 mg Tablet 1000 MG PO (18:22)
--- NOTE | 2023-10-12 18:29 | CTR_ITS ---
PROCEDURE INFORMATION: Exam: CT Abdomen And Pelvis With Contrast Exam date and time: 10/12/2023 6:58 PM Age: 78 years old Clinical indication: Abdominal pain; Localized; Right; Prior surgery; Surgery date: 6+ months; Surgery type: Appy. Paramjit. Patient HX: Persistent RT sided abd pain. Liver biopsy performed 10/11/2023. ; Additional info: Suspected metastatic cancer, S/P liver biopsy, R abdo pain TECHNIQUE: Imaging protocol: Computed tomography of the abdomen and pelvis with contrast. Axial, coronal and sagittal reformatted images were created and reviewed. Radiation optimization: All CT scans at this facility use at least one of these dose optimization techniques: automated exposure control; mA and/or kV adjustment per patient size (includes targeted exams where dose is matched to clinical indication); or iterative reconstruction. Contrast material: OMNI 350; Contrast volume: 75 ml; Contrast route: INTRAVENOUS (IV); REPORTING DATA: Count of CT and Cardiac NM exams in prior 12 months: This patient has received 2 known CTs and 0 known cardiac nuclear medicine studies in the 12 months prior to the current study. COMPARISON: CT chest [facility] [id number] 10/08/2023 7:58 PM RADIATION DOSE METRICS: Total DLP (mGy-cm): 1308.53 FINDINGS: Lungs: Heterogeneous left basilar consolidation, likely reflecting atelectasis, pneumonia and/or malignancy. Right basilar atelectasis and/or scarring. Unchanged pleural-based 1.1 cm right middle lobe nodular density. Unchanged 7 mm pleural-based right lower lobe nodular density. Scattered calcified left basilar granulomata. Pleural spaces: Large left pleural effusion, increased in size since the prior study. Liver: Multiple low-density hepatic masses, measuring up to approximately 2.9 cm in the left hepatic lobe. Gallbladder and bile ducts: No radiodense gallstones. No biliary ductal dilatation. Pancreas: Mild, diffuse pancreatic atrophy. Spleen: Unremarkable. Adrenal glands: Normal. No mass. Kidneys and ureters: Multiple bilateral renal cysts, measuring up to 5.8 cm on the right (no follow-up is indicated based on the imaging appearance). Left renal parenchymal calcification. No radiodense calculi. No hydronephrosis. Stomach and bowel: Moderate amount of retained stool in the colon. Colonic diverticulosis without evidence of diverticulitis. No obstruction. No bowel wall thickening. No pneumatosis. Appendix: Not identified with certainty. Intraperitoneal space: No free fluid. No organized fluid collection. No free air. Vasculature: Mild atherosclerotic disease. No aneurysm or dissection. Lymph nodes: No pathologically enlarged lymph nodes. Urinary bladder: Unremarkable as visualized. Reproductive: Enlarged, nodular prostate, projecting into the urinary bladder base. Bones/joints: Scattered lytic lesions, predominantly in the right greater than left iliac bones. Osteopenia. Degenerative changes. Total right hip arthroplasty in place. Soft tissues: Unremarkable. CT/CT abdomen pelvis w con* [id number] IMPRESSION: 1. Multiple low-density hepatic masses, consistent with metastatic disease. 2. Osseous metastatic disease, as described above. 3. Enlarged, nodular prostate, projecting into the urinary bladder base. Correlate with clinical exam and PSA levels. 4. Heterogeneous left basilar consolidation, likely reflecting atelectasis, pneumonia and/or malignancy. 5. Unchanged right basilar nodular densities. 6. Large left pleural effusion, increased in size since the prior study. 7. Additional findings, as above. COMMENTS: Consistent with the [employer]'s Incidental Findings Committee white paper (J Am Aleida Radiol 2018): Any incidental renal lesion less than 1 cm or classified as too small to characterize, or any incidental cystic renal lesion characterized as simple-appearing, is likely benign. No follow-up imaging is recommended for these lesions per consensus recommendations based on imaging criteria.
--- NOTE | 2023-10-12 18:34 | PC.NURSE ---
Just found out patient has medication at bedside in a yellow plastic bag. Patient refused to let me put medications in the pyxsis. Patient stated they had been there for 7 days and I was not to take them. Told charge nurse about the medications. Charge nurse stated we can not take them from him.
[2023-10-12] MEDS: iohexol 350 mg/mL 500 mL Btl (per mL) IV (19:00)
[2023-10-12] MEDS: vancomycin 1,000 MG in sodium chloride 0.9% 250 ML 250 MG IV (19:55)
[2023-10-12] MEDS: quetiapine 300 mg Tablet PO (20:59)
[2023-10-12] MEDS: cefTRIAXone 2,000 MG in sodium chloride 0.9% (plus) 50 ML 100 MG IV (21:00)
--- NOTE | 2023-10-12 21:48 | P.PN_ITS ---
Subjective 2 Subjective: This morning having tenderness/pain in right upper quadrant, progressing through the day, getting more severe. Vitals/I&O/Wt Last Vital Signs Temp 97.6 F 10/12/23 20:00 Pulse 102 H 10/12/23 20:20 Resp 18 10/12/23 21:30 BP 157/73 10/12/23 20:00 Pulse Ox 93 10/12/23 20:20 O2 Del Method Nasal Cannula 10/12/23 20:20 O2 Flow Rate 4 10/12/23 20:20 10/12/23 10/12/23 10/12/23 06:59 14:59 22:59 Intake Total 120 / 640 720 / 720 1020 / 1740 Output Total 500 / 500 Balance 120 / -85 220 / 220 1020 / 1240 Weight last 48 hrs Weight 79.549 kg Weight 79.549 kg Physical Exam 2 Narrative: Sitting up in bed. on return visit uncomfortable, holding onto right upper quadrant, tensing abdominal muscles stating it hurts on inspiration. Const: COMMON NORMALS: patient oriented x3 and alert GENERAL APPEARANCE: c ooperative ORIENTATION/CONSCIOUSNESS: Yes awake HENMT: COMMON NORMALS: oropharynx normal Neck/C-Spine: COMMON NORMALS: no JVD Resp: AUSCULTATION: diminished lung sounds on the left in the lower lung [place] Cardio: COMMON NORMALS: no JVD, regular rhythm, S1 normal heart sound present, S2 normal heart sound present and No murmurs present (Cardio) RHYTHM: regular rhythm HEART SOUNDS: S1 normal heart sound present and S2 normal heart sound present GI: COMMON NORMALS: Normal to inspection, nondistended, normoactive bowel sounds present, Soft to palpation and non-tender PALPATION: Yes Soft to palpation Extremity: COMMON NORMALS: no joint enlargement and no pedal edema Neuro: COMMON NORMALS: patient oriented x3 and moves all extremities S ENSORIUM/ORIENTATION: Yes alert Skin: COMMON NORMALS: no rashes or lesions noted GENERAL SKIN EXAM: no rashes or lesions noted Data 10/12/23 05:17 10/12/23 05:17 Micro: Microbiology 10/04/23 13:22 Gram Stain - Final Pleural Fluid Anaerobic Culture - Final Body Fluid Culture - Final A&P Assessment and plan (1) Suspected lung cancer: Complaining of right upper quadrant pain this morning, minimal relief with medications and increasing dose of morphine IV, worsening today, pain on palpation of right upper quadrant, states also limits his breaths. He does appear to be tensing abdominal muscles. Added muscle relaxer. with severity of the pain, recent procedure, discussed with coding technician, requested additional imaging with ultrasound as well as CT abdomen pelvis to assess for possible viscus perforation, hemorrhage, or other pathology, however, neither appears to reveal additional concerning findings beyond once known already. With risk of contrast nephropathy, reassess kidney function. Continue to monitor, continue pain control, muscle relaxer, reassess CBC, CMP. Follow-up pathology results. Radiology notes reviewed. (2) Bacteremia due to Streptococcus: CARLIE Results reviewed, cardiology notes reviewed. No suggestion of vegetation. Discussed with him. Will need to complete total at least 2 weeks of IV antibiotics, awaiting arrangements for assisted placement To complete IV infusions. Reviewed blood cultures. Repeat cultures remain negative. He had been having difficulty taking antibiotics overnight, as such we will discontinue Zosyn, vancomycin, switched to Rocephin. Complete what remains of the 2-week course with Rocephin IV 2 g daily. (3) Pleural effusion on left: Pleural effusion appears to be reaccumulating. Pulmonology will be back on Saturday, may need consideration of Pleurx catheter. Follow-up liver biopsy pathology. Follow-up cellblock results. Atypical cells on review of pathology. Suspicion for malignancy. Discussed with him. JUSTIN with reduced output from chest tube. Received alteplase via chest tube last night. Without change in output. Continue to monitor INR per discussion with pulmonology. Chest tube may be removed tomorrow. Monitor oxygenation. (4) Pneumonia: reviewed CBC, Noted again severe leukocytosis in the 40s, possible, reaction versus secondary to underlying malignancy. Continue IV antibiotic treatment. reviewed peripheral smear, noted leukocytosis with left shift, eosinophilia, marked thrombocytosis, moderate normocytic anemia. Completed course of Zosyn, vancomycin, switched to ceftriaxone as above for bacteremia. Continue treatment of pneumonia. Continues to require Lasix nasal cannula oxygen. Subjectively he is feeling slightly better with chest tube. No empyema. Reassess CT chest as per discussion with golf caddy. Concern for possibility of underlying malignancy, will be needing further evaluation. Discussed with him. Reviewed CBC, noted severe leukocytosis 37.44. Possible leukemoid reaction with noted elevation of neutrophils, monocytes, eos, basophils. Peripheral smear has been requested. Concern for possible parapneumonic effusion. Additionally some report of right lower chest/right upper quadrant pain, so hepatobiliary ultrasound with unremarkable gallbladder. Reviewed repeat blood culture, noted unremarkable to date. Reviewed fungal sputum culture, so far no fungal elements. Original blood culture identification are coccus viridans. TTE without obvious vegetation, although technically limited study. Continue antibiotic coverage at this time. Consideration of further assessment with CARLIE. Urine Legionella, bacterial antigen negative. MRSA swab not collected yet, follow-up fluid ADA and QuantiFERON results. Low suspicion of tuberculosis for now. Continues for now on IV Zosyn, IV vancomycin. Monitor renal function, at risk of renal dysfunction with this combination. Appreciate CT chest results. Concerning for loculated fluid collection, postobstructive pneumonia with pulmonary nodules. Will need further diagnostic evaluation for possible obstructive lesion. Qualifiers: Pneumonia type: due to group B Streptococcus Laterality: left Lung location: upper lobe of lung Qualified Code(s): J15.3 - Pneumonia due to streptococcus, group B (5) Respiratory failure with hypoxia: Resolved. Most likely in setting of pneumonia with mild exacerbation of COPD. Oxygen supplementation keeping saturation over 90%. Hold off on steroids for now. DuoNebs every 6 hours, Pulmicort twice daily. Mucomyst every 6 hours as needed. Aggressive pulmonary toilet with I-S and Acapella. Out of bed to chair. D-dimer elevated. PE less likely. Awaiting ventilation/perfusion scan. Qualifiers: Chronicity: acute on chronic Qualified Code(s): J96.21 - Acute and chronic respiratory failure with hypoxia (6) Acute on chronic renal insufficiency: Reviewed chemistry, again noted creatinine of 2, slight improvement. Repeat albumin. Follow-up chemistry. Baseline creatinine ranging from 1-1.3. Creatinine with mild improvement at 1.7. Medical reconciliation done for nephrotoxic drugs. Continue with IV fluids with normal saline at 75 cc/h. Appreciate urine lites. Echocardiogram pending. (7) Polysubstance abuse: Urine drug screen positive for amphetamines. Patient gives history of occasional meth use. Reports that he was smoking and pipe. Denies any injection drug use. It did not make him feel good, does not intend to return to it. Continue to monitor. (8) Thrombocytosis: In setting of dehydration along with acute infection. Fluid as above. Monitor. Plan Anemia: Baseline hemoglobin seems to be around 8. Appreciate iron panel, vitamin B12 and folate levels. Transfuse if hemoglobin drops below 8. Continue to monitor CBC daily for now. CODE STATUS: Discussed in detail with patient. He lives by himself. His nephew will be the DPOA if is not able to make his medical decisions. Full code Regular diet Protonix for PUD prophylaxis Heparin 5000 every 12 hourly for DVT prophylaxis. Attestations 2 Medical Necessity Statement*: Continue admission for assessment management of recurrent left-sided pleural effusion, Chest tube management, reassessment of effusion, loculations, complicated pneumonia, gram-positive bacteremia. Diagnoses Suspected lung cancer R68.89 Bacteremia due to Streptococcus R78.81; B95.5 Pleural effusion on left J90 Pneumonia of left upper lobe due to group B Streptococcus J15.3 Pneumonia type: due to group B Streptococcus Laterality: left Lung location: upper lobe of lung Acute on chronic respiratory failure with hypoxia J96.21 Chronicity: acute on chronic Acute on chronic renal insufficiency N28.9; N18.9 Polysubstance abuse F19.10 Thrombocytosis D75.839
[2023-10-13] VITALS (13 sets, daily range): BP systolic 111–147; BP diastolic 63–74; PULSE 88–96; RESP 16–20; TEMP 36.5–37.2; O2SAT 90–95
[2023-10-13] MEDS: morphine 4 mg/mL SDV 1 mL IVP (05:37)
[2023-10-13 05:47] LABS: Basophils # 0.5 10^3/uL (0.0-0.1); Basophils % 0.8 %; Eosinophils # 3.9 10^3/uL (0.0-0.8); Eosinophils % 6.6 %; Hematocrit 28.5 % (37-53); Lymphocytes # 1.9 10^3/uL (0.8-4.8); Lymphocytes % 3.2 %; Mean Corpuscular HGB Conc 32.3 g/dL (30-55); Mean Corpuscular Hemoglobin 29.3 pg (27-33); Mean Corpuscular Volume 90.8 fl (82-101); Mean Platelet Volume 10.1 fL (7.4-10.4); Monocytes # 3.6 10^3/uL (0.2-0.9); Neutrophils # 47.05 10^3/uL (1.8-7.7); Neutrophils % 79.6 %; Nucleated Red Blood Cells % 0 %; Platelet Count 618 10^3/cmm (157-399); Red Blood Count 3.14 10^6/uL (3.85-5.65); Red Cell Distribution Width 14.5 % (12.1-15.1)
[2023-10-13 05:51] LABS: White Blood Count 59.21 10^3/uL (3.29-11.43)
--- NOTE | 2023-10-13 05:54 | XRR_ITS ---
PROCEDURE INFORMATION: Exam: XR Chest Exam date and time: 10/13/2023 7:08 AM Age: 78 years old Clinical indication: Shortness of breath; Patient HX: Worsening SOB; Additional info: Increase in shortness of breath TECHNIQUE: Imaging protocol: Radiologic exam of the chest. Views: 1 view. COMPARISON: CR XR chest 1V portable [id number] 10/10/2023 12:48 PM FINDINGS: Lungs: Increasing left effusion with now near total opacification of the left hemithorax. The aerated left upper lobe is compressed. Atelectasis or consolidation within the left lung is also present. Atelectatic changes at the right lung base. Pleural spaces: Unremarkable. No pleural effusion. No pneumothorax. Heart/Mediastinum: Heart and mediastinum are normal. Bones/joints: Unremarkable. XR/XR chest 1V portable [id number] IMPRESSION: Increasing opacity on the left.
[2023-10-13 06:03] LABS: Alanine Aminotransferase 16 U/L (0-41); Albumin Level 3.3 g/dL (3.5-5.2); Alkaline Phosphatase 161 U/L (40-130); Anion Gap 20.3 (5-19); Aspartate Amino Transferase 13 U/L (0-40); Blood Urea Nitrogen 68 mg/dL (8-23); Calcium 12.6 mg/dL (8.5-10.5); Carbon Dioxide 20 mmol/L (22-29); Chloride 98 mmol/L (98-107); Glucose 146 mg/dL (65-115); Osmolality Calculated 298 mOsm/kg (285-295); Potassium 5.3 mmol/L (3.5-5.1); Sodium 133 mmol/L (136-145); Total Bilirubin 0.2 mg/dL (0.15-1.2); Total Protein 6.3 g/dL (6.6-8.7)
[2023-10-13] MEDS: methocarbamol 750 mg Tablet 1000 MG PO ×4 (08:56→20:24)
[2023-10-13] MEDS: pantoprazole DR 40 mg Tablet PO (08:56)
[2023-10-13] MEDS: allopurinol 100 mg Tablet PO (08:56)
[2023-10-13] MEDS: lidocaine 5% Patch 1 PATCH TOPICAL ×2 (09:09→20:24)
--- NOTE | 2023-10-13 10:38 | PC.NURSE ---
upon helping patient turn around up in bed this morning, this nurse noticed his yellow bag of medication in bed with patient. The medication was placed on the window behind the recliner without patients knowledge. 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 This nurse saw a bottle labeled Quetiapine 300MG to take one at bedtime. Another medication bottle with half tablets, no label on the bottle at all and a bottle labeled Troy extra strength Melatonin 10mg. Patient will not let anyone take the bag from the room. Notified Dr. Angulo.
[2023-10-13] MEDS: ondansetron 2 mg/ML SDV 2 mL 4 MG IVP (18:10)
[2023-10-13] MEDS: heparin 5,000 unit/mL INJ 1 mL 5000 UNIT SUBCUT (18:11)
--- NOTE | 2023-10-13 19:54 | P.PN_ITS ---
Subjective 2 Subjective: Abdominal pain is feeling better today. He had an episode of vomiting this morning. He is requiring more oxygen. Vitals/I&O/Wt Last Vital Signs Temp 98.2 F 10/13/23 15:00 Pulse 96 10/13/23 15:00 Resp 18 10/13/23 15:00 BP 111/64 10/13/23 15:00 Pulse Ox 95 10/13/23 15:00 O2 Del Method Nasal Cannula 10/13/23 15:00 O2 Flow Rate 5 10/13/23 14:48 FiO2 35 10/13/23 09:31 10/13/23 10/13/23 10/13/23 06:59 14:59 22:59 Intake Total 360 / 2100 720 / 720 Output Total 520 / 520 Balance 360 / 1600 200 / 200 Weight last 48 hrs Weight 79.549 kg Weight 79.549 kg Physical Exam 2 Narrative: Sitting up in bed. on return visit uncomfortable, holding onto right upper quadrant, tensing abdominal muscles stating it hurts on inspiration. Const: COMMON NORMALS: patient oriented x3 and alert GENERAL APPEARANCE: c ooperative ORIENTATION/CONSCIOUSNESS: Yes awake HENMT: COMMON NORMALS: oropharynx normal Neck/C-Spine: COMMON NORMALS: no JVD Resp: COMMON NORMALS: clear to auscultation bilaterally AUSCULTATION: clear to auscultation bilaterally and breath sounds absent on th left (Lower) O THER: Coarse breath sounds Cardio: COMMON NORMALS: no JVD, regular rhythm, S1 normal heart sound present, S2 normal heart sound present and No murmurs present (Cardio) RHYTHM: regular rhythm HEART SOUNDS: S1 normal heart sound present and S2 normal heart sound present GI: COMMON NORMALS: Normal to inspection, nondistended, normoactive bowel sounds present, Soft to palpation and non-tender PALPATION: Yes Soft to palpation Extremity: COMMON NORMALS: no joint enlargement and no pedal edema Neuro: COMMON NORMALS: patient oriented x3 and moves all extremities S ENSORIUM/ORIENTATION: Yes alert Skin: COMMON NORMALS: no rashes or lesions noted GENERAL SKIN EXAM: no rashes or lesions noted Data 10/13/23 05:26 10/13/23 05:26 A&P Assessment and plan (1) Pleural effusion on left: Worsening breath sounds in left lower lung. Chest x-ray repeated, noted worsening pleural effusion on the left. Discussed with stevedore dock, discussed with him, plans for Pleurx catheter tomorrow, he is in agreement. Atypical cells on review of prelim cythology path report. Suspicion for malignancy. Discussed with him. JUSTIN with reduced output from chest tube. Received alteplase via chest tube last night. Without change in output. Continue to monitor INR per discussion with pulmonology. Chest tube may be removed tomorrow. Monitor oxygenation. (2) Suspected lung cancer: Follow-up liver biopsy pathology. Follow-up cellblock results. Reviewed, so far pending. Severe right upper quadrant pain yesterday, reviewed ultrasound, CT abdomen pelvis, discussed results with him. No signs of perforation, hemorrhage, etc. previously known findings. Also incidentally noted enlarged nodular prostate projecting into the urinary bladder base. With contrast CT, risk of renal injury, follow-up kidney function. As needed muscle relaxer. with severity of the pain, recent procedure, (3) Bacteremia due to Streptococcus: CARLIE Results reviewed, cardiology notes reviewed. No suggestion of vegetation. Discussed with him. Will need to complete total at least 2 weeks of IV antibiotics, awaiting arrangements for penitentiary placement To complete IV infusions. Continue ceftriaxone. Reviewed Reviewed blood cultures. Repeat cultures remain negative. He had been having difficulty taking antibiotics overnight, as such we will discontinue Zosyn, vancomycin, switched to Rocephin. Complete what remains of the 2-week course with Rocephin IV 2 g daily. (4) Pneumonia: reviewed CBC, Noted again severe leukocytosis worsening up to 59, suspect secondary malignancy, possibly to worsening pleural effusion, plans for drainage tomorrow. Possible, leukemoid reaction versus secondary to underlying malignancy. Continue IV antibiotic treatment. reviewed peripheral smear, noted leukocytosis with left shift, eosinophilia, marked thrombocytosis, moderate normocytic anemia. Completed course of Zosyn, vancomycin, switched to ceftriaxone as above for bacteremia. Continue treatment of pneumonia. Continues to require Lasix nasal cannula oxygen. Subjectively he is feeling slightly better with chest tube. No empyema. Reassess CT chest as per discussion with stevedore dock. Concern for possibility of underlying malignancy, will be needing further evaluation. Discussed with him. Reviewed CBC, noted severe leukocytosis 37.44. Possible leukemoid reaction with noted elevation of neutrophils, monocytes, eos, basophils. Peripheral smear has been requested. Concern for possible parapneumonic effusion. Additionally some report of right lower chest/right upper quadrant pain, so hepatobiliary ultrasound with unremarkable gallbladder. Reviewed repeat blood culture, noted unremarkable to date. Reviewed fungal sputum culture, so far no fungal elements. Original blood culture identification are coccus viridans. TTE without obvious vegetation, although technically limited study. Continue antibiotic coverage at this time. Consideration of further assessment with CARLIE. Urine Legionella, bacterial antigen negative. MRSA swab not collected yet, follow-up fluid ADA and QuantiFERON results. Low suspicion of tuberculosis for now. Continues for now on IV Zosyn, IV vancomycin. Monitor renal function, at risk of renal dysfunction with this combination. Appreciate CT chest results. Concerning for loculated fluid collection, postobstructive pneumonia with pulmonary nodules. Will need further diagnostic evaluation for possible obstructive lesion. Qualifiers: Pneumonia type: due to group B Streptococcus Laterality: left Lung location: upper lobe of lung Qualified Code(s): J15.3 - Pneumonia due to streptococcus, group B (5) Respiratory failure with hypoxia: Resolved. Most likely in setting of pneumonia with mild exacerbation of COPD. Oxygen supplementation keeping saturation over 90%. Hold off on steroids for now. DuoNebs every 6 hours, Pulmicort twice daily. Mucomyst every 6 hours as needed. Aggressive pulmonary toilet with I-S and Acapella. Out of bed to chair. D-dimer elevated. PE less likely. Awaiting ventilation/perfusion scan. Qualifiers: Chronicity: acute on chronic Qualified Code(s): J96.21 - Acute and chronic respiratory failure with hypoxia (6) Acute on chronic renal insufficiency: Reviewed chemistry, again noted creatinine of 2, slight improvement. Repeat albumin. Follow-up chemistry. Baseline creatinine ranging from 1-1.3. Creatinine with mild improvement at 1.7. Medical reconciliation done for nephrotoxic drugs. Continue with IV fluids with normal saline at 75 cc/h. Appreciate urine lites. Echocardiogram pending. (7) Polysubstance abuse: Urine drug screen positive for amphetamines. Patient gives history of occasional meth use. Reports that he was smoking and pipe. Denies any injection drug use. It did not make him feel good, does not intend to return to it. Continue to monitor. (8) Thrombocytosis: In setting of dehydration along with acute infection. Fluid as above. Monitor. Plan Incidentally noted enlarged nodular prostate projecting into the urinary bladder base. Consider follow-up with PSA. Discussed with him. Hyperkalemia: Changed to low potassium diet. Anemia: Baseline hemoglobin seems to be around 8. Appreciate iron panel, vitamin B12 and folate levels. Transfuse if hemoglobin drops below 8. Continue to monitor CBC daily for now. CODE STATUS: Discussed in detail with patient. He lives by himself. His nephew will be the DPOA if is not able to make his medical decisions. Full code Regular diet Protonix for PUD prophylaxis Heparin 5000 every 12 hourly for DVT prophylaxis. Attestations 2 Medical Necessity Statement*: Continue admission for assessment management of recurrent left-sided pleural effusion, assessment of Metastatic malignancy, lcomplicated pneumonia, gram-positive bacteremia. Diagnoses Pleural effusion on left J90 Suspected lung cancer R68.89 Bacteremia due to Streptococcus R78.81; B95.5 Pneumonia of left upper lobe due to group B Streptococcus J15.3 Pneumonia type: due to group B Streptococcus Laterality: left Lung location: upper lobe of lung Acute on chronic respiratory failure with hypoxia J96.21 Chronicity: acute on chronic Acute on chronic renal insufficiency N28.9; N18.9 Polysubstance abuse F19.10 Thrombocytosis D75.839
[2023-10-13] MEDS: cefTRIAXone 2,000 MG in sodium chloride 0.9% (plus) 50 ML 100 MG IV (20:23)
[2023-10-13] MEDS: quetiapine 300 mg Tablet PO (20:24)
[2023-10-14] VITALS (19 sets, daily range): BP systolic 110–164; BP diastolic 54–71; PULSE 72–88; RESP 12–22; TEMP 35.9–37; O2SAT 88–100; BMI 23.9
[2023-10-14 07:04] LABS: Basophils # 0.3 10^3/uL (0.0-0.1); Basophils % 0.5 %; Eosinophils # 2.9 10^3/uL (0.0-0.8); Eosinophils % 5.2 %; Lymphocytes # 1.6 10^3/uL (0.8-4.8); Lymphocytes % 2.9 %; Mean Corpuscular HGB Conc 32.9 g/dL (30-55); Mean Corpuscular Hemoglobin 29.7 pg (27-33); Mean Corpuscular Volume 90.2 fl (82-101); Mean Platelet Volume 10.6 fL (7.4-10.4); Monocytes # 3.3 10^3/uL (0.2-0.9); Monocytes % 5.9 %; Neutrophils # 45.61 10^3/uL (1.8-7.7); Neutrophils % 81.9 %; Nucleated Red Blood Cells % 0 %; Platelet Count 576 10^3/cmm (157-399); Red Blood Count 2.66 10^6/uL (3.85-5.65); Red Cell Distribution Width 14.7 % (12.1-15.1)
[2023-10-14] MEDS: budesonide 0.5 mg/2 mL Neb INHALATION ×2 (07:40→21:02)
[2023-10-14] MEDS: ipratropium-albuterol 3 mL Neb INHALATION ×2 (07:40→21:03)
[2023-10-14 07:42] LABS: Alanine Aminotransferase 16 U/L (0-41); Albumin Level 3.1 g/dL (3.5-5.2); Alkaline Phosphatase 176 U/L (40-130); Anion Gap 21.4 (5-19); Aspartate Amino Transferase 16 U/L (0-40); Blood Urea Nitrogen 78 mg/dL (8-23); Calcium 13.5 mg/dL (8.5-10.5); Carbon Dioxide 20 mmol/L (22-29); Chloride 98 mmol/L (98-107); Globulin 2.9 g/dL (1.3-4.6); Glucose 117 mg/dL (65-115); Osmolality Calculated 302 mOsm/kg (285-295); Potassium 5.4 mmol/L (3.5-5.1); Sodium 134 mmol/L (136-145); Total Bilirubin 0.2 mg/dL (0.15-1.2)
[2023-10-14] MEDS: acetaminophen 325 mg Tablet 650 MG PO (09:51)
[2023-10-14] MEDS: lidocaine 5% Patch 1 PATCH TOPICAL ×2 (09:51→20:30)
[2023-10-14] MEDS: bisacodyl 5 mg Tablet 10 MG PO (09:51)
[2023-10-14] MEDS: pantoprazole DR 40 mg Tablet PO (09:51)
[2023-10-14] MEDS: allopurinol 100 mg Tablet PO (09:51)
[2023-10-14] MEDS: lactulose oral liq 20 gm/30 mL UDC 10 GM PO (09:52)
[2023-10-14] MEDS: methocarbamol 750 mg Tablet 1000 MG PO ×3 (09:52→20:27)
[2023-10-14 10:29] LABS: White Blood Count 55.64 10^3/uL (3.29-11.43)
[2023-10-14] MEDS: sodium chloride 0.9% 1,000 ML 30 ML IV (11:00)
--- NOTE | 2023-10-14 11:49 | P.PN_ITS ---
Subjective 2 Subjective: Patient oxygen requirement went up to 5 L Chest x-ray showed increasing left pleural effusion with near total opacification of left hemithorax. Pulmonary reconsulted for Ángel drain placement Patient seen at bedside-appeared weak-saturating 96% on 5 L nasal cannula Other labs and imaging reviewed-continues to have significant leukocytosis; no fevers -Blood cultures 10/04/2023-Aerococcus; jonatan fischer is on Rocephin-CARLIE 10/11/2023-no vegetations -He underwent ultrasound-guided liver bi opsy-pathology pending Medications: Reviewed: Yes Vitals/I&O/Wt Last Vital Signs Temp 97 F L 10/14/23 11:41 Pulse 81 10/14/23 11:41 Resp 21 H 10/14/23 11:41 BP 121/71 10/14/23 11:41 Pulse Ox 100 10/14/23 11:41 O2 Del Method Nasal Cannula 10/14/23 11:41 O2 Flow Rate 4 10/14/23 11:41 FiO2 35 10/13/23 09:31 10/13/23 10/14/23 10/14/23 22:59 06:59 14:59 Intake Total 50 / 770 Balance 50 / 250 Weight last 48 hrs Weight 181 lb 4.8 oz Weight 175 lb 6 oz Physical Exam 2 Narrative: General: alert, NAD HEENT: conj clear, EOMI, PERRL, mmm, Neck: supple, no meningismus Heme: no cervical LAP Respiratory: Inspection: No visible deformity of the chest wall Palpation: Trachea is mildly deviated to the right, bilateral symmetric expansion Percussion: Bilateral tympanic percussion note both anterior and posteriorly Auscultation: Reduced breath sounds on left lower lung zone Cardiovascular: rrr, nl s1s2, no mrg Abdomen: soft, nt, nd, no r/g, bs+ Extremities: pulses +, no edema, no c/c : no CVA tenderness Skin: intact, no rash MSK: no back or neck pain Neurologic: grossly intact Data 10/14/23 06:18 10/14/23 06:18 Other Labs: Radiology Impressions Chest CT 10/08/23 10:21 IMPRESSION: 1. Left-sided chest tube seen with tip in a moderate to large left pleural effusion along with a small amount air in the left pleural space, negative for definite loculation seen. 2. Left hilar to lingular and upper lobe dense airspace opacification measuring up to 7.6 cm, similar to prior exam may reflect a combination of pneumonia and malignancy. 3. Multiple bilateral pulmonary nodules measuring up to 6 mm in the right upper lobe, likely reflecting metastatic disease. 4. Scattered enlarged mediastinal lymph nodes measuring up to 12 mm, nonspecific. 5. Cardiomegaly. 6. Coronary artery atherosclerotic calcifications. 7. Multifocal probable metastatic lesions seen throughout the liver similar to prior exam measuring up to the 4.9 cm. 8. Bilateral renal cysts, negative for follow-up advised. 9. Perinephric edema bilaterally likely reflecting renal insufficiency. 10. Right lower lobe atelectasis versus minimal infiltrate. COMMENTS: Consistent with the [employer]'s Incidental Findings Committee white paper (J Am Aleida Radiol 2018): Any incidental renal lesion less than 1 cm or classified as too small to characterize, or any incidental cystic renal lesion characterized as simple-appearing, is likely benign. No follow-up imaging is recommended for these lesions per consensus recommendations based on imaging criteria. Abdomen X-Ray 10/11/23 23:59 IMPRESSION: 1. Moderate to severe constipation. 2. Multilevel severe disc space narrowing with bridging degenerative osteophytes throughout the spine. 3. Right hip arthroplasty changes. Abdomen Ultrasound 10/12/23 16:39 IMPRESSION: No acute sonographic findings. Abdomen/Pelvis CT 10/12/23 18:29 IMPRESSION: 1. Multiple low-density hepatic masses, consistent with metastatic disease. 2. Osseous metastatic disease, as described above. 3. Enlarged, nodular prostate, projecting into the urinary bladder base. Correlate with clinical exam and PSA levels. 4. Heterogeneous left basilar consolidation, likely reflecting atelectasis, pneumonia and/or malignancy. 5. Unchanged right basilar nodular densities. 6. Large left pleural effusion, increased in size since the prior study. 7. Additional findings, as above. COMMENTS: Consistent with the [employer]'s Incidental Findings Committee white paper (J Am Aleida Radiol 2018): Any incidental renal lesion less than 1 cm or classified as too small to characterize, or any incidental cystic renal lesion characterized as simple-appearing, is likely benign. No follow-up imaging is recommended for these lesions per consensus recommendations based on imaging criteria. Chest X-Ray 10/13/23 05:54 IMPRESSION: Increasing opacity on the left. Laboratory Results WBC 55.64 10^3/uL (3.29-11.43) H* 10/14/23 06:18 RBC 2.66 10^6/uL (3.85-5.65) L 10/14/23 06:18 Hgb 7.90 g/dL (11.27-16.99) L 10/14/23 06:18 Hct 24.0 % (37-53) L 10/14/23 06:18 MCV 90.2 fl (82-101) 10/14/23 06:18 MCH 29.7 pg (27-33) 10/14/23 06:18 MCHC 32.9 g/dL (30-55) 10/14/23 06:18 RDW 14.7 % (12.1-15.1) 10/14/23 06:18 Plt Count 576 10^3/cmm (157-399) H 10/14/23 06:18 MPV 10.6 fL (7.4-10.4) H 10/14/23 06:18 Neut % (Auto) 81.9 % 10/14/23 06:18 Lymph % (Auto) 2.9 % 10/14/23 06:18 Grand % (Auto) 5.9 % 10/14/23 06:18 Eos % (Auto) 5.2 % 10/14/23 06:18 Baso % (Auto) 0.5 % 10/14/23 06:18 Neut # (Auto) 45.61 10^3/uL (1.8-7.7) H 10/14/23 06:18 Lymph # (Auto) 1.6 10^3/uL (0.8-4.8) 10/14/23 06:18 Grand # (Auto) 3.3 10^3/uL (0.2-0.9) H 10/14/23 06:18 Eos # (Auto) 2.9 10^3/uL (0.0-0.8) H 10/14/23 06:18 Baso # (Auto) 0.3 10^3/uL (0.0-0.1) H 10/14/23 06:18 Nucleated RBC % (auto) 0 % 10/14/23 06:18 Nucleated RBCs # 0.0 /100WBC 10/14/23 06:18 Peripher Smr Path Cons Sent for review 10/07/23 04:11 PT 13.50 SECONDS (12.1-14.9) 10/04/23 11:45 INR 1.00 (0.8-1.2) 10/04/23 11:45 D-Dimer 5.89 ug/mLFEU (0-0.59) H 10/04/23 11:45 Sodium 134 mmol/L (136-145) L 10/14/23 06:18 Potassium 5.4 mmol/L (3.5-5.1) H 10/14/23 06:18 Chloride 98 mmol/L (98-107) 10/14/23 06:18 Carbon Dioxide 20 mmol/L (22-29) L 10/14/23 06:18 Anion Gap 21.4 (5-19) H 10/14/23 06:18 BUN 78 mg/dL (8-23) H 10/14/23 06:18 Creatinine 3.4 mg/dL (0.7-1.2) H 10/14/23 06:18 GFR Calculation Not Reportable 10/14/23 06:18 Glucose 117 mg/dL (65-115) H 10/14/23 06:18 POC Glucose 149 mg/dL (70-110) H 10/06/23 15:57 Estimat Average Glucose 105 10/05/23 04:50 Hemoglobin A1c 5.3 % (4.0-6.0) 10/05/23 04:50 Calculated Osmolality 302 mOsm/kg (285-295) H 10/14/23 06:18 Lactic Acid 1.8 mmol/L (0.5-2.2) 10/04/23 12:53 Uric Acid 11.7 mg/dL (3.4-7.0) H 10/04/23 11:45 Calcium 13.5 mg/dL (8.5-10.5) H 10/14/23 06:18 Phosphorus 4.1 mg/dL (2.5-4.5) 10/05/23 04:50 Magnesium 1.9 mg/dL (1.7-2.3) 10/05/23 04:50 Iron 21 ug/dL (59-158) L 10/04/23 11:45 TIBC 348 mcg/dl 10/04/23 11:45 % Saturation 6.0 % (20-50) L 10/04/23 11:45 Unsat Iron Binding 327 ug/dL (112-347) 10/04/23 11:45 Total Bilirubin 0.2 mg/dL (0.15-1.2) 10/14/23 06:18 AST 16 U/L (0-40) 10/14/23 06:18 ALT 16 U/L (0-41) 10/14/23 06:18 Alkaline Phosphatase 176 U/L (40-130) H 10/14/23 06:18 Lactate Dehydrogenase 167 U/L (135-225) 10/04/23 11:45 Troponin T Baseline 39 ng/L (0-15) H 10/04/23 11:45 Troponin T 120 Minute 36.53 ng/L (0-15) H 10/04/23 13:53 Delta Troponin T -2.47 ABS# (0-10) L 10/04/23 13:53 Troponin T Hi Sens 6Hr 33.82 ng/L (0-15) H 10/04/23 18:27 Troponin T Hi Sens 6Hr Delta -5.18 ng/L (0-12) L 10/04/23 18:27 C-Reactive Protein 98.7 mg/L (0.0-4.9) H 10/04/23 11:45 Total Protein 6.0 g/dL (6.6-8.7) L 10/14/23 06:18 Albumin 3.1 g/dL (3.5-5.2) L 10/14/23 06:18 Globulin 2.9 g/dL (1.3-4.6) 10/14/23 06:18 Triglycerides 54 mg/dL (0-150) 10/05/23 04:50 Cholesterol 118 mg/dL (0-200) 10/05/23 04:50 LDL Cholesterol, Calc 56 mg/dL (50-129) 10/05/23 04:50 HDL Cholesterol 51 mg/dL (60-100) L 10/05/23 04:50 LDL/HDL Ratio 1.10 RATIO (0.00-3.22) 10/05/23 04:50 Cholesterol/HDL Ratio 2.31 mg/dL (1.0-5.00) 10/05/23 04:50 Vitamin B12 1178 pg/mL (232-1245) 10/04/23 11:45 Folate 18.5 ng/mL (4.5-32.2) 10/05/23 04:50 Procalcitonin 0.31 ng/mL (0-0.5) 10/04/23 11:45 TSH 1.24 uIU/mL (0.27-4.20) 10/04/23 13:53 Urine Color Yellow (Yellow) 10/04/23 12:24 Urine Appearance Clear (CLEAR) 10/04/23 12:24 Urine pH 5 (5-7) 10/04/23 12:24 Ur Specific [place] 1.025 (1.005-1.030) 10/04/23 12:24 Urine Protein Neg (Negative) 10/04/23 12:24 Urine Glucose (UA) Norm (Normal) 10/04/23 12:24 Urine Ketones Negative (Negative) 10/04/23 12:24 Urine Blood Neg (Negative) 10/04/23 12:24 Urine Nitrate Negative (Negative) 10/04/23 12:24 Urine Bilirubin Neg (Negative) 10/04/23 12:24 Urine Urobilinogen Norm mg/dL (Negative) 10/04/23 12:24 Ur Leukocyte Esterase Negative (Negative) 10/04/23 12:24 Ur Eosinophil Smear 0 (0-0) 10/04/23 12:24 Urine Eosinophils No eosinophils seen 10/04/23 12:24 Ur Random Sodium 29 mmol/L 10/04/23 12:24 Ur Random Potassium 58 mmol/L 10/04/23 12:24 Ur Random Chloride 13 mmol/L 10/04/23 12:24 Urine Creatinine 151 mg/dL (39-259) 10/04/23 12:24 Fluid Color Pale yellow 10/04/23 14:31 Fluid Appearance Clear 10/04/23 14:31 Fluid Specific Grav 1.010 10/04/23 14:31 Fluid pH 8.0 10/04/23 14:31 Fluid WBC 918 /uL 10/04/23 14:31 Fluid RBC 1.000 10^3/uL 10/04/23 14:31 Fld Polynuclear WBCs # 0.220 10/04/23 14:31 Fld Polynuclear WBCs % 23.900 % 10/04/23 14:31 Fl Mononucl WBCs #(Auto) 0.698 10/04/23 14:31 Fl Mononuclear % Auto 76.100 % 10/04/23 14:31 Fld Crystal Laterality Left pleural eff. 10/04/23 14:31 Fluid Glucose 133.0 mg/dL 10/04/23 14:31 Fluid Albumin 2.8 g/dL 10/04/23 14:31 Fluid LDH 132 U/L 10/04/23 14:31 Fluid Amylase 24 U/L 10/04/23 14:31 Fluid Alk Phosphatase 77 IU/L 10/04/23 14:31 Fluid Cholesterol 92 mg/dL (0-200) 10/04/23 14:31 Fluid Triglycerides 40 mg/dL (0-150) 10/04/23 14:31 Fluid Uric Acid 11 mg/dL 10/04/23 14:31 Pleural Total Protein 4.5 g/dL 10/04/23 14:31 Pleur Adenosine Deamin 5.7 U/L (<9.2) 10/04/23 Unknown Vancomycin Trough 22.1 ug/mL (10-15) H 10/12/23 05:17 Urine Opiates Screen Negative ng/mL (Negative) 10/04/23 12:24 Ur Barbiturates Screen Negative ng/mL (Negative) 10/04/23 12:24 Ur Phencyclidine Scrn Negative ng/mL (Negative) 10/04/23 12:24 Ur Amphetamines Screen Positive ng/mL (Negative) H 10/04/23 12:24 U Benzodiazepines Scrn Negative ng/mL (Negative) 10/04/23 12:24 Urine Cocaine Screen Negative ng/mL (Negative) 10/04/23 12:24 U Marijuana (THC) Screen Positive ng/mL (Negative) H 10/04/23 12:24 MRSA (PCR) Not detected (NOT DETECTED) 10/07/23 11:00 TB (QFT) Gold In Tube Indeterminate (NEGATIVE) A 10/04/23 16:45 TB Test (QFT) Nil 0.02 IU/mL 10/04/23 16:45 TB Test (QFT) Mitogen 0.08 IU/mL 10/04/23 16:45 TB Test Mitogen - Nil <0.00 IU/mL 10/04/23 16:45 TB Test TB -Nil <0.00 IU/mL 10/04/23 16:45 A&P Assessment and plan (1) Recurrent left pleural effusion: He underwent thoracentesis-by IR-drained 1100 cc pale yellow-colored fluid- Lymphocyte predominant exudative effusion-pH 8.0; WBC 918, lymphocyte predominant, glucose 133, LDH 132, total protein 4.5. Pleural fluid cultures are negative- There is a concern if there is any obstructing lesion As postthoracentesis CT chest showedLeft upper lung consolidation with air bronchograms.There are multiple bilateral pulmonary nodules measuring 8 mm in left upper lobe and 9 mm in right middle lobe.There are numerous suspicious appearing hepatic lesions as well. This fluid could be secondary to trapped lung Pleural fluid cytology positive for atypical cells consistent with malignancy- send additional pleural fluid to pathology to make a cell block to run immunohistochemical stains With given significant smoking history For more than 60 years-there is be possibility of underlying malignancy Patient has worsening leukocytosis-complaining of chest discomfort-bedside ultrasound showed significantly large pleural effusion-I have placed 14 [place] pigtail catheter and drained over 5 L over the next [address] chest-which showed there is loculated hydropneumothorax in the left lung base- suspicious for trapped lung physiology he received tpa 10 mg intrapleural with no significant improvement in drainage. The 14 [place] pigtail catheter was removed it 10/10/2023 However repeat chest x-ray 10/13/2023-showed almost complete opacification of left side with worsening pleural effusion. Decision is made to place a [place] drain today. Discussed indication, alternatives, nature of the procedure, risks and benefits of placing a Ángel drain-patient verbalized understanding and agreed to the procedure. (2) Respiratory failure with hypoxia: Likely secondary to left upper lobe pneumonia-CT chest showed left upper lobe opacity with air bronchograms Pleural fluid cultures negative Blood cultures positive for aerococcus viridans-repeat blood cultures negative; CARLIE to [place] 2022-no vegetations Bacterial antigens negative Patient is currently on Rocephin Qualifiers: Chronicity: acute on chronic Qualified Code(s): J96.21 - Acute and chronic respiratory failure with hypoxia (3) Suspected lung cancer: With significant smoking history-pleural cytology positive for atypical cells consistent with malignancy-suspect underlying lung cancer I sent additional pleural fluid to run immunohistochemical staining (4) Smoker: Tells me that he has smoked for 60 years but never more than a pack a day-Tells me that he does not use any inhalers. Encouraged to quit smoking (5) Polysubstance abuse: His U tox is positive for amphetamines and marijuana Encouraged to quit (6) COPD (chronic obstructive pulmonary disease): There is CT evidence of emphysema He needs PFTs as outpatient on discharge patient will get ICS/LAMA/LAMA Currently he is on scheduled nebulization Qualifiers: COPD type: emphysema Emphysema type: centrilobular Qualified Code(s): J43.2 - Centrilobular emphysema (7) Gram-positive cocci bacteremia: Blood cultures grew Aerococcus viridans Currently patient is on Rocephin Repeat cultures negative so far CARLIE 10/11/2023-no vegetations (8) Leukocytosis: Persistent leukocytosis-suspect secondary to underlying malignancy Qualifiers: Leukocytosis type: unspecified Qualified Code(s): D72.829 - Elevated white blood cell count, unspecified Attestations 2 Medical Necessity Statement*: Deferred to hospitalist Time Spent in Patient Care: Greater than 35 minutes (>than 50% of time spent in counselling and/or direct pt care on unit) . Coding Level of Care Code Acute Code for [facility] Fwd Diagnoses Recurrent left pleural effusion J90 Acute on chronic respiratory failure with hypoxia J96.21 Chronicity: acute on chronic Suspected lung cancer R68.89 Smoker F17.200 Polysubstance abuse F19.10 Centrilobular emphysema J43.2 COPD type: emphysema Emphysema type: centrilobular Gram-positive cocci bacteremia R78.81 Leukocytosis D72.829 Leukocytosis type: unspecified Time Spent (min) 55
[2023-10-14] MEDS: fentaNYL 50 mcg/mL INJ 2mL IVP (13:25)
[2023-10-14] MEDS: midazolam 1 mg/mL INJ 2 mL 2 MG IVP (13:26)
[2023-10-14] MEDS: lidocaine 1% INJ 10 mL (per mL) INJECTION (13:31)
[2023-10-14 13:39] LABS: Calcium 13.2 mg/dL (8.5-10.5)
[2023-10-14 13:46] LABS: Parathyroid Hormone 8.6 pg/mL (15-65)
--- NOTE | 2023-10-14 13:47 | XR_ITS ---
WS: [id number] Exam: XR chest 1V portable [id number] Date/Time of Exam: 10/14/2023 1:50 PM Reason For Exam: post ariel drain placement Comparison 10/13/2023. Large left-sided pleural effusion noted with minimal improvement. A left-sided thoracostomy tube seen in the upper left pleural cavity. Heart size is unchanged. The RIGHT lung remains clear. The mediast inum is unremarkable for technique. Bony structures are intact. No pneumothorax is visualized. IMPRESSION: 1. Large left-sided pleural effusion showing mild improvement since the prior study. 2. LEFT thoracostomy tube noted in the upper LEFT pleural cavity. 3. The remainder of the chest is unchanged.
--- NOTE | 2023-10-14 14:00 | P.OP_ITS ---
Operative Report Date of procedure: October 14, 2023 Pre-op diagnosis: Recurrent left pleural effusion-probably malignant Post-op diagnosis: Same Procedure done: PROCEDURE PERFORMED: Pleural drainage, percutaneous, with insertion of indwelling catheter; with imaging guidance Surgeon: Cuong Durham MD Complications: None Brief History: Mr. Seferino Barbosa is a 78-year-old male with past medical history of gout, COPD not on oxygen admitted for large left pleural effusion. Earlier during admission-I have 14 [place] pigtail was placed and about 5.5 L of straw-colored fluid was drained and the catheter was removed. Cytology from pleural fluid suspicious for malignancy. His imaging also showed lesions in liver as well as in bone. He underwent ultrasound-guided biopsy of liver lesion-pathology is pending While awaiting for placement and pathology results-patient left pleural effusion has worsened and his oxygen requirement increased from 2 L to 5 L. Today he is scheduled for ultrasound-guided Ángel drain placement in left pleural cavity for recurrent left pleural effusion for palliative purposes. Explained the complications involved with insertion of indwelling catheter like pneumothorax, bleeding, infections to the patient. He verbalized understanding and agreed to do the procedure. Procedure: Procedure: DATE OF PROCEDURE: 10/14/2023 PREOPERATIVE DIAGNOSIS: Recurrent left pleural effusion causing symptomatic dyspnea in patient with suspected lung malignancy. POSTOPERATIVE DIAGNOSIS: Recurrent left pleural effusion causing symptomatic dyspnea and patient with suspected lung malignancy. PROCEDURE PERFORMED: Pleural drainage, percutaneous, with insertion of indwelling catheter; with imaging guidance SURGEON: Cuong Durham MD [facility] ANESTHESIA: Moderate sedation with Versed 2 Mg, fentanyl 25 MCG-managed as per anesthesia team ASA: 3 INDICATION FOR PROCEDURE: Recurrent left pleural effusion causing symptomatic dyspnea. In an effort to palliate respiratory symptoms, PleurX catheter placement was considered for home drainage. The patient understood the risks and possible complications of the procedure and wished to proceed. DESCRIPTION OF PROCEDURE: The patient was brought to the operating room. He was placed supine on the operating table. He was connected to telemetry, oxy gen, hemodynamic monitoring. After doing appropriate timeout, patient was given moderate sedation as per anesthesia team. The patient was then positioned with the head up and a roll under the left shoulder. The left chest and upper abdomen were prepped and draped in the usual sterile fashion. 10 cc 1% local lidocaine is used for local anesthesia. A small counterincision was made in the left upper quadrant area. Through the anterior axillary line area, the pleural space was accessed by Seldinger technique using ultrasound guidance. The counterincision was made around the guidewire and then the indwelling PleurX catheter was tunneled from the left upper quadrant small incision to the one overlying the ribs. After appropriate dilation a sheath introducer was then passed over the wire and then the PleurX catheter was placed through the sheath introducer. There was good return of fluid. 1 liters of straw-colored fluid was withdrawn slowly as the small counterincision was closed with Monocryl stitch. The catheter was capped off, and sterile dressings were applied. The patient tolerated the procedure well without any complications. The patient vitals remai johnson stable. Sponge and needle count was correct at the end of the case. OPERATIVE FINDINGS: 1 L of straw-colored was withdrawn before clamping the drainage tube. There were overt no bleeding complications. Estimated blood loss: 5 to 10 cc Immediate complications: None Related Problem List Diagnoses (1) Suspected lung cancer: (2) Recurrent left pleural effusion:
[2023-10-14] MEDS: sodium chloride 0.9% 1,000 ML 75 ML IV (15:33)
--- NOTE | 2023-10-14 15:56 | PC.SOCIAL ---
IMM Updated updated pt on IMM. No questions voiced. Provided pt a copy. Initialed, dated, & timed copy in chart.
--- NOTE | 2023-10-14 17:16 | P.PN_ITS ---
Subjective 2 Subjective: hospital course, labs appreciated. Patient seen sitting up in chair today. On 4 to 5 L of oxygen supplementation. Patient complaining of abdominal distention, right upper quadrant pain which has resolved now, mild difficulty in breathing. Labs appreciated for severe leukocytosis, hemoglobin down to 7.9, thrombocytosis, worsening renal function and potassium of 5.4 today. Medications: Reviewed: Yes Vitals/I&O/Wt Last Vital Signs Temp 97 F L 10/14/23 13:47 Pulse 72 10/14/23 15:45 Resp 20 H 10/14/23 15:45 BP 134/57 10/14/23 14:00 Pulse Ox 95 10/14/23 15:45 O2 Del Method Nasal Cannula 10/14/23 15:45 O2 Flow Rate 3 10/14/23 15:45 FiO2 35 10/13/23 09:31 10/14/23 10/14/23 10/14/23 06:59 14:59 22:59 Intake Total 400 / 400 Balance 400 / 400 Weight last 48 hrs Weight 82.236 kg Weight 79.549 kg Physical Exam 2 Narrative: General: No acute distress, AO x3, NC oxygen supplementation, chronically sick appearing HEENT: PERRLA, pupils bilaterally equal and reactive Chest: Bilateral bronchial breath sounds all over lung [place] with diffuse rhonchi and occasional crackles, decreased air entry in left middle and lower zone, tenderness in left hemithorax infra axillary CVS: S1-S2 regular, no murmurs, no tachycardia, no gallops, no rubs Abdomen: Soft, generalized tenderness more so in right upper quadrant, distended, no organomegaly, bowel sounds present, morbidly obese Neuro: No focal deficits, no facial deformity, AO x3, power 5/5 in all limbs Data 10/14/23 06:18 10/14/23 06:18 A&P Assessment and plan (1) Respiratory failure with hypoxia: Persistent hypoxia most likely in setting of lung malignancy and postobstructive pneumonia and pleural effusion. Appreciate pulmonary recommendations. Aggressive pulmonary toilet with I-S and Acapella. Plan for Pleurx catheter today. Fluid ADA negative, QuantiFERON indeterminate. Low suspicion for TB for now. Discussed in detail with pulmonology. Will cancel isolation. Out of bed to chair. D-dimer elevated. PE less likely. Awaiting ventilation/perfusion scan. Qualifiers: Chronicity: acute on chronic Qualified Code(s): J96.21 - Acute and chronic respiratory failure with hypoxia (2) Pleural effusion on left: Most likely in setting of malignancy. Plan for Pleurx catheter today. Patient is post removal of chest tube. Fluid has reaccumulated. Fluid studies positive for atypical cells. Appreciate pulmonology recommendations. (3) Suspected lung cancer: Follow-up liver biopsy pathology. Follow-up cellblock results. Reviewed, so far pending. (4) Bacteremia due to Streptococcus: CARLIE negative for endocarditis. Most likely in setting of streptococcal pneumonia. Final blood cultures changed to Eliquis prudence. Continue with IV ceftriaxone 2 g daily for Aerococcus viridans bacteremia. Plan to continue IV antibiotics for 2 weeks from first negative blood cultures. (5) Pneumonia: Most likely in setting of pneumonia. Cannot rule out postobstructive pneumonia. -Supplementation keeping saturation 90%. Pulmicort twice daily, DuoNebs every 6 hours. Qualifiers: Pneumonia type: due to group B Streptococcus Laterality: left Lung location: upper lobe of lung Qualified Code(s): J15.3 - Pneumonia due to streptococcus, group B (6) Acute on chronic renal insufficiency: Renal function worsening. Baseline creatinine 1-1.3. Most likely dehydration from poor oral intake along with IV contrast for CT abdomen pelvis few days ago. Start on IV hydration. Also has hyperkalemia. Check PTH. Medical reconciliation done for nephrotoxic drugs. Monitor BMP daily. Does have mild hyperkalemia. Hold off on any further potassium supplementation. Monitor BMP daily. Appreciate echocardiogram. (7) Polysubstance abuse: Urine drug screen positive for amphetamines. Patient gives history of occasional meth use. Reports that he was smoking and pipe. Denies any injection drug use. It did not make him feel good, does not intend to return to it. Continue to monitor. (8) Thrombocytosis: In setting of dehydration along with acute infection. Fluid as above. Monitor. Plan Incidentally noted enlarged nodular prostate projecting into the urinary bladder base. Consider follow-up with PSA. Discussed with him. Hyperkalemia: Changed to low potassium diet. Anemia: Baseline hemoglobin seems to be around 8. Appreciate iron panel, vitamin B12 and folate levels. Transfuse if hemoglobin drops below 8. Continue to monitor CBC daily for now. CODE STATUS: Discussed in detail with patient. He lives by himself. His nephew will be the DPOA if is not able to make his medical decisions. Full code. Given new diagnosis of lung malignancy will discuss further again. Regular diet Protonix for PUD prophylaxis Heparin 5000 every 12 hourly for DVT prophylaxis. Attestations 2 Medical Necessity Statement*: Requires further hospitalization for management of persistent hypoxia in setting of recurrent pleural effusion, possibility of lung malignancy, postobstructive pneumonia, Aerococcus bacteremia while safe discharge plan is sought Diagnoses Acute on chronic respiratory failure with hypoxia J96.21 Chronicity: acute on chronic Pleural effusion on left J90 Suspected lung cancer R68.89 Bacteremia due to Streptococcus R78.81; B95.5 Pneumonia of left upper lobe due to group B Streptococcus J15.3 Pneumonia type: due to group B Streptococcus Laterality: left Lung location: upper lobe of lung Acute on chronic renal insufficiency N28.9; N18.9 Polysubstance abuse F19.10 Thrombocytosis D75.839
[2023-10-14] MEDS: morphine 4 mg/mL SDV 1 mL 1 MG IVP ×2 (18:11→23:02)
[2023-10-14] MEDS: sennosides-docusate Tablet 1 TAB PO (18:11)
[2023-10-14] MEDS: magnesium hydroxide 30 mL UDC PO (18:11)
[2023-10-14 18:12] LABS: Specific Gravity, Urine 1.025 (1.005-1.030); Urine Appearance Clear (CLEAR); Urine Color Yellow (Yellow); pH Urine 5 (5-7)
[2023-10-14] MEDS: heparin 5,000 unit/mL INJ 1 mL 5000 UNIT SUBCUT (18:12)
[2023-10-14 18:13] LABS: Add Urine Microscopic? YES; Bilirubin Urine Neg (Negative); Blood Urine Neg (Negative); Glucose Urine UA Norm (Normal); Ketones Urine Negative (Negative); Leukocyte Esterase Urine Negative (Negative); Nitrate Urine Negative (Negative); Protein Urine Trace (Negative); Urobilinogen Urine Norm (Negative)
[2023-10-14 18:27] LABS: Amorphous Sediment Urine TRACE /hpf; Bacteria Urine TRACE /hpf; Fine Granular Casts Urine 0-4 /lpf; Hyaline Casts Urine 25-40 /lpf; Mucus Urine 1+ /hpf; RBC Urine 0-4 /hpf (0-2); Squamous Epithelial Cell Urine 0-4 /hpf (0-5); WBC Urine 0-4 /hpf (0-5)
[2023-10-14 18:28] LABS: Add Urine Culture? No
[2023-10-14 18:45] LABS: Potassium, Radom Urine 66 mmol/L; Urine Creatinine 165 mg/dL (39-259)
[2023-10-14 19:30] LABS: Eosinophil Urine No Eosinophils Seen; Urine Eosinophil Count 0 (0-0)
[2023-10-14] MEDS: cefTRIAXone 2,000 MG in sodium chloride 0.9% (plus) 50 ML 100 MG IV (20:25)
[2023-10-14 20:28] LABS: Urine Random Chloride < 10 mmol/L; Urine Random Sodium < 10 mmol/L
[2023-10-14] MEDS: quetiapine 100 mg Tablet 200 MG PO (20:28)
[2023-10-15] VITALS (13 sets, daily range): BP systolic 100–151; BP diastolic 55–70; PULSE 82–95; RESP 18–22; TEMP 36.5–36.9; O2SAT 91–95
[2023-10-15 05:09] LABS: Basophils # 0.4 10^3/uL (0.0-0.1); Basophils % 0.7 %; Eosinophils # 6.7 10^3/uL (0.0-0.8); Eosinophils % 12.8 %; Hematocrit 25.9 % (37-53); Lymphocytes # 1.3 10^3/uL (0.8-4.8); Lymphocytes % 2.5 %; Mean Corpuscular HGB Conc 32.4 g/dL (30-55); Mean Corpuscular Volume 92.5 fl (82-101); Mean Platelet Volume 10.2 fL (7.4-10.4); Monocytes # 2.5 10^3/uL (0.2-0.9); Monocytes % 4.8 %; Neutrophils # 39.97 10^3/uL (1.8-7.7); Neutrophils % 76.2 %; Nucleated Red Blood Cells % 0 %; Platelet Count 555 10^3/cmm (157-399); Red Cell Distribution Width 14.9 % (12.1-15.1)
[2023-10-15] MEDS: sodium chloride 0.9% 1,000 ML 75 ML IV (05:09)
[2023-10-15] MEDS: morphine 4 mg/mL SDV 1 mL 1 MG IVP ×2 (05:10→19:50)
[2023-10-15] MEDS: heparin 5,000 unit/mL INJ 1 mL 5000 UNIT SUBCUT ×2 (05:11→17:21)
[2023-10-15 05:22] LABS: White Blood Count 52.47 10^3/uL (3.29-11.43)
[2023-10-15 05:28] LABS: Alanine Aminotransferase 15 U/L (0-41); Albumin Level 2.8 g/dL (3.5-5.2); Alkaline Phosphatase 170 U/L (40-130); Anion Gap 23.8 (5-19); Aspartate Amino Transferase 17 U/L (0-40); Carbon Dioxide 17 mmol/L (22-29); Chloride 99 mmol/L (98-107); Globulin 2.7 g/dL (1.3-4.6); Glucose 127 mg/dL (65-115); Osmolality Calculated 307 mOsm/kg (285-295); Potassium 5.8 mmol/L (3.5-5.1); Sodium 134 mmol/L (136-145); Total Bilirubin 0.2 mg/dL (0.15-1.2); Total Protein 5.5 g/dL (6.6-8.7)
[2023-10-15 05:30] LABS: Blood Urea Nitrogen 90 mg/dL (8-23)
[2023-10-15] MEDS: budesonide 0.5 mg/2 mL Neb INHALATION ×2 (07:39→19:25)
[2023-10-15] MEDS: ipratropium-albuterol 3 mL Neb INHALATION ×2 (07:39→19:25)
[2023-10-15] MEDS: pantoprazole DR 40 mg Tablet PO (08:50)
[2023-10-15] MEDS: allopurinol 100 mg Tablet PO (08:50)
[2023-10-15] MEDS: sennosides-docusate Tablet 1 TAB PO ×2 (08:50→17:20)
[2023-10-15] MEDS: magnesium hydroxide 30 mL UDC PO (08:50)
[2023-10-15] MEDS: methocarbamol 750 mg Tablet 1000 MG PO ×4 (08:50→21:04)
[2023-10-15] MEDS: lidocaine 5% Patch 1 PATCH TOPICAL (08:51)
--- NOTE | 2023-10-15 11:10 | PM.PN ---
Subjective Subjective: Seen patient at bedside today Is sitting out of bed to chair-currently on 4 L supplemental oxygen Complained of pain in right upper quadrant pain and requesting for pain medication; apparently his morphine is held because of hypotension; recommended to give [place] every 6 hours as needed Drained 1 more liter of pleural fluid through Pleurx catheter Pathologist Dr. Frankel-reported seeing a large cell malignant cells on cell block-pathology is going to do immunohistochemical staining to differentiate adeno versus squamous. Liver lesion pathology is still pending. Other labs and imaging reviewed-patient still having persistent leukocytosis; worsening of BUN/creatinine, hyperkalemia potassium 5.8 Medications: Reviewed: Yes Vitals/I&O/Wt Last Vital Signs Temp 98.0 F 10/15/23 08:00 Pulse 89 10/15/23 08:00 Resp 20 H 10/15/23 08:00 BP 100/57 10/15/23 08:00 Pulse Ox 91 10/15/23 08:00 O2 Del Method Nasal Cannula 10/15/23 08:00 O2 Flow Rate 5 10/15/23 07:39 FiO2 35 10/13/23 09:31 10/14/23 10/15/23 10/15/23 22:59 06:59 14:59 Intake Total 50 / 450 1000 / 1450 480 / 480 Output Total 250 / 250 Balance -200 / 200 1000 / 1200 480 / 480 Weight last 48 hrs Weight 180 lb 9 oz Weight 181 lb 4.8 oz Physical Exam Narrative: General: alert, NAD HEENT: conj clear, EOMI, PERRL, mmm, Neck: supple, no meningismus Heme: no cervical LAP Respiratory: Inspection: No visible deformity of the chest wall Palpation: Trachea is mildly deviated to the right, bilateral symmetric expansion Percussion: Bilateral tympanic percussion note both anterior and posteriorly Auscultation: Reduced breath sounds on left lower lung zone Cardiovascular: rrr, nl s1s2, no mrg Abdomen: soft, nt, nd, no r/g, bs+ Extremities: pulses +, no edema, no c/c : no CVA tenderness Skin: intact, no rash MSK: no back or neck pain Neurologic: grossly intact Data 10/15/23 05:01 10/15/23 05:01 Other Labs: Radiology Impressions Chest CT 10/08/23 10:21 IMPRESSION: 1. Left-sided chest tube seen with tip in a moderate to large left pleural effusion along with a small amount air in the left pleural space, negative for definite loculation seen. 2. Left hilar to lingular and upper lobe dense airspace opacification measuring up to 7.6 cm, similar to prior exam may reflect a combination of pneumonia and malignancy. 3. Multiple bilateral pulmonary nodules measuring up to 6 mm in the right upper lobe, likely reflecting metastatic disease. 4. Scattered enlarged mediastinal lymph nodes measuring up to 12 mm, nonspecific. 5. Cardiomegaly. 6. Coronary artery atherosclerotic calcifications. 7. Multifocal probable metastatic lesions seen throughout the liver similar to prior exam measuring up to the 4.9 cm. 8. Bilateral renal cysts, negative for follow-up advised. 9. Perinephric edema bilaterally likely reflecting renal insufficiency. 10. Right lower lobe atelectasis versus minimal infiltrate. COMMENTS: Consistent with the [employer]'s Incidental Findings Committee white paper (J Am Aleida Radiol 2018): Any incidental renal lesion less than 1 cm or classified as too small to characterize, or any incidental cystic renal lesion characterized as simple-appearing, is likely benign. No follow-up imaging is recommended for these lesions per consensus recommendations based on imaging criteria. Abdomen X-Ray 10/11/23 23:59 IMPRESSION: 1. Moderate to severe constipation. 2. Multilevel severe disc space narrowing with bridging degenerative osteophytes throughout the spine. 3. Right hip arthroplasty changes. Abdomen Ultrasound 10/12/23 16:39 IMPRESSION: No acute sonographic findings. Abdomen/Pelvis CT 10/12/23 18:29 IMPRESSION: 1. Multiple low-density hepatic masses, consistent with metastatic disease. 2. Osseous metastatic disease, as described above. 3. Enlarged, nodular prostate, projecting into the urinary bladder base. Correlate with clinical exam and PSA levels. 4. Heterogeneous left basilar consolidation, likely reflecting atelectasis, pneumonia and/or malignancy. 5. Unchanged right basilar nodular densities. 6. Large left pleural effusion, increased in size since the prior study. 7. Additional findings, as above. COMMENTS: Consistent with the [employer]'s Incidental Findings Committee white paper (J Am Aleida Radiol 2018): Any incidental renal lesion less than 1 cm or classified as too small to characterize, or any incidental cystic renal lesion characterized as simple-appearing, is likely benign. No follow-up imaging is recommended for these lesions per consensus recommendations based on imaging criteria. Laboratory Results WBC 52.47 10^3/uL (3.29-11.43) H* 10/15/23 05:01 RBC 2.80 10^6/uL (3.85-5.65) L 10/15/23 05:01 Hgb 8.40 g/dL (11.27-16.99) L 10/15/23 05:01 Hct 25.9 % (37-53) L 10/15/23 05:01 MCV 92.5 fl (82-101) 10/15/23 05:01 MCH 30.0 pg (27-33) 10/15/23 05:01 MCHC 32.4 g/dL (30-55) 10/15/23 05:01 RDW 14.9 % (12.1-15.1) 10/15/23 05:01 Plt Count 555 10^3/cmm (157-399) H 10/15/23 05:01 MPV 10.2 fL (7.4-10.4) 10/15/23 05:01 Neut % (Auto) 76.2 % 10/15/23 05:01 Lymph % (Auto) 2.5 % 10/15/23 05:01 [place] % (Auto) 4.8 % 10/15/23 05:01 Eos % (Auto) 12.8 % 10/15/23 05:01 Baso % (Auto) 0.7 % 10/15/23 05:01 Neut # (Auto) 39.97 10^3/uL (1.8-7.7) H 10/15/23 05:01 Lymph # (Auto) 1.3 10^3/uL (0.8-4.8) 10/15/23 05:01 [place] # (Auto) 2.5 10^3/uL (0.2-0.9) H 10/15/23 05:01 Eos # (Auto) 6.7 10^3/uL (0.0-0.8) H 10/15/23 05:01 Baso # (Auto) 0.4 10^3/uL (0.0-0.1) H 10/15/23 05:01 Nucleated RBC % (auto) 0 % 10/15/23 05:01 Nucleated RBCs # 0.0 /100WBC 10/15/23 05:01 Peripher Smr Path Cons Sent for review 10/07/23 04:11 PT 13.50 SECONDS (12.1-14.9) 10/04/23 11:45 INR 1.00 (0.8-1.2) 10/04/23 11:45 D-Dimer 5.89 ug/mLFEU (0-0.59) H 10/04/23 11:45 Sodium 134 mmol/L (136-145) L 10/15/23 05:01 Potassium 5.8 mmol/L (3.5-5.1) H 10/15/23 05:01 Chloride 99 mmol/L (98-107) 10/15/23 05:01 Carbon Dioxide 17 mmol/L (22-29) L 10/15/23 05:01 Anion Gap 23.8 (5-19) H 10/15/23 05:01 BUN 90 mg/dL (8-23) H* 10/15/23 05:01 Creatinine 3.4 mg/dL (0.7-1.2) H 10/15/23 05:01 GFR Calculation Not Reportable 10/15/23 05:01 Glucose 127 mg/dL (65-115) H 10/15/23 05:01 POC Glucose 149 mg/dL (70-110) H 10/06/23 15:57 Estimat Average Glucose 105 10/05/23 04:50 Hemoglobin A1c 5.3 % (4.0-6.0) 10/05/23 04:50 Calculated Osmolality 307 mOsm/kg (285-295) H 10/15/23 05:01 Lactic Acid 1.8 mmol/L (0.5-2.2) 10/04/23 12:53 Uric Acid 11.7 mg/dL (3.4-7.0) H 10/04/23 11:45 Calcium 12.0 mg/dL (8.5-10.5) H 10/15/23 05:01 Phosphorus 4.1 mg/dL (2.5-4.5) 10/05/23 04:50 Magnesium 1.9 mg/dL (1.7-2.3) 10/05/23 04:50 Iron 21 ug/dL (59-158) L 10/04/23 11:45 TIBC 348 mcg/dl 10/04/23 11:45 % Saturation 6.0 % (20-50) L 10/04/23 11:45 Unsat Iron Binding 327 ug/dL (112-347) 10/04/23 11:45 Total Bilirubin 0.2 mg/dL (0.15-1.2) 10/15/23 05:01 AST 17 U/L (0-40) 10/15/23 05:01 ALT 15 U/L (0-41) 10/15/23 05:01 Alkaline Phosphatase 170 U/L (40-130) H 10/15/23 05:01 Lactate Dehydrogenase 167 U/L (135-225) 10/04/23 11:45 Troponin T Baseline 39 ng/L (0-15) H 10/04/23 11:45 Troponin T 120 Minute 36.53 ng/L (0-15) H 10/04/23 13:53 Delta Troponin T -2.47 ABS# (0-10) L 10/04/23 13:53 Troponin T Hi Sens 6Hr 33.82 ng/L (0-15) H 10/04/23 18:27 Troponin T Hi Sens 6Hr Delta -5.18 ng/L (0-12) L 10/04/23 18:27 C-Reactive Protein 98.7 mg/L (0.0-4.9) H 10/04/23 11:45 Total Protein 5.5 g/dL (6.6-8.7) L 10/15/23 05:01 Albumin 2.8 g/dL (3.5-5.2) L 10/15/23 05:01 Globulin 2.7 g/dL (1.3-4.6) 10/15/23 05:01 Triglycerides 54 mg/dL (0-150) 10/05/23 04:50 Cholesterol 118 mg/dL (0-200) 10/05/23 04:50 LDL Cholesterol, Calc 56 mg/dL (50-129) 10/05/23 04:50 HDL Cholesterol 51 mg/dL (60-100) L 10/05/23 04:50 LDL/HDL Ratio 1.10 RATIO (0.00-3.22) 10/05/23 04:50 Cholesterol/HDL Ratio 2.31 mg/dL (1.0-5.00) 10/05/23 04:50 Vitamin B12 1178 pg/mL (232-1245) 10/04/23 11:45 Folate 18.5 ng/mL (4.5-32.2) 10/05/23 04:50 Procalcitonin 0.31 ng/mL (0-0.5) 10/04/23 11:45 TSH 1.24 uIU/mL (0.27-4.20) 10/04/23 13:53 PTH Intact 8.6 pg/mL (15-65) L 10/14/23 09:18 Calcium (PTH Intact) 13.2 mg/dL (8.5-10.5) H 10/14/23 09:18 Urine Color Yellow (Yellow) 10/14/23 17:43 Urine Appearance Clear (CLEAR) 10/14/23 17:43 Urine pH 5 (5-7) 10/14/23 17:43 Ur Specific [place] 1.025 (1.005-1.030) 10/14/23 17:43 Urine Protein Trace (Negative) 10/14/23 17:43 Urine Glucose (UA) Norm (Normal) 10/14/23 17:43 Urine Ketones Negative (Negative) 10/14/23 17:43 Urine Blood Neg (Negative) 10/14/23 17:43 Urine Nitrate Negative (Negative) 10/14/23 17:43 Urine Bilirubin Neg (Negative) 10/14/23 17:43 Urine Urobilinogen Norm mg/dL (Negative) 10/14/23 17:43 Ur Leukocyte Esterase Negative (Negative) 10/14/23 17:43 Urine RBC 0-4 /hpf (0-2) H 10/14/23 17:43 Urine WBC 0-4 /hpf (0-5) H 10/14/23 17:43 Ur Eosinophil Smear 0 (0-0) 10/14/23 17:43 Ur Squamous Epith Cells 0-4 /hpf (0-5) H 10/14/23 17:43 Amorphous Sediment Trace /hpf 10/14/23 17:43 Urine Bacteria Trace /hpf (NONE) 10/14/23 17:43 Hyaline Casts 25-40 /lpf H 10/14/23 17:43 Fine Granular Casts 0-4 /lpf H 10/14/23 17:43 Urine Mucus 1+ /hpf 10/14/23 17:43 Urine Eosinophils No eosinophils seen 10/14/23 17:43 Ur Random Sodium < 10 mmol/L 10/14/23 17:43 Ur Random Potassium 66 mmol/L 10/14/23 17:43 Ur Random Chloride < 10 mmol/L 10/14/23 17:43 Urine Creatinine 165 mg/dL (39-259) 10/14/23 17:43 Fluid Color Pale yellow 10/04/23 14:31 Fluid Appearance Clear 10/04/23 14:31 Fluid Specific Grav 1.010 10/04/23 14:31 Fluid pH 8.0 10/04/23 14:31 Fluid WBC 918 /uL 10/04/23 14:31 Fluid RBC 1.000 10^3/uL 10/04/23 14:31 Fld Polynuclear WBCs # 0.220 10/04/23 14:31 Fld Polynuclear WBCs % 23.900 % 10/04/23 14:31 Fl Mononucl WBCs #(Auto) 0.698 10/04/23 14:31 Fl Mononuclear % Auto 76.100 % 10/04/23 14:31 Fld Crystal Laterality Left pleural eff. 10/04/23 14:31 Fluid Glucose 133.0 mg/dL 10/04/23 14:31 Fluid Albumin 2.8 g/dL 10/04/23 14:31 Fluid LDH 132 U/L 10/04/23 14:31 Fluid Amylase 24 U/L 10/04/23 14:31 Fluid Alk Phosphatase 77 IU/L 10/04/23 14:31 Fluid Cholesterol 92 mg/dL (0-200) 10/04/23 14:31 Fluid Triglycerides 40 mg/dL (0-150) 10/04/23 14:31 Fluid Uric Acid 11 mg/dL 10/04/23 14:31 Pleural Total Protein 4.5 g/dL 10/04/23 14:31 Pleur Adenosine Deamin 5.7 U/L (<9.2) 10/04/23 Unknown Vancomycin Trough 22.1 ug/mL (10-15) H 10/12/23 05:17 Urine Opiates Screen Negative ng/mL (Negative) 10/04/23 12:24 Ur Barbiturates Screen Negative ng/mL (Negative) 10/04/23 12:24 Ur Phencyclidine Scrn Negative ng/mL (Negative) 10/04/23 12:24 Ur Amphetamines Screen Positive ng/mL (Negative) H 10/04/23 12:24 U Benzodiazepines Scrn Negative ng/mL (Negative) 10/04/23 12:24 Urine Cocaine Screen Negative ng/mL (Negative) 10/04/23 12:24 U Marijuana (THC) Screen Positive ng/mL (Negative) H 10/04/23 12:24 MRSA (PCR) Not detected (NOT DETECTED) 10/07/23 11:00 TB (QFT) Gold In Tube Indeterminate (NEGATIVE) A 10/04/23 16:45 TB Test (QFT) Nil 0.02 IU/mL 10/04/23 16:45 TB Test (QFT) Mitogen 0.08 IU/mL 10/04/23 16:45 TB Test Mitogen - Nil <0.00 IU/mL 10/04/23 16:45 TB Test TB -Nil <0.00 IU/mL 10/04/23 16:45 A&P Assessment and plan (1) Suspected lung cancer: With significant smoking history-pleural cytology positive for atypical cells consistent with malignancy-suspect underlying lung cancer Pathologist Dr. Frankel-reported seeing a large cell malignant cells on cell block-pathology is going to do immunohistochemical staining to differentiate adeno versus squamous. Liver lesion pathology is still pending. Patient complaining of pain in right upper quadrant area-CT abdomen pelvis 10/12/2023-showed multiple low-density hepatic masses consistent with metastatic disease. Abdominal ultrasound 10/12/2023-did not show any gallstones or findings suggestive of cholecystitis. Patient on morphine as needed but it is causing hypotension-switch to [place] every 6 as needed for pain. (2) Recurrent left pleural effusion: He underwent thoracentesis-by IR-drained 1100 cc pale yellow-colored fluid- Lymphocyte predominant exudative effusion-pH 8.0; WBC 918, lymphocyte predominant, glucose 133, LDH 132, total protein 4.5. Pleural fluid cultures are negative- There is a concern if there is any obstructing lesion As postthoracentesis CT chest showedLeft upper lung consolidation with air bronchograms.There are multiple bilateral pulmonary nodules measuring 8 mm in left upper lobe and 9 mm in right middle lobe.There are numerous suspicious appearing hepatic lesions as well. This fluid could be secondary to trapped lung Pleural fluid cytology positive for atypical cells consistent with malignancy-send additional pleural fluid to pathology to make a cell block to run immunohistochemical stains With given significant smoking history For more than 60 years-there is be possibility of underlying malignancy Patient has worsening leukocytosis-complaining of chest discomfort-bedside ultrasound showed significantly large pleural effusion-I have placed 14 [place] pigtail catheter and drained over 5 L over the next [address] chest-which showed there is loculated hydropneumothorax in the left lung base-suspicious for trapped lung physiology he received tpa 10 mg intrapleural with no significant improvement in drainage. The 14 [place] pigtail catheter was removed it 10/10/2023 However repeat chest x-ray 10/13/2023-showed almost complete opacification of left side with worsening pleural effusion.-[place] drain was placed on 10/14/2023 for palliative purposes and recurrent left pleural effusion (3) Acute on chronic renal insufficiency: Worsening renal functions-potassium 5.8- Patient received abdominopelvic CT with contrast on 10/12/2023-suspect contrast-induced nephropathy Currently is on IV fluids Still making urine- Monitor electrolytes, BUN/creatinine, urine output Plan Rest of the comorbidities managed as per hospitalist taking care of the patient Attestations Medical Necessity Statement*: Defer to the hospitalist Time Spent in Patient Care: Greater than 35 minutes (>than 50% of time spent in counselling and/or direct pt care on unit). Coding Level of Care Code Acute Code for Chg Fwd Diagnoses Suspected lung cancer R68.89 Recurrent left pleural effusion J90 Acute on chronic renal insufficiency N28.9; N18.9 Time Spent (min) 35
[2023-10-15] MEDS: HYDROcodone-acetaminophen 5-325 mg Tablet 1 TAB PO ×2 (12:10→17:21)
[2023-10-15] MEDS: insulin regular-human 10 UNIT in SYRINGE 1 EACH IVP (12:10)
[2023-10-15] MEDS: dextrose 50% syringe 50 mL IVP (12:10)
[2023-10-15] MEDS: sodium polystyrene sulfonate 15 gm/60 mL Btl PO (12:10)
--- NOTE | 2023-10-15 15:51 | P.PN_ITS ---
Subjective 2 Subjective: No acute events overnight. Patient had Pleurx catheter placed yesterday. Had 1 L of fluid aspirated earlier today morning. Patient continues to complain of abdominal bloating. No bowel movements yet. Sitting up in chair on examination. Complaining of mild pain. Appetite poor. Medications: Reviewed: Yes Vitals/I&O/Wt Last Vital Signs Temp 97.7 F 10/15/23 12:00 Pulse 82 10/15/23 15: Resp 18 10/15/23 15:23 BP 136/55 10/15/23 12:00 Pulse Ox 93 10/15/23 15:23 O2 Del Method Nasal Cannula 10/15/23 15: O2 Flow Rate 5 10/15/23 15: FiO2 35 10/13/23 09:31 10/15/23 10/15/23 10/15/23 06:59 14:59 22:59 Intake Total 1000 / 1450 1246.35 / 1246.35 Output Total 200 / 200 Balance 1000 / 1200 1046.35 / 1046.35 Weight last 48 hrs Weight 81.902 kg Weight 82.236 kg Physical Exam 2 Narrative: General: No acute distress, AO x3, NC oxygen supplementation, chronically sick appearing HEENT: PERRLA, pupils bilaterally equal and reactive Chest: Bilateral bronchial breath sounds all over lung [place] with diffuse rhonchi and occasional crackles, decreased air entry in left middle and lower zone, tenderness in left hemithorax infra axillary CVS: S1-S2 regular, no murmurs, no tachycardia, no gallops, no rubs Abdomen: Soft, generalized tenderness more so in right upper quadrant, distended, no organomegaly, bowel sounds present, morbidly obese Neuro: No focal deficits, no facial deformity, AO x3, power 5/5 in all limbs Data 10/16/23 05:07 10/16/23 05:07 A&P Assessment and plan (1) Respiratory failure with hypoxia: Persistent hypoxia most likely in setting of lung malignancy and postobstructive pneumonia and pleural effusion. Appreciate pulmonary recommendations. Aggressive pulmonary toilet with I-S and Acapella. Plan for Pleurx catheter today. Fluid ADA negative, QuantiFERON indeterminate. Low suspicion for TB for now. Discussed in detail with pulmonology. Will cancel isolation. Out of bed to chair. D-dimer elevated. PE less likely. Awaiting ventilation/perfusion scan. Qualifiers: Chronicity: acute on chronic Qualified Code(s): J96.21 - Acute and chronic respiratory failure with hypoxia (2) Pleural effusion on left: Most likely in setting of malignancy. Plan for Pleurx catheter today. Patient is post removal of chest tube. Fluid has reaccumulated. Fluid studies positive for atypical cells. Appreciate pulmonology recommendations. (3) Bacteremia due to Streptococcus: CARLIE negative for endocarditis. Most likely in setting of streptococcal pneumonia. Final blood cultures changed to Eliquis prudence. Continue with IV ceftriaxone 2 g daily for Aerococcus viridans bacteremia. Plan to continue IV antibiotics for 2 weeks from first negative blood cultures. (4) Pneumonia: Most likely in setting of pneumonia. Cannot rule out postobstructive pneumonia. -Supplementation keeping saturation 90%. Pulmicort twice daily, DuoNebs every 6 hours. Qualifiers: Laterality: left Lung location: upper lobe of lung Pneumonia type: due to group B Streptococcus Qualified Code(s): J15.3 - Pneumonia due to streptococcus, group B (5) Acute on chronic renal insufficiency: Renal function worsening. Baseline creatinine 1-1.3. Most likely dehydration from poor oral intake along with IV contrast for CT abdomen pelvis few days ago. Start on IV hydration. Also has hyperkalemia. Check PTH. Medical reconciliation done for nephrotoxic drugs. Monitor BMP daily. Does have mild hyperkalemia. Hold off on any further potassium supplementation. Monitor BMP daily. Appreciate echocardiogram. (6) Polysubstance abuse: Urine drug screen positive for amphetamines. Patient gives history of occasional meth use. Reports that he was smoking and pipe. Denies any injection drug use. It did not make him feel good, does not intend to return to it. Continue to monitor. (7) Thrombocytosis: In setting of dehydration along with acute infection. Fluid as above. Monitor. Plan Incidentally noted enlarged nodular prostate projecting into the urinary bladder base. Consider follow-up with PSA. Discussed with him. Hyperkalemia: Changed to low potassium diet. Anemia: Baseline hemoglobin seems to be around 8. Appreciate iron panel, vitamin B12 and folate levels. Transfuse if hemoglobin drops below 8. Continue to monitor CBC daily for now. CODE STATUS: Discussed in detail with patient. He lives by himself. His nephew will be the DPOA if is not able to make his medical decisions. Full code. Given new diagnosis of lung malignancy will discuss further again. Regular diet Protonix for PUD prophylaxis Heparin 5000 every 12 hourly for DVT prophylaxis. Plan for the day: Continue with [place] for pain. Discussed with the nurse to initially give oral [place]'s and IV manage morphine. Continue with Pleurx management as per pulmonary team. Patient does have hyperkalemia. Will manage with D50 and 10 units of insulin along with Kayexalate. Patient also has hypercalcemia. Currently on IV fluids. Improving than yesterday. Given elevated uric acid on admission high consideration for tumor lysis syndrome. Check uric acid and phosphorus levels. Will plan for an MRI patient does not have any bowel movements. Again discussed in detail with patient regarding further goals of care. Patient states he does not want to undergo any kind of chest compressions or life support. He does understand that he is at a higher risk of malignancy which is most likely the diagnosis right now but he would consider chemotherapy if diagnosis comes back positive. For now he wants to hold off on making any further decisions detail pathology report is back. He wants to change his CODE STATUS to DNR/DNI. Continue with nebulization treatment. Oxygen supplementation keeping saturation over 8. Attestations 2 Medical Necessity Statement*: Requires further hospitalization for management of recurrent pleural effusion post Pleurx catheter with high chances of malignancy, worsening renal functions and hyperkalemia Diagnoses Acute on chronic respiratory failure with hypoxia J96.21 Chronicity: acute on chronic Pleural effusion on left J90 Bacteremia due to Streptococcus R78.81; B95.5 Pneumonia of left upper lobe due to group B Streptococcus J15.3 Laterality: left Lung location: upper lobe of lung Pneumonia type: due to group B Streptococcus Acute on chronic renal insufficiency N28.9; N18.9 Polysubstance abuse F19.10 Thrombocytosis D75.839
[2023-10-15] MEDS: cefTRIAXone 2,000 MG in sodium chloride 0.9% (plus) 50 ML 100 MG IV (21:04)
[2023-10-15] MEDS: quetiapine 100 mg Tablet 200 MG PO (21:05)
--- NOTE | 2023-10-15 21:54 | PC.NURSE ---
At approximately 2030 this nurse with the assistance from the charge nurse, drained the patient's pleurx drain using sterile technique. Liban ulrich, the other nurse, and patient all wore surgical masks during process. The patient tolerated well. In total there was 1800 ml removed via drain. Fluid disposed of in biohazard.
[2023-10-16] VITALS (8 sets, daily range): BP systolic 104–138; BP diastolic 52–61; PULSE 83–92; RESP 16–20; TEMP 36.4–36.6; O2SAT 90–97; BMI 23.5
[2023-10-16 05:14] LABS: Basophils # 0.4 10^3/uL (0.0-0.1); Basophils % 0.7 %; Eosinophils # 8.6 10^3/uL (0.0-0.8); Eosinophils % 16.6 %; Hematocrit 26.1 % (37-53); Lymphocytes # 1.4 10^3/uL (0.8-4.8); Lymphocytes % 2.7 %; Mean Corpuscular HGB Conc 32.2 g/dL (30-55); Mean Corpuscular Hemoglobin 29.5 pg (27-33); Mean Corpuscular Volume 91.6 fl (82-101); Mean Platelet Volume 10.5 fL (7.4-10.4); Monocytes # 2.7 10^3/uL (0.2-0.9); Monocytes % 5.2 %; Neutrophils # 37.16 10^3/uL (1.8-7.7); Neutrophils % 71.3 %; Nucleated Red Blood Cells % 0 %; Platelet Count 564 10^3/cmm (157-399); Red Blood Count 2.85 10^6/uL (3.85-5.65); Red Cell Distribution Width 14.9 % (12.1-15.1)
[2023-10-16 05:42] LABS: Slide Review Slide Review Perform
[2023-10-16 05:44] LABS: White Blood Count 52.12 10^3/uL (3.29-11.43)
[2023-10-16] MEDS: heparin 5,000 unit/mL INJ 1 mL 5000 UNIT SUBCUT (06:11)
[2023-10-16] MEDS: budesonide 0.5 mg/2 mL Neb INHALATION (08:02)
[2023-10-16] MEDS: ipratropium-albuterol 3 mL Neb INHALATION (08:02)
[2023-10-16] MEDS: methocarbamol 750 mg Tablet 1000 MG PO ×3 (08:36→17:08)
[2023-10-16] MEDS: pantoprazole DR 40 mg Tablet PO (08:36)
[2023-10-16] MEDS: allopurinol 100 mg Tablet PO (08:37)
[2023-10-16] MEDS: lidocaine 5% Patch 1 PATCH TOPICAL (08:37)
[2023-10-16] MEDS: magnesium hydroxide 30 mL UDC PO (08:37)
[2023-10-16] MEDS: sennosides-docusate Tablet 1 TAB PO ×2 (08:37→17:08)
--- NOTE | 2023-10-16 10:07 | P.PN_ITS ---
Subjective 2 Subjective: -Seen patient at bedside today morning -He is sitting up in his bed and having breakfast-currently on 4 L supplemental oxygen -Yesterday drained 1000 cc in the mornin g and 1800 cc in the evening via Pleurx catheter -Pathology reported pleural fluid cytolo gy consistent with malignancy most adenocarcinoma.; Liver biopsy still pending -Discussed with patient about goals of c are-patient tells me that he has not informed his daughters and sons and awaiting for final pathology results. He would want to discuss with oncology regarding his prognosis and would-want to know treatment options and make decisions based on that -Patient appears deconditioned-tells me that his appetite is decreased-he needs placement-pending social media marketing analyst evaluation -Other labs and imaging reviewed Medications: Reviewed: Yes Vitals/I&O/Wt Last Vital Signs Temp 97.5 F L 10/16/23 07:33 Pulse 92 10/16/23 08:03 Resp 20 H 10/16/23 08:03 BP 104/55 10/16/23 07:33 Pulse Ox 92 10/16/23 08:03 O2 Del Method Nasal Cannula 10/16/23 08:03 O2 Flow Rate 4 10/16/23 08:03 FiO2 35 10/13/23 09:31 10/15/23 10/16/23 10/16/23 22:59 06:59 14:59 Intake Total 770 / 2016.35 720 / 720 Output Total 550 / 750 1800 / 2550 200 / 200 Balance 220 / 1266.35 -1800 / -533.65 520 / 520 Weight last 48 hrs Weight 178 lb 4.8 oz Weight 180 lb 9 oz Physical Exam 2 Narrative: General: alert, NAD HEENT: conj clear, EOMI, PERRL, mmm, Neck: supple, no meningismus Heme: no cervical LAP Respiratory: Inspection: No visible deformity of the chest wall Palpation: Trachea is mildly deviated to the right, bilateral symmetric expansion Percussion: Bilateral tympanic percussion note both anterior and posteriorly Auscultation: Reduced breath sounds on left lower lung zone Cardiovascular: rrr, nl s1s2, no mrg Abdomen: soft, nt, nd, no r/g, bs+ Extremities: pulses +, no edema, no c/c : no CVA tenderness Skin: intact, no rash MSK: no back or neck pain Neurologic: grossly intact Data 10/16/23 05:07 10/15/23 05:01 Other Labs: Radiology Impressions Chest CT 10/08/23 10:21 IMPRESSION: 1. Left-sided chest tube seen with tip in a moderate to large left pleural effusion along with a small amount air in the left pleural space, negative for definite loculation seen. 2. Left hilar to lingular and upper lobe dense airspace opacification measuring up to 7.6 cm, similar to prior exam may reflect a combination of pneumonia and malignancy. 3. Multiple bilateral pulmonary nodules measuring up to 6 mm in the right upper lobe, likely reflecting metastatic disease. 4. Scattered enlarged mediastinal lymph nodes measuring up to 12 mm, nonspecific. 5. Cardiomegaly. 6. Coronary artery atherosclerotic calcifications. 7. Multifocal probable metastatic lesions seen throughout the liver similar to prior exam measuring up to the 4.9 cm. 8. Bilateral renal cysts, negative for follow-up advised. 9. Perinephric edema bilaterally likely reflecting renal insufficiency. 10. Right lower lobe atelectasis versus minimal infiltrate. COMMENTS: Consistent with the [employer]'s Incidental Findings Committee white paper (J Am Aleida Radiol 2018): Any incidental renal lesion less than 1 cm or classified as too small to characterize, or any incidental cystic renal lesion characterized as simple-appearing, is likely benign. No follow-up imaging is recommended for these lesions per consensus recommendations based on imaging criteria. Abdomen X-Ray 10/11/23 23:59 IMPRESSION: 1. Moderate to severe constipation. 2. Multilevel severe disc space narrowing with bridging degenerative osteophytes throughout the spine. 3. Right hip arthroplasty changes. Abdomen Ultrasound 10/12/23 16:39 IMPRESSION: No acute sonographic findings. Abdomen/Pelvis CT 10/12/23 18:29 IMPRESSION: 1. Multiple low-density hepatic masses, consistent with metastatic disease. 2. Osseous metastatic disease, as described above. 3. Enlarged, nodular prostate, projecting into the urinary bladder base. Correlate with clinical exam and PSA levels. 4. Heterogeneous left basilar consolidation, likely reflecting atelectasis, pneumonia and/or malignancy. 5. Unchanged right basilar nodular densities. 6. Large left pleural effusion, increased in size since the prior study. 7. Additional findings, as above. COMMENTS: Consistent with the [employer]'s Incidental Findings Committee white paper (J Am Aleida Radiol 2018): Any incidental renal lesion less than 1 cm or classified as too small to characterize, or any incidental cystic renal lesion characterized as simple-appearing, is likely benign. No follow-up imaging is recommended for these lesions per consensus recommendations based on imaging criteria. Laboratory Results WBC 52.12 10^3/uL (3.29-11.43) H* 10/16/23 05:07 RBC 2.85 10^6/uL (3.85-5.65) L 10/16/23 05:07 Hgb 8.40 g/dL (11.27-16.99) L 10/16/23 05:07 Hct 26.1 % (37-53) L 10/16/23 05:07 MCV 91.6 fl (82-101) 10/16/23 05:07 MCH 29.5 pg (27-33) 10/16/23 05:07 MCHC 32.2 g/dL (30-55) 10/16/23 05:07 RDW 14.9 % (12.1-15.1) 10/16/23 05:07 Plt Count 564 10^3/cmm (157-399) H 10/16/23 05:07 MPV 10.5 fL (7.4-10.4) H 10/16/23 05:07 Neut % (Auto) 71.3 % 10/16/23 05:07 Lymph % (Auto) 2.7 % 10/16/23 05:07 [place] % (Auto) 5.2 % 10/16/23 05:07 Eos % (Auto) 16.6 % 10/16/23 05:07 Baso % (Auto) 0.7 % 10/16/23 05:07 Neut # (Auto) 37.16 10^3/uL (1.8-7.7) H 10/16/23 05:07 Lymph # (Auto) 1.4 10^3/uL (0.8-4.8) 10/16/23 05:07 [place] # (Auto) 2.7 10^3/uL (0.2-0.9) H 10/16/23 05:07 Eos # (Auto) 8.6 10^3/uL (0.0-0.8) H 10/16/23 05:07 Baso # (Auto) 0.4 10^3/uL (0.0-0.1) H 10/16/23 05:07 Nucleated RBC % (auto) 0 % 10/16/23 05:07 Nucleated RBCs # 0.0 /100WBC 10/16/23 05:07 Peripher Smr Path Cons Sent for review 10/07/23 04:11 PT 13.50 SECONDS (12.1-14.9) 10/04/23 11:45 INR 1.00 (0.8-1.2) 10/04/23 11:45 D-Dimer 5.89 ug/mLFEU (0-0.59) H 10/04/23 11:45 Sodium 134 mmol/L (136-145) L 10/15/23 05:01 Potassium 5.8 mmol/L (3.5-5.1) H 10/15/23 05:01 Chloride 99 mmol/L (98-107) 10/15/23 05:01 Carbon Dioxide 17 mmol/L (22-29) L 10/15/23 05:01 Anion Gap 23.8 (5-19) H 10/15/23 05:01 BUN 90 mg/dL (8-23) H* 10/15/23 05:01 Creatinine 3.4 mg/dL (0.7-1.2) H 10/15/23 05:01 GFR Calculation Not Reportable 10/15/23 05:01 Glucose 127 mg/dL (65-115) H 10/15/23 05:01 POC Glucose 149 mg/dL (70-110) H 10/06/23 15:57 Estimat Average Glucose 105 10/05/23 04:50 Hemoglobin A1c 5.3 % (4.0-6.0) 10/05/23 04:50 Calculated Osmolality 307 mOsm/kg (285-295) H 10/15/23 05:01 Lactic Acid 1.8 mmol/L (0.5-2.2) 10/04/23 12:53 Uric Acid 11.7 mg/dL (3.4-7.0) H 10/04/23 11:45 Calcium 12.0 mg/dL (8.5-10.5) H 10/15/23 05:01 Phosphorus 4.1 mg/dL (2.5-4.5) 10/05/23 04:50 Magnesium 1.9 mg/dL (1.7-2.3) 10/05/23 04:50 Iron 21 ug/dL (59-158) L 10/04/23 11:45 TIBC 348 mcg/dl 10/04/23 11:45 % Saturation 6.0 % (20-50) L 10/04/23 11:45 Unsat Iron Binding 327 ug/dL (112-347) 10/04/23 11:45 Total Bilirubin 0.2 mg/dL (0.15-1.2) 10/15/23 05:01 AST 17 U/L (0-40) 10/15/23 05:01 ALT 15 U/L (0-41) 10/15/23 05:01 Alkaline Phosphatase 170 U/L (40-130) H 10/15/23 05:01 Lactate Dehydrogenase 167 U/L (135-225) 10/04/23 11:45 Troponin T Baseline 39 ng/L (0-15) H 10/04/23 11:45 Troponin T 120 Minute 36.53 ng/L (0-15) H 10/04/23 13:53 Delta Troponin T -2.47 ABS# (0-10) L 10/04/23 13:53 Troponin T Hi Sens 6Hr 33.82 ng/L (0-15) H 10/04/23 18:27 Troponin T Hi Sens 6Hr Delta -5.18 ng/L (0-12) L 10/04/23 18:27 C-Reactive Protein 98.7 mg/L (0.0-4.9) H 10/04/23 11:45 Total Protein 5.5 g/dL (6.6-8.7) L 10/15/23 05:01 Albumin 2.8 g/dL (3.5-5.2) L 10/15/23 05:01 Globulin 2.7 g/dL (1.3-4.6) 10/15/23 05:01 Triglycerides 54 mg/dL (0-150) 10/05/23 04:50 Cholesterol 118 mg/dL (0-200) 10/05/23 04:50 LDL Cholesterol, Calc 56 mg/dL (50-129) 10/05/23 04:50 HDL Cholesterol 51 mg/dL (60-100) L 10/05/23 04:50 LDL/HDL Ratio 1.10 RATIO (0.00-3.22) 10/05/23 04:50 Cholesterol/HDL Ratio 2.31 mg/dL (1.0-5.00) 10/05/23 04:50 Vitamin B12 1178 pg/mL (232-1245) 10/04/23 11:45 Folate 18.5 ng/mL (4.5-32.2) 10/05/23 04:50 Procalcitonin 0.31 ng/mL (0-0.5) 10/04/23 11:45 TSH 1.24 uIU/mL (0.27-4.20) 10/04/23 13:53 PTH Intact 8.6 pg/mL (15-65) L 10/14/23 09:18 Calcium (PTH Intact) 13.2 mg/dL (8.5-10.5) H 10/14/23 09:18 Urine Color Yellow (Yellow) 10/14/23 17:43 Urine Appearance Clear (CLEAR) 10/14/23 17:43 Urine pH 5 (5-7) 10/14/23 17:43 Ur Specific [place] 1.025 (1.005-1.030) 10/14/23 17:43 Urine Protein Trace (Negative) 10/14/23 17:43 Urine Glucose (UA) Norm (Normal) 10/14/23 17:43 Urine Ketones Negative (Negative) 10/14/23 17:43 Urine Blood Neg (Negative) 10/14/23 17:43 Urine Nitrate Negative (Negative) 10/14/23 17:43 Urine Bilirubin Neg (Negative) 10/14/23 17:43 Urine Urobilinogen Norm mg/dL (Negative) 10/14/23 17:43 Ur Leukocyte Esterase Negative (Negative) 10/14/23 17:43 Urine RBC 0-4 /hpf (0-2) H 10/14/23 17:43 Urine WBC 0-4 /hpf (0-5) H 10/14/23 17:43 Ur Eosinophil Smear 0 (0-0) 10/14/23 17:43 Ur Squamous Epith Cells 0-4 /hpf (0-5) H 10/14/23 17:43 Amorphous Sediment Trace /hpf 10/14/23 17:43 Urine Bacteria Trace /hpf (NONE) 10/14/23 17:43 Hyaline Casts 25-40 /lpf H 10/14/23 17:43 Fine Granular Casts 0-4 /lpf H 10/14/23 17:43 Urine Mucus 1+ /hpf 10/14/23 17:43 Urine Eosinophils No eosinophils seen 10/14/23 17:43 Ur Random Sodium < 10 mmol/L 10/14/23 17:43 Ur Random Potassium 66 mmol/L 10/14/23 17:43 Ur Random Chloride < 10 mmol/L 10/14/23 17:43 Urine Creatinine 165 mg/dL (39-259) 10/14/23 17:43 Fluid Color Pale yellow 10/04/23 14:31 Fluid Appearance Clear 10/04/23 14:31 Fluid Specific Grav 1.010 10/04/23 14:31 Fluid pH 8.0 10/04/23 14:31 Fluid WBC 918 /uL 10/04/23 14:31 Fluid RBC 1.000 10^3/uL 10/04/23 14:31 Fld Polynuclear WBCs # 0.220 10/04/23 14:31 Fld Polynuclear WBCs % 23.900 % 10/04/23 14:31 Fl Mononucl WBCs #(Auto) 0.698 10/04/23 14:31 Fl Mononuclear % Auto 76.100 % 10/04/23 14:31 Fld [place] Laterality Left pleural eff. 10/04/23 14:31 Fluid Glucose 133.0 mg/dL 10/04/23 14:31 Fluid Albumin 2.8 g/dL 10/04/23 14:31 Fluid LDH 132 U/L 10/04/23 14:31 Fluid Amylase 24 U/L 10/04/23 14:31 Fluid Alk Phosphatase 77 IU/L 10/04/23 14:31 Fluid Cholesterol 92 mg/dL (0-200) 10/04/23 14:31 Fluid Triglycerides 40 mg/dL (0-150) 10/04/23 14:31 Fluid Uric Acid 11 mg/dL 10/04/23 14:31 Pleural Total Protein 4.5 g/dL 10/04/23 14:31 Pleur Adenosine Deamin 5.7 U/L (<9.2) 10/04/23 Unknown Vancomycin Trough 22.1 ug/mL (10-15) H 10/12/23 05:17 Urine Opiates Screen Negative ng/mL (Negative) 10/04/23 12:24 Ur Barbiturates Screen Negative ng/mL (Negative) 10/04/23 12:24 Ur Phencyclidine Scrn Negative ng/mL (Negative) 10/04/23 12:24 Ur Amphetamines Screen Positive ng/mL (Negative) H 10/04/23 12:24 U Benzodiazepines Scrn Negative ng/mL (Negative) 10/04/23 12:24 Urine Cocaine Screen Negative ng/mL (Negative) 10/04/23 12:24 U Marijuana (THC) Screen Positive ng/mL (Negative) H 10/04/23 12:24 MRSA (PCR) Not detected (NOT DETECTED) 10/07/23 11:00 TB (QFT) Gold In Tube Indeterminate (NEGATIVE) A 10/04/23 16:45 TB Test (QFT) Nil 0.02 IU/mL 10/04/23 16:45 TB Test (QFT) Mitogen 0.08 IU/mL 10/04/23 16:45 TB Test Mitogen - Nil <0.00 IU/mL 10/04/23 16:45 TB Test TB -Nil <0.00 IU/mL 10/04/23 16:45 A&P Assessment and plan (1) Metastatic adenocarcinoma: -Pleural fluid cytology reported positive for malignancy which is consistent with large cell carcinoma, favor adenocarcinoma consistent with lung primary Patient had a liver biopsy prior to pleural fluid cytology reports-report pending Imaging consistent with metastatic lesions in liver and bone Patient has significant smoking history -Currently on 4 L supplemental oxygen -Discussed with patient about goals of care-patient tells me that he has not informed his daughters and sons and awaiting for final pathology results. He would want to discuss with oncology regarding his prognosis and would-want to know treatment options and make decisions based on that -Patient appears deconditioned-tells me that his appetite is decreased-he needs placement-pending social media marketing analyst evaluation (2) Recurrent left pleural effusion: He underwent thoracentesis-by IR-drained 1100 cc pale yellow-colored fluid- Lymphocyte predominant exudative effusion-pH 8.0; WBC 918, lymphocyte predominant, glucose 133, LDH 132, total protein 4.5. There is a concern if there is any obstructing lesion As postthoracentesis CT chest showedLeft upper lung consolidation with air bronchograms.There are multiple bilateral pulmonary nodules measuring 8 mm in left upper lobe and 9 mm in right middle lobe.There are numerous suspicious appearing hepatic lesions as well. This fluid could be secondary to trapped lung Patient has worsening leukocytosis-complaining of chest discomfort-bedside ultrasound showed significantly large pleural effusion-I have placed 14 [place] pigtail catheter and drained over 5 L over the next [address] chest-which showed there is loculated hydropneumothorax in the left lung base- suspicious for trapped lung physiology. he received tpa 10 mg intrapleural with no significant improvement in drainage. The 14 [place] pigtail catheter was removed it 10/10/2023 However repeat chest x-ray 10/13/2023-showed almost complete opacification of left side with worsening pleural effusion.-[place] drain was placed on 10/14/2023 for palliative purposes and recurrent left pleural effusion Yesterday drained 1000 cc in the morning and 1800 cc in the evening via Pleurx catheter -Pathology reported pleural fluid cytology consistent with malignancy most adenocarcinoma.; Liver biopsy still pending (3) Acute on chronic renal insufficiency: Worsening renal functions-potassium 5.8-awaiting BMP labs today morning Patient received abdominopelvic CT with contrast on 10/12/2023-suspect contrast- induced nephropathy Currently is on IV fluids Still making urine- Monitor electrolytes, BUN/creatinine, urine output Plan Rest of the comorbidities managed as per hospitalist taking care of the patient As patient is currently being monitored for his renal functions as well as further care is directed by his treatment options for lung adenocarcinoma and is pending oncology evaluation-I am going to sign out at this point of time and will follow-up as outpatient. Please reconsult if necessary. Attestations 2 Medical Necessity Statement*: Defer to the hospitalist Time Spent in Patient Care: Greater than 35 minutes (>than 50% of time spent in counselling and/or direct pt care on unit) . Coding Level of Care Code Acute Code for Chg Fwd Diagnoses Metastatic adenocarcinoma C79.9 Recurrent left pleural effusion J90 Acute on chronic renal insufficiency N28.9; N18.9 Time Spent (min) 48
[2023-10-16 10:32] LABS: Alanine Aminotransferase 19 U/L (0-41); Albumin Level 2.6 g/dL (3.5-5.2); Alkaline Phosphatase 193 U/L (40-130); Aspartate Amino Transferase 17 U/L (0-40); Carbon Dioxide 21 mmol/L (22-29); Chloride 99 mmol/L (98-107); Globulin 2.8 g/dL (1.3-4.6); Glucose 112 mg/dL (65-115); Osmolality Calculated 305 mOsm/kg (285-295); Sodium 132 mmol/L (136-145); Total Bilirubin 0.2 mg/dL (0.15-1.2); Total Protein 5.4 g/dL (6.6-8.7)
[2023-10-16 10:49] LABS: Anion Gap 17.6 (5-19); Potassium 5.6 mmol/L (3.5-5.1)
[2023-10-16 10:51] LABS: Blood Urea Nitrogen 96 mg/dL (8-23)
[2023-10-16] MEDS: HYDROcodone-acetaminophen 5-325 mg Tablet 1 TAB PO ×2 (11:02→17:09)
[2023-10-16] MEDS: morphine 4 mg/mL SDV 1 mL 1 MG IVP (13:47)
--- NOTE | 2023-10-16 14:44 | P.PN_ITS ---
Subjective 2 Subjective: No acute events overnight. Patient today morning seen slumped over the table sitting at the edge of the edge of the bed. Is awake and alert and responds to verbal stimulus. Able to complete conversation. Complaining of pain. Denies any nausea, vomiting. No bowel movements yet. On 4 L of oxygen supplementation. Poor appetite continues. Medications: Reviewed: Yes Vitals/I&O/Wt Last Vital Signs Temp 97.9 F 10/16/23 11:48 Pulse 90 10/16/23 11:48 Resp 16 10/16/23 13:47 BP 107/52 10/16/23 11:48 Pulse Ox 97 10/16/23 11:48 O2 Del Method Nasal Cannula 10/16/23 11:48 O2 Flow Rate 4 10/16/23 08:03 FiO2 35 10/13/23 09:31 10/15/23 10/16/23 10/16/23 22:59 06:59 14:59 Intake Total 770 / 2016.35 1400 / 1400 Output Total 550 / 750 1800 / 2550 200 / 200 Balance 220 / 1266.35 -1800 / -533.65 1200 / 1200 Weight last 48 hrs Weight 80.876 kg Weight 81.902 kg Physical Exam 2 Narrative: General: No acute distress, AO x3, NC oxygen supplementation, chronically sick appearing HEENT: PERRLA, pupils bilaterally equal and reactive Chest: Bilateral bronchial breath sounds all over lung [place] with diffuse rhonchi and occasional crackles, decreased air entry in left middle and lower zone, tenderness in left hemithorax infra axillary CVS: S1-S2 regular, no murmurs, no tachycardia, no gallops, no rubs Abdomen: Soft, generalized tenderness more so in right upper quadrant, distended, no organomegaly, bowel sounds present, morbidly obese Neuro: No focal deficits, no facial deformity, AO x3, power 5/5 in all limbs Urinary Catheter Management: Huang: Cath Placed During This Visit: yes Urinary Catheter Date of Insertion: 10/16/23 Urinary Catheter Time of Insertion: 11:00 Data 10/16/23 05:07 10/16/23 05:07 A&P Assessment and plan (1) Respiratory failure with hypoxia: Persistent hypoxia most likely in setting of lung malignancy and postobstructive pneumonia and pleural effusion. Appreciate pulmonary recommendations. Aggressive pulmonary toilet with I-S and Acapella. Plan for Pleurx catheter today. Fluid ADA negative, QuantiFERON indeterminate. Low suspicion for TB for now. Discussed in detail with pulmonology. Will cancel isolation. Out of bed to chair. D-dimer elevated. PE less likely. Awaiting ventilation/perfusion scan. Qualifiers: Chronicity: acute on chronic Qualified Code(s): J96.21 - Acute and chronic respiratory failure with hypoxia (2) Pleural effusion on left: Most likely in setting of malignancy. Plan for Pleurx catheter today. Patient is post removal of chest tube. Fluid has reaccumulated. Fluid studies positive for atypical cells. Appreciate pulmonology recommendations. (3) Bacteremia due to Streptococcus: CARLIE negative for endocarditis. Most likely in setting of streptococcal pneumonia. Final blood cultures changed to Eliquis prudence. Continue with IV ceftriaxone 2 g daily for Aerococcus viridans bacteremia. Plan to continue IV antibiotics for 2 weeks from first negative blood cultures. (4) Pneumonia: Most likely in setting of pneumonia. Cannot rule out postobstructive pneumonia. -Supplementation keeping saturation 90%. Pulmicort twice daily, DuoNebs every 6 hours. Qualifiers: Pneumonia type: due to group B Streptococcus Laterality: left Lung location: upper lobe of lung Qualified Code(s): J15.3 - Pneumonia due to streptococcus, group B (5) Acute on chronic renal insufficiency: Renal function worsening. Baseline creatinine 1-1.3. Most likely dehydration from poor oral intake along with IV contrast for CT abdomen pelvis few days ago. Start on IV hydration. Also has hyperkalemia. Check PTH. Medical reconciliation done for nephrotoxic drugs. Monitor BMP daily. Does have mild hyperkalemia. Hold off on any further potassium supplementation. Monitor BMP daily. Appreciate echocardiogram. (6) Polysubstance abuse: Urine drug screen positive for amphetamines. Patient gives history of occasional meth use. Reports that he was smoking and pipe. Denies any injection drug use. It did not make him feel good, does not intend to return to it. Continue to monitor. (7) Thrombocytosis: In setting of dehydration along with acute infection. Fluid as above. Monitor. 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 Awaiting uric acid and phosphorus level today. Persistent hyperkalemia, white count of more than 50,000 and thrombocytosis. Continue with IV fluids. Plan Incidentally noted enlarged nodular prostate projecting into the urinary bladder base. Consider follow-up with PSA. Discussed with him. Hyperkalemia: Changed to low potassium diet. Anemia: Baseline hemoglobin seems to be around 8. Appreciate iron panel, vitamin B12 and folate levels. Transfuse if hemoglobin drops below 8. Continue to monitor CBC daily for now. CODE STATUS: Discussed in detail with patient. He lives by himself. His nephew will be the DPOA if is not able to make his medical decisions. Full code. Given new diagnosis of lung malignancy will discuss further again. Regular diet Protonix for PUD prophylaxis Heparin 5000 every 12 hourly for DVT prophylaxis. Plan for the day: Had further goals of care discussion with patient today regarding confirmed diagnosis of large cell carcinoma of the lung with high chances of adenocarcinoma. Discussed most likely it is stage IV as he does have distant metastasis and pleural fluid positive for malignant cells. Discussed further treatment plans with awaiting of liver pathology, further cytologies and follow-up with oncology for possibility of chemotherapy/radiation therapy depending on his general nutritional status. Patient states he does not want to go further with any kind of treatment and wants to be comfortable going forward. Discussed that the option would be to go ahead with hospice which would mean that the goals will change to make patient comfortable rather than making him better while nature takes its own course which would eventually mean he would . We discussed that he will continue to have the current treatment but will not be treated for any active disease if and when they arise. Patient verbalized understanding and is agreeable. Case management alerted. Hospice referral sent. For now continue with IV ceftriaxone once daily, nebulization treatment. Continue with pain medication as per hospice protocols. Continue Pleurx catheter as per hospice protocols. Attestations 2 Medical Necessity Statement*: Requires further hospitalization while hospice is set up for new diagnosis of large cell malignancy of the lung with distant and pleural fluid metastasis Diagnoses Acute on chronic respiratory failure with hypoxia J96.21 Chronicity: acute on chronic Pleural effusion on left J90 Bacteremia due to Streptococcus R78.81; B95.5 Pneumonia of left upper lobe due to group B Streptococcus J15.3 Pneumonia type: due to group B Streptococcus Laterality: left Lung location: upper lobe of lung Acute on chronic renal insufficiency N28.9; N18.9 Polysubstance abuse F19.10 Thrombocytosis D75.839 Hyperkalemia E87.5 Elevated uric acid in blood E79.0 Large cell carcinoma of lung, stage 4 C34.90 Spontaneous tumor lysis syndrome E88.3
[2023-10-16 15:06] LABS: Phosphorus 6.9 mg/dL (2.5-4.5); Uric Acid 9.5 mg/dL (3.4-7.0)
--- NOTE | 2023-10-16 15:22 | PC.SOCIAL ---
IMM Updated Updated pt on IMM. No questions voiced. Provided pt a copy. Initialed, dated, & timed copy in chart.
--- NOTE | 2023-10-16 18:15 | XRR_ITS ---
PROCEDURE INFORMATION: Exam: XR Chest Exam date and time: 10/16/2023 9:37 PM Age: 78 years old Clinical indication: Condition or disease; Other: Chest tube; Additional info: Chest drain TECHNIQUE: Imaging protocol: Radiologic exam of the chest. Views: 1 view. COMPARISON: CR XR chest 1V portable [id number] 10/14/2023 2:59 PM FINDINGS: Tubes, catheters and devices: Left-sided superiorly directed chest tube. Lungs: See Pleural spaces finding. Pleural spaces: Moderate to large left pleural effusion with patchy left airspace infiltrate, decreased compared to prior exam. Heart/Mediastinum: Unremarkable. No cardiomegaly. Bones/joints: Unremarkable. XR/XR chest 1V portable [id number] IMPRESSION: 1. Left-sided superiorly directed chest tube. 2. Moderate to large left pleural effusion with patchy left airspace infiltrate, decreased compared to prior exam.
[2023-10-16] MEDS: quetiapine 100 mg Tablet 200 MG PO (20:34)
[2023-10-16] MEDS: methocarbamol 500 mg Tablet 1000 MG PO (20:35)
[2023-10-16] MEDS: cefTRIAXone 2,000 MG in sodium chloride 0.9% (plus) 50 ML 100 MG IV (20:36)
[2023-10-17] VITALS (7 sets, daily range): BP systolic 101–110; BP diastolic 55–62; PULSE 60–90; RESP 16–22; TEMP 36.3–36.7; O2SAT 90–94
[2023-10-17 05:09] LABS: Basophils # 0.4 10^3/uL (0.0-0.1); Basophils % 0.7 %; Eosinophils % 17.5 %; Hematocrit 25.5 % (37-53); Lymphocytes # 1.6 10^3/uL (0.8-4.8); Lymphocytes % 2.9 %; Mean Corpuscular HGB Conc 32.9 g/dL (30-55); Mean Corpuscular Hemoglobin 29.7 pg (27-33); Mean Corpuscular Volume 90.1 fl (82-101); Mean Platelet Volume 10.7 fL (7.4-10.4); Monocytes # 2.8 10^3/uL (0.2-0.9); Monocytes % 4.9 %; Neutrophils # 39.73 10^3/uL (1.8-7.7); Neutrophils % 70.1 %; Nucleated Red Blood Cells % 0 %; Platelet Count 531 10^3/cmm (157-399); Red Blood Count 2.83 10^6/uL (3.85-5.65); Red Cell Distribution Width 14.8 % (12.1-15.1)
[2023-10-17 05:39] LABS: Alanine Aminotransferase 13 U/L (0-41); Albumin Level 2.6 g/dL (3.5-5.2); Alkaline Phosphatase 181 U/L (40-130); Aspartate Amino Transferase 13 U/L (0-40); Carbon Dioxide 19 mmol/L (22-29); Chloride 97 mmol/L (98-107); Globulin 2.7 g/dL (1.3-4.6); Glucose 102 mg/dL (65-115); Osmolality Calculated 301 mOsm/kg (285-295); Sodium 129 mmol/L (136-145); Total Bilirubin 0.2 mg/dL (0.15-1.2); Total Protein 5.3 g/dL (6.6-8.7)
[2023-10-17 05:42] LABS: Anion Gap 18.3 (5-19); Potassium 5.3 mmol/L (3.5-5.1)
[2023-10-17 05:44] LABS: White Blood Count 56.71 10^3/uL (3.29-11.43)
[2023-10-17 05:45] LABS: Blood Urea Nitrogen 104 mg/dL (8-23)
[2023-10-17] MEDS: budesonide 0.5 mg/2 mL Neb INHALATION (07:23)
[2023-10-17] MEDS: ipratropium-albuterol 3 mL Neb INHALATION ×2 (07:23→13:32)
[2023-10-17] MEDS: methocarbamol 500 mg Tablet 1000 MG PO ×2 (09:47→12:54)
[2023-10-17] MEDS: HYDROcodone-acetaminophen 5-325 mg Tablet 1 TAB PO (09:48)
[2023-10-17] MEDS: sennosides-docusate Tablet 1 TAB PO (09:48)
[2023-10-17] MEDS: pantoprazole DR 40 mg Tablet PO (09:48)
[2023-10-17] MEDS: magnesium hydroxide 30 mL UDC PO (09:48)
[2023-10-17] MEDS: lidocaine 5% Patch 1 PATCH TOPICAL (09:48)
[2023-10-17] MEDS: morphine 4 mg/mL SDV 1 mL 1 MG IVP ×2 (10:04→14:21)
--- NOTE | 2023-10-17 12:55 | PM.DCS ---
Discharge Providers Date of Admission: 10/04/23 14:55 Date of Discharge: October 17, 2023 Attending Provider at Admission: James Tello MD Attending Provider at Discharge: James Tello MD Primary Care Provider: Stephan Fink DO Diagnoses at Discharge Discharge Diagnosis (1) Respiratory failure with hypoxia: Status: Acute Qualifiers: Chronicity: acute on chronic Qualified Code(s): J96.21 - Acute and chronic respiratory failure with hypoxia (2) Pleural effusion on left: Status: Acute (3) Bacteremia due to Streptococcus: Status: Acute (4) Pneumonia: Status: Acute Qualifiers: Laterality: left Lung location: upper lobe of lung Pneumonia type: due to group B Streptococcus Qualified Code(s): J15.3 - Pneumonia due to streptococcus, group B (5) Acute on chronic renal insufficiency: Status: Acute (6) Polysubstance abuse: Status: Chronic (7) Thrombocytosis: Status: Acute (8) Hyperkalemia: Status: Acute (9) Elevated uric acid in blood: Status: Acute (10) Large cell carcinoma of lung, stage 4: Status: Acute (11) Spontaneous tumor lysis syndrome: Status: Acute Reason for Visit Reason for Visit: sob Hospital Course Hospital Course Seferino Barbosa is a 78 year old male with cough medical history of gout, COPD not on oxygen who was at his baseline health till around 3 days ago when he developed acute on the left side of his chest getting worse on taking a deep breath associated with cough and expectoration and acute dyspnea on exertion. As per patient he was able to walk regularly but for last 1 week he is only able to walk around 5 feet and gets out of breath. Denies of having any episode of expectoration, vomiting or choking prior to the event. Denies any episodes of headache, dizziness, diarrhea. In the ER he was found to be hypoxic down to high 80s so was placed on 3 L of oxygen supplementation and it was found to have leukocytosis and left pleural effusion hence medicine was consulted for further evaluation and management. Patient was admitted to the hospital further evaluation and management of hypoxia in setting of pneumonia and left pleural effusion. On admission patient was also found to be having NAVID on CKD. He underwent thoracentesis on admission. Patient was started on broad-spectrum antibiotics. CT on admission was consistent with possible postobstructive pneumonia with lung nodule and mass and loculated pleural effusion. Pulmonary was consulted. Patient had recurrence of pleural effusion for which first chest tube was placed. Empyema was ruled out. Fluid studies came back positive for atypical cells which were later finalized as large cell lung carcinoma possibly adenocarcinoma. Patient was also found to have metastatic lesion to the liver for which he underwent liver biopsy. During hospitalization blood cultures came back positive for Aerococcus for which his antibiotics were tailored as per culture sensitivities. His renal function steadily Worsening with recurrent episodes of hyperkalemia requiring management, had persistent severe leukocytosis and thrombocytosis with concerns for spontaneous tumor lysis. Eventually because of recurrence of pleural effusion Pleurx catheter was placed on 10/14. Patient had significant decline in his baseline health and conditioning during hospitalization. Given significant decline, new diagnosis of stage IV malignant large cell lung carcinoma further goals of care discussions were done in with the patient multiple times who opted for hospice care on 10/16. He has been discharged to SNF with hospice care. Physical Exam Narrative: General: No acute distress, AO x3, NC oxygen supplementation, chronically sick appearing HEENT: PERRLA, pupils bilaterally equal and reactive Chest: Bilateral bronchial breath sounds all over lung [place] with diffuse rhonchi and occasional crackles, decreased air entry in left middle and lower zone, tenderness in left hemithorax infra axillary CVS: S1-S2 regular, no murmurs, no tachycardia, no gallops, no rubs Abdomen: Soft, generalized tenderness more so in right upper quadrant, distended, no organomegaly, bowel sounds present, morbidly obese Neuro: No focal deficits, no facial deformity, AO x3, power 5/5 in all limbs Urinary Catheter Management: Huang: Cath Placed During This Visit: yes Reason for Continuing Indwelling Catheter: Other Urinary Catheter Date of Insertion: 10/16/23 Urinary Catheter Time of Insertion: 11:00 Discharge Data Studies Completed and Pending Completed Studies During Hospitalization Category Date Time Status CT abdomen pelvis w con* [id number] Stat Cat Scan 10/12/23 18:[address] chest wo con [id number] Routine Cat Scan 10/08/23 10:[address] chest wo con [id number] Stat Cat Scan 10/04/23 15:03 Completed CXRP [XR chest 1V portable [id number]] Routine Exams 10/14/23 13:47 Completed CXRP [XR chest 1V portable [id number]] Stat Exams 10/07/23 17:21 Completed XR abdomen 1V* [id number] Stat Exams 10/11/23 23:59 Completed XR chest 1V portable [id number] Routine Exams 10/08/23 07:26 Completed XR chest 1V portable [id number] Routine Exams 10/09/23 06:14 Completed XR chest 1V portable [id number] Routine Exams 10/10/23 09:21 Completed XR chest 1V portable [id number] Stat Exams 10/04/23 11:44 Completed XR chest 1V portable [id number] Stat Exams 10/04/23 14:31 Completed XR chest 1V portable [id number] Stat Exams 10/13/23 05:54 Completed XR chest 1V portable [id number] Stat Exams 10/16/23 18:15 Completed CV. echo complete* [id number] Routine Ultrasound 10/06/23 11:01 Completed CARLIE [CV. echo transesophageal 28636] Routine Ultrasound 10/11/23 12:42 Completed US abdomen limited [id number] Routine Ultrasound 10/07/23 08:52 Completed US abdomen limited [id number] Stat Ultrasound 10/12/23 16:39 Completed US biopsy liver [id number] Routine Ultrasound 10/11/23 13:00 Completed US chest [id number] Stat Ultrasound 10/04/23 13:10 Completed US thoracentesis [id number] Stat Ultrasound 10/04/23 13:22 Completed Pending at discharge Category Date Time Status Fungal Culture not HR/SK/BL Routine Lab 10/04/23 Results Mycobacteria, Culture w/Fluor Routine Lab 10/04/23 Received PTH Related [PTH Related Peptide (Protein)] Routine Lab 10/14/23 17:00 Received Pathology: Surgical [PTH] Routine Pth 10/11/23 14:09 Received Radiology Impressions Chest CT 10/08/23 10:21 IMPRESSION: 1. Left-sided chest tube seen with tip in a moderate to large left pleural effusion along with a small amount air in the left pleural space, negative for definite loculation seen. 2. Left hilar to lingular and upper lobe dense airspace opacification measuring up to 7.6 cm, similar to prior exam may reflect a combination of pneumonia and malignancy. 3. Multiple bilateral pulmonary nodules measuring up to 6 mm in the right upper lobe, likely reflecting metastatic disease. 4. Scattered enlarged mediastinal lymph nodes measuring up to 12 mm, nonspecific. 5. Cardiomegaly. 6. Coronary artery atherosclerotic calcifications. 7. Multifocal probable metastatic lesions seen throughout the liver similar to prior exam measuring up to the 4.9 cm. 8. Bilateral renal cysts, negative for follow-up advised. 9. Perinephric edema bilaterally likely reflecting renal insufficiency. 10. Right lower lobe atelectasis versus minimal infiltrate. COMMENTS: Consistent with the [employer]'s Incidental Findings Committee white paper (J Am Aleida Radiol 2018): Any incidental renal lesion less than 1 cm or classified as too small to characterize, or any incidental cystic renal lesion characterized as simple-appearing, is likely benign. No follow-up imaging is recommended for these lesions per consensus recommendations based on imaging criteria. Abdomen X-Ray 10/11/23 23:59 IMPRESSION: 1. Moderate to severe constipation. 2. Multilevel severe disc space narrowing with bridging degenerative osteophytes throughout the spine. 3. Right hip arthroplasty changes. Abdomen Ultrasound 10/12/23 16:39 IMPRESSION: No acute sonographic findings. Abdomen/Pelvis CT 10/12/23 18:29 IMPRESSION: 1. Multiple low-density hepatic masses, consistent with metastatic disease. 2. Osseous metastatic disease, as described above. 3. Enlarged, nodular prostate, projecting into the urinary bladder base. Correlate with clinical exam and PSA levels. 4. Heterogeneous left basilar consolidation, likely reflecting atelectasis, pneumonia and/or malignancy. 5. Unchanged right basilar nodular densities. 6. Large left pleural effusion, increased in size since the prior study. 7. Additional findings, as above. COMMENTS: Consistent with the [employer] [place] [employer]'s Incidental Findings Committee white paper (J Am Aleida Radiol 2018): Any incidental renal lesion less than 1 cm or classified as too small to characterize, or any incidental cystic renal lesion characterized as simple-appearing, is likely benign. No follow-up imaging is recommended for these lesions per consensus recommendations based on imaging criteria. Chest X-Ray 10/16/23 18:15 IMPRESSION: 1. Left-sided superiorly directed chest tube. 2. Moderate to large left pleural effusion with patchy left airspace infiltrate, decreased compared to prior exam. Laboratory Results WBC 56.71 10^3/uL (3.29-11.43) H* 10/17/23 04:55 RBC 2.83 10^6/uL (3.85-5.65) L 10/17/23 04:55 Hgb 8.40 g/dL (11.27-16.99) L 10/17/23 04:55 Hct 25.5 % (37-53) L 10/17/23 04:55 MCV 90.1 fl (82-101) 10/17/23 04:55 MCH 29.7 pg (27-33) 10/17/23 04:55 MCHC 32.9 g/dL (30-55) 10/17/23 04:55 RDW 14.8 % (12.1-15.1) 10/17/23 04:55 Plt Count 531 10^3/cmm (157-399) H 10/17/23 04:55 MPV 10.7 fL (7.4-10.4) H 10/17/23 04:55 Neut % (Auto) 70.1 % 10/17/23 04:55 Lymph % (Auto) 2.9 % 10/17/23 04:55 [place] % (Auto) 4.9 % 10/17/23 04:55 Eos % (Auto) 17.5 % 10/17/23 04:55 Baso % (Auto) 0.7 % 10/17/23 04:55 Neut # (Auto) 39.73 10^3/uL (1.8-7.7) H 10/17/23 04:55 Lymph # (Auto) 1.6 10^3/uL (0.8-4.8) 10/17/23 04:55 [place] # (Auto) 2.8 10^3/uL (0.2-0.9) H 10/17/23 04:55 Eos # (Auto) 10.0 10^3/uL (0.0-0.8) H 10/17/23 04:55 Baso # (Auto) 0.4 10^3/uL (0.0-0.1) H 10/17/23 04:55 Nucleated RBC % (auto) 0 % 10/17/23 04:55 Nucleated RBCs # 0.0 /100WBC 10/17/23 04:55 Peripher Smr Path Cons Sent for review 10/07/23 04:11 PT 13.50 SECONDS (12.1-14.9) 10/04/23 11:45 INR 1.00 (0.8-1.2) 10/04/23 11:45 D-Dimer 5.89 ug/mLFEU (0-0.59) H 10/04/23 11:45 Sodium 129 mmol/L (136-145) L 10/17/23 04:55 Potassium 5.3 mmol/L (3.5-5.1) H 10/17/23 04:55 Chloride 97 mmol/L (98-107) L 10/17/23 04:55 Carbon Dioxide 19 mmol/L (22-29) L 10/17/23 04:55 Anion Gap 18.3 (5-19) 10/17/23 04:55 BUN 104 mg/dL (8-23) H* 10/17/23 04:55 Creatinine 3.5 mg/dL (0.7-1.2) H 10/17/23 04:55 GFR Calculation Not Reportable 10/17/23 04:55 Glucose 102 mg/dL (65-115) 10/17/23 04:55 POC Glucose 149 mg/dL (70-110) H 10/06/23 15:57 Estimat Average Glucose 105 10/05/23 04:50 Hemoglobin A1c 5.3 % (4.0-6.0) 10/05/23 04:50 Calculated Osmolality 301 mOsm/kg (285-295) H 10/17/23 04:55 Lactic Acid 1.8 mmol/L (0.5-2.2) 10/04/23 12:53 Uric Acid 9.5 mg/dL (3.4-7.0) H 10/16/23 05:02 Calcium 12.0 mg/dL (8.5-10.5) H 10/17/23 04:55 Phosphorus 6.9 mg/dL (2.5-4.5) H 10/16/23 05:02 Magnesium 1.9 mg/dL (1.7-2.3) 10/05/23 04:50 Iron 21 ug/dL (59-158) L 10/04/23 11:45 TIBC 348 mcg/dl 10/04/23 11:45 % Saturation 6.0 % (20-50) L 10/04/23 11:45 Unsat Iron Binding 327 ug/dL (112-347) 10/04/23 11:45 Total Bilirubin 0.2 mg/dL (0.15-1.2) 10/17/23 04:55 AST 13 U/L (0-40) 10/17/23 04:55 ALT 13 U/L (0-41) 10/17/23 04:55 Alkaline Phosphatase 181 U/L (40-130) H 10/17/23 04:55 Lactate Dehydrogenase 167 U/L (135-225) 10/04/23 11:45 Troponin T Baseline 39 ng/L (0-15) H 10/04/23 11:45 Troponin T 120 Minute 36.53 ng/L (0-15) H 10/04/23 13:53 Delta Troponin T -2.47 ABS# (0-10) L 10/04/23 13:53 Troponin T Hi Sens 6Hr 33.82 ng/L (0-15) H 10/04/23 18:27 Troponin T Hi Sens 6Hr Delta -5.18 ng/L (0-12) L 10/04/23 18:27 C-Reactive Protein 98.7 mg/L (0.0-4.9) H 10/04/23 11:45 Total Protein 5.3 g/dL (6.6-8.7) L 10/17/23 04:55 Albumin 2.6 g/dL (3.5-5.2) L 10/17/23 04:55 Globulin 2.7 g/dL (1.3-4.6) 10/17/23 04:55 Triglycerides 54 mg/dL (0-150) 10/05/23 04:50 Cholesterol 118 mg/dL (0-200) 10/05/23 04:50 LDL Cholesterol, Calc 56 mg/dL (50-129) 10/05/23 04:50 HDL Cholesterol 51 mg/dL (60-100) L 10/05/23 04:50 LDL/HDL Ratio 1.10 RATIO (0.00-3.22) 10/05/23 04:50 Cholesterol/HDL Ratio 2.31 mg/dL (1.0-5.00) 10/05/23 04:50 Vitamin B12 1178 pg/mL (232-1245) 10/04/23 11:45 Folate 18.5 ng/mL (4.5-32.2) 10/05/23 04:50 Procalcitonin 0.31 ng/mL (0-0.5) 10/04/23 11:45 TSH 1.24 uIU/mL (0.27-4.20) 10/04/23 13:53 PTH Intact 8.6 pg/mL (15-65) L 10/14/23 09:18 Calcium (PTH Intact) 13.2 mg/dL (8.5-10.5) H 10/14/23 09:18 Urine Color Yellow (Yellow) 10/14/23 17:43 Urine Appearance Clear (CLEAR) 10/14/23 17:43 Urine pH 5 (5-7) 10/14/23 17:43 Ur Specific [place] 1.025 (1.005-1.030) 10/14/23 17:43 Urine Protein Trace (Negative) 10/14/23 17:43 Urine Glucose (UA) Norm (Normal) 10/14/23 17:43 Urine Ketones Negative (Negative) 10/14/23 17:43 Urine Blood Neg (Negative) 10/14/23 17:43 Urine Nitrate Negative (Negative) 10/14/23 17:43 Urine Bilirubin Neg (Negative) 10/14/23 17:43 Urine Urobilinogen Norm mg/dL (Negative) 10/14/23 17:43 Ur Leukocyte Esterase Negative (Negative) 10/14/23 17:43 Urine RBC 0-4 /hpf (0-2) H 10/14/23 17:43 Urine WBC 0-4 /hpf (0-5) H 10/14/23 17:43 Ur Eosinophil Smear 0 (0-0) 10/14/23 17:43 Ur Squamous Epith Cells 0-4 /hpf (0-5) H 10/14/23 17:43 Amorphous Sediment Trace /hpf 10/14/23 17:43 Urine Bacteria Trace /hpf (NONE) 10/14/23 17:43 Hyaline Casts 25-40 /lpf H 10/14/23 17:43 Fine Granular Casts 0-4 /lpf H 10/14/23 17:43 Urine Mucus 1+ /hpf 10/14/23 17:43 Urine Eosinophils No eosinophils seen 10/14/23 17:43 Ur Random Sodium < 10 mmol/L 10/14/23 17:43 Ur Random Potassium 66 mmol/L 10/14/23 17:43 Ur Random Chloride < 10 mmol/L 10/14/23 17:43 Urine Creatinine 165 mg/dL (39-259) 10/14/23 17:43 Fluid Color Pale yellow 10/04/23 14:31 Fluid Appearance Clear 10/04/23 14:31 Fluid Specific Grav 1.010 10/04/23 14:31 Fluid pH 8.0 10/04/23 14:31 Fluid WBC 918 /uL 10/04/23 14:31 Fluid RBC 1.000 10^3/uL 10/04/23 14:31 Fld Polynuclear WBCs # 0.220 10/04/23 14:31 Fld Polynuclear WBCs % 23.900 % 10/04/23 14:31 Fl Mononucl WBCs #(Auto) 0.698 10/04/23 14:31 Fl Mononuclear % Auto 76.100 % 10/04/23 14:31 Fld Crystal Laterality Left pleural eff. 10/04/23 14:31 Fluid Glucose 133.0 mg/dL 10/04/23 14:31 Fluid Albumin 2.8 g/dL 10/04/23 14:31 Fluid LDH 132 U/L 10/04/23 14:31 Fluid Amylase 24 U/L 10/04/23 14:31 Fluid Alk Phosphatase 77 IU/L 10/04/23 14:31 Fluid Cholesterol 92 mg/dL (0-200) 10/04/23 14:31 Fluid Triglycerides 40 mg/dL (0-150) 10/04/23 14:31 Fluid Uric Acid 11 mg/dL 10/04/23 14:31 Pleural Total Protein 4.5 g/dL 10/04/23 14:31 Pleur Adenosine Deamin 5.7 U/L (<9.2) 10/04/23 Unknown Vancomycin Trough 22.1 ug/mL (10-15) H 10/12/23 05:17 Urine Opiates Screen Negative ng/mL (Negative) 10/04/23 12:24 Ur Barbiturates Screen Negative ng/mL (Negative) 10/04/23 12:24 Ur Phencyclidine Scrn Negative ng/mL (Negative) 10/04/23 12:24 Ur Amphetamines Screen Positive ng/mL (Negative) H 10/04/23 12:24 U Benzodiazepines Scrn Negative ng/mL (Negative) 10/04/23 12:24 Urine Cocaine Screen Negative ng/mL (Negative) 10/04/23 12:24 U Marijuana (THC) Screen Positive ng/mL (Negative) H 10/04/23 12:24 MRSA (PCR) Not detected (NOT DETECTED) 10/07/23 11:00 TB (QFT) Gold In Tube Indeterminate (NEGATIVE) A 10/04/23 16:45 TB Test (QFT) Nil 0.02 IU/mL 10/04/23 16:45 TB Test (QFT) Mitogen 0.08 IU/mL 10/04/23 16:45 TB Test Mitogen - Nil <0.00 IU/mL 10/04/23 16:45 TB Test TB -Nil <0.00 IU/mL 10/04/23 16:45 Vitals Last Vital Signs Temp 97.7 F 10/17/23 11:21 Pulse 87 10/17/23 11:21 Resp 16 10/17/23 11:21 BP 109/58 10/17/23 11:21 Pulse Ox 90 10/17/23 11:21 O2 Del Method Nasal Cannula 10/17/23 11:21 O2 Flow Rate 3 10/17/23 11:21 FiO2 35 10/13/23 09:31 Discharge Plan Discharge Patient Disposition: Hospice - Medical Facility Condition: Stable Prescriptions: Continued ondansetron 4 mg tablet,disintegrating 4 mg translingual Q4H PRN (Reason: nausea) Qty: 5 0RF Rx Instructions: Dissolve 1 tablet under tongue every 4 hours PRN for nausea lorazepam 2 mg/mL concentrate 2 mg sublingual Q4H PRN (Reason: Anxiety/Seizure) Qty: 30 0RF Rx Instructions: 0.25ml-1ml q4H PRN Anxiety/Seizure Start 0.25ml may increase to 0.5ml-1ml q4H morphine concentrate 100 mg/5 mL (20 mg/mL) solution 20 mg sublingual DIRECTED PRN (Reason: Pain/SOB) 14 Days Qty: 30 0RF Rx Instructions: 0.25ml-1ml q1H PRN may increase to 0.5ml-1ml Q1H PRN bisacodyl 10 mg suppository 10 mg IN DAILY PRN (Reason: constipation) Qty: 5 0RF Rx Instructions: 1 suppository per rectum every day PRN for constipation. atropine 1 % drops 4 drp sublingual Q4H PRN (Reason: secretions) Qty: 5 0RF Rx Instructions: 4 drops SL q 4 hours PRN for terminal congestion/excessive secretions. quetiapine 300 mg tablet 300 mg PO BEDTIME melatonin 10 mg Tablet 50 - 60 mg PO BEDTIME Discontinued losartan 25 mg tablet 25 mg PO DAILY Hold Instructions: Resume on 05/23/21. Discharge Orders: Discharge Order (Routine); Ordered 10/17/23 Ordered By: James Tello Referrals: [facility] ([facility] [Outside] [facility] [Outside] Discharge Diet: Regular Discharge Activity: Resume usual activity and Increase activity as tolerated Patient Instructions: Opioid Safety Activity Restrictions/Additional Instructions: Hospice care Discharge Attestations Time Spent in Discharge Care*: greater than 30 min Specific Discharge Activities: educating patient, discussing with pcp/other providers, discussing with casework supervisor/social workers/dc planners, documenting/other paperwork and evaluating patient/reviewing data Status at Discharge: Cognitive status at discharge: cognitively intact, Behavioral status at discharge: cooperative and can be uncooperative, Functional status at discharge: other assisted ambulation, Overall status at discharge: patient has a new baseline Quality Metrics Clinical Quality Measures [ No reported AMI, CVA or VTE this stay] Coding Level of Care Code 23592 Total time (in minutes) for Discharge: 60 Diagnoses Acute on chronic respiratory failure with hypoxia J96.21 Chronicity: acute on chronic Pleural effusion on left J90 Bacteremia due to Streptococcus R78.81; B95.5 Pneumonia of left upper lobe due to group B Streptococcus J15.3 Laterality: left Lung location: upper lobe of lung Pneumonia type: due to group B Streptococcus Acute on chronic renal insufficiency N28.9; N18.9 Polysubstance abuse F19.10 Thrombocytosis D75.839 Hyperkalemia E87.5 Elevated uric acid in blood E79.0 Large cell carcinoma of lung, stage 4 C34.90 Spontaneous tumor lysis syndrome E88.3
--- NOTE | 2023-10-17 14:13 | PC.NURSE ---
This nurse called and gave report to Larisa at [facility]. All questions addressed and answered. Pt is leaving with [facility]. This nurse verified that with Dr. Tello.
[2023-10-18 17:14] LABS: PTH Related Peptide (Protein) 44 pg/mL (11-20)
== END 2023-10-17 15:20 | disposition hospice, home (50) | DRG 180 ==
LOC: ER 15:56 → MEDSURG 17:11
PROVIDERS: Internal Medicine; Internal Medicine Cardiovascular Disease; Internal Medicine Pulmonary Disease; Radiology Neuroradiology; Admitting Provider Student in an Organized Health Care Education/Training Program; Emergency Provider Emergency Medicine; PCP Internal Medicine; Visit Provider Student in an Organized Health Care Education/Training Program
PROC: (CPT 93312; principal; 2023-10-11 12:30)
PROC: 0F903ZX Drainage of Liver, Percutaneous Approach, Diagnostic (ICD-10-PCS; 2023-10-11 12:30)
PROC: 0W9B30Z Drainage of Left Pleural Cavity with Drainage Device, Percutaneous Approach (ICD-10-PCS; CPT 32550; principal; 2023-10-14 11:30)
DX: C34.90 Malignant neoplasm of unspecified part of unspecified bronchus or lung (principal); J15.3 Pneumonia due to streptococcus, group B; J96.21 Acute and chronic respiratory failure with hypoxia; C78.7 Secondary malignant neoplasm of liver and intrahepatic bile duct; J91.0 Malignant pleural effusion; N17.9 Acute kidney failure, unspecified; N18.9 Chronic kidney disease, unspecified; I12.9 Hypertensive chronic kidney disease with stage 1 through stage 4 chronic kidney disease, or unspecified chronic kidney disease; F15.10 Other stimulant abuse, uncomplicated; D75.839 Thrombocytosis, unspecified; E87.5 Hyperkalemia; M10.9 Gout, unspecified; I27.20 Pulmonary hypertension, unspecified; N40.0 Benign prostatic hyperplasia without lower urinary tract symptoms; G47.00 Insomnia, unspecified; F17.210 Nicotine dependence, cigarettes, uncomplicated; E86.0 Dehydration; D63.1 Anemia in chronic kidney disease; J43.2 Centrilobular emphysema; E83.52 Hypercalcemia; Z66 Do not resuscitate
CPT/HCPCS: 32555; 36415; 36416; 47000; 51702; 71045; 71250; 74018; 74177; 76604; 76705; 76942; 80048; 80053; 80061; 80202; 80306; 80503; 81001; 81003; 82042; 82150; 82310; 82436; 82465; 82542; 82570; 82607; 82746; 82945; 82962; 83036; 83540; 83550; 83605; 83615; 83735; 83970; 83986; 84075; 84100; 84133; 84145; 84157; 84300; 84311; 84315; 84443; 84478; 84484; 84550; 84560; 85025; 85378; 85610; 85999; 86140; 86403; 86480; 87015; 87040; 87070; 87075; 87102; 87116; 87205; 87206; 87449; 87641; 87801; 88112; 88305; 88307; 88312; 88313; 88342; 89050; 93005; 93306; 93312; 93320; 93325; 94640; 94660; 96365; 96367; 96372; 96374; 96375; 97110; 97161; 97530; 99285; C1729; J0696; J1170; J1644; J1815; J2250; J2270; J2405; J2543; J2704; J2930; J2997; J3010; J3370; J7030; J7050; J7608; J7613; J7626; P9046; Q9967